=== PATIENT | male | born 1985 | race Caucasian/White ===

== ENCOUNTER 2018-12-05 23:11 | Inpatient (IN) ==
[2018-12-05] MEDS ORDERED: LORazepam 2 MG/ML VIAL (IM USE) ONE (23:21)
[2018-12-05] MEDS ORDERED: LORazepam 2 MG/4 ML VIAL IV STA (23:31)
[2018-12-05] MEDS: SODIUM CHLORIDE 0.9% 1000ML 1,000 ML IV SCH (23:37)
[2018-12-06 00:09] LABS: Alanine Aminotransferase 232 U/L (12-78); Albumin Globulin Ratio 0.9 (0.9-2); Albumin Level 3.4 gm/dl (3.4-5.0); Alkaline Phosphatase 310 U/L (45-117); Aspartate Aminotransferase 737 U/L (15-37); Bilirubin,Total 5.2 mg/dl (0.2-1); Blood Urea Nitrogen 19 mg/dl (7-18); Calcium 5.4 mg/dl (8.5-10.1); Carbon Dioxide 13 mmol/L (21-32); Chloride 72 mmol/L (98-107); Creatinine Clr Calc Pharmacy 49.9 ml/min; Est GFR (African American) 34.8; Globulin 3.8 gm/dl (2.5-4.0); Glucose 99 mg/dl (70-99); Lipase 790 U/L (73-393); Potassium 2.5 mmol/L (3.5-5.1); Sodium 120 mmol/L (136-145); Total Protein 7.2 gm/dl (6.4-8.2)
[2018-12-06 00:28] LABS: Magnesium 1.2 mg/dl (1.8-2.4)
[2018-12-06] MEDS: POTASSIUM CHLORIDE / WTR 10 MEQ/100 ML PLCT IV SCH ×19 (00:36→21:34)
[2018-12-06 00:37] LABS: Hematocrit (blood only) 42.3 % (42-52); Mean Corpuscular Hemoglobin 41.6 pg (25-34); Mean Corpuscular Hgb Conc 37.8 g/dL (32-36); Mean Corpuscular Volume 109.9 fL (80-100); Platelet Count 253 K/uL (130-400); Red Blood Count 3.85 M/uL (4.7-6.1)
[2018-12-06 00:38] LABS: Basophils # (auto) 0.02 K/uL (0-0.2); Basophils % (auto) 0.1 %; Eosinophils % (auto) 0.4 %; Immature Granulocytes # (auto) 0.14 K/uL (0.00-0.02); Immature Granulocytes % (auto) 0.6 %; Lymphocytes # (auto) 4.61 K/uL (1.2-3.4); Lymphocytes % (auto) 19.9 %; Macrocytosis Present; Monocytes # (auto) 2.95 K/uL (0.11-0.59); Monocytes % (auto) 12.7 %; Neutrophils # (auto) 15.38 K/uL (1.4-6.5); Neutrophils % (auto) 66.3 %; Pappenheimer Bodies 1+
[2018-12-06] MEDS ORDERED: MULTI-VITAMIN INFUSION 10 ML, THIAMINE HCL 100 MG, FOLIC ACID 1 MG in SODIUM CHLORIDE 0... IV ONE (00:38)
[2018-12-06 00:39] LABS: Troponin I < 0.015 ng/ml (0-0.045)
[2018-12-06] MEDS: SODIUM CHLORIDE 0.9% 1000ML 1,000 ML IV SCH ×2 (00:41→17:44)
[2018-12-06 00:56] LABS: INR 2.4 (0.9-1.1); Prothrombin Time 23.2 Seconds (9.0-12.0)
[2018-12-06] MEDS ORDERED: MAGNESIUM SULFATE / D5W 1 GM/100 ML BAG IV ONE ×2 (01:05→02:02)
[2018-12-06] MEDS ORDERED: CALCIUM GLUCONATE 10% 1,000 MG in SODIUM CHLORIDE 0.9% 50 ML IV STA ×5 (02:03→22:05)
[2018-12-06] MEDS ORDERED: AcetylCYSTEINE IV 21 HR REGIMEN (>40KG) IV STA (02:25)
[2018-12-06] MEDS ORDERED: PHYTONADIONE 5 MG in SODIUM CHLORIDE 0.9% 50 ML IV ONE (02:29)
[2018-12-06 02:47] LABS: Allen Test POS (Pos); Base Excess ABG -0.1 mEq/L (-9-1.8); HCO3 ABG 23 mmol/L (19-24); Oxygen Saturation ABG 91.7 % (90-95); PCO2 ABG 30 mmHg (35-46); PO2 ABG 68 mm/Hg (80-95); pH ABG 7.49 (7.35-7.45)
[2018-12-06 02:50] LABS: Albumin Level 2.7 gm/dl (3.4-5.0); Bilirubin Direct 2.9 mg/dl (0-0.2); Bilirubin,Total 4.2 mg/dl (0.2-1); Total Protein 5.5 gm/dl (6.4-8.2)
[2018-12-06] MEDS ORDERED: ICU PROTOCOL FOR HYPERGLYCEMIA PRN (03:29)
[2018-12-06 03:31] LABS: Lyme Ab IgG w/WB Rflx Negative (Negative); Lyme Ab IgM w/WB Rflx Negative (Negative)
--- NOTE | 2018-12-06 03:31 | Critical Care Consultation ---
Date of Consultation December 06, 2018 Assessment & Plan (1) Admitted to intensive care unit: Reason Critically Ill: 33-year-old male with acute hepatitis - presumed to be alcohol related -with transaminitis, elevated INR, high anion gap metabolic acidosis in the setting of lactic acidosis. Alcohol withdrawal symptoms. NEURO - * CAM ICU: NEGATIVE * Alcohol abuse with alcohol withdrawal symptoms - * While patient did present with severe tachycardia and normotensive status, patient also has severe metabolic derangements which certainly could contribute to the tachycardia as well. Regardless, patient did respond well to IV Ativan. * Last drink was on Sunday night. Persistent nausea and vomiting since. * No previous alcohol withdrawal symptoms. Particularly, no alcohol withdrawal seizures. * CIWA protocol in place w/ IV Ativan PRN per protocol. * Presumed alcoholic hepatitis. See GI. CARDIAC/VASCULAR - * Tachycardia: * Compensatory and multifactorial in the setting of EtOH withdrawal, severe metabolic derangements. * Improved w/ IVF and Ativan. * No elevation of troponin at this point. * No concerning EKG findings. * Consider Echo pending persistence of s/s w/ potential for alcohol induced dilated cardiomyopathy. * EKG: Sinus tach@127bpm. No significant ST/T-wave changes. QTc 511ms. * Avoid QTc prolonging agents. * Supplement Lytes. * Monitor on telemetry. RESPIRATORY - * Tachypnea: * On presentation to the ED. * Likely compensatory in the setting of high anion gap metabolic acidosis. * ABG suggests respiratory alkalosis which makes sense in the setting of compensatory reaction. * Saturating well on room air. * Patient verbally consents to intubation if necessary. GI/NUTRITION - * Acute Hepatitis: * Presumed EtOH associated. * Will add imaging studies of Abd/Liver/Portal vein system to completely evaluate all possible causes (i.e. portal vein thrombus, Budd-Chiari Syndrome, Hepatic steatosis, cirrhosis, etc.). * Transaminitis w/ elevated INR of 2.4. * Spoke w/ [facility] --> suggests IV Vitamin K dose as well as initiating NAC. Suggests FFP transfusion if INR were to worsen. * Initial MELD calculated at 35. In conversation w/ GI, this is not helpful w/o the concurrent Dx of cirrhosis. * Will add additional labs of alternative sources (i.e. Acetaminophen, Hepatitis, drug tox, toxic alcohols). * Appreciate GI consultation. * Elevated Lipase: * Will f/u w/ imaging for completeness. RENAL/LYTES - * High anion gap metabolic acidosis: * Presumed to be related to elevated lactate. Anticipate poor clearing w/ acute hepatitis. * Patient adamant that he has not ingested Aspirin, illicit drugs, acetaminophen, or toxic alcohols. * Will still check labs. Trend serum/Urine osms. Hold on fomepizole for now. * Appreciate nephrology consultation. * Multiple electrolyte derangements: * Presumed 2/2 metabolic acidemia. * Hypokalemia --> aggressive replacement. * Hyponatremia --> received 2L isotonic volume replacement in the ED. Will hold off further IVF at this time per nephro recs to prevent ODS. * Hypocalcemia --> aggressive replacement. * Acute renal failure: * Likely 2/2 hypovolemia in the setting of profound N/V. * Will monitor urine output closely. * If anuria persists --> ??hepatorenal syndrome. Consider octreotide/midodrine. Consider vasopressin if persistently anuric and development of hypotension to promote splanchnic vasoconstriction. - * Strict I&Os. ENDO - * No h/o DM or Thyroid Dz * BSGs per unit protocol. ISS --> gtt per unit policy. HEME - * Stable H&H. * Elevated INR: * In the setting of acute hepatitis. * Trend INR --> FFP if worsening. * Received 1 dose of Vitamin K per GI recs. ID - * Patient w/o findings of concern for infectious sources at this point. * Will trend fever curve. * f/u on Abd/Pelvis imaging studies for possible source. * Consider covering w/ Rocephin, however patient w/o s/s to suggest variceal injury or significant ascites. LINES/IV ACCESS - * PIVs x3 * Patient verbally consents to CVL "if necessary." DVT PROPHYLAXIS - * Hold on chemoprophylaxis s/s auto-anticoagulation at this point. * SCDs I have personally spent 65 minutes of critical care time in the direct management of this patient. This is a life/limb threatening event. This includes time spent evaluating patient, direct bedside care, chart review, placing orders, interpretation of diagnostic studies, discussion with consultants, patient, and family members, as well as other required patient management activities. This time is exclusive of all separately billable procedures, and teaching time and separate from and in addition to any other critical care service time. Thank you for allowing us to participate in the care of this patient. Please refer to my attending physician's documentation for any further recommendations. (2) Acute hepatitis: (3) Hyponatremia: (4) Hypokalemia: (5) Alcohol withdrawal: (6) Renal failure: (7) Alcohol abuse: (8) Hypomagnesemia: (9) Intractable vomiting: (10) Transaminitis: (11) Elevated INR: (12) Elevated lipase: (13) Lactic acidosis: (14) High anion gap metabolic acidosis: History of Present Illness Attending Physician: Jose Powers MD History of Present Illness Patient is a 33-year-old male with no significant past medical history who presented to the emergency department last evening for evaluation of persistent nausea and vomiting as well as rapid breathing. He was noted to be tachycardic in the 200s and tachypneic on presentation to the emergency department. He received IV fluid resuscitation as well as 2 mg IV Ativan. Patient was noted to have a moderate leukocytosis. Severe electrolyte derangements with hyponatremia, hypokalemia, and high anion gap metabolic acidosis in the setting of acute kidney injury was noted. Patient was found to have transaminitis with concerns for acute hepatitis. INR is elevated at 2.4. Troponin was negative. On evaluation in the emergency department, the patient is awake, alert, and oriented. He states that he has had vomiting since Sunday. He admits that he drinks 6 beers and 6 shots of Rumple Minze per night. Apparently, he has had this from his significant other for extended period of time. He states that he has been drinking this heavily for approximately 8 years. He has never tried to quit in the past. He has gone at least 24 hours without drinking multiple occasions, but admits that he has not gone much longer without a drink. He denies any breakthrough withdrawal symptoms including shakiness, confusion, or breakthrough seizures. He denies any other substance use, particularly intravenous drugs. He denies any use of Tylenol in the last few months. He did admit to taking ibuprofen last week for low back pain which is not uncommon for him. He is adamant that he did not utilize other forms of alcohol including methanol or ethylene glycol. He denies suicidal or homidicatl ideation. He does report a remote history of mononucleosis when he was approximately 26 years of age. In addition to the vomiting, the patient does report diarrhea. Again, he reports that this is not uncommon for himself. He denies any recent antibiotic use. No recent long distance travel. No consumption of raw/undercooked foods. Drinking from poor water sources. Patient is gainfully employed. He denies any other illicit substance use. He reports no known family history of liver disease. Allergies Allergy/AdvReac Type Severity Reaction Status Date / Time No Known Allergies Allergy Unverified 12/05/18 23:44 Home Medications Home Medications Medication Instructions Recorded Confirmed Type No Known Home Medications 12/05/18 12/05/18 History Patient History Medical History Alcohol abuse Surgical History No pertinent past surgical history Social History Preferred Language: Ivorian Communication Ability: Effective Telephone Order Dispatcher Required: No Beliefs That Will Affect Care: None Current Living Situation: Significant Other current occupational status: employed Other Information That Helps Us Care for You: No Feels Safe at Home: Yes Safety Concerns: Feels Safe At This Time Smoking Status: Never smoker Hx Alcohol Use: Yes Alcohol type: beer and hard liquor Hx Substance Use: No Review of Systems Review of Systems: A complete 10 point review of systems was reviewed with the patient with pertinent positives and negatives as per history of present illness. All else were negative. Physical Exam Physical Exam: VITAL SIGNS - Vital signs and nursing notes were reviewed. GENERAL - 33-year-old male appearing his stated age who is in no acute distress. Communicates well with provider and answers questions appropriately. SKIN - Without rashes. HEAD - NC/AT. EYES - PERRL with EOMI bilaterally. Scleral icterus noted bilaterally. Palpebral conjunctiva pink and moist with no injection noted. EARS - No deformities of external structures noted on gross examination bilaterally. No pain elicited with palpation of the tragus bilaterally. External auditory canals without discharge or otorrhea. Tympanic membranes pearly chen without retraction or bulging. NOSE - Midline and without cyanosis. No epistaxis or purulent drainage noted. MOUTH/OROPHARYNX - Without perioral cyanosis. Buccal mucosa pink and dry and without leukoplakia. Tongue midline with equal elevation of palate bilaterally. No tonsillar hypertrophy, erythema, or exudates noted. Good dentition noted. NECK - Neck with FROM. Supple to palpation. No lymphadenopathy noted. No nuchal rigidity. LUNGS - Chest wall symmetric without accessory muscle use, intercostals retractions, or central cyanosis. Normal vesicular breath sounds CTA B/L. No wheezes, rales, or rhonchi appreciated. CARDIAC - RRR with S1/S2. No murmur, rubs, or gallops appreciated. ABDOMEN - Abdominal contour protuberant without pulsations or visible masses. BS normoactive all four quadrants. Minimal subjective TTP in the RUQ. No palpable masses, hepatosplenomegaly, or ascites noted. EXTREMITIES - No clubbing or peripheral cyanosis. No pretibial edema present. +3/5 radial and dorsalis pedis pulses palpated throughout. +5/5 strength noted in UE/LE bilaterally. NEUROLOGIC - Cranial nerves II through XII grossly intact. Sensory intact to light touch throughout. PSYCH - A&Ox3 and cooperates fully with examiner. Pt is very pleasant and interacts well with examiner. Patient denies suicidal or homicidal ideation. Results & Data Vital Signs (Past 12 Hours) Vital Signs Temp Pulse Pulse Resp BP BP Pulse Ox 12/06/18 02:50 92 H 20 132/69 99 12/06/18 02:10 104 H 20 120/71 97 12/06/18 01:00 107 H 36 H 138/78 97 12/06/18 00:37 132 H 20 119/70 95 12/05/18 23:38 122 H 24 128/77 96 12/05/18 23:18 36.7 C 125 H 34 H 128/77 97 Coding Level of Care Code None Diagnoses Admitted to intensive care unit Z78.9 Acute hepatitis B17.9 Hyponatremia E87.1 Hypokalemia E87.6 Alcohol withdrawal F10.239 Complication of substance-induced condition: with unspecified complication Renal failure N19 Renal failure chronicity: unspecified chronicity Alcohol abuse F10.10 Hypomagnesemia E83.42 Intractable vomiting R11.10 Transaminitis R74.0 Elevated INR R79.1 Elevated lipase R74.8 Lactic acidosis E87.2 High anion gap metabolic acidosis E87.2 Time Spent (min) 65 Comment I have personally spent minutes of critical care time in the direct management of this patient. This is a life/limb threatening event. This includes time spent evaluating patient, direct bedside care, chart review, placing orders, interpretation of diagnostic studies, discussion with consultants, patient, and family members, as well as other required patient management activities. This time is exclusive of all separately billable procedures, and teaching time and separate from and in addition to any other critical care service time. (1) Alcohol withdrawal Complication of substance-induced condition: with unspecified complication Qualified Code(s): F10.239 - Alcohol dependence with withdrawal, unspecified (2) Renal failure Renal failure chronicity: unspecified chronicity Qualified Code(s): N19 - Unspecified kidney failure
[2018-12-06] MEDS ORDERED: LORazepam 3 MG/6 ML VIAL IV PRN (04:20)
[2018-12-06] MEDS ORDERED: LORazepam 2 MG/4 ML VIAL IV PRN (04:20)
[2018-12-06] MEDS ORDERED: ATIVAN IV ALCOHOL WITHDRAWL IV SCH (04:30)
[2018-12-06 04:32] LABS: INR 2.4 (0.9-1.1); Partial Thromboplastin Ratio 1.9; Prothrombin Time 23.5 Seconds (9.0-12.0)
[2018-12-06 04:43] LABS: Calcium < 5.0 mg/dl (8.5-10.1)
[2018-12-06 04:44] LABS: Alanine Aminotransferase 183 U/L (12-78); Albumin Level 2.5 gm/dl (3.4-5.0); Alkaline Phosphatase 226 U/L (45-117); Aspartate Aminotransferase 551 U/L (15-37); BUN Creatinine Ratio 7.1 (10-20); Bilirubin Direct 2.9 mg/dl (0-0.2); Bilirubin,Total 4.6 mg/dl (0.2-1); Blood Urea Nitrogen 18 mg/dl (7-18); Carbon Dioxide 24 mmol/L (21-32); Chloride 81 mmol/L (98-107); Creatinine Clr Calc Pharmacy 52.7 ml/min; Est GFR (African American) 36.6; Est GFR (Non-African American) 31.6; Glucose 111 mg/dl (70-99); Magnesium 1.6 mg/dl (1.8-2.4); Phosphorus 3.1 mg/dl (2.5-4.9); Potassium 2.1 mmol/L (3.5-5.1); Sodium 123 mmol/L (136-145); Total Protein 5.3 gm/dl (6.4-8.2)
[2018-12-06 04:52] LABS: Creatine Kinase 1513 U/L (39-308)
[2018-12-06 04:55] LABS: Partial Thromboplastin Time 51.4 Seconds (21.0-31.0)
[2018-12-06] MEDS ORDERED: INFLUENZA VIRUS QUAD VACCINE 0.5 ML SYR IM ONE (05:15)
[2018-12-06] MEDS ORDERED: INFLUENZA ADMINISTRATION CHARGE ONE (05:15)
--- NOTE | 2018-12-06 06:02 | History and Physical Report ---
DATE OF ADMISSION: 12/06/2018 CHIEF COMPLAINT: Nausea, vomiting, alcoholism. HISTORY OF PRESENT ILLNESS: This 33-year-old male with no significant past medical history, he says he drinks alcohol, 6 beers a day and 6 shots of whiskey every day for the last 8 years, lives with his girlfriend. He said he decided to quit drinking by himself about 2 days ago and today his girlfriend found him to have nausea, vomiting and shakiness, not feeling good and brought him here, and when he came in, he was tachycardic and his labs showed significant electrolyte abnormalities and hepatitis and HUYEN. We were called for admission. The patient is currently resting comfortably. Hemodynamics are okay now. Denies any headache, denies any dizziness, no blurred visions, no runny nose. He says couple of days ago blacked out and hit the back of his head, some soreness in the back of his head. He is not eating much. No difficulty swallowing, no chest pain, no shortness of breath, no cough, no fever, no chills, no abdominal pain. Denies any blood in the stools or black stools. Normal bladder movements. No hematuria or burning micturitions. No rash. The patient denies taking any [id number] medications. He denies taking any Tylenol, denies taking any aspirin. Denies drinking any antifreeze or any other alcohol stuff and he says he just took 1 tablet of ibuprofen last 1 week. ALLERGIES: No known drug allergies. PAST MEDICAL HISTORY: As mentioned above. PAST SURGICAL HISTORY: Denies any surgical history. FAMILY HISTORY: Significant for diabetes. SOCIAL HISTORY: Denies any smoking, denies drug use. Alcoholism as above. REVIEW OF SYMPTOMS: As per HPI. Rest of review of systems is negative. PHYSICAL EXAMINATION: GENERAL: The patient is obese, not in acute distress. VITAL SIGNS: Temperature 36.7, pulse was 107, blood pressure 120/71, oxygen 99% room air. HEENT: No pallor. No icterus present. Pupils equal, round, reactive to light. NECK: No JVD, no neck masses, no carotid bruit. CARDIOVASCULAR: S1, S2 heard. Tachycardia. No murmurs. RESPIRATORY SYSTEM: Normal AP diameter. No accessory muscle use. No wheezing, no crackles. ABDOMEN: Soft, bowel sounds present, nontender. No distention. CENTRAL NERVOUS SYSTEM: Cranial nerves II-XII grossly intact. Nonfocal. EXTREMITIES: Trace edema, no erythema seen. LABORATORIES DATA: WBC 23, hemoglobin 16, hematocrit 42.3, platelets 253. PT 23.2, INR 2.4. Sodium 120, potassium 2.5, chloride 72, bicarbonate 13, BUN 19, creatinine 2.67, anion gap of 35, glucose 99, osmolality 266. Lactate 7.7, calcium 5.4, magnesium 1.2, total bilirubin 4.2, direct bilirubin 2.9, AST 737, ALT 232, alkaline phosphatase 310. Troponin I less than 0.015. Lipase 790. Alcohol level less than 3. EKG undetermined rhythm with rate of 107, no previous EKG available. ASSESSMENT AND PLAN: This is a 33-year-old male with history of alcoholism, presents with nausea, vomiting and found to have electrolyte abnormalities and hepatitis and acute kidney injury. 1. Alcoholism, drinks 6 packs of beer every day and 6 shots of whiskey every day for the last 8 years, quit 2 days ago. Admitted to ICU. Alcohol withdrawal protocol as per ICU. 2. Hepatitis, most likely alcoholic hepatitis with total bilirubin of 4.2 and transaminitis. We will trend LFT'S. We will follow the CAT scan of the abdomen and pelvis, most likely secondary to alcoholism, but he is also having ANION GAP metabolic acidosis. His INR is 2.4. He was going to get IV vitamin K. We will follow ABG levels. GI was notified by critical care. Closely monitor in the ICU with repeat labs. 3. Anion gap metabolic acidosis, bicarbonate of 13, anion gap of 35. The patient denies any drinks or meds. . Marylu trend osmolar gap. Follow the ethylene glycol and methanol levels. We will closely follow the repeat labs. Lactate came back at 7.7, possibly due to alcoholism. We will follow the repeat labs.To consider antibiotics. Monitor hemodynamics.Follow ABG. 4. Hyponatremia. Discussed with nephro to get urine osmolality, serum osmolality, urine sodium levels. No Iv fluids for now. We will follow the BMP q. 4 hours. Currently, the patient's mental status is fine. 5. Hypokalemia with potassium of 2.5, replace. Follow the repeat labs. 6. Hypomagnesemia, to replace and follow the labs. 7. Hypokalemia. We will give calcium gluconate. We will follow repeat labs. 8. Leukocytosis. We will consider antibiotics with elevated lactic acids.Follow cultures 10. Deep venous thrombosis prophylaxis, sequential compression devices for now. 11. Disposition: Closely monitor in the ICU. Level 1 full code. MTDD
[2018-12-06 06:38] LABS: Basophils # (auto) 0.02 K/uL (0-0.2); Basophils % (auto) 0.1 %; Eosinophils # (auto) 0.01 K/uL (0-0.5); Eosinophils % (auto) 0.1 %; Hematocrit (blood only) 31.3 % (42-52); Hemoglobin 12.3 g/dL (14.0-18.0); Immature Granulocytes # (auto) 0.01 K/uL (0.00-0.02); Immature Granulocytes % (auto) 0.1 %; Lymphocytes # (auto) 1.16 K/uL (1.2-3.4); Lymphocytes % (auto) 7.4 %; Macrocytosis Present; Mean Corpuscular Hemoglobin 41.8 pg (25-34); Mean Corpuscular Hgb Conc 39.3 g/dL (32-36); Mean Corpuscular Volume 106.5 fL (80-100); Monocytes # (auto) 1.56 K/uL (0.11-0.59); Neutrophils # (auto) 12.83 K/uL (1.4-6.5); Neutrophils % (auto) 82.3 %; Pappenheimer Bodies 1+; Platelet Count 149 K/uL (130-400); Red Blood Count 2.94 M/uL (4.7-6.1); White Blood Count 15.59 K/uL (4.8-10.8)
--- NOTE | 2018-12-06 06:39 | CT Scan Report ---
CT abd pelvis wo con CT DOSE: 1063.70 mGy.cm HISTORY: Pain arf, acute hepatitis TECHNIQUE: Multiaxial CT images of the abdomen and pelvis were performed without contrast. A dose lo wering technique was utilized adhering to the principles of ALARA. COMPARISON STUDY: None. FINDINGS: Lung bases are clear. Diffuse fatty infiltration of liver. Trace perihepatic ascites. Moder ate hepatomegaly. Mild nonspecific small bowel enteritis. Trace ascites within the paracolic gutters. Bowel pattern is nonobstructive. Normal appendix. No significant abdominal pelvic or inguinal adenop athy. IMPRESSION: 1. Diffuse hepatomegaly with extensive fatty replacement. 2. Trace amount of perihepatic abdominal and pelvic ascites. 3. Nonspecific small bowel enteritis. The above report was generated using voice recognition software. It may contain grammatical, syntax or spelling errors. Electronically signed by: Anuel Anguiano M.D. 12/06/2018 6:37 AM
--- NOTE | 2018-12-06 06:46 | Ultrasound Report ---
Study: Doppler evaluation of the hepatic vasculature HISTORY: Hepatitis FINDINGS: Limited exam due to body habitus as well as extensive fatty replacement of the liver. [place] l vascular flow is identified within the hepatic as well as portal venous structures. IMPRESSION: 1. Limited study due to body habitus consideration as well as fatty replacement of the liver. 2. Normal flow within the hepatic as well as portal venous structures within these limitations. Electronically signed by: Anuel Anguiano M.D. 12/06/2018 6:45 AM
--- NOTE | 2018-12-06 07:11 | Ultrasound Report ---
US abdomen limited HISTORY: 33 years-old Male acute hepatitis/eval portal vein as well acute hepatitis COMPARISON: CT abdomen and pelvis 12/06/2018 TECHNIQUE: Multiple real-time sonographic images of the abdominal right upper quadrant were obtained assessing grayscale appearance and color flow FINDINGS: Limited exam secondary to patient body habitus. Hepatomegaly with hepatic steatosis. Trace perihepati c ascites. Minimal marginal nodularity of the liver. Mild gallbladder distention with mildly thickene d gallbladder wall, 5 mm. Trace layering gallbladder sludge without shadowing cholelithiasis. Common bile duct measures 5 mm. No intrahepatic biliary ductal dilation. Imaged right kidney is unremarkable without hydronephrosis. The previously described calculus of the inferior pole right kidney is not i dentified by ultrasound. IMPRESSION: 1. Limited exam secondary to patient body habitus. 2. Hepatomegaly with severe hepatic steatosis. Mild marginal nodularity of the liver suggests early c irrhotic changes. 3. Trace perihepatic ascites. 4. Gallbladder distention with mild gallbladder wall thickening and trace sludge without cholelithias is identified. The bladder wall thickening may be secondary to aforementioned hepatic disease however should be correlated clinically to exclude acalculus cholecystitis. The above report was generated using voice recognition software. It may contain grammatical, syntax o r spelling errors. Electronically signed by: Ken Kenny M.D. 12/06/2018 7:09 AM
[2018-12-06 07:50] LABS: Hepatitis B Surface Antigen Neg (Neg)
[2018-12-06 08:17] LABS: Hepatitis C IgG 13Yrs+Old_Rflx Neg (Neg)
--- NOTE | 2018-12-06 08:19 | Critical Care Progress Note ---
Date of Service December 06, 2018 Assessment & Plan (1) Admitted to intensive care unit: Reason Critically Ill: 33-year-old male with acute hepatitis - presumed to be alcohol related -with transaminitis, elevated INR, high anion gap metabolic acidosis in the setting of lactic acidosis. Alcohol withdrawal symptoms. NEURO - CAM ICU: NEGATIVE Alcohol abuse with alcohol withdrawal symptoms - Last drink was on Sunday night. Persistent nausea and vomiting- resolved No previous alcohol withdrawal symptoms. Particularly, no alcohol withdrawal seizures. CIWA protocol in place w/ IV Ativan PRN per protocol. PO Thiamine, Folate CARDIAC/VASCULAR - Tachycardia: Compensatory and multifactorial in the setting of EtOH withdrawal, severe metabolic derangements. Improved w/ IVF and Ativan. No elevation of troponin at this point. No concerning EKG findings. Consider Echo pending persistence of s/s w/ potential for alcohol induced dilated cardiomyopathy. RESPIRATORY - Tachypnea: resolved, Saturating well on room air ABG suggests primary respiratory alkalosis GI/NUTRITION - Acute Hepatitis: Presumed EtOH associated. Liver US-Hepatomegaly with severe hepatic steatosis. Mild marginal nodularity of the liver suggests early cirrhotic changes. Trace perihepatic ascites. Gallbladder distention with mild gallbladder wall thickening and trace sludge without cholelithiasis identified Transaminitis w/ elevated INR of 2.4. - s/p Vit K. Stable now Continue NAC per protocol DF>32--> Prednisolone started Await hepatitis serologies Initial MELD calculated at 35. In conversation w/ GI, this is not helpful w/o the concurrent Dx of cirrhosis. Discussed formal rehabilitation programs, AA and other options Will need OP hepatology follow up Appreciate GI consultation Advanced to normal diet Lactulose/Rifaxamin for elevated Ammonia- will cont trend. Does not appear encephalopathic RENAL/LYTES: High anion gap metabolic acidosis: Presumed to be related to elevated lactate. Anticipate poor clearing w/ acute hepatitis. Patient adamant that he has not ingested Aspirin, illicit drugs, acetaminophen, or toxic alcohols. Coexisting high anion gap metabolic acidosis Delta delta- suggests presence of concurrent metabolic alkalosis Multiple electrolyte derangements: repleting lytes as needed Appreciate nephrology consultation. Acute renal failure: Likely 2/2 hypovolemia in the setting of profound N/V. Will monitor urine output closely. Aggressive IV hydration w/ Normosol - Strict I&Os. ENDO - No h/o DM or Thyroid Dz BSGs per unit protocol. ISS --> gtt per unit policy. HEME - Stable H&H. Elevated INR: In the setting of acute hepatitis. Received 1 dose of Vitamin K per GI recs. Stable now ID - Patient w/o findings of concern for infectious sources at this point. Will trend fever curve. LINES/IV ACCESS - PIVs x3 DVT PROPHYLAXIS -Hold on chemoprophylaxis s/s auto-anticoagulation at this point. SCDs FULL CODE DISPO: Stable for downgrade out of ICU Supervising Physician Co-Signing Physician Notes Patient seen and examined. Discussed with GAVIN. Reviewed with family practice resident. Agree with his assessment and plan as noted. 33-year-old male with history of alcohol abuse admitted with multiple electrolyte abnormalities and hepatic failure. He also had mild acute injury, potentially a component of ATN. Recommendations: 1. Hepatic injury: Likely secondary to alcohol. No other illicit substances clearly identified. Continue N-acetylcysteine. Based on his discriminant score, he is a candidate for prednisolone which will be initiated per protocol. Appreciate GI follow-up. Await hepatitis serologies. Start rifaximin and lactulose given his elevated ammonia levels although he does not appear overtly encephalopathic. Complete abstinence from alcohol was recommended. Additional work-up per GI. Unclear if the patient may require liver biopsy at some point 2. History of alcohol abuse: Monitor for withdrawal symptoms. Currently on CIWA protocol. Continue thiamine and folate. Judicious benzodiazepines as needed 3. Acid-base abnormalities: The patient has evidence of a respiratory alkalosis and anion gap metabolic acidosis with elevated lactate. Rechecking lactate with fluid administration although clearance may be impaired by underlying liver disease. 4. Multiple electrolyte abnormalities: Aggressively replete calcium, magnesium, and potassium and recheck. Patient appears to be doing well clinically. We will recheck his electrolytes and if they are trending in the right direction he can likely be transferred to the floor under the care of the hospitalist later this afternoon. We will sign off when he leaves the ICU Subjective 33 yo M found this AM in NAD. No reported overnight events. Pt is awake, alert, oriented without confusion. No other acute concerns or complaints. Review of Systems Review of Systems: All systems reviewed & are unremarkable except as noted in HPI & below Physical Exam Constitutional: WD/WN, vitals as above Eyes: PERRL, conjunctivae normal, anicteric sclerae ENMT: external ear and nose normal, oropharynx normal Respiratory: normal respiratory effort, lungs clear to auscultation Cardiovascular: RRR, no murmur, no edema Gastrointestinal (Abdomen): normal bowel sounds, soft, nontender, no hepatosplenomegaly Skin: no rashes, warm and dry Psychiatric: A+Ox3, euthymic affect Results & Data Vital Signs (Past 12 Hours) Vital Signs Temp Pulse Pulse Resp BP BP Pulse Ox 12/06/18 05:30 106 H 16 111/68 97 12/06/18 05:00 98 H 26 H 116/60 95 12/06/18 04:01 96 H 27 H 127/62 93 12/06/18 03:41 36.8 C 99 H 16 98 12/06/18 03:35 101 H 28 H 131/76 12/06/18 02:50 92 H 20 132/69 99 12/06/18 02:10 104 H 20 120/71 97 12/06/18 01:00 106 H 107 H 30 H 138/78 138/78 94 12/06/18 00:37 132 H 20 119/70 95 12/05/18 23:38 122 H 24 128/77 96 12/05/18 23:18 36.7 C 125 H 34 H 128/77 97 Laboratory Results Laboratory Results - last 24 hr 12/05/18 12/05/18 12/05/18 23:30 23:30 23:30 WBC 23.20 H RBC 3.85 L Hgb 16.0 Hct 42.3 MCV 109.9 H MCH 41.6 H MCHC 37.8 H Plt Count 253 Immature Gran % (Auto) 0.6 Neut % (Auto) 66.3 Lymph % (Auto) 19.9 Winn % (Auto) 12.7 Eos % (Auto) 0.4 Baso % (Auto) 0.1 Immature Gran # (Auto) 0.14 H Neut # (Auto) 15.38 H Lymph # (Auto) 4.61 H Winn # (Auto) 2.95 H Eos # (Auto) 0.10 Baso # (Auto) 0.02 Macrocytosis Present Pappenheimer Bodies 1+ PT INR APTT PTT Ratio ABG pH ABG pCO2 ABG pO2 ABG HCO3 ABG O2 Saturation ABG Base Excess Arpit Test Barometric Pressure Oxygen Given Sodium 120 L Potassium 2.5 L* Chloride 72 L Carbon Dioxide 13 L Anion Gap 35.0 H BUN 19 H Creatinine 2.67 H Est Cr Clr Drug Dosing 49.9 Est GFR ( Amer) 34.8 Est GFR (Non-Af Amer) 30.0 BUN/Creatinine Ratio 7.0 L Glucose 99 Osmolality 266 L Lactate Calcium 5.4 L* Phosphorus Magnesium 1.2 L Total Bilirubin 5.2 H Direct Bilirubin AST 737 H ALT 232 H Alkaline Phosphatase 310 H Ammonia Lactate Dehydrogenase Total Creatine Kinase Troponin I < 0.015 Total Protein 7.2 Albumin 3.4 Globulin 3.8 Albumin/Globulin Ratio 0.9 Lipase 790 H Urine Color Urine Appearance Urine pH Ur Specific Sprakers Urine Protein Urine Glucose (UA) Urine Ketones Urine Blood Urine Nitrite Urine Bilirubin Urine Urobilinogen Ur Leukocyte Esterase Urine WBC (Auto) Urine RBC (Auto) U Hyaline Cast (Auto) U Epithel Cells (Auto) Urine Bacteria (Auto) Urine Mucus Urine Osmolality Ur Random Sodium Nasal Screen MRSA (PCR) Salicylates Urine Opiates Screen Ur Methadone, Qual Acetaminophen Urine Barbiturates Ur Phencyclidine (PCP) U Amphetamin/Meth Scrn MDMA (Ecstasy) Screen U Benzodiazepines Scrn Ur Cocaine Metabolite U Marijuana (THC) Screen Ethylene Glycol Ethyl Alcohol mg/dL Methyl Alcohol Level Lyme Disease IgG Ab Lyme Disease IgM Ab Hepatitis A IgM Ab Hep Bs Antigen Hep B Core IgM Ab Hepatitis C Antibody 12/05/18 12/05/18 12/06/18 23:32 23:32 00:33 WBC RBC Hgb Hct MCV MCH MCHC Plt Count Immature Gran % (Auto) Neut % (Auto) Lymph % (Auto) Winn % (Auto) Eos % (Auto) Baso % (Auto) Immature Gran # (Auto) Neut # (Auto) Lymph # (Auto) Winn # (Auto) Eos # (Auto) Baso # (Auto) Macrocytosis Pappenheimer Bodies PT 23.2 H INR 2.4 H APTT PTT Ratio ABG pH ABG pCO2 ABG pO2 ABG HCO3 ABG O2 Saturation ABG Base Excess Arpit Test Barometric Pressure Oxygen Given Sodium Potassium Chloride Carbon Dioxide Anion Gap BUN Creatinine Est Cr Clr Drug Dosing Est GFR ( Amer) Est GFR (Non-Af Amer) BUN/Creatinine Ratio Glucose Osmolality Lactate Calcium Phosphorus Magnesium Total Bilirubin Direct Bilirubin AST ALT Alkaline Phosphatase Ammonia Lactate Dehydrogenase Total Creatine Kinase Troponin I Total Protein Albumin Globulin Albumin/Globulin Ratio Lipase Urine Color Urine Appearance Urine pH Ur Specific Sprakers Urine Protein Urine Glucose (UA) Urine Ketones Urine Blood Urine Nitrite Urine Bilirubin Urine Urobilinogen Ur Leukocyte Esterase Urine WBC (Auto) Urine RBC (Auto) U Hyaline Cast (Auto) U Epithel Cells (Auto) Urine Bacteria (Auto) Urine Mucus Urine Osmolality Ur Random Sodium Nasal Screen MRSA (PCR) Salicylates Urine Opiates Screen Ur Methadone, Qual Acetaminophen Urine Barbiturates Ur Phencyclidine (PCP) U Amphetamin/Meth Scrn MDMA (Ecstasy) Screen U Benzodiazepines Scrn Ur Cocaine Metabolite U Marijuana (THC) Screen Ethylene Glycol Ethyl Alcohol mg/dL Methyl Alcohol Level Lyme Disease IgG Ab Lyme Disease IgM Ab Hepatitis A IgM Ab Pending Hep Bs Antigen Neg Hep B Core IgM Ab Pending Hepatitis C Antibody Neg 12/06/18 12/06/18 12/06/18 00:33 02:00 02:04 WBC RBC Hgb Hct MCV MCH MCHC Plt Count Immature Gran % (Auto) Neut % (Auto) Lymph % (Auto) Winn % (Auto) Eos % (Auto) Baso % (Auto) Immature Gran # (Auto) Neut # (Auto) Lymph # (Auto) Winn # (Auto) Eos # (Auto) Baso # (Auto) Macrocytosis Pappenheimer Bodies PT INR APTT PTT Ratio ABG pH ABG pCO2 ABG pO2 ABG HCO3 ABG O2 Saturation ABG Base Excess Arpit Test Barometric Pressure Oxygen Given Sodium Potassium Chloride Carbon Dioxide Anion Gap BUN Creatinine Est Cr Clr Drug Dosing Est GFR ( Amer) Est GFR (Non-Af Amer) BUN/Creatinine Ratio Glucose Osmolality Lactate 7.7 H* Calcium Phosphorus Magnesium Total Bilirubin 4.2 H Direct Bilirubin 2.9 H AST 566 H ALT 177 H Alkaline Phosphatase 231 H Ammonia Lactate Dehydrogenase Total Creatine Kinase Troponin I Total Protein 5.5 L D Albumin 2.7 L Globulin Albumin/Globulin Ratio Lipase Urine Color Urine Appearance Urine pH Ur Specific Sprakers Urine Protein Urine Glucose (UA) Urine Ketones Urine Blood Urine Nitrite Urine Bilirubin Urine Urobilinogen Ur Leukocyte Esterase Urine WBC (Auto) Urine RBC (Auto) U Hyaline Cast (Auto) U Epithel Cells (Auto) Urine Bacteria (Auto) Urine Mucus Urine Osmolality Ur Random Sodium Nasal Screen MRSA (PCR) Salicylates Urine Opiates Screen Ur Methadone, Qual Acetaminophen Urine Barbiturates Ur Phencyclidine (PCP) U Amphetamin/Meth Scrn MDMA (Ecstasy) Screen U Benzodiazepines Scrn Ur Cocaine Metabolite U Marijuana (THC) Screen Ethylene Glycol Ethyl Alcohol mg/dL < 3.0 Methyl Alcohol Level Lyme Disease IgG Ab Lyme Disease IgM Ab Hepatitis A IgM Ab Hep Bs Antigen Hep B Core IgM Ab Hepatitis C Antibody 12/06/18 12/06/18 12/06/18 02:04 02:04 02:06 WBC RBC Hgb Hct MCV MCH MCHC Plt Count Immature Gran % (Auto) Neut % (Auto) Lymph % (Auto) Winn % (Auto) Eos % (Auto) Baso % (Auto) Immature Gran # (Auto) Neut # (Auto) Lymph # (Auto) Winn # (Auto) Eos # (Auto) Baso # (Auto) Macrocytosis Pappenheimer Bodies PT INR APTT PTT Ratio ABG pH ABG pCO2 ABG pO2 ABG HCO3 ABG O2 Saturation ABG Base Excess Arpit Test Barometric Pressure Oxygen Given Sodium Potassium Chloride Carbon Dioxide Anion Gap BUN Creatinine Est Cr Clr Drug Dosing Est GFR ( Amer) Est GFR (Non-Af Amer) BUN/Creatinine Ratio Glucose Osmolality Lactate Calcium Phosphorus Magnesium Total Bilirubin Direct Bilirubin AST ALT Alkaline Phosphatase Ammonia Lactate Dehydrogenase Total Creatine Kinase Troponin I Total Protein Albumin Globulin Albumin/Globulin Ratio Lipase Urine Color Urine Appearance Urine pH Ur Specific Sprakers Urine Protein Urine Glucose (UA) Urine Ketones Urine Blood Urine Nitrite Urine Bilirubin Urine Urobilinogen Ur Leukocyte Esterase Urine WBC (Auto) Urine RBC (Auto) U Hyaline Cast (Auto) U Epithel Cells (Auto) Urine Bacteria (Auto) Urine Mucus Urine Osmolality Ur Random Sodium Nasal Screen MRSA (PCR) Salicylates Urine Opiates Screen Ur Methadone, Qual Acetaminophen Urine Barbiturates Ur Phencyclidine (PCP) U Amphetamin/Meth Scrn MDMA (Ecstasy) Screen U Benzodiazepines Scrn Ur Cocaine Metabolite U Marijuana (THC) Screen Ethylene Glycol Pending Ethyl Alcohol mg/dL Methyl Alcohol Level Pending Lyme Disease IgG Ab Negative Lyme Disease IgM Ab Negative Hepatitis A IgM Ab Hep Bs Antigen Hep B Core IgM Ab Hepatitis C Antibody 12/06/18 12/06/18 12/06/18 02:06 02:32 03:54 WBC RBC Hgb Hct MCV MCH MCHC Plt Count Immature Gran % (Auto) Neut % (Auto) Lymph % (Auto) Winn % (Auto) Eos % (Auto) Baso % (Auto) Immature Gran # (Auto) Neut # (Auto) Lymph # (Auto) Winn # (Auto) Eos # (Auto) Baso # (Auto) Macrocytosis Pappenheimer Bodies PT INR APTT PTT Ratio ABG pH 7.49 H ABG pCO2 30 L ABG pO2 68 L ABG HCO3 23 ABG O2 Saturation 91.7 ABG Base Excess -0.1 Arpit Test POS Barometric Pressure 728.2 Oxygen Given ROOM AIR Sodium 123 L Potassium 2.1 L* D Chloride 81 L Carbon Dioxide 24 Anion Gap 18.0 H BUN 18 Creatinine 2.56 H Est Cr Clr Drug Dosing 52.7 Est GFR ( Amer) 36.6 Est GFR (Non-Af Amer) 31.6 BUN/Creatinine Ratio 7.1 L Glucose 111 H Osmolality Lactate Calcium < 5.0 L* Phosphorus 3.1 Magnesium 1.6 L Total Bilirubin 4.6 H Direct Bilirubin 2.9 H AST 551 H ALT 183 H Alkaline Phosphatase 226 H Ammonia Lactate Dehydrogenase 1648 H Total Creatine Kinase 1513 H Troponin I Total Protein 5.3 L Albumin 2.5 L Globulin Albumin/Globulin Ratio Lipase Urine Color Urine Appearance Urine pH Ur Specific Sprakers Urine Protein Urine Glucose (UA) Urine Ketones Urine Blood Urine Nitrite Urine Bilirubin Urine Urobilinogen Ur Leukocyte Esterase Urine WBC (Auto) Urine RBC (Auto) U Hyaline Cast (Auto) U Epithel Cells (Auto) Urine Bacteria (Auto) Urine Mucus Urine Osmolality Ur Random Sodium Nasal Screen MRSA (PCR) Salicylates Urine Opiates Screen Ur Methadone, Qual Acetaminophen Urine Barbiturates Ur Phencyclidine (PCP) U Amphetamin/Meth Scrn MDMA (Ecstasy) Screen U Benzodiazepines Scrn Ur Cocaine Metabolite U Marijuana (THC) Screen Ethylene Glycol Ethyl Alcohol mg/dL Methyl Alcohol Level Lyme Disease IgG Ab Lyme Disease IgM Ab Hepatitis A IgM Ab Hep Bs Antigen Hep B Core IgM Ab Hepatitis C Antibody 12/06/18 12/06/18 12/06/18 03:54 03:54 06:05 WBC 15.59 H RBC 2.94 L Hgb 12.3 L D Hct 31.3 L MCV 106.5 H MCH 41.8 H MCHC 39.3 H Plt Count 149 Immature Gran % (Auto) 0.1 Neut % (Auto) 82.3 Lymph % (Auto) 7.4 Winn % (Auto) 10.0 Eos % (Auto) 0.1 Baso % (Auto) 0.1 Immature Gran # (Auto) 0.01 Neut # (Auto) 12.83 H Lymph # (Auto) 1.16 L Winn # (Auto) 1.56 H Eos # (Auto) 0.01 Baso # (Auto) 0.02 Macrocytosis Present Pappenheimer Bodies 1+ PT 23.5 H INR 2.4 H APTT 51.4 H* PTT Ratio 1.9 ABG pH ABG pCO2 ABG pO2 ABG HCO3 ABG O2 Saturation ABG Base Excess Arpit Test Barometric Pressure Oxygen Given Sodium Potassium Chloride Carbon Dioxide Anion Gap BUN Creatinine Est Cr Clr Drug Dosing Est GFR ( Amer) Est GFR (Non-Af Amer) BUN/Creatinine Ratio Glucose Osmolality Lactate Calcium Phosphorus Magnesium Total Bilirubin Direct Bilirubin AST ALT Alkaline Phosphatase Ammonia Lactate Dehydrogenase Total Creatine Kinase Troponin I Total Protein Albumin Globulin Albumin/Globulin Ratio Lipase Urine Color Dark Yellow Urine Appearance Cloudy A Urine pH 5.0 Ur Specific Sprakers 1.021 Urine Protein 1+ H Urine Glucose (UA) Negative Urine Ketones 1+ H Urine Blood Trace H Urine Nitrite Positive A Urine Bilirubin 1+ H Urine Urobilinogen Negative Ur Leukocyte Esterase Trace H Urine WBC (Auto) 5-10 H Urine RBC (Auto) 5-10 H U Hyaline Cast (Auto) >30 H U Epithel Cells (Auto) 20-30 H Urine Bacteria (Auto) 1+ H Urine Mucus Present A Urine Osmolality Ur Random Sodium Nasal Screen MRSA (PCR) Salicylates Urine Opiates Screen Ur Methadone, Qual Acetaminophen Urine Barbiturates Ur Phencyclidine (PCP) U Amphetamin/Meth Scrn MDMA (Ecstasy) Screen U Benzodiazepines Scrn Ur Cocaine Metabolite U Marijuana (THC) Screen Ethylene Glycol Ethyl Alcohol mg/dL Methyl Alcohol Level Lyme Disease IgG Ab Lyme Disease IgM Ab Hepatitis A IgM Ab Hep Bs Antigen Hep B Core IgM Ab Hepatitis C Antibody 12/06/18 12/06/18 12/06/18 06:05 06:05 06:05 WBC RBC Hgb Hct MCV MCH MCHC Plt Count Immature Gran % (Auto) Neut % (Auto) Lymph % (Auto) Winn % (Auto) Eos % (Auto) Baso % (Auto) Immature Gran # (Auto) Neut # (Auto) Lymph # (Auto) Winn # (Auto) Eos # (Auto) Baso # (Auto) Macrocytosis Pappenheimer Bodies PT INR APTT PTT Ratio ABG pH ABG pCO2 ABG pO2 ABG HCO3 ABG O2 Saturation ABG Base Excess Arpit Test Barometric Pressure Oxygen Given Sodium Potassium Chloride Carbon Dioxide Anion Gap BUN Creatinine Est Cr Clr Drug Dosing Est GFR ( Amer) Est GFR (Non-Af Amer) BUN/Creatinine Ratio Glucose Osmolality Lactate Calcium Phosphorus Magnesium Total Bilirubin Direct Bilirubin AST ALT Alkaline Phosphatase Ammonia Lactate Dehydrogenase Total Creatine Kinase Troponin I Total Protein Albumin Globulin Albumin/Globulin Ratio Lipase Urine Color Urine Appearance Urine pH Ur Specific Sprakers Urine Protein Urine Glucose (UA) Urine Ketones Urine Blood Urine Nitrite Urine Bilirubin Urine Urobilinogen Ur Leukocyte Esterase Urine WBC (Auto) Urine RBC (Auto) U Hyaline Cast (Auto) U Epithel Cells (Auto) Urine Bacteria (Auto) Urine Mucus Urine Osmolality 341 L Ur Random Sodium 11 Nasal Screen MRSA (PCR) Salicylates Urine Opiates Screen Neg Ur Methadone, Qual Neg Acetaminophen Urine Barbiturates Neg Ur Phencyclidine (PCP) Neg U Amphetamin/Meth Scrn Neg MDMA (Ecstasy) Screen Neg U Benzodiazepines Scrn Neg Ur Cocaine Metabolite Neg U Marijuana (THC) Screen Neg Ethylene Glycol Ethyl Alcohol mg/dL Methyl Alcohol Level Lyme Disease IgG Ab Lyme Disease IgM Ab Hepatitis A IgM Ab Hep Bs Antigen Hep B Core IgM Ab Hepatitis C Antibody 12/06/18 12/06/18 06:18 Unknown WBC RBC Hgb Hct MCV MCH MCHC Plt Count Immature Gran % (Auto) Neut % (Auto) Lymph % (Auto) Winn % (Auto) Eos % (Auto) Baso % (Auto) Immature Gran # (Auto) Neut # (Auto) Lymph # (Auto) Winn # (Auto) Eos # (Auto) Baso # (Auto) Macrocytosis Pappenheimer Bodies PT INR APTT PTT Ratio ABG pH ABG pCO2 ABG pO2 ABG HCO3 ABG O2 Saturation ABG Base Excess Arpit Test Barometric Pressure Oxygen Given Sodium Potassium Chloride Carbon Dioxide Anion Gap BUN Creatinine Est Cr Clr Drug Dosing Est GFR ( Amer) Est GFR (Non-Af Amer) BUN/Creatinine Ratio Glucose Osmolality Lactate Calcium Phosphorus Magnesium Total Bilirubin Direct Bilirubin AST ALT Alkaline Phosphatase Ammonia 94.0 H Lactate Dehydrogenase Total Creatine Kinase Troponin I Total Protein Albumin Globulin Albumin/Globulin Ratio Lipase Urine Color Urine Appearance Urine pH Ur Specific Sprakers Urine Protein Urine Glucose (UA) Urine Ketones Urine Blood Urine Nitrite Urine Bilirubin Urine Urobilinogen Ur Leukocyte Esterase Urine WBC (Auto) Urine RBC (Auto) U Hyaline Cast (Auto) U Epithel Cells (Auto) Urine Bacteria (Auto) Urine Mucus Urine Osmolality Ur Random Sodium Nasal Screen MRSA (PCR) Negative Salicylates Urine Opiates Screen Ur Methadone, Qual Acetaminophen Urine Barbiturates Ur Phencyclidine (PCP) U Amphetamin/Meth Scrn MDMA (Ecstasy) Screen U Benzodiazepines Scrn Ur Cocaine Metabolite U Marijuana (THC) Screen Ethylene Glycol Ethyl Alcohol mg/dL Methyl Alcohol Level Lyme Disease IgG Ab Lyme Disease IgM Ab Hepatitis A IgM Ab Hep Bs Antigen Hep B Core IgM Ab Hepatitis C Antibody Medications Administered Current Inpatient Medications Acetylcysteine 10,500 mg/ (Dextrose) 1,052.5 mls @ 62.5 mls/hr IV ONE ONE; Protocol Stop: 12/07/18 00:16 Last Admin: 12/06/18 09:20 Dose: 62.5 mls/hr Documented by: Folic Acid 1 mg/ Syringe 10 mls @ 5 mls/min IV QAM [facility] Stop: 01/05/19 08:59 Last Admin: 12/06/18 08:45 Dose: 5 mls/min Documented by: Thiamine HCl 100 mg/ Syringe 10 mls @ 2 mls/min IV QAM [facility] Stop: 01/05/19 08:59 Last Admin: 12/06/18 08:45 Dose: 2 mls/min Documented by: Lorazepam (Ativan) 1 mg in 2 mls @ 2 mls/min IV UD PRN; Protocol PRN Reason: EtOH Withdrawl AWSS Score 6,7 Stop: 01/05/19 04:19 Lorazepam (Ativan) 2 mg in 4 mls @ 4 mls/min IV UD PRN; Protocol PRN Reason: EtOH Withdrawl AWSS Score 8,9 Stop: 01/05/19 04:19 Lorazepam (Ativan) 3 mg in 6 mls @ 4 mls/min IV ONCE PRN; Protocol PRN Reason: EtOH Withdrawl AWSS Score >=10 Stop: 01/05/19 04:19 Parenteral Electrolytes (Normosol-R) 1,000 mls @ 125 mls/hr IV .Q8H [facility] Stop: 01/05/19 09:44 Last Admin: 12/06/18 10:20 Dose: 125 mls/hr Documented by: Magnesium Sulfate/Dextrose (Magnesium Sulfate / D5w) 1 gm in 100 mls @ 100 mls/hr IV Q1H [facility] Stop: 12/06/18 11:59 Last Admin: 12/06/18 09:49 Dose: 100 mls/hr Documented by: Lactulose (Chronulac) 20 gm PO TID [facility] Stop: 01/05/19 13:59 Miscellaneous (Icu Protocol For Hyperglycemia) 1 ea N/A PRN PRN; Protocol PRN Reason: Hyperglycemia Protocol Stop: 12/08/18 03:28 Multivitamins/Minerals (Multivitamin W/ Minerals Tab) 1 tab PO QAM [facility] Stop: 01/05/19 08:59 Last Admin: 12/06/18 08:45 Dose: 1 tab Documented by: Potassium Chloride (Klor-Con M20) 40 meq PO Q6H [facility] Stop: 12/07/18 16:01 Last Admin: 12/06/18 10:06 Dose: 40 meq Documented by: Rifaximin (Xifaxan) 200 mg PO TID [facility] Stop: 01/05/19 13:59 PG Care Time/CCT Total # of Minutes Spent Total Time Spent with Patient: Total time spent is greater than 50% in coordination of care (as documented) at patient's floor/unit and/or counseling patient: Critical Care Time: Yes Total Critical Care Time: 38 Resident Activity Tracking Resident Involvement: Resident Care Provided Care Provided: Adult Hospital Medicine
[2018-12-06] MEDS: CEROVITE ADV FORMULA TAB PO SCH (08:45)
[2018-12-06] MEDS ORDERED: FOLIC ACID 1 MG in SYRINGE 9.8 ML IV SCH (09:00)
[2018-12-06] MEDS ORDERED: THIAMINE HCL 100 MG in SYRINGE 9 ML IV SCH (09:00)
[2018-12-06 09:22] LABS: Appearance Urine Cloudy (Clear); Blood Urine Trace (Negative); Color Urine Dark Yellow; Epithelial Cell Urine Auto 20-30 /lpf (0-5); Glucose Urine UA Negative (Negative); Ketones Urine 1+ (Negative); Leukocyte Esterase Urine Trace (Negative); Nitrite Urine Positive (Negative); Protein Urine 1+ (Negative); Specific Gravity Urine 1.021 (1.000-1.030); Urobilinogen Urine Negative (Negative)
--- NOTE | 2018-12-06 09:27 | Gastrointestinal Consultation ---
Date of Consultation December 06, 2018 Assessment & Plan (1) Transaminitis: 33 year old generally healthy male presented to [facility] ED admitted to the ICU w/ significant electrolyte abnormality, HUYEN, acute hepatitis - GI asked to evaluated for elevated LFTS, INR and US changes. He likely has ETOH hepatitis super imposed on cirrhosis. Prognosis discussed. Cirrhosis discussed - recommended ETOH cessation. He is awake, alert, oriented without confusion or asterixis on examination - Appreciate nephrology input - Trend BUN/JOINT SPECIAL OPERATIONS - Consider additional urine electrolytes - Appreciate management of electrolytes per ICU team and primary service - Trend LFTs - Trend PT/INR - Received Vit K - INR stable - MELD 35 (early cirrhosis on imaging) - DF 59 - Continue NAC per protocol - Would defer steroid therapy until infectious panel is negative - Would defer trental given HUYEN - Strict ETOH cessation - ETOH withdrawal protocol - Discussed formal rehabilitation programs, AA and other options - Will need OP hepatology follow up Thank you for allowing us to participate in the care of this patient. Please call with any acute changes, questions or concerns. Please see addendum below with additional recommendation from my supervising physician. Present on Admission?: Yes (2) Acute hepatitis: Present on Admission?: Yes Supervising Physician Co-Signing Physician Notes I have seen and examined the patient with CECILIA Edge. 33 yo male admitted overnite. Endorses eoth use, labs c/w alcoholic hepatitis on early cirrhosis. PE - alert and oriented, no scleral icterus, abd soft nt nd +bs Labs reviewed Imaging reviewed On NAC Agree with further assessment plan as documented above. History of Present Illness Reason for Consultation: elevated LFTs Requesting Physician: Gio Attending Physician: Jose Powers MD History of Present Illness 33 year old male without any past medical history who presented through the ED by zee for evaluation of nausea, vomiting and shakiness - admitted to the ICU w/ significant electrolyte abnormalities, HUYEN and hepatitis. GI asked to evaluate for elevated LFTS, abnormal liver imaging. Pt was seen and evaluated, chart reviewed. Upon entering his room he is ambulating to bedside commode. He is awake, alert oriented x 3 answering all questions appropriately. He notes he is generally healthy. Has a history of heavy ETOH use, suggesting that for the past 10 or so years he drinks about 6-8 beers anton and 6-8 shots of liquor in the evening. He decided about three days ago he wanted to stop drinking ETOH completely. Notes about 24 hours later he developed weakness, fatigue, shakiness, nausea/vomiting which prompted ED visit. Currently, symptoms improved. Denies any abd pain. No nausea, vomiting. Moving bowels - formed, brown stools. No black or bloody stools. Making urine. No fever, chills, CP, SOB ETOH: last drink three days prior to arrival, 6-8 beers and 6-8 shots daily Herbal supplements: none Tattoo/Piercings: none Tylenol: none NSAIDs: very rare Street drugs/other substances: none Duplex: Limited study due to body habitus consideration as well as fatty replacement of the liver.. Normal flow within the hepatic as well as portal venous structures within these limitations. ABD US: . Limited exam secondary to patient body habitus.Hepatomegaly with severe hepatic steatosis. Mild marginal nodularity of the liver suggests early cirrhotic changes.Trace perihepatic ascites.Gallbladder distention with mild gallbladder wall thickening and trace sludge without cholelithiasis identified. The bladder wall thickening may be secondary to aforementioned hepatic disease however should be correlated clinically to exclude acalculus cholecystitis. CT: Diffuse hepatomegaly with extensive fatty replacement. Trace amount of perihepatic abdominal and pelvic ascites. Nonspecific small bowel enteritis. Allergies Allergy/AdvReac Type Severity Reaction Status Date / Time No Known Allergies Allergy Unverified 12/05/18 23:44 Home Medications Home Medications Medication Instructions Recorded Confirmed Type No Known Home Medications 12/05/18 12/05/18 History Patient History Medical History Alcohol abuse Surgical History No pertinent past surgical history Social History Preferred Language: Mongolian Communication Ability: Effective Blood Bank Specialist Required: No Beliefs That Will Affect Care: None Current Living Situation: Significant Other current occupational status: employed Other Information That Helps Us Care for You: No Feels Safe at Home: Yes Safety Concerns: Feels Safe At This Time Smoking Status: Never smoker Hx Alcohol Use: Yes Alcohol type: beer and hard liquor Hx Substance Use: No Review of Systems Constitutional: no fever, no chills and no fatigue Respiratory: no cough and no dyspnea Cardiovascular: no chest pain, no radiating jaw, neck or arm pain and no dyspnea on exertion Gastrointestinal: no abdominal pain, no early satiety, no vomiting, no coffee ground emesis, no hematemesis, no blood in stools and no melena Physical Exam Constitutional: WD/WN, vitals as above no acute distress and not ill appearing Neck: trachea midline Respiratory: normal respiratory effort and + respiratory distress Cardiovascular: Rate/Rhythm: regular rate and regular rhythm Gastrointestinal (Abdomen): normal bowel sounds, soft, nontender, no hepatosplenomegaly Skin: no rashes, warm and dry + jaundice Results & Data Vital Signs (Past 12 Hours) Vital Signs Temp Pulse Pulse Resp BP BP Pulse Ox 12/06/18 08:00 104 H 12/06/18 07:00 36.8 C 106 H 20 124/74 98 12/06/18 05:30 106 H 16 111/68 97 12/06/18 05:00 98 H 26 H 116/60 95 12/06/18 04:01 96 H 27 H 127/62 93 12/06/18 03:41 36.8 C 99 H 16 98 12/06/18 03:35 101 H 28 H 131/76 12/06/18 02:50 92 H 20 132/69 99 12/06/18 02:10 104 H 20 120/71 97 12/06/18 01:00 106 H 107 H 30 H 138/78 138/78 94 12/06/18 00:37 132 H 20 119/70 95 12/05/18 23:38 122 H 24 128/77 96 12/05/18 23:18 36.7 C 125 H 34 H 128/77 97 Laboratory Results 12/06/18 12/06/18 12/06/18 Range/Units Unknown 06:18 06:05 WBC (4.8-10.8) K/uL RBC (4.7-6.1) M/uL Hgb (14.0-18.0) g/dL Hct (42-52) % MCV (80-100) fL MCH (25-34) pg MCHC (32-36) g/dL Plt Count (130-400) K/uL Immature Gran % (Auto) % Neut % (Auto) % Lymph % (Auto) % [place] % (Auto) % Eos % (Auto) % Baso % (Auto) % Immature Gran # (Auto) (0.00-0.02) K/uL Neut # (Auto) (1.4-6.5) K/uL Lymph # (Auto) (1.2-3.4) K/uL [place] # (Auto) (0.11-0.59) K/uL Eos # (Auto) (0-0.5) K/uL Baso # (Auto) (0-0.2) K/uL Macrocytosis Pappenheimer Bodies PT (9.0-12.0) Seconds INR (0.9-1.1) APTT (21.0-31.0) Seconds PTT Ratio ABG pH (7.35-7.45) ABG pCO2 (35-46) mmHg ABG pO2 (80-95) mm/Hg ABG HCO3 (19-24) mmol/L ABG O2 Saturation (90-95) % ABG Base Excess (-9-1.8) mEq/L Arpit Test (Pos) Barometric Pressure mm/Hg Oxygen Given Sodium (136-145) mmol/L Potassium (3.5-5.1) mmol/L Chloride (98-107) mmol/L Carbon Dioxide (21-32) mmol/L Anion Gap (3-11) BUN (7-18) mg/dl Creatinine (0.6-1.4) mg/dl Est Cr Clr Drug Dosing ml/min Est GFR ( Amer) Est GFR (Non-Af Amer) BUN/Creatinine Ratio (10-20) Glucose (70-99) mg/dl Osmolality (280-300) mOsm/kg Lactate (0.4-2.0) mmol/L Calcium (8.5-10.1) mg/dl Phosphorus (2.5-4.9) mg/dl Magnesium (1.8-2.4) mg/dl Total Bilirubin (0.2-1) mg/dl Direct Bilirubin (0-0.2) mg/dl AST (15-37) U/L ALT (12-78) U/L Alkaline Phosphatase (45-117) U/L Ammonia 94.0 H (11-32) umol/L Lactate Dehydrogenase (87-241) U/L Total Creatine Kinase (39-308) U/L Troponin I (0-0.045) ng/ml Total Protein (6.4-8.2) gm/dl Albumin (3.4-5.0) gm/dl Globulin (2.5-4.0) gm/dl Albumin/Globulin Ratio (0.9-2) Lipase (73-393) U/L Urine Color Urine Appearance Urine pH Ur Specific Daphne Urine Protein Urine Glucose (UA) Urine Ketones Urine Blood Urine Nitrite Urine Bilirubin Urine Urobilinogen Ur Leukocyte Esterase Urine Osmolality Ur Random Sodium Nasal Screen MRSA (PCR) Negative (Negative) Salicylates (2.8-20) mg/dl Urine Opiates Screen Pending Ur Methadone, Qual Pending Acetaminophen (10-30) ug/ml Urine Barbiturates Pending Ur Phencyclidine (PCP) Pending U Amphetamin/Meth Scrn Pending MDMA (Ecstasy) Screen Pending U Benzodiazepines Scrn Pending Ur Cocaine Metabolite Pending U Marijuana (THC) Screen Pending Ethylene Glycol Ethyl Alcohol mg/dL (0-3) mg/dl Methyl Alcohol Level Lyme Disease IgG Ab (Negative) Lyme Disease IgM Ab (Negative) Hepatitis A IgM Ab Hep Bs Antigen (Neg) Hep B Core IgM Ab Hepatitis C Antibody (Neg) 12/06/18 12/06/18 12/06/18 Range/Units 06:05 06:05 06:05 WBC (4.8-10.8) K/uL RBC (4.7-6.1) M/uL Hgb (14.0-18.0) g/dL Hct (42-52) % MCV (80-100) fL MCH (25-34) pg MCHC (32-36) g/dL Plt Count (130-400) K/uL Immature Gran % (Auto) % Neut % (Auto) % Lymph % (Auto) % [place] % (Auto) % Eos % (Auto) % Baso % (Auto) % Immature Gran # (Auto) (0.00-0.02) K/uL Neut # (Auto) (1.4-6.5) K/uL Lymph # (Auto) (1.2-3.4) K/uL [place] # (Auto) (0.11-0.59) K/uL Eos # (Auto) (0-0.5) K/uL Baso # (Auto) (0-0.2) K/uL Macrocytosis Pappenheimer Bodies PT (9.0-12.0) Seconds INR (0.9-1.1) APTT (21.0-31.0) Seconds PTT Ratio ABG pH (7.35-7.45) ABG pCO2 (35-46) mmHg ABG pO2 (80-95) mm/Hg ABG HCO3 (19-24) mmol/L ABG O2 Saturation (90-95) % ABG Base Excess (-9-1.8) mEq/L Arpit Test (Pos) Barometric Pressure mm/Hg Oxygen Given Sodium (136-145) mmol/L Potassium (3.5-5.1) mmol/L Chloride (98-107) mmol/L Carbon Dioxide (21-32) mmol/L Anion Gap (3-11) BUN (7-18) mg/dl Creatinine (0.6-1.4) mg/dl Est Cr Clr Drug Dosing ml/min Est GFR ( Amer) Est GFR (Non-Af Amer) BUN/Creatinine Ratio (10-20) Glucose (70-99) mg/dl Osmolality (280-300) mOsm/kg Lactate (0.4-2.0) mmol/L Calcium (8.5-10.1) mg/dl Phosphorus (2.5-4.9) mg/dl Magnesium (1.8-2.4) mg/dl Total Bilirubin (0.2-1) mg/dl Direct Bilirubin (0-0.2) mg/dl AST (15-37) U/L ALT (12-78) U/L Alkaline Phosphatase (45-117) U/L Ammonia (11-32) umol/L Lactate Dehydrogenase (87-241) U/L Total Creatine Kinase (39-308) U/L Troponin I (0-0.045) ng/ml Total Protein (6.4-8.2) gm/dl Albumin (3.4-5.0) gm/dl Globulin (2.5-4.0) gm/dl Albumin/Globulin Ratio (0.9-2) Lipase (73-393) U/L Urine Color Pending Urine Appearance Pending Urine pH Pending Ur Specific Daphne Pending Urine Protein Pending Urine Glucose (UA) Pending Urine Ketones Pending Urine Blood Pending Urine Nitrite Pending Urine Bilirubin Pending Urine Urobilinogen Pending Ur Leukocyte Esterase Pending Urine Osmolality Pending Ur Random Sodium Pending Nasal Screen MRSA (PCR) (Negative) Salicylates (2.8-20) mg/dl Urine Opiates Screen Ur Methadone, Qual Acetaminophen (10-30) ug/ml Urine Barbiturates Ur Phencyclidine (PCP) U Amphetamin/Meth Scrn MDMA (Ecstasy) Screen U Benzodiazepines Scrn Ur Cocaine Metabolite U Marijuana (THC) Screen Ethylene Glycol Ethyl Alcohol mg/dL (0-3) mg/dl Methyl Alcohol Level Lyme Disease IgG Ab (Negative) Lyme Disease IgM Ab (Negative) Hepatitis A IgM Ab Hep Bs Antigen (Neg) Hep B Core IgM Ab Hepatitis C Antibody (Neg) 12/06/18 12/06/18 12/06/18 Range/Units 03:54 03:54 03:54 WBC 15.59 H (4.8-10.8) K/uL RBC 2.94 L (4.7-6.1) M/uL Hgb 12.3 L D (14.0-18.0) g/dL Hct 31.3 L (42-52) % MCV 106.5 H (80-100) fL MCH 41.8 H (25-34) pg MCHC 39.3 H (32-36) g/dL Plt Count 149 (130-400) K/uL Immature Gran % (Auto) 0.1 % Neut % (Auto) 82.3 % Lymph % (Auto) 7.4 % [place] % (Auto) 10.0 % Eos % (Auto) 0.1 % Baso % (Auto) 0.1 % Immature Gran # (Auto) 0.01 (0.00-0.02) K/uL Neut # (Auto) 12.83 H (1.4-6.5) K/uL Lymph # (Auto) 1.16 L (1.2-3.4) K/uL [place] # (Auto) 1.56 H (0.11-0.59) K/uL Eos # (Auto) 0.01 (0-0.5) K/uL Baso # (Auto) 0.02 (0-0.2) K/uL Macrocytosis Present Pappenheimer Bodies 1+ PT 23.5 H (9.0-12.0) Seconds INR 2.4 H (0.9-1.1) APTT 51.4 H* (21.0-31.0) Seconds PTT Ratio 1.9 ABG pH (7.35-7.45) ABG pCO2 (35-46) mmHg ABG pO2 (80-95) mm/Hg ABG HCO3 (19-24) mmol/L ABG O2 Saturation (90-95) % ABG Base Excess (-9-1.8) mEq/L Arpit Test (Pos) Barometric Pressure mm/Hg Oxygen Given Sodium 123 L (136-145) mmol/L Potassium 2.1 L* D (3.5-5.1) mmol/L Chloride 81 L (98-107) mmol/L Carbon Dioxide 24 (21-32) mmol/L Anion Gap 18.0 H (3-11) BUN 18 (7-18) mg/dl Creatinine 2.56 H (0.6-1.4) mg/dl Est Cr Clr Drug Dosing 52.7 ml/min Est GFR ( Amer) 36.6 Est GFR (Non-Af Amer) 31.6 BUN/Creatinine Ratio 7.1 L (10-20) Glucose 111 H (70-99) mg/dl Osmolality (280-300) mOsm/kg Lactate (0.4-2.0) mmol/L Calcium < 5.0 L* (8.5-10.1) mg/dl Phosphorus 3.1 (2.5-4.9) mg/dl Magnesium 1.6 L (1.8-2.4) mg/dl Total Bilirubin 4.6 H (0.2-1) mg/dl Direct Bilirubin 2.9 H (0-0.2) mg/dl AST 551 H (15-37) U/L ALT 183 H (12-78) U/L Alkaline Phosphatase 226 H (45-117) U/L Ammonia (11-32) umol/L Lactate Dehydrogenase (87-241) U/L Total Creatine Kinase 1513 H (39-308) U/L Troponin I (0-0.045) ng/ml Total Protein 5.3 L (6.4-8.2) gm/dl Albumin 2.5 L (3.4-5.0) gm/dl Globulin (2.5-4.0) gm/dl Albumin/Globulin Ratio (0.9-2) Lipase (73-393) U/L Urine Color Urine Appearance Urine pH Ur Specific Daphne Urine Protein Urine Glucose (UA) Urine Ketones Urine Blood Urine Nitrite Urine Bilirubin Urine Urobilinogen Ur Leukocyte Esterase Urine Osmolality Ur Random Sodium Nasal Screen MRSA (PCR) (Negative) Salicylates (2.8-20) mg/dl Urine Opiates Screen Ur Methadone, Qual Acetaminophen (10-30) ug/ml Urine Barbiturates Ur Phencyclidine (PCP) U Amphetamin/Meth Scrn MDMA (Ecstasy) Screen U Benzodiazepines Scrn Ur Cocaine Metabolite U Marijuana (THC) Screen Ethylene Glycol Ethyl Alcohol mg/dL (0-3) mg/dl Methyl Alcohol Level Lyme Disease IgG Ab (Negative) Lyme Disease IgM Ab (Negative) Hepatitis A IgM Ab Hep Bs Antigen (Neg) Hep B Core IgM Ab Hepatitis C Antibody (Neg) 12/06/18 12/06/18 12/06/18 Range/Units 02:32 02:06 02:06 WBC (4.8-10.8) K/uL RBC (4.7-6.1) M/uL Hgb (14.0-18.0) g/dL Hct (42-52) % MCV (80-100) fL MCH (25-34) pg MCHC (32-36) g/dL Plt Count (130-400) K/uL Immature Gran % (Auto) % Neut % (Auto) % Lymph % (Auto) % [place] % (Auto) % Eos % (Auto) % Baso % (Auto) % Immature Gran # (Auto) (0.00-0.02) K/uL Neut # (Auto) (1.4-6.5) K/uL Lymph # (Auto) (1.2-3.4) K/uL [place] # (Auto) (0.11-0.59) K/uL Eos # (Auto) (0-0.5) K/uL Baso # (Auto) (0-0.2) K/uL Macrocytosis Pappenheimer Bodies PT (9.0-12.0) Seconds INR (0.9-1.1) APTT (21.0-31.0) Seconds PTT Ratio ABG pH 7.49 H (7.35-7.45) ABG pCO2 30 L (35-46) mmHg ABG pO2 68 L (80-95) mm/Hg ABG HCO3 23 (19-24) mmol/L ABG O2 Saturation 91.7 (90-95) % ABG Base Excess -0.1 (-9-1.8) mEq/L Arpit Test POS (Pos) Barometric Pressure 728.2 mm/Hg Oxygen Given ROOM AIR Sodium (136-145) mmol/L Potassium (3.5-5.1) mmol/L Chloride (98-107) mmol/L Carbon Dioxide (21-32) mmol/L Anion Gap (3-11) BUN (7-18) mg/dl Creatinine (0.6-1.4) mg/dl Est Cr Clr Drug Dosing ml/min Est GFR ( Amer) Est GFR (Non-Af Amer) BUN/Creatinine Ratio (10-20) Glucose (70-99) mg/dl Osmolality (280-300) mOsm/kg Lactate (0.4-2.0) mmol/L Calcium (8.5-10.1) mg/dl Phosphorus (2.5-4.9) mg/dl Magnesium (1.8-2.4) mg/dl Total Bilirubin (0.2-1) mg/dl Direct Bilirubin (0-0.2) mg/dl AST (15-37) U/L ALT (12-78) U/L Alkaline Phosphatase (45-117) U/L Ammonia (11-32) umol/L Lactate Dehydrogenase 1648 H (87-241) U/L Total Creatine Kinase (39-308) U/L Troponin I (0-0.045) ng/ml Total Protein (6.4-8.2) gm/dl Albumin (3.4-5.0) gm/dl Globulin (2.5-4.0) gm/dl Albumin/Globulin Ratio (0.9-2) Lipase (73-393) U/L Urine Color Urine Appearance Urine pH Ur Specific Daphne Urine Protein Urine Glucose (UA) Urine Ketones Urine Blood Urine Nitrite Urine Bilirubin Urine Urobilinogen Ur Leukocyte Esterase Urine Osmolality Ur Random Sodium Nasal Screen MRSA (PCR) (Negative) Salicylates (2.8-20) mg/dl Urine Opiates Screen Ur Methadone, Qual Acetaminophen (10-30) ug/ml Urine Barbiturates Ur Phencyclidine (PCP) U Amphetamin/Meth Scrn MDMA (Ecstasy) Screen U Benzodiazepines Scrn Ur Cocaine Metabolite U Marijuana (THC) Screen Ethylene Glycol Ethyl Alcohol mg/dL (0-3) mg/dl Methyl Alcohol Level Lyme Disease IgG Ab Negative (Negative) Lyme Disease IgM Ab Negative (Negative) Hepatitis A IgM Ab Hep Bs Antigen (Neg) Hep B Core IgM Ab Hepatitis C Antibody (Neg) 12/06/18 12/06/18 12/06/18 Range/Units 02:04 02:04 02:04 WBC (4.8-10.8) K/uL RBC (4.7-6.1) M/uL Hgb (14.0-18.0) g/dL Hct (42-52) % MCV (80-100) fL MCH (25-34) pg MCHC (32-36) g/dL Plt Count (130-400) K/uL Immature Gran % (Auto) % Neut % (Auto) % Lymph % (Auto) % [place] % (Auto) % Eos % (Auto) % Baso % (Auto) % Immature Gran # (Auto) (0.00-0.02) K/uL Neut # (Auto) (1.4-6.5) K/uL Lymph # (Auto) (1.2-3.4) K/uL [place] # (Auto) (0.11-0.59) K/uL Eos # (Auto) (0-0.5) K/uL Baso # (Auto) (0-0.2) K/uL Macrocytosis Pappenheimer Bodies PT (9.0-12.0) Seconds INR (0.9-1.1) APTT (21.0-31.0) Seconds PTT Ratio ABG pH (7.35-7.45) ABG pCO2 (35-46) mmHg ABG pO2 (80-95) mm/Hg ABG HCO3 (19-24) mmol/L ABG O2 Saturation (90-95) % ABG Base Excess (-9-1.8) mEq/L Arpit Test (Pos) Barometric Pressure mm/Hg Oxygen Given Sodium (136-145) mmol/L Potassium (3.5-5.1) mmol/L Chloride (98-107) mmol/L Carbon Dioxide (21-32) mmol/L Anion Gap (3-11) BUN (7-18) mg/dl Creatinine (0.6-1.4) mg/dl Est Cr Clr Drug Dosing ml/min Est GFR ( Amer) Est GFR (Non-Af Amer) BUN/Creatinine Ratio (10-20) Glucose (70-99) mg/dl Osmolality (280-300) mOsm/kg Lactate 7.7 H* (0.4-2.0) mmol/L Calcium (8.5-10.1) mg/dl Phosphorus (2.5-4.9) mg/dl Magnesium (1.8-2.4) mg/dl Total Bilirubin (0.2-1) mg/dl Direct Bilirubin (0-0.2) mg/dl AST (15-37) U/L ALT (12-78) U/L Alkaline Phosphatase (45-117) U/L Ammonia (11-32) umol/L Lactate Dehydrogenase (87-241) U/L Total Creatine Kinase (39-308) U/L Troponin I (0-0.045) ng/ml Total Protein (6.4-8.2) gm/dl Albumin (3.4-5.0) gm/dl Globulin (2.5-4.0) gm/dl Albumin/Globulin Ratio (0.9-2) Lipase (73-393) U/L Urine Color Urine Appearance Urine pH Ur Specific Daphne Urine Protein Urine Glucose (UA) Urine Ketones Urine Blood Urine Nitrite Urine Bilirubin Urine Urobilinogen Ur Leukocyte Esterase Urine Osmolality Ur Random Sodium Nasal Screen MRSA (PCR) (Negative) Salicylates (2.8-20) mg/dl Urine Opiates Screen Ur Methadone, Qual Acetaminophen (10-30) ug/ml Urine Barbiturates Ur Phencyclidine (PCP) U Amphetamin/Meth Scrn MDMA (Ecstasy) Screen U Benzodiazepines Scrn Ur Cocaine Metabolite U Marijuana (THC) Screen Ethylene Glycol Pending Ethyl Alcohol mg/dL (0-3) mg/dl Methyl Alcohol Level Pending Lyme Disease IgG Ab (Negative) Lyme Disease IgM Ab (Negative) Hepatitis A IgM Ab Hep Bs Antigen (Neg) Hep B Core IgM Ab Hepatitis C Antibody (Neg) 12/06/18 12/06/18 12/06/18 Range/Units 02:00 00:33 00:33 WBC (4.8-10.8) K/uL RBC (4.7-6.1) M/uL Hgb (14.0-18.0) g/dL Hct (42-52) % MCV (80-100) fL MCH (25-34) pg MCHC (32-36) g/dL Plt Count (130-400) K/uL Immature Gran % (Auto) % Neut % (Auto) % Lymph % (Auto) % [place] % (Auto) % Eos % (Auto) % Baso % (Auto) % Immature Gran # (Auto) (0.00-0.02) K/uL Neut # (Auto) (1.4-6.5) K/uL Lymph # (Auto) (1.2-3.4) K/uL [place] # (Auto) (0.11-0.59) K/uL Eos # (Auto) (0-0.5) K/uL Baso # (Auto) (0-0.2) K/uL Macrocytosis Pappenheimer Bodies PT 23.2 H (9.0-12.0) Seconds INR 2.4 H (0.9-1.1) APTT (21.0-31.0) Seconds PTT Ratio ABG pH (7.35-7.45) ABG pCO2 (35-46) mmHg ABG pO2 (80-95) mm/Hg ABG HCO3 (19-24) mmol/L ABG O2 Saturation (90-95) % ABG Base Excess (-9-1.8) mEq/L Arpit Test (Pos) Barometric Pressure mm/Hg Oxygen Given Sodium (136-145) mmol/L Potassium (3.5-5.1) mmol/L Chloride (98-107) mmol/L Carbon Dioxide (21-32) mmol/L Anion Gap (3-11) BUN (7-18) mg/dl Creatinine (0.6-1.4) mg/dl Est Cr Clr Drug Dosing ml/min Est GFR ( Amer) Est GFR (Non-Af Amer) BUN/Creatinine Ratio (10-20) Glucose (70-99) mg/dl Osmolality (280-300) mOsm/kg Lactate (0.4-2.0) mmol/L Calcium (8.5-10.1) mg/dl Phosphorus (2.5-4.9) mg/dl Magnesium (1.8-2.4) mg/dl Total Bilirubin 4.2 H (0.2-1) mg/dl Direct Bilirubin 2.9 H (0-0.2) mg/dl AST 566 H (15-37) U/L ALT 177 H (12-78) U/L Alkaline Phosphatase 231 H (45-117) U/L Ammonia (11-32) umol/L Lactate Dehydrogenase (87-241) U/L Total Creatine Kinase (39-308) U/L Troponin I (0-0.045) ng/ml Total Protein 5.5 L D (6.4-8.2) gm/dl Albumin 2.7 L (3.4-5.0) gm/dl Globulin (2.5-4.0) gm/dl Albumin/Globulin Ratio (0.9-2) Lipase (73-393) U/L Urine Color Urine Appearance Urine pH Ur Specific Daphne Urine Protein Urine Glucose (UA) Urine Ketones Urine Blood Urine Nitrite Urine Bilirubin Urine Urobilinogen Ur Leukocyte Esterase Urine Osmolality Ur Random Sodium Nasal Screen MRSA (PCR) (Negative) Salicylates (2.8-20) mg/dl Urine Opiates Screen Ur Methadone, Qual Acetaminophen (10-30) ug/ml Urine Barbiturates Ur Phencyclidine (PCP) U Amphetamin/Meth Scrn MDMA (Ecstasy) Screen U Benzodiazepines Scrn Ur Cocaine Metabolite U Marijuana (THC) Screen Ethylene Glycol Ethyl Alcohol mg/dL < 3.0 (0-3) mg/dl Methyl Alcohol Level Lyme Disease IgG Ab (Negative) Lyme Disease IgM Ab (Negative) Hepatitis A IgM Ab Hep Bs Antigen (Neg) Hep B Core IgM Ab Hepatitis C Antibody (Neg) 12/05/18 12/05/18 12/05/18 Range/Units 23:32 23:32 23:30 WBC (4.8-10.8) K/uL RBC (4.7-6.1) M/uL Hgb (14.0-18.0) g/dL Hct (42-52) % MCV (80-100) fL MCH (25-34) pg MCHC (32-36) g/dL Plt Count (130-400) K/uL Immature Gran % (Auto) % Neut % (Auto) % Lymph % (Auto) % [place] % (Auto) % Eos % (Auto) % Baso % (Auto) % Immature Gran # (Auto) (0.00-0.02) K/uL Neut # (Auto) (1.4-6.5) K/uL Lymph # (Auto) (1.2-3.4) K/uL [place] # (Auto) (0.11-0.59) K/uL Eos # (Auto) (0-0.5) K/uL Baso # (Auto) (0-0.2) K/uL Macrocytosis Pappenheimer Bodies PT (9.0-12.0) Seconds INR (0.9-1.1) APTT (21.0-31.0) Seconds PTT Ratio ABG pH (7.35-7.45) ABG pCO2 (35-46) mmHg ABG pO2 (80-95) mm/Hg ABG HCO3 (19-24) mmol/L ABG O2 Saturation (90-95) % ABG Base Excess (-9-1.8) mEq/L Arpit Test (Pos) Barometric Pressure mm/Hg Oxygen Given Sodium (136-145) mmol/L Potassium (3.5-5.1) mmol/L Chloride (98-107) mmol/L Carbon Dioxide (21-32) mmol/L Anion Gap (3-11) BUN (7-18) mg/dl Creatinine (0.6-1.4) mg/dl Est Cr Clr Drug Dosing ml/min Est GFR ( Amer) Est GFR (Non-Af Amer) BUN/Creatinine Ratio (10-20) Glucose (70-99) mg/dl Osmolality 266 L (280-300) mOsm/kg Lactate (0.4-2.0) mmol/L Calcium (8.5-10.1) mg/dl Phosphorus (2.5-4.9) mg/dl Magnesium (1.8-2.4) mg/dl Total Bilirubin (0.2-1) mg/dl Direct Bilirubin (0-0.2) mg/dl AST (15-37) U/L ALT (12-78) U/L Alkaline Phosphatase (45-117) U/L Ammonia (11-32) umol/L Lactate Dehydrogenase (87-241) U/L Total Creatine Kinase (39-308) U/L Troponin I (0-0.045) ng/ml Total Protein (6.4-8.2) gm/dl Albumin (3.4-5.0) gm/dl Globulin (2.5-4.0) gm/dl Albumin/Globulin Ratio (0.9-2) Lipase (73-393) U/L Urine Color Urine Appearance Urine pH Ur Specific Daphne Urine Protein Urine Glucose (UA) Urine Ketones Urine Blood Urine Nitrite Urine Bilirubin Urine Urobilinogen Ur Leukocyte Esterase Urine Osmolality Ur Random Sodium Nasal Screen MRSA (PCR) (Negative) Salicylates (2.8-20) mg/dl Urine Opiates Screen Ur Methadone, Qual Acetaminophen (10-30) ug/ml Urine Barbiturates Ur Phencyclidine (PCP) U Amphetamin/Meth Scrn MDMA (Ecstasy) Screen U Benzodiazepines Scrn Ur Cocaine Metabolite U Marijuana (THC) Screen Ethylene Glycol Ethyl Alcohol mg/dL (0-3) mg/dl Methyl Alcohol Level Lyme Disease IgG Ab (Negative) Lyme Disease IgM Ab (Negative) Hepatitis A IgM Ab Pending Hep Bs Antigen Neg (Neg) Hep B Core IgM Ab Pending Hepatitis C Antibody Neg (Neg) 12/05/18 12/05/18 Range/Units 23:30 23:30 WBC 23.20 H (4.8-10.8) K/uL RBC 3.85 L (4.7-6.1) M/uL Hgb 16.0 (14.0-18.0) g/dL Hct 42.3 (42-52) % MCV 109.9 H (80-100) fL MCH 41.6 H (25-34) pg MCHC 37.8 H (32-36) g/dL Plt Count 253 (130-400) K/uL Immature Gran % (Auto) 0.6 % Neut % (Auto) 66.3 % Lymph % (Auto) 19.9 % [place] % (Auto) 12.7 % Eos % (Auto) 0.4 % Baso % (Auto) 0.1 % Immature Gran # (Auto) 0.14 H (0.00-0.02) K/uL Neut # (Auto) 15.38 H (1.4-6.5) K/uL Lymph # (Auto) 4.61 H (1.2-3.4) K/uL [place] # (Auto) 2.95 H (0.11-0.59) K/uL Eos # (Auto) 0.10 (0-0.5) K/uL Baso # (Auto) 0.02 (0-0.2) K/uL Macrocytosis Present Pappenheimer Bodies 1+ PT (9.0-12.0) Seconds INR (0.9-1.1) APTT (21.0-31.0) Seconds PTT Ratio ABG pH (7.35-7.45) ABG pCO2 (35-46) mmHg ABG pO2 (80-95) mm/Hg ABG HCO3 (19-24) mmol/L ABG O2 Saturation (90-95) % ABG Base Excess (-9-1.8) mEq/L Arpit Test (Pos) Barometric Pressure mm/Hg Oxygen Given Sodium 120 L (136-145) mmol/L Potassium 2.5 L* (3.5-5.1) mmol/L Chloride 72 L (98-107) mmol/L Carbon Dioxide 13 L (21-32) mmol/L Anion Gap 35.0 H (3-11) BUN 19 H (7-18) mg/dl Creatinine 2.67 H (0.6-1.4) mg/dl Est Cr Clr Drug Dosing 49.9 ml/min Est GFR ( Amer) 34.8 Est GFR (Non-Af Amer) 30.0 BUN/Creatinine Ratio 7.0 L (10-20) Glucose 99 (70-99) mg/dl Osmolality (280-300) mOsm/kg Lactate (0.4-2.0) mmol/L Calcium 5.4 L* (8.5-10.1) mg/dl Phosphorus (2.5-4.9) mg/dl Magnesium 1.2 L (1.8-2.4) mg/dl Total Bilirubin 5.2 H (0.2-1) mg/dl Direct Bilirubin (0-0.2) mg/dl AST 737 H (15-37) U/L ALT 232 H (12-78) U/L Alkaline Phosphatase 310 H (45-117) U/L Ammonia (11-32) umol/L Lactate Dehydrogenase (87-241) U/L Total Creatine Kinase (39-308) U/L Troponin I < 0.015 (0-0.045) ng/ml Total Protein 7.2 (6.4-8.2) gm/dl Albumin 3.4 (3.4-5.0) gm/dl Globulin 3.8 (2.5-4.0) gm/dl Albumin/Globulin Ratio 0.9 (0.9-2) Lipase 790 H (73-393) U/L Urine Color Urine Appearance Urine pH Ur Specific [place] Urine Protein Urine Glucose (UA) Urine Ketones Urine Blood Urine Nitrite Urine Bilirubin Urine Urobilinogen Ur Leukocyte Esterase Urine Osmolality Ur Random Sodium Nasal Screen MRSA (PCR) (Negative) Salicylates (2.8-20) mg/dl Urine Opiates Screen Ur Methadone, Qual Acetaminophen (10-30) ug/ml Urine Barbiturates Ur Phencyclidine (PCP) U Amphetamin/Meth Scrn MDMA (Ecstasy) Screen U Benzodiazepines Scrn Ur Cocaine Metabolite U Marijuana (THC) Screen Ethylene Glycol Ethyl Alcohol mg/dL (0-3) mg/dl Methyl Alcohol Level Lyme Disease IgG Ab (Negative) Lyme Disease IgM Ab (Negative) Hepatitis A IgM Ab Hep Bs Antigen (Neg) Hep B Core IgM Ab Hepatitis C Antibody (Neg)
[2018-12-06 09:32] LABS: Bilirubin Urine 1+ (Negative); Ictotest Urine Positive (Negative)
[2018-12-06 09:36] LABS: Cast Urine Automated >30 /lpf (0-5); Mucus Urine Present (None Prsent)
[2018-12-06] MEDS ORDERED: CALCIUM GLUCONATE 10% 10 ML VIAL IV STA ×2 (09:37→12:34)
[2018-12-06 09:39] LABS: Bacteria Urine Automated 1+ (Negative)
[2018-12-06] MEDS ORDERED: NORMOSOL-R 1,000 ML IV SCH (09:45)
[2018-12-06] MEDS: MAGNESIUM SULFATE / D5W 1 GM/100 ML BAG IV SCH ×2 (09:49→10:51)
[2018-12-06 10:00] LABS: Amphetamines+Metham, Urine Neg (Neg); Barbiturates, Urine Neg (Neg); Benzodiazepine, Urine Neg (Neg); Cocaine, Urine Neg (Neg); MDMA (Ecstacy), Urine Neg (Neg); Methadone, Urine Neg (Neg); Opiate, Urine Neg (Neg); Phencyclidine, Urine Neg (Neg)
[2018-12-06] MEDS ORDERED: CALCIUM GLUCONATE 10% 1,000 MG in SODIUM CHLORIDE 0.9% 50 ML IV ONE ×2 (10:00→13:00)
[2018-12-06] MEDS ORDERED: POTASSIUM CHLORIDE 20 MEQ TABCR PO SCH ×2 (10:00→16:00)
--- NOTE | 2018-12-06 10:54 | Nephrology Consultation ---
Date of Consultation December 06, 2018 Assessment & Plan (1) HUYEN (acute kidney injury): Patient with acute kidney injury likely due to ischemic ATN in setting of diarrhea, acute hepatitis and NSAID use. Patient has had diarrhea for several weeks and now with acute hepatitis. He is oliguric. No indication for dialysis. We will continue to monitor renal function closely. Agree with N- acetylcysteine. Monitor input output. Monitor renal function with daily BMP. Avoid nephrotoxins such as contrast and NSAIDs. (2) Hyponatremia: Due to hypovolemia. Patient had a urine osmolality of 341, urine sodium of 11 and serum osmolality of 266. Patient is at risk for overcorrection. I agree with cautious volume resuscitation with N-acetylcysteine. Monitor sodium at least 4 times daily. (3) Hypokalemia: For several weeks. Agree with aggressive potassium repletion. Patient received IV KCl 80 mEq this morning. Recommend p.o. potassium chloride 60 mEq 4 times daily. Monitor potassium 4 times daily (4) Hypomagnesemia: Due to alcohol use. Recommend magnesium sulfate 2 g IV today. Monitor magnesium daily. (5) High anion gap metabolic acidosis: Likely due to ketoacidosis and lactic acidosis. Patient has normal osmolar gap. No need for bicarbonate infusion History of Present Illness Reason for Consultation: Acute kidney injury and electrolyte imbalance Requesting Physician: Jarod Collins MD Attending Physician: Jose Powers MD History of Present Illness This is a 33-year-old male with history of alcohol abuse who was admitted on 12/05/2018 with weakness found to have acute kidney injury, acute hepatitis and multiple electrolyte derangements including severe hypokalemia of 2.1, hyponatremia 120, hypocalcemia 5, and hypomagnesemia. Patient reports drinking beer daily at least 8 beers and 6-8 shots. He was apparently trying to quit cold turkey and has not had a drink for 3 days prior to admission. He also reported diarrhea for several weeks with 4-10 bowel movements daily but never sought medical care. He developed vomiting on the day of admission. He then developed severe cramps in the hands and extreme weakness that prompted ED visit. He reports taking Aleve occasionally for pain. In the emergency room he was found to have multiple electrolyte derangements. He was given IV fluids and various electrolyte replacements. This morning he feels a little better. He denies cramping now. No shortness of breath. Patient is now in the intensive care unit Allergies Allergy/AdvReac Type Severity Reaction Status Date / Time No Known Allergies Allergy Unverified 12/05/18 23:44 Home Medications Home Medications Medication Instructions Recorded Confirmed Type No Known Home Medications 12/05/18 12/05/18 History Patient History Medical History Alcohol abuse Surgical History No pertinent past surgical history Social History Preferred Language: [place] Communication Ability: Effective Optimization Specialist Required: No Beliefs That Will Affect Care: None Current Living Situation: Significant Other current occupational status: employed Other Information That Helps Us Care for You: No Feels Safe at Home: Yes Safety Concerns: Feels Safe At This Time Smoking Status: Never smoker Hx Alcohol Use: Yes Alcohol type: beer and hard liquor Hx Substance Use: No Review of Systems Review of Systems: All systems reviewed & are unremarkable except as noted in HPI & below Physical Exam Physical Exam: General exam: Appears comfortable, no acute distress HEENT: Pupils are equal and reactive to light Neck: No JVD, neck is supple trachea is midline Respiratory system: Clear breath sounds bilaterally. Gastrointestinal: Abdomen is soft, non distended, non tender, bowel sounds are present CVS: Regular rate and rhythm. No murmurs, rubs or gallops Musculoskeletal: No joint or muscle tenderness Extremities: Non tender, no edema, peripheral pulses are present Neuro: Oriented, no tremors, no focal neurological deficits Skin: No rashes Results & Data Vital Signs (Past 12 Hours) Vital Signs Temp Pulse Pulse Resp BP BP Pulse Ox 12/06/18 08:00 104 H 12/06/18 07:00 36.8 C 106 H 20 124/74 98 12/06/18 05:30 106 H 16 111/68 97 12/06/18 05:00 98 H 26 H 116/60 95 12/06/18 04:01 96 H 27 H 127/62 93 12/06/18 03:41 36.8 C 99 H 16 98 12/06/18 03:35 101 H 28 H 131/76 12/06/18 02:50 92 H 20 132/69 99 10/18/19 02:10 104 H 20 120/71 97 12/06/18 01:00 106 H 107 H 30 H 138/78 138/78 94 12/06/18 00:37 132 H 20 119/70 95 12/05/18 23:38 122 H 24 128/77 96 12/05/18 23:18 36.7 C 125 H 34 H 128/77 97 Laboratory Results Laboratory Results - last 24 hr 12/05/18 12/05/18 12/05/18 23:30 23:30 23:30 WBC 23.20 H RBC 3.85 L Hgb 16.0 Hct 42.3 MCV 109.9 H MCH 41.6 H MCHC 37.8 H Plt Count 253 Immature Gran % (Auto) 0.6 Neut % (Auto) 66.3 Lymph % (Auto) 19.9 [place] % (Auto) 12.7 Eos % (Auto) 0.4 Baso % (Auto) 0.1 Immature Gran # (Auto) 0.14 H Neut # (Auto) 15.38 H Lymph # (Auto) 4.61 H [place] # (Auto) 2.95 H Eos # (Auto) 0.10 Baso # (Auto) 0.02 Macrocytosis Present Pappenheimer Bodies 1+ PT INR APTT PTT Ratio ABG pH ABG pCO2 ABG pO2 ABG HCO3 ABG O2 Saturation ABG Base Excess Arpit Test Barometric Pressure Oxygen Given Sodium 120 L Potassium 2.5 L* Chloride 72 L Carbon Dioxide 13 L Anion Gap 35.0 H BUN 19 H Creatinine 2.67 H Est Cr Clr Drug Dosing 49.9 Est GFR ( Amer) 34.8 Est GFR (Non-Af Amer) 30.0 BUN/Creatinine Ratio 7.0 L Glucose 99 Osmolality 266 L Lactate Calcium 5.4 L* Phosphorus Magnesium 1.2 L Total Bilirubin 5.2 H Direct Bilirubin AST 737 H ALT 232 H Alkaline Phosphatase 310 H Ammonia Lactate Dehydrogenase Total Creatine Kinase Troponin I < 0.015 Total Protein 7.2 Albumin 3.4 Globulin 3.8 Albumin/Globulin Ratio 0.9 Lipase 790 H Urine Color Urine Appearance Urine pH Ur Specific [place] Urine Protein Urine Glucose (UA) Urine Ketones Urine Blood Urine Nitrite Urine Bilirubin Urine Urobilinogen Ur Leukocyte Esterase Urine WBC (Auto) Urine RBC (Auto) U Hyaline Cast (Auto) U Epithel Cells (Auto) Urine Bacteria (Auto) Urine Mucus Urine Osmolality Ur Random Sodium Nasal Screen MRSA (PCR) Salicylates Urine Opiates Screen Ur Methadone, Qual Acetaminophen Urine Barbiturates Ur Phencyclidine (PCP) U Amphetamin/Meth Scrn MDMA (Ecstasy) Screen U Benzodiazepines Scrn Ur Cocaine Metabolite U Marijuana (THC) Screen Ethylene Glycol Ethyl Alcohol mg/dL Methyl Alcohol Level Lyme Disease IgG Ab Lyme Disease IgM Ab Hepatitis A IgM Ab Hep Bs Antigen Hep B Core IgM Ab Hepatitis C Antibody 12/05/18 12/05/18 12/06/18 23:32 23:32 00:33 WBC RBC Hgb Hct MCV MCH MCHC Plt Count Immature Gran % (Auto) Neut % (Auto) Lymph % (Auto) [place] % (Auto) Eos % (Auto) Baso % (Auto) Immature Gran # (Auto) Neut # (Auto) Lymph # (Auto) [place] # (Auto) Eos # (Auto) Baso # (Auto) Macrocytosis Pappenheimer Bodies PT 23.2 H INR 2.4 H APTT PTT Ratio ABG pH ABG pCO2 ABG pO2 ABG HCO3 ABG O2 Saturation ABG Base Excess Arpit Test Barometric Pressure Oxygen Given Sodium Potassium Chloride Carbon Dioxide Anion Gap BUN Creatinine Est Cr Clr Drug Dosing Est GFR ( Amer) Est GFR (Non-Af Amer) BUN/Creatinine Ratio Glucose Osmolality Lactate Calcium Phosphorus Magnesium Total Bilirubin Direct Bilirubin AST ALT Alkaline Phosphatase Ammonia Lactate Dehydrogenase Total Creatine Kinase Troponin I Total Protein Albumin Globulin Albumin/Globulin Ratio Lipase Urine Color Urine Appearance Urine pH Ur Specific [place] Urine Protein Urine Glucose (UA) Urine Ketones Urine Blood Urine Nitrite Urine Bilirubin Urine Urobilinogen Ur Leukocyte Esterase Urine WBC (Auto) Urine RBC (Auto) U Hyaline Cast (Auto) U Epithel Cells (Auto) Urine Bacteria (Auto) Urine Mucus Urine Osmolality Ur Random Sodium Nasal Screen MRSA (PCR) Salicylates Urine Opiates Screen Ur Methadone, Qual Acetaminophen Urine Barbiturates Ur Phencyclidine (PCP) U Amphetamin/Meth Scrn MDMA (Ecstasy) Screen U Benzodiazepines Scrn Ur Cocaine Metabolite U Marijuana (THC) Screen Ethylene Glycol Ethyl Alcohol mg/dL Methyl Alcohol Level Lyme Disease IgG Ab Lyme Disease IgM Ab Hepatitis A IgM Ab Pending Hep Bs Antigen Neg Hep B Core IgM Ab Pending Hepatitis C Antibody Neg 12/06/18 12/06/18 12/06/18 00:33 02:00 02:04 WBC RBC Hgb Hct MCV MCH MCHC Plt Count Immature Gran % (Auto) Neut % (Auto) Lymph % (Auto) [place] % (Auto) Eos % (Auto) Baso % (Auto) Immature Gran # (Auto) Neut # (Auto) Lymph # (Auto) [place] # (Auto) Eos # (Auto) Baso # (Auto) Macrocytosis Pappenheimer Bodies PT INR APTT PTT Ratio ABG pH ABG pCO2 ABG pO2 ABG HCO3 ABG O2 Saturation ABG Base Excess Arpit Test Barometric Pressure Oxygen Given Sodium Potassium Chloride Carbon Dioxide Anion Gap BUN Creatinine Est Cr Clr Drug Dosing Est GFR ( Amer) Est GFR (Non-Af Amer) BUN/Creatinine Ratio Glucose Osmolality Lactate 7.7 H* Calcium Phosphorus Magnesium Total Bilirubin 4.2 H Direct Bilirubin 2.9 H AST 566 H ALT 177 H Alkaline Phosphatase 231 H Ammonia Lactate Dehydrogenase Total Creatine Kinase Troponin I Total Protein 5.5 L D Albumin 2.7 L Globulin Albumin/Globulin Ratio Lipase Urine Color Urine Appearance Urine pH Ur Specific [place] Urine Protein Urine Glucose (UA) Urine Ketones Urine Blood Urine Nitrite Urine Bilirubin Urine Urobilinogen Ur Leukocyte Esterase Urine WBC (Auto) Urine RBC (Auto) U Hyaline Cast (Auto) U Epithel Cells (Auto) Urine Bacteria (Auto) Urine Mucus Urine Osmolality Ur Random Sodium Nasal Screen MRSA (PCR) Salicylates Urine Opiates Screen Ur Methadone, Qual Acetaminophen Urine Barbiturates Ur Phencyclidine (PCP) U Amphetamin/Meth Scrn MDMA (Ecstasy) Screen U Benzodiazepines Scrn Ur Cocaine Metabolite U Marijuana (THC) Screen Ethylene Glycol Ethyl Alcohol mg/dL < 3.0 Methyl Alcohol Level Lyme Disease IgG Ab Lyme Disease IgM Ab Hepatitis A IgM Ab Hep Bs Antigen Hep B Core IgM Ab Hepatitis C Antibody 12/06/18 12/06/18 12/06/18 02:04 02:04 02:06 WBC RBC Hgb Hct MCV MCH MCHC Plt Count Immature Gran % (Auto) Neut % (Auto) Lymph % (Auto) [place] % (Auto) Eos % (Auto) Baso % (Auto) Immature Gran # (Auto) Neut # (Auto) Lymph # (Auto) [place] # (Auto) Eos # (Auto) Baso # (Auto) Macrocytosis Pappenheimer Bodies PT INR APTT PTT Ratio ABG pH ABG pCO2 ABG pO2 ABG HCO3 ABG O2 Saturation ABG Base Excess Arpit Test Barometric Pressure Oxygen Given Sodium Potassium Chloride Carbon Dioxide Anion Gap BUN Creatinine Est Cr Clr Drug Dosing Est GFR ( Amer) Est GFR (Non-Af Amer) BUN/Creatinine Ratio Glucose Osmolality Lactate Calcium Phosphorus Magnesium Total Bilirubin Direct Bilirubin AST ALT Alkaline Phosphatase Ammonia Lactate Dehydrogenase Total Creatine Kinase Troponin I Total Protein Albumin Globulin Albumin/Globulin Ratio Lipase Urine Color Urine Appearance Urine pH Ur Specific [place] Urine Protein Urine Glucose (UA) Urine Ketones Urine Blood Urine Nitrite Urine Bilirubin Urine Urobilinogen Ur Leukocyte Esterase Urine WBC (Auto) Urine RBC (Auto) U Hyaline Cast (Auto) U Epithel Cells (Auto) Urine Bacteria (Auto) Urine Mucus Urine Osmolality Ur Random Sodium Nasal Screen MRSA (PCR) Salicylates Urine Opiates Screen Ur Methadone, Qual Acetaminophen Urine Barbiturates Ur Phencyclidine (PCP) U Amphetamin/Meth Scrn MDMA (Ecstasy) Screen U Benzodiazepines Scrn Ur Cocaine Metabolite U Marijuana (THC) Screen Ethylene Glycol Pending Ethyl Alcohol mg/dL Methyl Alcohol Level Pending Lyme Disease IgG Ab Negative Lyme Disease IgM Ab Negative Hepatitis A IgM Ab Hep Bs Antigen Hep B Core IgM Ab Hepatitis C Antibody 12/06/18 12/06/18 12/06/18 02:06 02:32 03:54 WBC RBC Hgb Hct MCV MCH MCHC Plt Count Immature Gran % (Auto) Neut % (Auto) Lymph % (Auto) [place] % (Auto) Eos % (Auto) Baso % (Auto) Immature Gran # (Auto) Neut # (Auto) Lymph # (Auto) [place] # (Auto) Eos # (Auto) Baso # (Auto) Macrocytosis Pappenheimer Bodies PT INR APTT PTT Ratio ABG pH 7.49 H ABG pCO2 30 L ABG pO2 68 L ABG HCO3 23 ABG O2 Saturation 91.7 ABG Base Excess -0.1 Arpit Test POS Barometric Pressure 728.2 Oxygen Given ROOM AIR Sodium 123 L Potassium 2.1 L* D Chloride 81 L Carbon Dioxide 24 Anion Gap 18.0 H BUN 18 Creatinine 2.56 H Est Cr Clr Drug Dosing 52.7 Est GFR ( Amer) 36.6 Est GFR (Non-Af Amer) 31.6 BUN/Creatinine Ratio 7.1 L Glucose 111 H Osmolality Lactate Calcium < 5.0 L* Phosphorus 3.1 Magnesium 1.6 L Total Bilirubin 4.6 H Direct Bilirubin 2.9 H AST 551 H ALT 183 H Alkaline Phosphatase 226 H Ammonia Lactate Dehydrogenase 1648 H Total Creatine Kinase 1513 H Troponin I Total Protein 5.3 L Albumin 2.5 L Globulin Albumin/Globulin Ratio Lipase Urine Color Urine Appearance Urine pH Ur Specific [place] Urine Protein Urine Glucose (UA) Urine Ketones Urine Blood Urine Nitrite Urine Bilirubin Urine Urobilinogen Ur Leukocyte Esterase Urine WBC (Auto) Urine RBC (Auto) U Hyaline Cast (Auto) U Epithel Cells (Auto) Urine Bacteria (Auto) Urine Mucus Urine Osmolality Ur Random Sodium Nasal Screen MRSA (PCR) Salicylates Urine Opiates Screen Ur Methadone, Qual Acetaminophen Urine Barbiturates Ur Phencyclidine (PCP) U Amphetamin/Meth Scrn MDMA (Ecstasy) Screen U Benzodiazepines Scrn Ur Cocaine Metabolite U Marijuana (THC) Screen Ethylene Glycol Ethyl Alcohol mg/dL Methyl Alcohol Level Lyme Disease IgG Ab Lyme Disease IgM Ab Hepatitis A IgM Ab Hep Bs Antigen Hep B Core IgM Ab Hepatitis C Antibody 12/06/18 12/06/18 12/06/18 03:54 03:54 06:05 WBC 15.59 H RBC 2.94 L Hgb 12.3 L D Hct 31.3 L MCV 106.5 H MCH 41.8 H MCHC 39.3 H Plt Count 149 Immature Gran % (Auto) 0.1 Neut % (Auto) 82.3 Lymph % (Auto) 7.4 [place] % (Auto) 10.0 Eos % (Auto) 0.1 Baso % (Auto) 0.1 Immature Gran # (Auto) 0.01 Neut # (Auto) 12.83 H Lymph # (Auto) 1.16 L [place] # (Auto) 1.56 H Eos # (Auto) 0.01 Baso # (Auto) 0.02 Macrocytosis Present Pappenheimer Bodies 1+ PT 23.5 H INR 2.4 H APTT 51.4 H* PTT Ratio 1.9 ABG pH ABG pCO2 ABG pO2 ABG HCO3 ABG O2 Saturation ABG Base Excess Arpit Test Barometric Pressure Oxygen Given Sodium Potassium Chloride Carbon Dioxide Anion Gap BUN Creatinine Est Cr Clr Drug Dosing Est GFR ( Amer) Est GFR (Non-Af Amer) BUN/Creatinine Ratio Glucose Osmolality Lactate Calcium Phosphorus Magnesium Total Bilirubin Direct Bilirubin AST ALT Alkaline Phosphatase Ammonia Lactate Dehydrogenase Total Creatine Kinase Troponin I Total Protein Albumin Globulin Albumin/Globulin Ratio Lipase Urine Color Dark Yellow Urine Appearance Cloudy A Urine pH 5.0 Ur Specific [place] 1.021 Urine Protein 1+ H Urine Glucose (UA) Negative Urine Ketones 1+ H Urine Blood Trace H Urine Nitrite Positive A Urine Bilirubin 1+ H Urine Urobilinogen Negative Ur Leukocyte Esterase Trace H Urine WBC (Auto) 5-10 H Urine RBC (Auto) 5-10 H U Hyaline Cast (Auto) >30 H U Epithel Cells (Auto) 20-30 H Urine Bacteria (Auto) 1+ H Urine Mucus Present A Urine Osmolality Ur Random Sodium Nasal Screen MRSA (PCR) Salicylates Urine Opiates Screen Ur Methadone, Qual Acetaminophen Urine Barbiturates Ur Phencyclidine (PCP) U Amphetamin/Meth Scrn MDMA (Ecstasy) Screen U Benzodiazepines Scrn Ur Cocaine Metabolite U Marijuana (THC) Screen Ethylene Glycol Ethyl Alcohol mg/dL Methyl Alcohol Level Lyme Disease IgG Ab Lyme Disease IgM Ab Hepatitis A IgM Ab Hep Bs Antigen Hep B Core IgM Ab Hepatitis C Antibody 12/06/18 12/06/18 12/06/18 06:05 06:05 06:05 WBC RBC Hgb Hct MCV MCH MCHC Plt Count Immature Gran % (Auto) Neut % (Auto) Lymph % (Auto) [place] % (Auto) Eos % (Auto) Baso % (Auto) Immature Gran # (Auto) Neut # (Auto) Lymph # (Auto) [place] # (Auto) Eos # (Auto) Baso # (Auto) Macrocytosis Pappenheimer Bodies PT INR APTT PTT Ratio ABG pH ABG pCO2 ABG pO2 ABG HCO3 ABG O2 Saturation ABG Base Excess Arpit Test Barometric Pressure Oxygen Given Sodium Potassium Chloride Carbon Dioxide Anion Gap BUN Creatinine Est Cr Clr Drug Dosing Est GFR ( Amer) Est GFR (Non-Af Amer) BUN/Creatinine Ratio Glucose Osmolality Lactate Calcium Phosphorus Magnesium Total Bilirubin Direct Bilirubin AST ALT Alkaline Phosphatase Ammonia Lactate Dehydrogenase Total Creatine Kinase Troponin I Total Protein Albumin Globulin Albumin/Globulin Ratio Lipase Urine Color Urine Appearance Urine pH Ur Specific [place] Urine Protein Urine Glucose (UA) Urine Ketones Urine Blood Urine Nitrite Urine Bilirubin Urine Urobilinogen Ur Leukocyte Esterase Urine WBC (Auto) Urine RBC (Auto) U Hyaline Cast (Auto) U Epithel Cells (Auto) Urine Bacteria (Auto) Urine Mucus Urine Osmolality 341 L Ur Random Sodium 11 Nasal Screen MRSA (PCR) Salicylates Urine Opiates Screen Neg Ur Methadone, Qual Neg Acetaminophen Urine Barbiturates Neg Ur Phencyclidine (PCP) Neg U Amphetamin/Meth Scrn Neg MDMA (Ecstasy) Screen Neg U Benzodiazepines Scrn Neg Ur Cocaine Metabolite Neg U Marijuana (THC) Screen Neg Ethylene Glycol Ethyl Alcohol mg/dL Methyl Alcohol Level Lyme Disease IgG Ab Lyme Disease IgM Ab Hepatitis A IgM Ab Hep Bs Antigen Hep B Core IgM Ab Hepatitis C Antibody 12/06/18 12/06/18 06:18 Unknown WBC RBC Hgb Hct MCV MCH MCHC Plt Count Immature Gran % (Auto) Neut % (Auto) Lymph % (Auto) [place] % (Auto) Eos % (Auto) Baso % (Auto) Immature Gran # (Auto) Neut # (Auto) Lymph # (Auto) [place] # (Auto) Eos # (Auto) Baso # (Auto) Macrocytosis Pappenheimer Bodies PT INR APTT PTT Ratio ABG pH ABG pCO2 ABG pO2 ABG HCO3 ABG O2 Saturation ABG Base Excess Arpit Test Barometric Pressure Oxygen Given Sodium Potassium Chloride Carbon Dioxide Anion Gap BUN Creatinine Est Cr Clr Drug Dosing Est GFR ( Amer) Est GFR (Non-Af Amer) BUN/Creatinine Ratio Glucose Osmolality Lactate Calcium Phosphorus Magnesium Total Bilirubin Direct Bilirubin AST ALT Alkaline Phosphatase Ammonia 94.0 H Lactate Dehydrogenase Total Creatine Kinase Troponin I Total Protein Albumin Globulin Albumin/Globulin Ratio Lipase Urine Color Urine Appearance Urine pH Ur Specific [place] Urine Protein Urine Glucose (UA) Urine Ketones Urine Blood Urine Nitrite Urine Bilirubin Urine Urobilinogen Ur Leukocyte Esterase Urine WBC (Auto) Urine RBC (Auto) U Hyaline Cast (Auto) U Epithel Cells (Auto) Urine Bacteria (Auto) Urine Mucus Urine Osmolality Ur Random Sodium Nasal Screen MRSA (PCR) Negative Salicylates Urine Opiates Screen Ur Methadone, Qual Acetaminophen Urine Barbiturates Ur Phencyclidine (PCP) U Amphetamin/Meth Scrn MDMA (Ecstasy) Screen U Benzodiazepines Scrn Ur Cocaine Metabolite U Marijuana (THC) Screen Ethylene Glycol Ethyl Alcohol mg/dL Methyl Alcohol Level Lyme Disease IgG Ab Lyme Disease IgM Ab Hepatitis A IgM Ab Hep Bs Antigen Hep B Core IgM Ab Hepatitis C Antibody
[2018-12-06] MEDS ORDERED: prednisoLONE SYRUP 15 MG/5 ML BTL PO ONE (11:00)
[2018-12-06 12:20] LABS: BUN Creatinine Ratio 7.9 (10-20); Calcium 5.7 mg/dl (8.5-10.1); Creatinine Clr Calc Pharmacy 57.4 ml/min; Est GFR (African American) 40.6; Potassium 2.5 mmol/L (3.5-5.1)
[2018-12-06] MEDS: MAGNESIUM OXIDE 400 MG TAB PO SCH ×2 (13:03→21:37)
[2018-12-06] MEDS: CALCIUM 600MG + VIT D 400 IU TAB PO SCH ×2 (13:16→21:38)
--- NOTE | 2018-12-06 14:14 | Hospitalist Progress Note ---
Date of Service December 06, 2018 Assessment & Plan (1) Alcohol abuse: Alcohol Withdrawal suspected -As per history and physical, patient drinks 6 beers a day and 6 shots of whiskey every day for the last 8 years, who stopped alcohol use 2 days ago prior to hospital presentation and then brought to the emergency room after symptoms of He nausea, vomiting and shakiness, and malaise -on hospital presentation, patient was was tachycardic with serve electrolyte derangements and transaminitis acute kidney injury and high anion gap metabolic acidosis in the setting of lactic acidosis and so patient was admitted to the Intensive Care Unit for close monitoring and electrolyte repletion -on alcohol withdrawal protocol - no delirium tremens at this time -continue thiamine and folic acid -patient may be transferred from ICU to medical [place] with telemetry monitoring for further correction of electrolyte abnormalities and management of alcohol related health issues -patient counseled on alcohol abuse and current symptoms as medical consequences of excessive alcohol consumption -patient has stated his desire to quit alcohol -on alcohol withdrawal protocol while inpatient (2) AH (alcoholic hepatitis): from 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 Mild marginal nodularity of the liver suggests early cirrhotic change -portal vein ultrasound: Limited study due to body habitus consideration as well as fatty replacement of the liver. Normal flow within the hepatic as well as portal venous structures within these limitations -patient has received N-acetylcysteine to attempt to reduce the inflammation from alcoholic hepatitis on 12/06/18 -Intensive Care Unit physician started rifaximin and lactulose given his elevated ammonia levels (3) Transaminitis: -elevated liver enzymes and elevated INR are markers of alcoholic hepatitic and Alcoholic liver cirrhosis -monitor (4) Elevated INR: -elevated liver enzymes and elevated INR of 2.4 are markers of alcoholic hepatitic and Alcoholic liver cirrhosis -was given vitamin on admission but INR remains as 2.4 on repeat labs -monitor (5) Hyperammonemia: -elevated ammonia levels are markers of cirrhosis -Intensive Care Unit physician started rifaximin and lactulose given his elevated ammonia levels (6) Elevated lipase: -admission lipase 790 -likely from chronic alcohol use -monitor levels -no abdominal pain currently (7) Elevated LDH: -1649 on admission -elevated LDH is a maker of liver disease such as hepatitis or muscle injury -on IV fluids -trend LDH (8) Elevated creatine kinase: -1513 on admission -marker for muscle breakdown -on IV fluids -trend creatinine kinase -check TSH -PT/OT evaluations (9) HUYEN (acute kidney injury): -admission creatinine 2.67 -downtrending with IV fluids, continue IV fluids (10) High anion gap metabolic acidosis: Lactic acidosis -admission lactic acid as 7.7, with high anion gap -patient on IV fluids -monitor anion gap and trend lactic acid -current workup is not suggestive of infection as cause of acidosis, patient has afebrile (11) Hyponatremia: -admission serum sodium 120 -Hyponatremia due to hypovolemia. Patient had a urine osmolality of 341, urine sodium of 11 and serum osmolality of 266 -serum sodium is mildly improving and following nephrology recommendations to avoid overcorrection in short period of time (12) Hypokalemia: -admission serum potassium 2.5 -patient has gotten multiple IV and oral supplements to date -goal serum potassium is 3.5 to 4 -continue to monitor and replete as needed (13) Hypomagnesemia: -admission serum magnesium is 1.2 -patient has gotten multiple magnesium supplements -goal serum magnesium is 2 -last check serum magnesium is 2.2 (14) Hypocalcemia: -admission serum calcium of 5.4 -patient has received calcium gluconate -check ionized calcium levels -check PTH, check vitamin D levels DVT prophylaxis: SCDs Subjective Patient seen and examined in the ICU. His vitals are stable and breathing on room air. He continues to have multiple electrolyte derangements including elevated ammonia levels but has normal mental status. He is cooperative and follows directions. He was explained the health issues from chronic alcohol use and he reports he is determined to stop alcohol use at this point. Hospitalist discussed medical plans with patient and his family members at the bedside. no dizziness. no headaches. no shortness of breath. no chest pain. no abdomen pain. no nausea. no vomiting Physical Exam Constitutional: WD/WN, vitals as above comfortable Eyes: PERRL, conjunctivae normal, anicteric sclerae EOM intact bilaterally ENMT: external ear and nose normal, oropharynx normal Neck: normal visual inspection Respiratory: normal respiratory effort, lungs clear to auscultation Cardiovascular: Rate/Rhythm: regular rate and regular rhythm Gastrointestinal (Abdomen): Inspection/Auscultation: abdomen normal to inspection and normal bowel sounds Percussion/Palpation: abdomen soft Musculoskeletal: Head/Neck/Chest: normocephalic and head atraumatic Neurologic: PERRL, EOMI, accommodation nl, no face palsy, no dysarthria CN's II-XI intact bilaterally Psychiatric: A+Ox3, euthymic affect Results & Data Vital Signs (Past 12 Hours) Vital Signs Temp Pulse Pulse Resp BP BP Pulse Ox 12/06/18 12:01 36.8 C 98 H 22 143/86 H 95 12/06/18 08:00 104 H 12/06/18 07:00 36.8 C 106 H 20 124/74 98 12/06/18 05:30 106 H 16 111/68 97 12/06/18 05:00 98 H 26 H 116/60 95 12/06/18 04:01 96 H 27 H 127/62 93 12/06/18 03:41 36.8 C 99 H 16 98 12/06/18 03:35 101 H 28 H 131/76 12/06/18 02:50 92 H 20 132/69 99 Pulse Ox 12/06/18 12:01 96 12/06/18 08:00 12/06/18 07:00 12/06/18 05:30 12/06/18 05:00 12/06/18 04:01 12/06/18 03:41 12/06/18 03:35 12/06/18 02:50 (1) AH (alcoholic hepatitis) Ascites presence: unspecified Qualified Code(s): K70.10 - Alcoholic hepatitis without ascites
[2018-12-06] MEDS: RIFAXIMIN 200 MG TABLET PO SCH ×2 (14:16→21:38)
[2018-12-06] MEDS: LACTULOSE SYRUP 20 GM/30 ML UDC PO SCH ×2 (14:16→21:38)
--- NOTE | 2018-12-06 15:17 | Emergency Department Note ---
Entered by Janelle Dasilva acting as a scribe for Barbra Colón DO History of Present Illness General Chief complaint: Vomiting Stated complaint: Vomiting, shortness of breath Time Seen by Provider: 12/05/18 23:15 Source: patient History of Present Illness Onset (ago): day(s) 1 Pain Consistency: + constant Quality: + other ("locked up" or tight) Exacerbated By: + other (alcohol withdrawal) Associated symptoms: + diaphoresis, + nausea/vomiting, + shortness of breath and + other (shakes) Treatments prior to arrival: none The patient is a 33 year old male who presents to the Emergency Room with complaints of vomiting that started today. The patient has a history of alcohol abuse, and reports that he usually has around 6 beers and 6 shots a day of Rum plmintz. He decided to stop cold turkey 2 days ago, which was the first time he attempted to quit. He reports vomiting all day, and also complains of shakes, sweats, and shortness of breath. The patient states that his tongue feels swollen and is having difficulty talking. He describes his arms and legs as feeling locked up or tight. The patient reports that he has never tried to stop drinking before, but now he is interested in quitting. He denies drug use. The patient lives with his fianc, who he states does not drink. He reports that he has no interest in rehab, and states that he has not been drinking for more than 10 years. He denies abdominal pain. Home Medications Home Medications Medication Instructions Recorded Confirmed Type No Known Home Medications 12/05/18 12/05/18 History Allergies Allergy/AdvReac Type Severity Reaction Status Date / Time No Known Allergies Allergy Unverified 12/05/18 23:44 Past Med/Surg History Medical History Alcohol abuse Surgical History No pertinent past surgical history Social History Preferred Language: [place] Communication Ability: Effective Certified Orthoptist Required: No Beliefs That Will Affect Care: None Current Living Situation: Significant Other current occupational status: employed Other Information That Helps Us Care for You: No Feels Safe at Home: Yes Safety Concerns: Feels Safe At This Time Smoking Status: Never smoker Hx Alcohol Use: Yes Alcohol type: beer and hard liquor Hx Substance Use: No Review of Systems See HPI for pertinent positives & negatives. and A total of 10 systems reviewed and were otherwise negative Physical Exam Vital Signs Vital Signs - 24 hr 12/05/18 23:18 12/05/18 23:38 12/06/18 00:37 Temperature 36.7 C Temperature Source Oral Sepsis Recent Fever Within 48 Hours No Sepsis Action Taken by Nursing No Action Required Pulse Rate 125 H Pulse Rate [Right Finger] 122 H 132 H Pulse Rate from SpO2 Sensor Pulse Rhythm Regular Pulse Rhythm [Right Finger] Regular Regular Pulse Strength Normal Pulse Strength [Right Finger] Normal Normal Respiratory Rate 34 H 24 20 Respiratory Effort / Characteristics Spontaneous Non-Labored Spontaneous Non-Labored Spontaneous Respiratory Depth Normal Normal Normal Respiratory Pattern Regular Regular Blood Pressure 128/77 Blood Pressure [Right Arm] 128/77 119/70 Blood Pressure Mean 94 Blood Pressure Mean [Right Arm] 94 86 Blood Pressure Position Sitting Blood Pressure Position [Right Arm] Pulse Oximetry 97 96 95 Oxygen Delivery Method Room Air Room Air Room Air 12/06/18 01:00 12/06/18 02:10 Temperature Temperature Source Sepsis Recent Fever Within 48 Hours Sepsis Action Taken by Nursing Pulse Rate 106 H Pulse Rate [Right Finger] 107 H 104 H Pulse Rate from SpO2 Sensor 106 H Pulse Rhythm Pulse Rhythm [Right Finger] Regular Pulse Strength Pulse Strength [Right Finger] Normal Respiratory Rate 30 H 20 Respiratory Effort / Characteristics Non-Labored Spontaneous Respiratory Depth Normal Respiratory Pattern Blood Pressure 138/78 Blood Pressure [Right Arm] 138/78 120/71 Blood Pressure Mean 98 Blood Pressure Mean [Right Arm] 98 87 Blood Pressure Position Blood Pressure Position [Right Arm] Sitting Pulse Oximetry 94 97 Oxygen Delivery Method Room Air Room Air HEENT: Head - normocephalic and atraumatic Pupils are equal, round, and reactive to light. Extraocular eye muscles are intact. Moderate to severe scleral icterus of eyes. Nose - moist nasal mucosa without discharge. Mouth -extremely dry buccal mucosa. Oropharynx is nonerythematous and there is no tonsillar exudate or edema noted. Neck: Supple; no JVD, nuchal rigidity, cervical lymphadenopathy, or auscultated bruits. Heart: Tachycardic. Regular rhythm. There is a normal S1 and S2 with no murmurs, clicks, or gallops appreciated. Lungs: Clear to auscultation bilaterally with no wheezes, rales, or rhonchi. Abdomen: Soft, mild diffuse tenderness with palpation, mildly distended, with good bowel sounds. There are no palpable pulsatile masses or hepatosplenomegaly. There is no guarding, rigidity, or rebound noted. Extremities: No evidence of cyanosis, clubbing, or edema. There are easily palpable peripheral pulses. Skin: warm and dry with good turgor and no rashes. Course 2317: Past medical records reviewed. The patient was evaluated in room B05. A complete history and physical exam was performed. An IV lock was initiated and labs were drawn as above. The patient was observed on the asset accountant and pulse oximeter. He had a twelve-lead EKG performed. 2337: The patient was administered 2mg Ativan IV. He was started on a 2 L bolus of normal saline solution. 2358: The patients heart rate is down to 118. 0019: The patient will be transferred to the ICU. I went to the patients room to discuss the situation with the patient, his fiance, and his mother over the phone. 0036: The patient was given 20 meq in 100 ml Potassium Chloride IV. 048: I spoke to Dr. Olivera, [facility] hospitalist, regarding the patient. I spoke to the family and patient, who agreed with the treatment plan. The patient will be further evaluated. 0115: I spoke with Lalo Stone PA-C from the ICU. I questioned the patient on the alcohol he has been drinking. Upon reevaluation, the patient states he has been drinking beer and Rumplmintz. I asked if he had ingested rubbing alcohol, antifreeze, or vanilla extract. The patient denied usage of all of these. 0130: I rechecked on the patient and answered some of the jani questions regarding his care 0205: Patient remains hemodynamically stable at this time. He will be transferred to ICU shortly. Administered Medications Acetylcysteine 10,500 mg/ (Dextrose) 1,052.5 mls @ 62.5 mls/hr IV ONE ONE; Protocol Stop: 12/07/18 00:16 Last Admin: 12/06/18 09:20 Dose: 62.5 mls/hr Documented by: [id number] Parenteral Electrolytes (Normosol-R) 1,000 mls @ 125 mls/hr IV .Q8H WAI Stop: 01/05/19 09:44 Last Admin: 12/06/18 10:20 Dose: 125 mls/hr Documented by: [id number] Potassium Chloride (K Spike / Wtr) 10 meq in 100 mls @ 100 mls/hr IV Q1H WAI Stop: 12/06/18 16:59 Last Admin: 12/06/18 14:51 Dose: 100 mls/hr Documented by: [id number] Infusion: 12/06/18 14:17 Dose: 0 mls/hr Documented by: [id number] Admin: 12/06/18 13:03 Dose: 100 mls/hr Documented by: [id number] Lactulose (Chronulac) 20 gm PO TID WAI Stop: 01/05/19 13:59 Last Admin: 12/06/18 14:16 Dose: 20 gm Documented by: [id number] Magnesium Oxide (Mag-Ox) 400 mg PO BID WAI Stop: 01/05/19 12:44 Last Admin: 12/06/18 13:03 Dose: 400 mg Documented by: [id number] Multivitamins/Minerals (Multivitamin W/ Minerals Tab) 1 tab PO QAM WAI Stop: 01/05/19 08:59 Last Admin: 12/06/18 08:45 Dose: 1 tab Documented by: [id number] Multivitamins/Minerals (Caltrate Plus) 1 tab PO BID WAI Stop: 01/05/19 12:44 Last Admin: 12/06/18 13:16 Dose: 1 tab Documented by: [id number] Rifaximin (Xifaxan) 200 mg PO TID WAI Stop: 01/05/19 13:59 Last Admin: 12/06/18 14:16 Dose: 200 mg Documented by: [id number] Discontinued Medications Lorazepam (Ativan) 2 mg in 4 mls @ 4 mls/min IV NOW STA Stop: 12/05/18 23:32 Last Admin: 12/05/18 23:37 Dose: 4 mls/min Documented by: [id number] Sodium Chloride (Nss 1000ml) 1,000 mls @ 999 mls/hr IV .Q1H1M WAI Stop: 12/06/18 01:45 Last Infusion: 12/06/18 01:25 Dose: 0 mls/hr Documented by: [id number] Admin: 12/06/18 00:41 Dose: 999 mls/hr Documented by: [id number] Infusion: 12/06/18 00:40 Dose: 0 mls/hr Documented by: [id number] Admin: 12/05/18 23:37 Dose: 999 mls/hr Documented by: [id number] Potassium Chloride (K Spike / Wtr) 10 meq in 100 mls @ 100 mls/hr IV Q1H WAI Stop: 12/06/18 02:29 Last Infusion: 12/06/18 02:25 Dose: 0 mls/hr Documented by: [id number] Admin: 12/06/18 01:22 Dose: 100 mls/hr Documented by: [id number] Infusion: 12/06/18 01:22 Dose: 100 mls/hr Documented by: [id number] Admin: 12/06/18 00:36 Dose: 100 mls/hr Documented by: [id number] Multivitamins 10 ml/ Thiamine HCl 100 mg/ Folic Acid 1 mg/Sodium Chloride 1,011.2 mls @ 1,011.2 mls/hr IV .Q1H ONE Stop: 12/06/18 01:37 Last Infusion: 12/06/18 02:14 Dose: 0 mls/hr Documented by: [id number] Admin: 12/06/18 00:58 Dose: 1,011.2 mls/hr Documented by: [id number] Magnesium Sulfate/Dextrose (Magnesium Sulfate / D5w) 1 gm in 100 mls @ 100 mls/hr IV ONE ONE Stop: 12/06/18 02:04 Last Infusion: 12/06/18 03:04 Dose: 0 mls/hr Documented by: [id number] Admin: 12/06/18 02:11 Dose: 100 mls/hr Documented by: [id number] Potassium Chloride (K Spike / Wtr) 10 meq in 100 mls @ 100 mls/hr IV Q1H WAI Stop: 12/06/18 04:14 Last Infusion: 12/06/18 09:26 Dose: 0 mls/hr Documented by: [id number] Admin: 12/06/18 03:57 Dose: 100 mls/hr Documented by: [id number] Infusion: 12/06/18 03:30 Dose: 100 mls/hr Documented by: [id number] Admin: 12/06/18 02:30 Dose: 100 mls/hr Documented by: [id number] Magnesium Sulfate/Dextrose (Magnesium Sulfate / D5w) 1 gm in 100 mls @ 100 mls/hr IV ONE ONE Stop: 12/06/18 03:01 Last Infusion: 12/06/18 04:23 Dose: 0 mls/hr Documented by: [id number] Admin: 12/06/18 03:04 Dose: 100 mls/hr Documented by: [id number] Calcium Gluconate 1,000 mg/ (Sodium Chloride) 60 mls @ 240 mls/hr IV NOW STA Stop: 12/06/18 02:17 Last Infusion: 12/06/18 02:45 Dose: 0 mls/hr Documented by: [id number] Admin: 12/06/18 02:27 Dose: 240 mls/hr Documented by: [id number] Acetylcysteine 5,250 mg/ (Dextrose) 526.25 mls @ 125 mls/hr IV ONE ONE; Protocol Stop: 12/06/18 07:38 Last Infusion: 12/06/18 09:25 Dose: 0 mls/hr Documented by: [id number] Admin: 12/06/18 05:10 Dose: 125 mls/hr Documented by: [id number] Acetylcysteine 15,750 mg/ (Dextrose) 278.75 mls @ 200 mls/hr IV ONE ONE; Protocol Stop: 12/06/18 03:48 Last Infusion: 12/06/18 05:10 Dose: 0 mls/hr Documented by: [id number] Admin: 12/06/18 03:41 Dose: 200 mls/hr Documented by: [id number] Phytonadione 5 mg/ Sodium (Chloride) 50.5 mls @ 101 mls/hr IV ONE ONE Stop: 12/06/18 02:58 Last Infusion: 12/06/18 03:35 Dose: 0 mls/hr Documented by: [id number] Admin: 12/06/18 03:05 Dose: 101 mls/hr Documented by: [id number] Folic Acid 1 mg/ Syringe 10 mls @ 5 mls/min IV QAM WAI Stop: 01/05/19 08:59 Last Admin: 12/06/18 08:45 Dose: 5 mls/min Documented by: [id number] Thiamine HCl 100 mg/ Syringe 10 mls @ 2 mls/min IV QAM WAI Stop: 01/05/19 08:59 Last Admin: 12/06/18 08:45 Dose: 2 mls/min Documented by: [id number] Potassium Chloride (K Spike / Wtr) 10 meq in 100 mls @ 100 mls/hr IV Q1H WAI Stop: 12/06/18 08:45 Last Infusion: 12/06/18 09:47 Dose: 0 mls/hr Documented by: [id number] Admin: 12/06/18 08:43 Dose: 100 mls/hr Documented by: [id number] Infusion: 12/06/18 08:42 Dose: 0 mls/hr Documented by: [id number] Admin: 12/06/18 07:18 Dose: 100 mls/hr Documented by: [id number] Infusion: 12/06/18 07:13 Dose: 0 mls/hr Documented by: [id number] Admin: 12/06/18 06:09 Dose: 100 mls/hr Documented by: [id number] Infusion: 12/06/18 05:58 Dose: 100 mls/hr Documented by: [id number] Admin: 12/06/18 04:58 Dose: 100 mls/hr Documented by: [id number] Potassium Chloride (K Spike / Wtr) 10 meq in 100 mls @ 100 mls/hr IV Q1H WAI Stop: 12/06/18 08:47 Last Infusion: 12/06/18 09:47 Dose: 0 mls/hr Documented by: [id number] Admin: 12/06/18 08:44 Dose: 100 mls/hr Documented by: [id number] Infusion: 12/06/18 08:42 Dose: 0 mls/hr Documented by: [id number] Admin: 12/06/18 07:21 Dose: 100 mls/hr Documented by: [id number] Infusion: 12/06/18 07:14 Dose: 0 mls/hr Documented by: [id number] Admin: 12/06/18 06:09 Dose: 100 mls/hr Documented by: [id number] Infusion: 12/06/18 05:59 Dose: 100 mls/hr Documented by: [id number] Admin: 12/06/18 04:59 Dose: 100 mls/hr Documented by: [id number] Calcium Gluconate 1,000 mg/ (Sodium Chloride) 60 mls @ 240 mls/hr IV NOW STA Stop: 12/06/18 05:38 Last Infusion: 12/06/18 05:57 Dose: 0 mls/hr Documented by: [id number] Admin: 12/06/18 05:33 Dose: 240 mls/hr Documented by: [id number] Calcium Gluconate 1,000 mg/ (Sodium Chloride) 60 mls @ 240 mls/hr IV NOW STA Stop: 12/06/18 09:59 Last Infusion: 12/06/18 10:23 Dose: 0 mls/hr Documented by: [id number] Admin: 12/06/18 09:58 Dose: 240 mls/hr Documented by: [id number] Magnesium Sulfate/Dextrose (Magnesium Sulfate / D5w) 1 gm in 100 mls @ 100 mls/hr IV Q1H WAI Stop: 12/06/18 11:59 Last Infusion: 12/06/18 11:56 Dose: 0 mls/hr Documented by: [id number] Admin: 12/06/18 10:51 Dose: 100 mls/hr Documented by: [id number] Infusion: 12/06/18 10:50 Dose: 0 mls/hr Documented by: [id number] Admin: 12/06/18 09:49 Dose: 100 mls/hr Documented by: [id number] Calcium Gluconate 1,000 mg/ (Sodium Chloride) 60 mls @ 240 mls/hr IV TODAY@1000 ONE Stop: 12/06/18 10:14 Last Infusion: 12/06/18 10:43 Dose: 0 mls/hr Documented by: [id number] Admin: 12/06/18 10:19 Dose: 240 mls/hr Documented by: [id number] Calcium Gluconate 1,000 mg/ (Sodium Chloride) 60 mls @ 240 mls/hr IV ONE ONE Stop: 12/06/18 13:14 Last Infusion: 12/06/18 14:53 Dose: 0 mls/hr Documented by: [id number] Admin: 12/06/18 14:17 Dose: 240 mls/hr Documented by: [id number] Lorazepam (Ativan) Confirm Administered Dose 2 mg .ROUTE .STK-MED ONE Stop: 12/05/18 23:22 Last Admin: 12/05/18 23:37 Dose: Not Given Documented by: [id number] Potassium Chloride (Klor-Con M20) 40 meq PO Q6H WAI Stop: 12/07/18 16:01 Last Admin: 12/06/18 10:06 Dose: 40 meq Documented by: [id number] Prednisone (Prelone) 40 mg PO .EXTRA DOSE ONE Stop: 12/06/18 11:01 Last Admin: 12/06/18 10:52 Dose: 40 mg Documented by: [id number] Medical Decision Making Differential Diagnosis Differential diagnosis includes, but is not limited to: alcohol withdrawal, hyperventilation syndrome, anxiety, dehydration, and gastritis. Medical Records Attestation: I reviewed the patient's medical records. Home Medications Current Medication List: was personally reviewed by me Laboratory Data Attestation: I reviewed the patient's lab results. Result diagrams: 12/06/18 03:54 12/06/18 11:32 Lab Results 12/05/18 12/05/18 12/05/18 Range/Units 23:30 23:30 23:30 WBC 23.20 H (4.8-10.8) K/uL RBC 3.85 L (4.7-6.1) M/uL Hgb 16.0 (14.0-18.0) g/dL Hct 42.3 (42-52) % MCV 109.9 H (80-100) fL MCH 41.6 H (25-34) pg MCHC 37.8 H (32-36) g/dL Plt Count 253 (130-400) K/uL Immature Gran % (Auto) 0.6 % Neut % (Auto) 66.3 % Lymph % (Auto) 19.9 % [place] % (Auto) 12.7 % Eos % (Auto) 0.4 % Baso % (Auto) 0.1 % Immature Gran # (Auto) 0.14 H (0.00-0.02) K/uL Neut # (Auto) 15.38 H (1.4-6.5) K/uL Lymph # (Auto) 4.61 H (1.2-3.4) K/uL [place] # (Auto) 2.95 H (0.11-0.59) K/uL Eos # (Auto) 0.10 (0-0.5) K/uL Baso # (Auto) 0.02 (0-0.2) K/uL Macrocytosis Present Pappenheimer Bodies 1+ PT (9.0-12.0) Seconds INR (0.9-1.1) Sodium 120 L (136-145) mmol/L Potassium 2.5 L* (3.5-5.1) mmol/L Chloride 72 L (98-107) mmol/L Carbon Dioxide 13 L (21-32) mmol/L Anion Gap 35.0 H (3-11) BUN 19 H (7-18) mg/dl Creatinine 2.67 H (0.6-1.4) mg/dl Est Cr Clr Drug Dosing 49.9 ml/min Est GFR ( Amer) 34.8 Est GFR (Non-Af Amer) 30.0 BUN/Creatinine Ratio 7.0 L (10-20) Glucose 99 (70-99) mg/dl Osmolality 266 L (280-300) mOsm/kg Lactate (0.4-2.0) mmol/L Calcium 5.4 L* (8.5-10.1) mg/dl Magnesium 1.2 L (1.8-2.4) mg/dl Total Bilirubin 5.2 H (0.2-1) mg/dl Direct Bilirubin (0-0.2) mg/dl AST 737 H (15-37) U/L ALT 232 H (12-78) U/L Alkaline Phosphatase 310 H (45-117) U/L Lactate Dehydrogenase (87-241) U/L Troponin I < 0.015 (0-0.045) ng/ml Total Protein 7.2 (6.4-8.2) gm/dl Albumin 3.4 (3.4-5.0) gm/dl Globulin 3.8 (2.5-4.0) gm/dl Albumin/Globulin Ratio 0.9 (0.9-2) Lipase 790 H (73-393) U/L Salicylates (2.8-20) mg/dl Acetaminophen (10-30) ug/ml Ethyl Alcohol mg/dL (0-3) mg/dl Lyme Disease IgG Ab (Negative) Lyme Disease IgM Ab (Negative) Hep Bs Antigen (Neg) Hepatitis C Antibody (Neg) 12/05/18 12/06/18 12/06/18 Range/Units 23:32 00:33 00:33 WBC (4.8-10.8) K/uL RBC (4.7-6.1) M/uL Hgb (14.0-18.0) g/dL Hct (42-52) % MCV (80-100) fL MCH (25-34) pg MCHC (32-36) g/dL Plt Count (130-400) K/uL Immature Gran % (Auto) % Neut % (Auto) % Lymph % (Auto) % [place] % (Auto) % Eos % (Auto) % Baso % (Auto) % Immature Gran # (Auto) (0.00-0.02) K/uL Neut # (Auto) (1.4-6.5) K/uL Lymph # (Auto) (1.2-3.4) K/uL [place] # (Auto) (0.11-0.59) K/uL Eos # (Auto) (0-0.5) K/uL Baso # (Auto) (0-0.2) K/uL Macrocytosis Pappenheimer Bodies PT 23.2 H (9.0-12.0) Seconds INR 2.4 H (0.9-1.1) Sodium (136-145) mmol/L Potassium (3.5-5.1) mmol/L Chloride (98-107) mmol/L Carbon Dioxide (21-32) mmol/L Anion Gap (3-11) BUN (7-18) mg/dl Creatinine (0.6-1.4) mg/dl Est Cr Clr Drug Dosing ml/min Est GFR ( Amer) Est GFR (Non-Af Amer) BUN/Creatinine Ratio (10-20) Glucose (70-99) mg/dl Osmolality (280-300) mOsm/kg Lactate (0.4-2.0) mmol/L Calcium (8.5-10.1) mg/dl Magnesium (1.8-2.4) mg/dl Total Bilirubin (0.2-1) mg/dl Direct Bilirubin (0-0.2) mg/dl AST (15-37) U/L ALT (12-78) U/L Alkaline Phosphatase (45-117) U/L Lactate Dehydrogenase (87-241) U/L Troponin I (0-0.045) ng/ml Total Protein (6.4-8.2) gm/dl Albumin (3.4-5.0) gm/dl Globulin (2.5-4.0) gm/dl Albumin/Globulin Ratio (0.9-2) Lipase (73-393) U/L Salicylates (2.8-20) mg/dl Acetaminophen (10-30) ug/ml Ethyl Alcohol mg/dL < 3.0 (0-3) mg/dl Lyme Disease IgG Ab (Negative) Lyme Disease IgM Ab (Negative) Hep Bs Antigen Neg (Neg) Hepatitis C Antibody Neg (Neg) 12/06/18 12/06/18 12/06/18 Range/Units 02:00 02:04 02:04 WBC (4.8-10.8) K/uL RBC (4.7-6.1) M/uL Hgb (14.0-18.0) g/dL Hct (42-52) % MCV (80-100) fL MCH (25-34) pg MCHC (32-36) g/dL Plt Count (130-400) K/uL Immature Gran % (Auto) % Neut % (Auto) % Lymph % (Auto) % [place] % (Auto) % Eos % (Auto) % Baso % (Auto) % Immature Gran # (Auto) (0.00-0.02) K/uL Neut # (Auto) (1.4-6.5) K/uL Lymph # (Auto) (1.2-3.4) K/uL [place] # (Auto) (0.11-0.59) K/uL Eos # (Auto) (0-0.5) K/uL Baso # (Auto) (0-0.2) K/uL Macrocytosis Pappenheimer Bodies PT (9.0-12.0) Seconds INR (0.9-1.1) Sodium (136-145) mmol/L Potassium (3.5-5.1) mmol/L Chloride (98-107) mmol/L Carbon Dioxide (21-32) mmol/L Anion Gap (3-11) BUN (7-18) mg/dl Creatinine (0.6-1.4) mg/dl Est Cr Clr Drug Dosing ml/min Est GFR ( Amer) Est GFR (Non-Af Amer) BUN/Creatinine Ratio (10-20) Glucose (70-99) mg/dl Osmolality (280-300) mOsm/kg Lactate 7.7 H* (0.4-2.0) mmol/L Calcium (8.5-10.1) mg/dl Magnesium (1.8-2.4) mg/dl Total Bilirubin 4.2 H (0.2-1) mg/dl Direct Bilirubin 2.9 H (0-0.2) mg/dl AST 566 H (15-37) U/L ALT 177 H (12-78) U/L Alkaline Phosphatase 231 H (45-117) U/L Lactate Dehydrogenase (87-241) U/L Troponin I (0-0.045) ng/ml Total Protein 5.5 L D (6.4-8.2) gm/dl Albumin 2.7 L (3.4-5.0) gm/dl Globulin (2.5-4.0) gm/dl Albumin/Globulin Ratio (0.9-2) Lipase (73-393) U/L Salicylates (2.8-20) mg/dl Acetaminophen (10-30) ug/ml Ethyl Alcohol mg/dL (0-3) mg/dl Lyme Disease IgG Ab (Negative) Lyme Disease IgM Ab (Negative) Hep Bs Antigen (Neg) Hepatitis C Antibody (Neg) 12/06/18 12/06/18 Range/Units 02:06 02:06 WBC (4.8-10.8) K/uL RBC (4.7-6.1) M/uL Hgb (14.0-18.0) g/dL Hct (42-52) % MCV (80-100) fL MCH (25-34) pg MCHC (32-36) g/dL Plt Count (130-400) K/uL Immature Gran % (Auto) % Neut % (Auto) % Lymph % (Auto) % [place] % (Auto) % Eos % (Auto) % Baso % (Auto) % Immature Gran # (Auto) (0.00-0.02) K/uL Neut # (Auto) (1.4-6.5) K/uL Lymph # (Auto) (1.2-3.4) K/uL [place] # (Auto) (0.11-0.59) K/uL Eos # (Auto) (0-0.5) K/uL Baso # (Auto) (0-0.2) K/uL Macrocytosis Pappenheimer Bodies PT (9.0-12.0) Seconds INR (0.9-1.1) Sodium (136-145) mmol/L Potassium (3.5-5.1) mmol/L Chloride (98-107) mmol/L Carbon Dioxide (21-32) mmol/L Anion Gap (3-11) BUN (7-18) mg/dl Creatinine (0.6-1.4) mg/dl Est Cr Clr Drug Dosing ml/min Est GFR ( Amer) Est GFR (Non-Af Amer) BUN/Creatinine Ratio (10-20) Glucose (70-99) mg/dl Osmolality (280-300) mOsm/kg Lactate (0.4-2.0) mmol/L Calcium (8.5-10.1) mg/dl Magnesium (1.8-2.4) mg/dl Total Bilirubin (0.2-1) mg/dl Direct Bilirubin (0-0.2) mg/dl AST (15-37) U/L ALT (12-78) U/L Alkaline Phosphatase (45-117) U/L Lactate Dehydrogenase 1648 H (87-241) U/L Troponin I (0-0.045) ng/ml Total Protein (6.4-8.2) gm/dl Albumin (3.4-5.0) gm/dl Globulin (2.5-4.0) gm/dl Albumin/Globulin Ratio (0.9-2) Lipase (73-393) U/L Salicylates (2.8-20) mg/dl Acetaminophen (10-30) ug/ml Ethyl Alcohol mg/dL (0-3) mg/dl Lyme Disease IgG Ab Negative (Negative) Lyme Disease IgM Ab Negative (Negative) Hep Bs Antigen (Neg) Hepatitis C Antibody (Neg) Blood Pressure Blood Pressure Findings: Normal blood pressure Blood Pressure Disposition: did not require urgent referral MDM Narrative The patient is a 33 year old male with a history of alcohol abuse who presents to the Emergency Room with complaints of vomiting that started today. The patient presented with significant tachycardia with heart rates greater than 200 and hyperventilation. The patient had carpopedal spasm on physical exam. The patient appeared extremely dehydrated. He had a large bore IV lock initiated a nd started to receive a 2 L bolus of normal saline solution. The patient appeared to be in alcohol withdrawal and was given IV Ativan. His vital signs responded positively to the normal saline solution and Ativan. The patient initially had significant difficulty talking believing that his tongue was swollen. There is no evidence of edema to the tongue or an allergic reaction. I believe he had difficulty with speech secondary to how dry his mouth was. The patient had significantly elevated LFTs in conjunction with scleral icterus which was concerning for alcoholic hepatitis. Additional laboratory testing revealed an elevated lipase. The patient had no reproducible pain over the pancreas. He had no obvious signs of hepatic encephalopathy. The patient had very significant electrolyte derangements including severe hypokalemia, hyponatremia, hypocalcemia. Patient has extraordinary metabolic acidosis thought to be secondary to lactic acidosis with an anion gap greater than 30. Lactate was 7.7. ABG revealed a pH of 7.49 with a low CO2. This revealed a mixed pattern of probable compensation. In retrospect, the patient's significant hyperventilation on presentation in conjunction with carpal pedal spasm was most likely secondary to his severe metabolic acidosis and electrolyte derangement. The patient is critically ill. I made him and his family aware of this. He was treated aggressively here in the emergency department and will be transferred to the ICU. The patient seemed to have been somewhat of a closet alcoholic considering his fiance, the fianc's mother, and his own mother had no idea that he was drinking this much alcohol for this long. Impression & Plan Renal failure, Alcohol withdrawal, Hypokalemia, Hyponatremia, AH (alcoholic hepatitis), High anion gap metabolic acidosis, Hypocalcemia Critical Care Time Critical Care Time: Yes Total Critical Care Time: 95 I have personally spent 95 minutes of critical care time in the direct management of this patient. This includes bedside care, interpretation of diagnostic studies, and testing, discussion with consultants, patient, and family members, and other required patient management activities. This 95 minutes is in excess of all separately billable procedures. Discharge Plan Visit Data *Final* Discharge Date/Time: 12/06/18 02:51 Chief Complaint: Vomiting Stated Complaint: Vomiting, shortness of breath Other Complaint: Alcohol Withdrawal ED Provider: Barbra Colón Discharge Problem: Renal failure, Alcohol withdrawal, Hypokalemia, Hyponatremia, AH (alcoholic hepatitis), High anion gap metabolic acidosis, Hypocalcemia Patient Disposition: Admitted As Inpatient Discharge Instructions Interventions: ED Discharge Assessment Last Done: 12/06/18 02:51 Discharge Problem: Renal failure Qualifiers: Renal failure chronicity: unspecified chronicity Qualified Code(s): N19 - Unspecified kidney failure Alcohol withdrawal Qualifiers: Complication of substance-induced condition: with unspecified complication Qualified Code(s): F10.239 - Alcohol dependence with withdrawal, unspecified AH (alcoholic hepatitis) Qualifiers: Ascites presence: unspecified Qualified Code(s): K70.10 - Alcoholic hepatitis without ascites The scribe's documentation has been prepared under my direction and personally reviewed by me in its entirety. I confirm that the note above accurately reflects all work, treatment, procedures, and medical decision making performed by me.
[2018-12-06 16:57] LABS: BUN Creatinine Ratio 8.2 (10-20); Calcium 6.1 mg/dl (8.5-10.1); Creatinine Clr Calc Pharmacy 59.9 ml/min; Est GFR (African American) 42.8; Est GFR (Non-African American) 36.9; Potassium 2.8 mmol/L (3.5-5.1)
[2018-12-06] MEDS ORDERED: ERGOCALCIFEROL 50,000 UNITS CAP PO STA (17:00)
[2018-12-06 17:10] LABS: Thyroid Stimulating Hormone 1.81 uIu/ml (0.300-4.500)
[2018-12-06] MEDS: LORazepam 1 MG/2 ML VIAL IV PRN (19:21)
[2018-12-06 21:11] LABS: Albumin Level 2.8 gm/dl (3.4-5.0); BUN Creatinine Ratio 9.6 (10-20); Calcium 6.3 mg/dl (8.5-10.1); Creatinine Clr Calc Pharmacy 65.5 ml/min; Est GFR (African American) 47.6; Est GFR (Non-African American) 41.1; Potassium 3.2 mmol/L (3.5-5.1)
[2018-12-06 21:18] LABS: Albumin Globulin Ratio 0.9 (0.9-2); Bilirubin,Total 7.2 mg/dl (0.2-1); Globulin 3.1 gm/dl (2.5-4.0); Total Protein 5.9 gm/dl (6.4-8.2)
[2018-12-06] MEDS ORDERED: POTASSIUM CHLORIDE 20 MEQ TABCR PO STA (22:07)
[2018-12-07] MEDS: SODIUM CHLORIDE 0.9% 1000ML 1,000 ML IV SCH (05:42)
[2018-12-07 06:09] LABS: INR 1.9 (0.9-1.1); Partial Thromboplastin Ratio 1.6; Partial Thromboplastin Time 44.2 Seconds (21.0-31.0); Prothrombin Time 18.4 Seconds (9.0-12.0)
[2018-12-07 06:24] LABS: Albumin Level 2.7 gm/dl (3.4-5.0); BUN Creatinine Ratio 10.9 (10-20); Calcium 6.3 mg/dl (8.5-10.1); Creatinine Clr Calc Pharmacy 83.2 ml/min; Est GFR (African American) 63.7; Est GFR (Non-African American) 54.9; Magnesium 1.7 mg/dl (1.8-2.4); Potassium 2.8 mmol/L (3.5-5.1)
[2018-12-07 06:40] LABS: Globulin 2.7 gm/dl (2.5-4.0); Phosphorus 1.8 mg/dl (2.5-4.9); Total Protein 5.4 gm/dl (6.4-8.2)
[2018-12-07 06:55] LABS: Hemoglobin 11.9 g/dL (14.0-18.0); Mean Corpuscular Hemoglobin 41.9 pg (25-34); Mean Corpuscular Hgb Conc 38.4 g/dL (32-36); Mean Corpuscular Volume 109.2 fL (80-100); Mean Platelet Volume 13.9 fL (7.4-10.4); Platelet Count 173 K/uL (130-400); RDW Coefficient of Variation 20.1 % (11.5-14.5); RDW Standard Deviation 79.7 fL (36.4-46.3); Red Blood Count 2.84 M/uL (4.7-6.1); White Blood Count 14.24 K/uL (4.8-10.8)
[2018-12-07 07:08] LABS: Anisocytosis Present; Basophils # (auto) 0.01 K/uL (0-0.2); Basophils % (auto) 0.1 %; Eosinophils # (auto) 0.01 K/uL (0-0.5); Eosinophils % (auto) 0.1 %; Immature Granulocytes # (auto) 0.02 K/uL (0.00-0.02); Immature Granulocytes % (auto) 0.1 %; Lymphocytes # (auto) 1.31 K/uL (1.2-3.4); Lymphocytes % (auto) 9.2 %; Monocytes # (auto) 1.43 K/uL (0.11-0.59); Neutrophils # (auto) 11.46 K/uL (1.4-6.5); Neutrophils % (auto) 80.5 %; Pappenheimer Bodies 2+; Target Cells 2+
[2018-12-07] MEDS ORDERED: POTASSIUM PHOS 3 MMOL/1 ML INFUSION IV STA (07:08)
[2018-12-07] MEDS ORDERED: POT PHOSPHATE MONOBASIC W/ SOD TAB PO STA (07:09)
[2018-12-07] MEDS ORDERED: POTASSIUM CHLORIDE 20 MEQ TABCR PO STA ×3 (07:11→21:39)
[2018-12-07] MEDS ORDERED: CALCIUM GLUCONATE 10% 1,000 MG in SODIUM CHLORIDE 0.9% 50 ML IV ONE ×2 (07:30→13:15)
[2018-12-07] MEDS ORDERED: POTASSIUM PHOSPHATE 21 MMOL in SODIUM CHLORIDE 0.9% 500 ML IV ONE (07:45)
[2018-12-07] MEDS: NORMOSOL-R 1,000 ML IV SCH (08:47)
[2018-12-07] MEDS: MAGNESIUM SULFATE / D5W 1 GM/100 ML BAG IV SCH ×2 (08:53→10:19)
[2018-12-07] MEDS ORDERED: FOLIC ACID 1 MG in SYRINGE 9.8 ML IV SCH (09:00)
[2018-12-07] MEDS ORDERED: THIAMINE HCL 100 MG in SYRINGE 9 ML IV SCH (09:00)
[2018-12-07] MEDS: LACTULOSE SYRUP 20 GM/30 ML UDC PO SCH (09:07)
[2018-12-07] MEDS: CALCIUM 600MG + VIT D 400 IU TAB PO SCH (09:07)
[2018-12-07] MEDS: FOLIC ACID 1 MG TAB PO SCH (09:08)
[2018-12-07] MEDS: POT PHOSPHATE MONOBASIC W/ SOD TAB PO SCH ×5 (09:09→20:52)
[2018-12-07] MEDS: CEROVITE ADV FORMULA TAB PO SCH (09:09)
[2018-12-07] MEDS: MAGNESIUM OXIDE 400 MG TAB PO SCH ×2 (09:09→20:52)
[2018-12-07] MEDS: prednisoLONE SYRUP 15 MG/5 ML BTL PO SCH (09:10)
[2018-12-07] MEDS: PENTOXIFYLLINE 400MG EXT REL TAB PO SCH ×3 (09:13→20:51)
[2018-12-07] MEDS: THIAMINE HCL 100 MG TAB PO SCH (09:13)
[2018-12-07] MEDS: RIFAXIMIN 200 MG TABLET PO SCH (09:14)
--- NOTE | 2018-12-07 09:49 | Gastroenterology Progress Note ---
Date of Service December 07, 2018 Supervising Physician Co-Signing Physician Notes 33 yo male for which GI is following for alcohoic hepatitis. He is clinically doing well- alert and oriented. He seems to continue to want to abstain from alcohol. Labs slowly improving- still with continued electrolyte derangements. PE - alert and oriented, no asterixis, abd soft nt nd +bs Labs above Imaging reviewed He is now on trental 400 tid which is fine as his maddrey's was not over 32 on admission. Could consider NAC while in house in addition to trental. INR down trending and mentating fine. Additional dose of vitamin K 5 mg can be given tomorrow if INR is uptredning. Replete lytes. Trend labs. Rule out infection. Subjective No acute complaints Looks well rested Alert and oriented No complaints this morning Review of Systems Review of Systems: All systems reviewed & are unremarkable except as noted in HPI & below Physical Exam Physical Exam: Well nourished white male in nad Eyes: PERRL, conjunctivae normal, anicteric sclerae Gastrointestinal (Abdomen): normal bowel sounds, soft, nontender, no hepatosplenomegaly Musculoskeletal: no cyanosis or clubbing, extremities motor strength 5/5 Skin: no rashes, warm and dry Neurologic: CN's II-XI intact bilaterally Results & Data Vital Signs (Past 12 Hours) Vital Signs Temp Pulse Pulse Resp BP BP Pulse Ox 12/07/18 07:42 36.6 C 92 H 19 134/90 97 12/07/18 03:42 36.8 C 94 H 18 143/86 H 95 12/07/18 00:30 36.7 C 86 18 135/89 97 12/07/18 00:00 93 H Labs reviewed CBC 14.24/Hgb 11.9/ MCV 109.2 Plt 173 INR 1.9 Na 127, K2.8, Ca 2.6, Phos 1.8, Mg 1.7 TB 6.0, AST 512, ALT 176, AP 212
[2018-12-07] MEDS ORDERED: chlordiazePOXIDE HCl 25 MG CAP PO ONE (10:33)
[2018-12-07 12:27] LABS: Albumin Level 2.8 gm/dl (3.4-5.0); BUN Creatinine Ratio 10.4 (10-20); Bilirubin,Total 6.3 mg/dl (0.2-1); Calcium 6.5 mg/dl (8.5-10.1); Creatinine Clr Calc Pharmacy 84.9 ml/min; Est GFR (African American) 64.6; Est GFR (Non-African American) 55.8; Globulin 2.9 gm/dl (2.5-4.0); Magnesium 2.3 mg/dl (1.8-2.4); Phosphorus 2.7 mg/dl (2.5-4.9); Potassium 2.7 mmol/L (3.5-5.1); Total Protein 5.7 gm/dl (6.4-8.2)
[2018-12-07 12:28] LABS: Hepatitis A Antibody IgM NON-REACTIVE (NON-REACTIVE); Hepatitis B Core Antibody IgM NON-REACTIVE (NON-REACTIVE)
[2018-12-07] MEDS: POTASSIUM CHLORIDE / WTR 10 MEQ/100 ML PLCT IV SCH ×3 (12:49→16:40)
[2018-12-07] MEDS: PANTOprazole 40 MG TAB PO SCH (13:43)
[2018-12-07] MEDS: CALCIUM CARBONATE 1250MG TAB PO SCH ×2 (13:44→20:51)
[2018-12-07] MEDS: LORazepam 1 MG/2 ML VIAL IV PRN (13:51)
[2018-12-07] MEDS ORDERED: chlordiazePOXIDE HCl 25 MG CAP PO SCH (14:00)
[2018-12-07] MEDS ORDERED: ONDANSETRON INJ 2 MG/ML 2 ML VIAL IV PRN (15:01)
[2018-12-07] MEDS ORDERED: ONDANSETRON INJ 2 MG/ML 2 ML VIAL IV STA (15:02)
--- NOTE | 2018-12-07 15:54 | Hospitalist Progress Note ---
Date of Service December 07, 2018 Assessment & Plan (1) Alcohol abuse: Alcohol Withdrawal suspected -As per history and physical, patient drinks 6 beers a day and 6 shots of whiskey every day for the last 8 years, who stopped alcohol use 2 days ago prior to hospital presentation and then brought to the emergency room after symptoms of He nausea, vomiting and shakiness, and malaise -on hospital presentation, patient was was tachycardic with serve electrolyte derangements and transaminitis acute kidney injury and high anion gap metabolic acidosis in the setting of lactic acidosis and so patient was admitted to the Intensive Care Unit for close monitoring and electrolyte repletion -on alcohol withdrawal protocol - no delirium tremens at this time -continue thiamine and folic acid -patient was transferred from ICU to medical [facility] with telemetry monitoring on 12/06/18 for further correction of electrolyte abnormalities and management of alcohol related health issues -patient counseled on alcohol abuse and current symptoms as medical consequences of excessive alcohol consumption -patient has stated his desire to quit alcohol -on alcohol withdrawal protocol while inpatient, patient has received Librium on 12/07/18, would avoid further Librium doses because appears to correlate with nausea; on Zofran prn for antiemetics (2) AH (alcoholic hepatitis): from 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 Mild marginal nodula rity of the liver suggests early cirrhotic change -portal vein ultrasound: Limited study due to body habitus consideration as well as fatty replacement of the liver. Normal flow within the hepatic as well as portal venous structures within these limitations -patient has received N-acetylcysteine to attempt to reduce the inflammation from alcoholic hepatitis on 12/06/18; switched to Pentoxifylline TID on 12/07/18 (of note Pentoxifylline can cause nausea and indigestion) -Intensive Care Unit physician started rifaximin and lactulose given his elevated ammonia levels on 12/06/18 -ammonia level is 46 on 12/07/18, patient is very concerned about diarrhea which he has been informed is expected from lactulose and rifaximin, since has has been able to make bowel movements would hold off further lactulose and rifaximin for now and re-evaluate tomorrow (3) Transaminitis: -elevated liver enzymes and elevated INR are markers of alcoholic hepatitic and Alcoholic liver cirrhosis -monitor (4) Elevated INR: -elevated liver enzymes and elevated INR of 2.4 are markers of alcoholic hepatitic and Alcoholic liver cirrhosis -was given vitamin on admission -INR is 1.9 on 12/07/18 (5) Hyperammonemia: -elevated ammonia levels are markers of cirrhosis -Intensive Care Unit physician started rifaximin and lactulose given his elevated ammonia levels on 12/06/18 -ammonia level is 46 on 12/07/18, patient is very concerned about diarrhea which he has been informed is expected from lactulose and rifaximin, since has has been able to make bowel movements would hold off further lactulose and rifaximin for now and re-evaluate tomorrow stool culture is pending C.difficile is negative (6) Elevated lipase: -admission lipase 790 -likely from chronic alcohol use -mild lipase decrease by 12/07/18 (7) Elevated LDH: -1649 on admission -elevated LDH is a maker of liver disease such as hepatitis or muscle injury -on IV fluids -currently LDH remains elevated (8) Elevated creatine kinase: -1513 on admission -marker for muscle breakdown -on IV fluids -creatinine kinase has increase, continued to trend while on IV fluids -TSH is normal -PT/OT evaluations (9) HUYEN (acute kidney injury): -admission creatinine 2.67 -downtrending with IV fluids, continue IV fluids (10) High anion gap metabolic acidosis: Lactic acidosis Leukocytosis -admission WBC 23K -admission lactic acid as 7.7, with high anion gap -patient on IV fluids -monitor anion gap and trend lactic acid -current workup is not suggestive of infection as cause of acidosis, cultures from 12/06/18 with no growth, patient has been afebrile, leukocytosis is downtrending and suspect that leukocytosis was from dehydration and stress reaction from non-bacterial inflammation -lactic acid downtrended, anion gap still elevated due to low serum chloride (11) Hyponatremia: -admission serum sodium 120 -Hyponatremia due to hypovolemia. Patient had a urine osmolality of 341, urine sodium of 11 and serum osmolality of 266 -serum sodium is now 129 and serum chloride increasing concurrently (12) Hypokalemia: -admission serum potassium 2.5 -goal serum potassium is 3.5 to 4 -patient has gotten multiple IV and oral supplements to date -continue to monitor and replete as needed (13) Hypomagnesemia: -admission serum magnesium is 1.2 -patient has gotten multiple magnesium supplements -recieved additional IV and oral magnesium supplements because serum magnesium 1.7 on 12/07/18 -last check serum magnesium is 2.3 (14) Hypocalcemia: -admission serum calcium of 5.4 -patient has received multiple IV calcium gluconate -increased oral calcium to 1250 mg BID -serum calcium trending up to 6.5 Vitamin D Deficiency Elevated PTH -patient has very low vitamin D levels which may explain hypocalcemia -if patient lacks vitamin D in the diet, then calcium levels would be low, and leads to elevated parathyroid hormone levels -started vitamin D as 50,000 units qweekly on 12/06/18 DVT prophylaxis: SCDs Subjective Patient generally stable. He did get additional benzodiazepine because of tachycardia but does not appear to have tremors or tongue fasiculations. Mental status stable and no reports of hallucinations. no chest pain. no shortness of breath. no palpitations. has been having loose stools. he did express to nurse of nausea and upset stomach. no acute abdominal tenderness or distension on physical exam Physical Exam Constitutional: WD/WN, vitals as above comfortable Eyes: PERRL, conjunctivae normal, anicteric sclerae EOM intact bilaterally ENMT: external ear and nose normal, oropharynx normal Neck: normal visual inspection Respiratory: normal respiratory effort, lungs clear to auscultation Cardiovascular: Rate/Rhythm: regular rate and regular rhythm Gastrointestinal (Abdomen): Inspection/Auscultation: abdomen normal to inspection and normal bowel sounds Percussion/Palpation: abdomen soft Musculoskeletal: Head/Neck/Chest: normocephalic and head atraumatic Neurologic: PERRL, EOMI, accommodation nl, no face palsy, no dysarthria CN's II-XI intact bilaterally Psychiatric: A+Ox3, euthymic affect Results & Data Vital Signs (Past 12 Hours) Vital Signs Temp Pulse Pulse Resp BP Pulse Ox 12/07/18 11:45 36.7 C 101 H 18 106/60 96 12/07/18 08:00 83 12/07/18 07:42 36.6 C 92 H 19 134/90 97 (1) AH (alcoholic hepatitis) Ascites presence: unspecified Qualified Code(s): K70.10 - Alcoholic hepatitis without ascites
[2018-12-07] MEDS ORDERED: OXYCODONE HCL IR 5 MG TAB (IMMEDIATE RELEASE) PO STA (16:25)
[2018-12-07] MEDS ORDERED: HYDROmorphone INJ 0.5 MG/0.5 ML SYR IV STA (16:28)
[2018-12-07] MEDS ORDERED: CALCIUM GLUCONATE 10% 1,000 MG in SODIUM CHLORIDE 0.9% 50 ML IV STA (19:52)
[2018-12-07 21:01] LABS: Albumin Level 2.6 gm/dl (3.4-5.0); BUN Creatinine Ratio 11.8 (10-20); Bilirubin,Total 5.3 mg/dl (0.2-1); Calcium 6.3 mg/dl (8.5-10.1); Creatinine Clr Calc Pharmacy 110.5 ml/min; Est GFR (African American) 88.8; Est GFR (Non-African American) 76.7; Globulin 2.7 gm/dl (2.5-4.0); Magnesium 1.7 mg/dl (1.8-2.4); Phosphorus 3.2 mg/dl (2.5-4.9); Potassium 3.3 mmol/L (3.5-5.1); Total Protein 5.3 gm/dl (6.4-8.2)
[2018-12-07] MEDS ORDERED: MAGNESIUM SULFATE / D5W 1 GM/100 ML BAG IV ONE (22:00)
[2018-12-08] MEDS: NORMOSOL-R 1,000 ML IV SCH ×2 (01:49→20:23)
[2018-12-08 07:32] LABS: Basophils # (auto) 0.01 K/uL (0-0.2); Basophils % (auto) 0.1 %; Eosinophils # (auto) 0.01 K/uL (0-0.5); Eosinophils % (auto) 0.1 %; Hematocrit (blood only) 31.2 % (42-52); Hemoglobin 11.8 g/dL (14.0-18.0); Immature Granulocytes # (auto) 0.03 K/uL (0.00-0.02); Immature Granulocytes % (auto) 0.2 %; Lymphocytes # (auto) 1.53 K/uL (1.2-3.4); Lymphocytes % (auto) 11.4 %; Mean Corpuscular Hemoglobin 42.4 pg (25-34); Mean Corpuscular Hgb Conc 37.8 g/dL (32-36); Mean Corpuscular Volume 112.2 fL (80-100); Mean Platelet Volume 13.1 fL (7.4-10.4); Monocytes # (auto) 1.12 K/uL (0.11-0.59); Monocytes % (auto) 8.4 %; Neutrophils % (auto) 79.8 %; Platelet Count 169 K/uL (130-400); RDW Coefficient of Variation 20.4 % (11.5-14.5); RDW Standard Deviation 82.8 fL (36.4-46.3); Red Blood Count 2.78 M/uL (4.7-6.1)
[2018-12-08 07:44] LABS: INR 1.6 (0.9-1.1); Partial Thromboplastin Ratio 1.3; Partial Thromboplastin Time 34.5 Seconds (21.0-31.0); Prothrombin Time 16.3 Seconds (9.0-12.0)
[2018-12-08 07:57] LABS: Anisocytosis Present; Macrocytosis Present; Target Cells 1+
[2018-12-08 08:12] LABS: Albumin Level 2.8 gm/dl (3.4-5.0); Calcium 6.4 mg/dl (8.5-10.1); Creatinine Clr Calc Pharmacy 105.5 ml/min; Est GFR (African American) 83.9; Est GFR (Non-African American) 72.4; Magnesium 1.7 mg/dl (1.8-2.4); Phosphorus 3.2 mg/dl (2.5-4.9); Potassium 2.8 mmol/L (3.5-5.1)
[2018-12-08] MEDS ORDERED: AcetylCYSTEINE 15,000 MG in DEXTROSE 5% 200 ML IV ONE (08:30)
[2018-12-08 08:38] LABS: Bilirubin,Total 4.7 mg/dl (0.2-1); Globulin 2.8 gm/dl (2.5-4.0); Total Protein 5.6 gm/dl (6.4-8.2)
[2018-12-08] MEDS: FOLIC ACID 1 MG TAB PO SCH (08:46)
[2018-12-08] MEDS: MAGNESIUM OXIDE 400 MG TAB PO SCH ×2 (08:47→20:51)
[2018-12-08] MEDS: CEROVITE ADV FORMULA TAB PO SCH (08:47)
[2018-12-08] MEDS: POT PHOSPHATE MONOBASIC W/ SOD TAB PO SCH ×2 (08:48→13:35)
[2018-12-08] MEDS: CALCIUM CARBONATE 1250MG TAB PO SCH ×2 (08:48→20:51)
[2018-12-08] MEDS: prednisoLONE SYRUP 15 MG/5 ML BTL PO SCH (08:49)
[2018-12-08] MEDS: PANTOprazole 40 MG TAB PO SCH (08:50)
[2018-12-08] MEDS: THIAMINE HCL 100 MG TAB PO SCH (08:50)
[2018-12-08] MEDS: POTASSIUM CHLORIDE 20 MEQ TABCR PO SCH ×2 (08:51→20:50)
[2018-12-08] MEDS ORDERED: CALCIUM GLUCONATE 10% 1,000 MG in SODIUM CHLORIDE 0.9% 50 ML IV ONE (09:00)
--- NOTE | 2018-12-08 09:23 | Gastroenterology Progress Note ---
Date of Service December 08, 2018 Supervising Physician Co-Signing Physician Notes 33 yo male admitted Sunday, GI consulted for elevated lft's. He has alcoholic hepatitis- now on prednisone, slowly downtrending lft's, normal mentation, INR normalizing. Would continue Prednisone for now. Continue B12, folate. Correct electrolytes. He has a lipase elevation but no pain and ate a full diet this morning - ? alcoholic pancreatitis that will likely improve with abstinence. CK elevation may be from rhabdo and LDH elevation - would trend and give IV LR today at least x 1 Liter. Continue to trend lft's. Subjective No acute events Eating a full diet this morning No complaints Review of Systems Review of Systems: All systems reviewed & are unremarkable except as noted in HPI & below Physical Exam Physical Exam: Well nourished male in nad Eyes: PERRL, conjunctivae normal, anicteric sclerae Gastrointestinal (Abdomen): normal bowel sounds, soft, nontender, no hepatosplenomegaly Neurologic: CN's II-XI intact bilaterally Results & Data Vital Signs (Past 12 Hours) Vital Signs Temp Pulse Pulse Resp BP BP Pulse Ox 12/08/18 04:05 36.7 C 92 H 18 111/70 96 12/08/18 02:01 103 H 12/08/18 00:12 36.8 C 93 H 18 130/84 97 Labs reviewed:WBC 13.40, Hgb 11.8/Hct 31/2. Plt 169 INR 1.6 TB 4.1/ADR089 CK 3493 Lipase 656
[2018-12-08] MEDS: MAGNESIUM SULFATE / D5W 1 GM/100 ML BAG IV SCH ×4 (09:46→19:36)
[2018-12-08] MEDS: POTASSIUM CHLORIDE / WTR 10 MEQ/100 ML PLCT IV SCH ×6 (09:48→20:45)
[2018-12-08] MEDS ORDERED: ACETYLCYSTEINE IV SCH (10:00)
[2018-12-08] MEDS ORDERED: DEXTROSE 5% IV SCH (10:00)
--- NOTE | 2018-12-08 13:36 | Hospitalist Progress Note ---
Date of Service December 08, 2018 Assessment & Plan (1) Alcohol abuse: Alcohol Withdrawal suspected -As per history and physical, patient drinks 6 beers a day and 6 shots of whiskey every day for the last 8 years, who stopped alcohol use 2 days ago prior to hospital presentation and then brought to the emergency room after symptoms of He nausea, vomiting and shakiness, and malaise -on hospital presentation, patient was was tachycardic with serve electrolyte derangements and transaminitis acute kidney injury and high anion gap metabolic acidosis in the setting of lactic acidosis and so patient was admitted to the Intensive Care Unit for close monitoring and electrolyte repletion -on alcohol withdrawal protocol - no delirium tremens at this time -continue thiamine and folic acid -patient was transferred from ICU to medical [facility] with telemetry monitoring on 12/06/18 for further correction of electrolyte abnormalities and management of alcohol related health issues -patient counseled on alcohol abuse and current symptoms as medical consequences of excessive alcohol consumption -patient has stated his desire to quit alcohol -on alcohol withdrawal protocol while inpatient, patient has received Librium on 12/07/18, would avoid further Librium doses because appears to correlate with nausea; on Zofran prn for antiemetics (2) AH (alcoholic hepatitis): from 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 Mild marginal nodula rity of the liver suggests early cirrhotic change -portal vein ultrasound: Limited study due to body habitus consideration as well as fatty replacement of the liver. Normal flow within the hepatic as well as portal venous structures within these limitations -patient has received N-acetylcysteine to attempt to reduce the inflammation from alcoholic hepatitis on 12/06/18; switched to Pentoxifylline TID on 12/07/18 but patient have problems with tolerating Pentoxifylline(i.e. nausea and indigestion), N-acetylcysteine restarted on 12/08/[address]oxifylline and patient is concurrently on prednisone -Intensive Care Unit physician started rifaximin and lactulose given his elevated ammonia levels on 12/06/18 -ammonia level is 46 on 12/07/18, patient is very concerned about diarrhea which he has been informed is expected from lactulose and rifaximin, since has has been able to make bowel movements; continue to hold off further lactulose and rifaximin for now and re-evaluate with ammonia levels (3) Transaminitis: -elevated liver enzymes and elevated INR are markers of alcoholic hepatitic and Alcoholic liver cirrhosis -monitor (4) Elevated INR: -elevated liver enzymes and elevated INR of 2.4 are markers of alcoholic hepatitic and Alcoholic liver cirrhosis -was given vitamin on admission -INR is 1.6 on 12/07/18 (5) Hyperammonemia: -elevated ammonia levels are markers of cirrhosis -Intensive Care Unit physician started rifaximin and lactulose given his elevated ammonia levels on 12/06/18 -ammonia level is 46 on 12/07/18, patient is very concerned about diarrhea which he has been informed is expected from lactulose and rifaximin, since has has b een able to make bowel movements continue to hold off further lactulose and rifaximin for now and re-evaluate with ammonia levels -stool culture and C.difficile is negative (6) Elevated lipase: -admission lipase 790 -likely from chronic alcohol use -mild lipase decrease to 650s by 12/07/18 (7) Elevated LDH: -1649 on admission -elevated LDH is a maker of liver disease such as hepatitis or muscle injury -on IV fluids -currently LDH remains elevated (8) Elevated creatine kinase: Rhabdomyolysis -1513 on admission, marker for muscle breakdown -creatinine kinase has recently been stabilizing around 3500, patient has been on IV fluid normosol and he has been getting IV volume from electrolyes in addition and IV NAC, would continue to monitor -TSH is normal (9) HUYEN (acute kidney injury): -admission creatinine 2.67 -downtrended after IV fluids -creatinine is 1.2 by 12/07/18 (10) High anion gap metabolic acidosis: Lactic acidosis Leukocytosis -admission WBC 23K -admission lactic acid as 7.7, with high anion gap -patient on IV fluids -monitor anion gap and trend lactic acid -current workup is not suggestive of infection as cause of acidosis, cultures from 12/06/18 with no growth, patient has been afebrile, leukocytosis is downtrending and suspect that leukocytosis was from dehydration and stress leukemoid reaction from non-bacterial inflammation; also recently started on prednisone starting on 12/07/18 and steroids can also maintain elevated white blood cell counts -lactic acid downtrended, anion gap still elevated due to low serum chloride -lactic acid is 2.7 on 12/08/18, would not start lactated ringers at this time (11) Hyponatremia: -admission serum sodium 120 -Hyponatremia due to hypovolemia. Patient had a urine osmolality of 341, urine sodium of 11 and serum osmolality of 266 -serum sodium is now 131 and serum chloride increasing concurrently (12) Hypokalemia: -admission serum potassium 2.5 -goal serum potassium is 3.5 to 4 -patient has gotten multiple IV and oral supplements to date -continue to monitor and replete as needed (13) Hypomagnesemia: -admission serum magnesium is 1.2 -patient has gotten multiple magnesium supplements -serum magnesium still around 1.7 -continue oral magnesium and IV magnesium supplements as needed to target serum magnesium of 2 (14) Hypocalcemia: -admission serum calcium of 5.4 -patient has received multiple IV calcium gluconate -on oral calcium to 1250 mg BID -serum calcium trending up close to 6.5 Vitamin D Deficiency Elevated PTH -patient has very low vitamin D levels which may explain hypocalcemia -if patient lacks vitamin D in the diet, then calcium levels would be low, and leads to elevated parathyroid hormone levels -started vitamin D as 50,000 units qweekly on 12/06/18 DVT prophylaxis: SCDs Subjective Patient does not have distress. No dizziness. no chest pain. no shortness of breath. no vomiting. Physical Exam Constitutional: WD/WN, vitals as above comfortable Eyes: PERRL, conjunctivae normal, anicteric sclerae EOM intact bilaterally ENMT: external ear and nose normal, oropharynx normal Neck: normal visual inspection Respiratory: normal respiratory effort, lungs clear to auscultation Cardiovascular: Rate/Rhythm: regular rate and regular rhythm Gastrointestinal (Abdomen): Inspection/Auscultation: abdomen normal to inspection and normal bowel sounds Percussion/Palpation: abdomen soft Musculoskeletal: Head/Neck/Chest: normocephalic and head atraumatic Neurologic: PERRL, EOMI, accommodation nl, no face palsy, no dysarthria CN's II-XI intact bilaterally Psychiatric: A+Ox3, euthymic affect Results & Data Vital Signs (Past 12 Hours) Vital Signs Temp Pulse Pulse Resp BP BP Pulse Ox 12/08/18 12:24 37.0 C 92 H 19 123/72 96 12/08/18 08:00 37.2 C 88 118 H 20 124/78 96 12/08/18 04:05 36.7 C 92 H 18 111/70 96 12/08/18 02:01 103 H (1) AH (alcoholic hepatitis) Ascites presence: unspecified Qualified Code(s): K70.10 - Alcoholic hepatitis without ascites
[2018-12-08] MEDS ORDERED: CALCIUM GLUCONATE 10% 10 ML VIAL IV STA (15:04)
[2018-12-08] MEDS ORDERED: CALCIUM GLUCONATE 10% 2,000 MG in SODIUM CHLORIDE 0.9% 50 ML IV ONE (15:30)
--- NOTE | 2018-12-08 16:02 | Progress Note ---
DATE: 12/08/2018 SUBJECTIVE: The patient is starting to feel better. His electrolytes are still quite low and is being replenished aggressively. OBJECTIVE: GENERAL: He is awake, alert, oriented x3. HEENT: Mucous membranes moist. NECK: Supple. No jugular venous distention. VITAL SIGNS: Blood pressure 123/72, pulse rate 92 per minute, temperature 37 degrees Celsius, 95% on room air. NECK: Supple. No jugular venous distention. CHEST: Bilateral clear to auscultation. CARDIOVASCULAR: S1, S2, regular. ABDOMEN: Soft, nontender. EXTREMITIES: No edema. LABORATORY TESTS: Reviewed in detail. Potassium was 2.8. Sodium 131, BUN 14, creatinine 1.29, lactate 2.7, total creatinine kinase 3493, calcium 6.4, ionized was 0.7. ASSESSMENT AND PLAN: The patient is a 33-year-old male who was admitted with weakness and found to have acute renal failure, acute hepatitis and multiple electrolyte derangements. 1. Acute renal failure is better and he is back to baseline renal function of normal creatinine. 2. Multiple electrolyte issues. Although they are trending overall in the right direction, he still has quite significant hypocalcemia as well as hypokalemia. He needs a lot more IV calcium than he is getting. I would write for 2 g IV now and even this will not be enough. He might have to be on IV calcium for many days.
[2018-12-08 16:11] LABS: Albumin Level 2.5 gm/dl (3.4-5.0); BUN Creatinine Ratio 9.5 (10-20); Calcium 6.4 mg/dl (8.5-10.1); Creatinine Clr Calc Pharmacy 112.5 ml/min; Est GFR (African American) 90.6; Est GFR (Non-African American) 78.2; Potassium 3.1 mmol/L (3.5-5.1)
[2018-12-08 16:14] LABS: Albumin Globulin Ratio 0.9 (0.9-2); Bilirubin,Total 4.4 mg/dl (0.2-1); Globulin 2.8 gm/dl (2.5-4.0); Total Protein 5.3 gm/dl (6.4-8.2)
[2018-12-08] MEDS ORDERED: NORMOSOL-R 1,000 ML IV ONE (17:00)
[2018-12-08] MEDS: LACTULOSE SYRUP 20 GM/30 ML UDC PO PRN (18:13)
[2018-12-09 03:59] LABS: INR 1.5 (0.9-1.1); Prothrombin Time 15.2 Seconds (9.0-12.0)
[2018-12-09 04:14] LABS: Potassium 3.2 mmol/L (3.5-5.1)
[2018-12-09 04:18] LABS: Albumin Level 2.5 gm/dl (3.4-5.0); BUN Creatinine Ratio 10.5 (10-20); Creatinine Clr Calc Pharmacy 138.9 ml/min; Est GFR (African American) 116.9; Est GFR (Non-African American) 100.9; Magnesium 1.5 mg/dl (1.8-2.4)
[2018-12-09] MEDS ORDERED: CALCIUM GLUCONATE 10% 1,000 MG in SODIUM CHLORIDE 0.9% 50 ML IV STA ×2 (04:22→12:52)
[2018-12-09] MEDS ORDERED: POTASSIUM CHLORIDE 20 MEQ TABCR PO STA (04:22)
[2018-12-09 04:27] LABS: Albumin Globulin Ratio 0.9 (0.9-2); Globulin 2.8 gm/dl (2.5-4.0); Phosphorus 1.8 mg/dl (2.5-4.9); Total Protein 5.3 gm/dl (6.4-8.2)
[2018-12-09] MEDS: MAGNESIUM SULFATE / D5W 1 GM/100 ML BAG IV SCH ×6 (04:52→18:42)
[2018-12-09] MEDS: LACTULOSE SYRUP 20 GM/30 ML UDC PO PRN (05:10)
[2018-12-09] MEDS: CALCIUM CARBONATE 1250MG TAB PO SCH ×2 (08:35→20:07)
[2018-12-09] MEDS: FOLIC ACID 1 MG TAB PO SCH (08:35)
[2018-12-09] MEDS: POTASSIUM CHLORIDE 20 MEQ TABCR PO SCH ×2 (08:35→20:08)
[2018-12-09] MEDS: THIAMINE HCL 100 MG TAB PO SCH (08:36)
[2018-12-09] MEDS: CEROVITE ADV FORMULA TAB PO SCH (08:36)
[2018-12-09] MEDS: prednisoLONE SYRUP 15 MG/5 ML BTL PO SCH ×2 (08:36→08:40)
[2018-12-09] MEDS: MAGNESIUM OXIDE 400 MG TAB PO SCH ×2 (08:36→20:07)
[2018-12-09] MEDS ORDERED: CALCIUM GLUCONATE 10% 2,000 MG in SODIUM CHLORIDE 0.9% 50 ML IV ONE (08:52)
[2018-12-09] MEDS ORDERED: POTASSIUM PHOS 3 MMOL/1 ML INFUSION IV STA (09:07)
[2018-12-09] MEDS ORDERED: POTASSIUM CHLORIDE / WTR 10 MEQ/100 ML PLCT IV ONE (09:09)
[2018-12-09] MEDS ORDERED: POTASSIUM PHOSPHATE 21 MMOL in SODIUM CHLORIDE 0.9% 500 ML IV ONE (09:15)
--- NOTE | 2018-12-09 10:00 | Gastroenterology Progress Note ---
Date of Service December 09, 2018 Assessment & Plan (1) Transaminitis: Pt is a 33 y/o male currently admitted w HUYEN, electrolyte derrangements, suspected acute ETOH hepatitis on setting of early cirrhosis. Suspect may also have rhabdomyolosis given elevated CK and perhaps also mild ETOH pancreatitis though tolerating solid meals now. Persistent issue seems to be diarrhea and electrolyte derrangements. Cdiff negative, stool cx pending. Current Maddrey Score: 18 MELD: 22 - Trend INR, renal function, LFTs, mentation - NAC protocol started, may complete - Change Prednisone to Prednisolone 40mg daily x 28 days then taper for ETOH hepatitis - Ok to hold Xifaxan and Lactulose: though NH3 level mildly up, he doesn't seem to be encephalopathic or having asterixis - IVF, B12, Folate support - F/U stool cx, antidiarrheal prn - Nephrology following, appreciate recs - Strict ETOH cessation. Will help arrange GI f/u on his DC for cirrhosis care (2) Acute hepatitis: Supervising Physician Co-Signing Physician Notes I have seen and examined the patient and discussed the management with CECILIA Chandler. Diarrhea mostly is his main complaint. PE - alert and oriented, abd - soft nt nd +bs, Skin- no rashes Labs overall stable- details as above Await stool culture results Treatment for alcoholic hepatitis Lipase elevation but no abdominal pain ? Rhabdomolysis- continue to hydrate Outpatient cirrhosis fup - alcohol abstinence Agree with further plan of care as above. Subjective Pt w/o acute events overnight. This AM noted mild temp 37.6C, denies feeling f everish, or having chills. Denies any n/v, abd pain. Report still having lots of diarrhea up to >10 times last 2 days. Tolerating solid meals. LFTs trending. Still w multiple electrolyte derrangements (low Na, K, Ca, PO4, Mg). Review of Systems Review of Systems: All systems reviewed & are unremarkable except as noted in HPI & below Physical Exam Constitutional: WD/WN, vitals as above well groomed, cooperative and comfortable Eyes: + scleral abnormality (icteric ), PERRL and EOM intact bilaterally ENMT: external ear and nose normal, oropharynx normal Respiratory: normal respiratory effort, lungs clear to auscultation Cardiovascular: RRR, no murmur, no edema Gastrointestinal (Abdomen): normal bowel sounds, soft, nontender, no hepatosplenomegaly Skin: no rashes, warm and dry no jaundice Neurologic: Motor/Sensory: no asterixis Psychiatric: A+Ox3, euthymic affect Lymphatic: no lymphedema Results & Data Vital Signs (Past 12 Hours) Vital Signs Temp Pulse Pulse Resp BP Pulse Ox 12/09/18 07:30 37.8 C H 102 H 16 109/68 96 12/09/18 07:13 133 H 12/09/18 03:17 37.1 C 98 H 18 123/77 97 12/08/18 23:41 94 H 12/08/18 23:01 37 C 107 H 21 132/87 99
--- NOTE | 2018-12-09 12:22 | Hospitalist Progress Note ---
Date of Service December 09, 2018 Assessment & Plan (1) Alcohol abuse: Alcohol Withdrawal suspected -As per history and physical, patient drinks 6 beers a day and 6 shots of whiskey every day for the last 8 years, who stopped alcohol use 2 days ago prior to hospital presentation and then brought to the emergency room after symptoms of He nausea, vomiting and shakiness, and malaise -on hospital presentation, patient was was tachycardic with serve electrolyte derangements and transaminitis acute kidney injury and high anion gap metabolic acidosis in the setting of lactic acidosis and so patient was admitted to the Intensive Care Unit for close monitoring and electrolyte repletion -on alcohol withdrawal protocol - no delirium tremens at this time -continue thiamine and folic acid -patient was transferred from ICU to medical [facility] with telemetry monitoring on 12/06/18 for further correction of electrolyte abnormalities and management of alcohol related health issues -patient counseled on alcohol abuse and current symptoms as medical consequences of excessive alcohol consumption -patient has stated his desire to quit alcohol -on alcohol withdrawal protocol while inpatient, patient has received Librium on 12/07/18, would avoid further Librium doses because appears to correlate with nausea; on Zofran prn for antiemetics (2) AH (alcoholic hepatitis): from 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 Mild marginal nodula rity of the liver suggests early cirrhotic change -portal vein ultrasound: Limited study due to body habitus consideration as well as fatty replacement of the liver. Normal flow within the hepatic as well as portal venous structures within these limitations -patient has received N-acetylcysteine to attempt to reduce the inflammation from alcoholic hepatitis on 12/06/18; switched to Pentoxifylline TID on 12/07/18 but patient have problems with tolerating Pentoxifylline(i.e. nausea and indigestion), N-acetylcysteine restarted on 12/08/[address] Pentoxifylline and patient concurrently on prednisone -Gastroenterology on 12/09/18: Changed Prednisone to Prednisolone 40mg daily x 28 days then taper for ETOH hepatitis (3) Transaminitis: -elevated liver enzymes and elevated INR are markers of alcoholic hepatitic and Alcoholic liver cirrhosis -monitor (4) Elevated INR: -elevated liver enzymes and elevated INR of 2.4 are markers of alcoholic hepatitic and Alcoholic liver cirrhosis -was given vitamin on admission -INR is 1.5 on 12/08/18 (5) Hyperammonemia: -elevated ammonia levels are markers of cirrhosis -Intensive Care Unit physician started rifaximin and lactulose given his elevated ammonia levels on 12/06/18 -ammonia level is 46 on 12/07/18, patient is very concerned about diarrhea which he has been informed is expected from lactulose and rifaximin, since has has been able to make bowel movements continue to hold off further lactulose and rifaximin for now and re-evaluate with ammonia levels -stool culture and C.difficile is negative -ammonia levels coming up to 76. but patient mentating well. lactulose is to be titrated prn to 3 bowel movements a day -loose bowel movements also impedes electrolyte repletions (6) Elevated lipase: -admission lipase 790 -likely from chronic alcohol use -mild lipase decrease to 650s by 12/07/18 (7) Elevated LDH: -1649 on admission -elevated LDH is a maker of liver disease such as hepatitis or muscle injury -on IV fluids -currently LDH remains elevated (8) Elevated creatine kinase: Rhabdomyolysis -1513 on admission, marker for muscle breakdown -creatinine kinase increased to around 3500, recent labs of CK downtrending to 2500 -TSH is normal (9) HUYEN (acute kidney injury): -admission creatinine 2.67 -downtrended after IV fluids -creatinine is 0.98 by 12/08/18. HUYEN has resolved (10) High anion gap metabolic acidosis: Lactic acidosis Leukocytosis -admission WBC 23K -admission lactic acid as 7.7, with high anion gap -patient on IV fluids -monitor anion gap and trend lactic acid -current workup is not suggestive of infection as cause of acidosis, cultures from 12/06/18 with no growth, patient has been afebrile, leukocytosis is downtrending and suspect that leukocytosis was from dehydration and stress leukemoid reaction from non-bacterial inflammation; also recently started on pre dnisone starting on 12/07/18 and steroids can also maintain elevated white blood cell counts -lactic acidosis is resolved (11) Hyponatremia: -admission serum sodium 120 -Hyponatremia due to hypovolemia. Patient had a urine osmolality of 341, urine sodium of 11 and serum osmolality of 266 -serum sodium is now 131 and serum chloride increasing concurrently (12) Hypokalemia: -admission serum potassium 2.5 -goal serum potassium is 3.5 to 4 -patient has gotten multiple IV and oral supplements to date -continue to monitor and replete as needed. recently the serum potassium in the low 3 ranges (13) Hypomagnesemia: -admission serum magnesium is 1.2 -patient has gotten multiple magnesium supplements -last serum magnesium 1.5 -continue oral magnesium and IV magnesium supplements as needed to target serum magnesium of 2 Hypophosphatemia -12/07/18 serum phosphorous 1.8, this was repleted and increased -again level is 1.8 on 12/09/18 and patient needing further repletions (14) Hypocalcemia: -admission serum calcium of 5.4 -patient has received multiple IV calcium gluconate -on oral calcium to 1250 mg BID -serum calcium trending up close to 6.5 but last lab is 6 -continue to give calcium supplements Vitamin D Deficiency Elevated PTH -patient has very low vitamin D levels which may explain hypocalcemia -if patient lacks vitamin D in the diet, then calcium levels would be low, and leads to elevated parathyroid hormone levels -started vitamin D as 50,000 units qweekly on 12/06/18 DVT prophylaxis: SCDs Subjective patient awake and alert. ambulatory. eats the meals. no vomiting. we discussed about bowel movements. no abdominal pain. no dizziness. no lightheadedness Physical Exam Constitutional: WD/WN, vitals as above comfortable Eyes: PERRL, conjunctivae normal, anicteric sclerae EOM intact bilaterally ENMT: external ear and nose normal, oropharynx normal Neck: normal visual inspection Respiratory: normal respiratory effort, lungs clear to auscultation Cardiovascular: Rate/Rhythm: regular rate and regular rhythm Gastrointestinal (Abdomen): Inspection/Auscultation: abdomen normal to inspection and normal bowel sounds Percussion/Palpation: abdomen soft Musculoskeletal: Head/Neck/Chest: normocephalic and head atraumatic Neurologic: PERRL, EOMI, accommodation nl, no face palsy, no dysarthria CN's II-XI intact bilaterally Psychiatric: A+Ox3, euthymic affect Results & Data Vital Signs (Past 12 Hours) Vital Signs Temp Pulse Pulse Resp BP Pulse Ox 12/09/18 11:54 37.1 C 102 H 16 120/70 92 12/09/18 07:30 37.8 C H 102 H 16 109/68 96 12/09/18 07:13 133 H 12/09/18 03:17 37.1 C 98 H 18 123/77 97 (1) AH (alcoholic hepatitis) Ascites presence: unspecified Qualified Code(s): K70.10 - Alcoholic hepatitis without ascites
[2018-12-09] MEDS: POT PHOSPHATE MONOBASIC W/ SOD TAB PO SCH ×3 (13:39→20:08)
[2018-12-09 16:49] LABS: Albumin Level 2.6 gm/dl (3.4-5.0); BUN Creatinine Ratio 8.8 (10-20); Calcium 6.6 mg/dl (8.5-10.1); Creatinine Clr Calc Pharmacy 137.8 ml/min; Est GFR (African American) 115.5; Est GFR (Non-African American) 99.7; Magnesium 1.8 mg/dl (1.8-2.4)
[2018-12-09 16:53] LABS: Albumin Globulin Ratio 1.1 (0.9-2); Globulin 2.5 gm/dl (2.5-4.0); Phosphorus 2.5 mg/dl (2.5-4.9); Total Protein 5.1 gm/dl (6.4-8.2)
[2018-12-09] MEDS ORDERED: POTASSIUM CHLORIDE 20 MEQ/15 ML UDC PO STA (17:08)
[2018-12-09] MEDS: POTASSIUM CHLORIDE / WTR 10 MEQ/100 ML PLCT IV SCH ×2 (17:34→18:43)
--- NOTE | 2018-12-09 23:22 | Nephrology Progress Note ---
Date of Service December 09, 2018 Assessment & Plan (1) HUYEN (acute kidney injury): resolved now; pt p/w acute kidney injury from ischemic ATN in setting of diarrhea, acute hepatitis and NSAID use. Patient has had diarrhea for several weeks and now with acute hepatitis. -daily bmp -Monitor input output. -Avoid nephrotoxins such as contrast and NSAIDs. (2) Hyponatremia: Due to hypovolemia. sNa in 131-135 range today (3) Hypokalemia: For several weeks. continue aggressive potassium repletion, asmuch po as possible. Patient received IV KCl 80 mEq this morning. Recommend p.o. potassium chloride 60 mEq 4 times daily. Monitor potassium 4 times daily (4) Hypomagnesemia: Due to alcohol use. getting mag IV today; cont po mag Monitor magnesium daily. (5) Hypocalcemia: cont aggressive D repletion and Ca supplements; gave 2 gm IV ca this am Present on Admission?: Yes Subjective seen on rounds this evening approx 540 pm; eating supper; mother at bedside; + ambulation w/o weakness or fasciculations; no sob, no cough; no n/v/d/abd pain/ denies acute voiding sx or edema/palpitations/chest pain Review of Systems Review of Systems: All systems reviewed & are unremarkable except as noted in HPI & below Physical Exam Constitutional: well developed and well nourished on RA sitting on side of bed A& 0 x 3 Eyes: EOM intact bilaterally ENMT: Ears: no external ear abnormality Nose: no external nose abnormality Mouth: + dry oral mucous membranes Neck: no nuchal rigidity Respiratory: normal respiratory effort Auscultation: + diminished lung s ounds Cardiovascular: Rate/Rhythm: regular rate and regular rhythm Extremities: + edema (trace -1+ BLE pretibial edema) Gastrointestinal (Abdomen): Inspection/Auscultation: normal bowel sounds Percussion/Palpation: abdomen soft; abdomen nontender Musculoskeletal: no cyanosis or clubbing, extremities motor strength 5/5 Extremities: strength 5/5 throughout Skin: no rashes, warm and dry Neurologic: cornelius, fluent speech, no tremor Psychiatric: A+Ox3, euthymic affect Speech: normal rate/rhythm/volume of speech Results & Data Vital Signs (Past 12 Hours) Vital Signs Temp Pulse Pulse Resp BP Pulse Ox 12/09/18 16:08 81 12/09/18 15:41 36.7 C 100 H 18 138/92 91 12/09/18 11:54 37.1 C 102 H 16 120/70 92 Laboratory Results 12/08/18 07:24 12/09/18 16:07 K this AM 4
[2018-12-10] MEDS: LORazepam 1 MG/2 ML VIAL IV PRN (03:33)
[2018-12-10 08:23] LABS: Albumin Level 2.5 gm/dl (3.4-5.0); BUN Creatinine Ratio 9.2 (10-20); Calcium 6.9 mg/dl (8.5-10.1); Est GFR (African American) 131.4; Est GFR (Non-African American) 113.4; Magnesium 1.6 mg/dl (1.8-2.4); Potassium 3.1 mmol/L (3.5-5.1)
[2018-12-10 08:26] LABS: Albumin Globulin Ratio 0.9 (0.9-2); Globulin 2.7 gm/dl (2.5-4.0); Phosphorus 2.3 mg/dl (2.5-4.9); Total Protein 5.2 gm/dl (6.4-8.2)
[2018-12-10] MEDS ORDERED: POTASSIUM PHOS 3 MMOL/1 ML INFUSION IV STA (08:48)
[2018-12-10] MEDS ORDERED: CALCIUM GLUCONATE 10% 10 ML VIAL IV STA (08:49)
--- NOTE | 2018-12-10 08:52 | Nephrology Progress Note ---
Date of Service December 10, 2018 Assessment & Plan (1) Hyponatremia: Due to hypovolemia. sNa in 131-135 range again today; monitor daily but would focus on other electrolytes (2) Hypokalemia: For several weeks. continue aggressive potassium repletion, as much po as possible. increased po K to 40 mEq tid from bid. Monitor potassium 2 times daily Present on Admission?: Yes (3) Hypomagnesemia: Due to alcohol use. cont po mag; no need for IV today; if excessive diarrhea may need to lower mag dose po Monitor magnesium daily. Present on Admission?: Yes (4) Hypocalcemia: cont aggressive D repletion and Ca supplements; hospitalist gave 2 gm IV ca this am>recheck this PM Present on Admission?: Yes (5) Hypophosphatemia: getting qid oral phos supplements; also to get iV phos today > in general would reserve IV phos for phos levels at 1.0 approximately; may not need further IV phos if stays at current levels Present on Admission?: Yes Subjective pt seen on rounds this am at 0930; notes 10-15 bm daily; otherwise denies c/o of weakness, sob, chest pain, fasciculations Review of Systems Review of Systems: All systems reviewed & are unremarkable except as noted in HPI & below Physical Exam Constitutional: well developed and well nourished ambulatory w/o asst on ra Eyes: EOM intact bilaterally ENMT: Ears: no external ear abnormality Nose: no external nose abnormality Mouth: + dry oral mucous membranes Neck: no nuchal rigidity Respiratory: normal respiratory effort Auscultation: + diminished lung sounds Cardiovascular: Rate/Rhythm: regular rhythm and + tachycardic (in 90s) Extremities: + edema (trace BLE pretibial edema) Gastrointestinal (Abdomen): Inspection/Auscultation: normal bowel sounds Percussion/Palpation: abdomen soft; abdomen nontender Musculoskeletal: no cyanosis or clubbing, extremities motor strength 5/5 Extremities: strength 5/5 throughout Skin: no rashes, warm and dry Psychiatric: A+Ox3, euthymic affect Speech: normal rate/rhythm/volume of speech Results & Data Vital Signs (Past 12 Hours) Vital Signs Temp Pulse Pulse Resp BP BP Pulse Ox 12/10/18 07:34 36.7 C 101 H 18 130/88 98 12/10/18 04:00 37.6 C H 109 H 18 135/85 97 12/10/18 00:00 100 H 12/09/18 23:28 37.2 C 105 H 18 137/75 92 Laboratory Results 12/08/18 07:24 12/10/18 07:19 phos 2.3, mag 1.6, Ca 6.9 CK downtrending
[2018-12-10] MEDS ORDERED: POT PHOSPHATE MONOBASIC W/ SOD TAB PO SCH (09:00)
[2018-12-10] MEDS: MAGNESIUM OXIDE 400 MG TAB PO SCH ×2 (09:10→20:08)
[2018-12-10] MEDS: FOLIC ACID 1 MG TAB PO SCH (09:10)
[2018-12-10] MEDS: CEROVITE ADV FORMULA TAB PO SCH (09:10)
[2018-12-10] MEDS: THIAMINE HCL 100 MG TAB PO SCH (09:10)
--- NOTE | 2018-12-10 09:10 | Gastroenterology Progress Note ---
Date of Service December 10, 2018 Assessment & Plan (1) Transaminitis: Pt is a 33 y/o male currently admitted w HUYEN, electrolyte derrangements, suspected acute ETOH hepatitis on setting of early cirrhosis. Suspect may also have rhabdomyolosis given elevated CK and perhaps also mild ETOH pancreatitis though tolerating solid meals now. Persistent issue seems to be diarrhea and electrolyte derrangements. Cdiff negative, stool cx pending. Current Maddrey Score: 18 MELD: 22 - Trend INR, renal function, LFTs, mentation - Prednisolone 40mg daily x 28 days then taper for ETOH hepatitis (decrease the dose by 10 mg per day every four days until a dose of 10 mg per day is reached, at which point decrease it by 5 mg per day every three days) - Ok to hold Xifaxan and Lactulose: though NH3 level mildly up, he doesn't seem to be encephalopathic or having asterixis - IVF, B12, Folate support - F/U stool cx. Dicyclomine 10mg TID prn diarrhea - Nephrology following, appreciate recs - Strict ETOH cessation. Will help arrange GI f/u on his DC for cirrhosis care (2) Acute hepatitis: Supervising Physician Co-Signing Physician Notes I have personally seen and examined the patient with CECILIA Chandler. Her note reflects my examination and findings. I agree with her impression and plan. Time will tell how his liver function will return off ETOH. Stressed abstinence with patient and mother at bedside. Juan M Moyer M.D. Subjective Pt feels well, denies fever chills, abd pain, n/v. Still w high stool frequency but reports stools are a bit more formed. LFTs trending down. Na, PO4 improving. Getting Mg repletion. Review of Systems Review of Systems: All systems reviewed & are unremarkable except as noted in HPI & below Physical Exam Constitutional: WD/WN, vitals as above well groomed, cooperative and comfortable Eyes: + scleral abnormality (icteric ), PERRL and EOM intact bilaterally ENMT: external ear and nose normal, oropharynx normal Respiratory: normal respiratory effort, lungs clear to auscultation Cardiovascular: RRR, no murmur, no edema Gastrointestinal (Abdomen): normal bowel sounds, soft, nontender, no hepatosplenomegaly Skin: no rashes, warm and dry no jaundice Neurologic: Motor/Sensory: no asterixis Psychiatric: A+Ox3, euthymic affect Lymphatic: no lymphedema Results & Data Vital Signs (Past 12 Hours) Vital Signs Temp Pulse Pulse Resp BP BP Pulse Ox 12/10/18 07:34 36.7 C 101 H 18 130/88 98 12/10/18 04:00 37.6 C H 109 H 18 135/85 97 12/10/18 00:00 100 H 12/09/18 23:28 37.2 C 105 H 18 137/75 92
[2018-12-10] MEDS: POT PHOSPHATE MONOBASIC W/ SOD TAB PO SCH ×4 (09:11→20:09)
[2018-12-10] MEDS: CALCIUM CARBONATE 1250MG TAB PO SCH ×2 (09:12→20:08)
[2018-12-10] MEDS ORDERED: CALCIUM GLUCONATE 10% 2,000 MG in SODIUM CHLORIDE 0.9% 50 ML IV ONE (09:15)
[2018-12-10] MEDS: prednisoLONE SYRUP 15 MG/5 ML BTL PO SCH (09:15)
[2018-12-10] MEDS: MAGNESIUM SULFATE / D5W 1 GM/100 ML BAG IV SCH ×2 (09:27→10:34)
[2018-12-10] MEDS ORDERED: POTASSIUM PHOSPHATE 24 MMOL in SODIUM CHLORIDE 0.9% 500 ML IV ONE (09:30)
[2018-12-10] MEDS: POTASSIUM CHLORIDE 20 MEQ TABCR PO SCH ×3 (10:04→20:07)
--- NOTE | 2018-12-10 13:08 | Hospitalist Progress Note ---
Date of Service December 10, 2018 Assessment & Plan (1) Alcohol abuse: Alcohol Withdrawal suspected -As per history and physical, patient drinks 6 beers a day and 6 shots of whiskey every day for the last 8 years, who stopped alcohol use 2 days ago prior to hospital presentation and then brought to the emergency room after symptoms of He nausea, vomiting and shakiness, and malaise -on hospital presentation, patient was was tachycardic with serve electrolyte derangements and transaminitis acute kidney injury and high anion gap metabolic acidosis in the setting of lactic acidosis and so patient was admitted to the Intensive Care Unit for close monitoring and electrolyte repletion -continue thiamine and folic acid -patient was transferred from ICU to medical [facility] with telemetry monitoring on 12/06/18 for further correction of electrolyte abnormalities and management of alcohol related health issues -patient counseled on alcohol abuse and current symptoms as medical consequences of excessive alcohol consumption -patient has stated his desire to quit alcohol -on alcohol withdrawal protocol while inpatient, patient has received Librium on 12/07/18, would avoid further Librium doses because appears to correlate with nausea; on Zofran prn for antiemetics no delirium tremens at this time (2) AH (alcoholic hepatitis): from 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 Mild marginal nodularity of the liver suggests early cirrhotic change -portal vein ultrasound: Limited study due to body habitus consideration as well as fatty replacement of the liver. Normal flow within the hepatic as well as portal venous structures within these limitations -patient has received N-acetylcysteine to attempt to reduce the inflammation from alcoholic hepatitis on 12/06/18; switched to Pentoxifylline TID on 12/07/18 but patient have problems with tolerating Pentoxifylline(i.e. nausea and indigestion), N-acetylcysteine restarted on 12/08/[address]ox[address]lline and patient concurrently on prednisone -Gastroenterology on 12/09/18: Changed Prednisone to Prednisolone 40mg daily x 28 days then taper for ETOH hepatitis (3) Transaminitis: -elevated liver enzymes and elevated INR are markers of alcoholic hepatitic and Alcoholic liver cirrhosis -monitor (4) Elevated INR: -elevated liver enzymes and elevated INR of 2.4 are markers of alcoholic hepatitic and Alcoholic liver cirrhosis -was given vitamin on admission -INR is 1.5 on 12/08/18 (5) Hyperammonemia: -elevated ammonia levels are markers of cirrhosis -Intensive Care Unit physician started rifaximin and lactulose given his elevated ammonia levels on 12/06/18 -ammonia level is 46 on 12/07/18, patient is very concerned about diarrhea which he has been informed is expected from lactulose and rifaximin, since has has been able to make bowel movements continue to hold off further lactulose and rifaximin for now and re-evaluate with ammonia levels -stool culture and C.difficile is negative -GI started Dicyclomine 10mg TID prn diarrhea and at this time, no need to give Xifaxan and Lactulose despite rises in ammonia level as patient is not encephalopathic or having asterixis (6) Elevated lipase: -admission lipase 790 -likely from chronic alcohol use -mild lipase decrease to 650s by 12/07/18 (7) Elevated LDH: -1649 on admission -elevated LDH is a maker of liver disease such as hepatitis or muscle injury -on IV fluids -currently LDH remains elevated (8) Elevated creatine kinase: Rhabdomyolysis -1513 on admission, marker for muscle breakdown -creatinine kinase increased to around 3500, recent labs of CK downtrending to 922 -TSH is normal (9) HUYEN (acute kidney injury): -admission creatinine 2.67 -downtrended after IV fluids -creatinine is 0.98 by 12/08/18. HUYEN has resolved (10) High anion gap metabolic acidosis: Lactic acidosis Leukocytosis -admission WBC 23K -admission lactic acid as 7.7, with high anion gap -current workup is not suggestive of infection as cause of acidosis, cultures from 12/06/18 with no growth, patient has been afebrile, leukocytosis is downtrending and suspect that leukocytosis was from dehydration and stress leukemoid reaction from non-bacterial inflammation; also recently started on prednisone starting on 12/07/18 and steroids can also maintain elevated white blood cell counts -lactic acidosis is resolved (11) Hyponatremia: -admission serum sodium 120 -Hyponatremia due to hypovolemia. Patient had a urine osmolality of 341, urine sodium of 11 and serum osmolality of 266 -serum sodium is now 132 and serum chloride increasing concurrently (12) Hypokalemia: -admission serum potassium 2.5 -goal serum potassium is 3.5 to 4 -patient has gotten multiple IV and oral supplements to date -continue to monitor and replete as needed. recently the serum potassium in the low 3 ranges (13) Hypomagnesemia: -admission serum magnesium is 1.2 -patient has gotten multiple magnesium supplements -last serum magnesium 1.6 -has been getting oral magnesium and IV magnesium supplements as needed to target serum magnesium of 2 Hypophosphatemia -12/07/18 serum phosphorous 1.8, this was repleted and increased -again level is 1.8 on 12/09/18 and patient needing further repletions -serum phosphate 2.3 on 12/10/18 and patient receiving IV and oral phosphorous (14) Hypocalcemia: -admission serum calcium of 5.4 -patient has received multiple IV calcium gluconate -on oral calcium to 1250 mg BID -serum calcium trending up to 6.9 -continue to give calcium supplements Vitamin D Deficiency Elevated PTH -patient has very low vitamin D levels which may explain hypocalcemia -if patient lacks vitamin D in the diet, then calcium levels would be low, and leads to elevated parathyroid hormone levels -started vitamin D as 50,000 units qweekly on 12/06/18 DVT prophylaxis: SCDs Subjective Patient seen and examined with his mother in the room. Patient ambulating. Breathing on room air. denies acute shortness of breath. no tongue fasiculations. no hand tremors. no asterixis Physical Exam Constitutional: WD/WN, vitals as above comfortable Eyes: PERRL, conjunctivae normal, anicteric sclerae EOM intact bilaterally ENMT: external ear and nose normal, oropharynx normal Neck: normal visual inspection Respiratory: normal respiratory effort, lungs clear to auscultation Cardiovascular: Rate/Rhythm: regular rate and regular rhythm Gastrointestinal (Abdomen): Inspection/Auscultation: abdomen normal to inspection and normal bowel sounds Percussion/Palpation: abdomen soft Musculoskeletal: Head/Neck/Chest: normocephalic and head atraumatic Extremities: extremities normal to inspection (mild bilateral lower extremity edema) Neurologic: PERRL, EOMI, accommodation nl, no face palsy, no dysarthria CN's II-XI intact bilaterally Psychiatric: A+Ox3, euthymic affect Results & Data Vital Signs (Past 12 Hours) Vital Signs Temp Pulse Pulse Resp BP BP Pulse Ox 12/10/18 11:24 37.2 C 105 H 20 131/88 95 12/10/18 08:00 93 H 12/10/18 07:34 36.7 C 101 H 18 130/88 98 12/10/18 04:00 37.6 C H 109 H 18 135/85 97 (1) AH (alcoholic hepatitis) Ascites presence: unspecified Qualified Code(s): K70.10 - Alcoholic hepatitis without ascites
[2018-12-11] MEDS ORDERED: LORazepam 0.5 MG TAB PO STA (01:44)
[2018-12-11] MEDS: CALCIUM CARBONATE 1250MG TAB PO SCH ×2 (08:28→20:23)
[2018-12-11] MEDS: MAGNESIUM OXIDE 400 MG TAB PO SCH ×2 (08:28→20:29)
[2018-12-11] MEDS: POT PHOSPHATE MONOBASIC W/ SOD TAB PO SCH ×4 (08:28→20:24)
[2018-12-11] MEDS: FOLIC ACID 1 MG TAB PO SCH (08:28)
[2018-12-11] MEDS: POTASSIUM CHLORIDE 20 MEQ TABCR PO SCH ×3 (08:28→20:27)
[2018-12-11] MEDS: CEROVITE ADV FORMULA TAB PO SCH (08:28)
[2018-12-11] MEDS: THIAMINE HCL 100 MG TAB PO SCH (08:28)
[2018-12-11] MEDS: prednisoLONE SYRUP 15 MG/5 ML BTL PO SCH (08:29)
[2018-12-11 09:37] LABS: BUN Creatinine Ratio 11.1 (10-20); Creatinine Clr Calc Pharmacy 171.4 ml/min; Est GFR (African American) 136.7; Magnesium 1.4 mg/dl (1.8-2.4); Phosphorus 2.6 mg/dl (2.5-4.9); Potassium 3.2 mmol/L (3.5-5.1)
--- NOTE | 2018-12-11 10:04 | Nephrology Progress Note ---
Date of Service December 11, 2018 Assessment & Plan (1) Hypokalemia: For several weeks. continue aggressive potassium repletion, as much po as possible. cont K phos and recently increased po K to 40 mEq tid. -would give IV 10 mEq x 4 doses today (2) Hypomagnesemia: Due to alcohol use. cont po mag but changed mag ox to slo mag bid given diarrhea; will give 3 gm iv as well; excessive diarrhea worsens mag, k. Monitor magnesium daily. (3) Hypocalcemia: cont aggressive D repletion and Ca supplements; improving; no IV needed today (4) Hyponatremia: Due to hypovolemia. sNa in 131-135 range again today; monitor daily but would focus on other electrolytes (5) Hypophosphatemia: getting qid oral phos supplements; improving; needs no further IV phos if stays at current levels; check daily (6) Chronic diarrhea: defer to primary service and GI >> need to balance slowing diarrhea w/ managing elevated ammonia levels; no reason here to suspect chronic adrenal insufficiency, though he does have cushingoid fascies. Present on Admission?: Yes Subjective seen on evenign rounds at about 1800; labs/ clinical status reviewed earlier in day. mom at bedside; states pt has had diarrhea x years; no fasciculations, no weakness; started on imodium today and thinks may help Review of Systems Review of Systems: All systems reviewed & are unremarkable except as noted in HPI & below Physical Exam Constitutional: well developed and well nourished on RA ambulatory w/o asst Eyes: EOM intact bilaterally ENMT: Ears: no external ear abnormality Nose: no external nose abnormality Mouth: + dry oral mucous membranes Neck: no nuchal rigidity Respiratory: normal respiratory effort Auscultation: + diminished lung peña nds Cardiovascular: Rate/Rhythm: regular rate and regular rhythm Extremities: + edema (trace BLE pretibial edema) Gastrointestinal (Abdomen): Inspection/Auscultation: normal bowel sounds Percussion/Palpation: abdomen soft; abdomen nontender Musculoskeletal: no cyanosis or clubbing, extremities motor strength 5/5 Extremities: strength 5/5 throughout Skin: no rashes, warm and dry Neurologic: tremor +, cornelius, fluent speech Psychiatric: A+Ox3, euthymic affect Speech: normal rate/rhythm/volume of speech Results & Data Vital Signs (Past 12 Hours) Vital Signs Temp Pulse Pulse Resp BP Pulse Ox 12/11/18 09:00 103 H 12/11/18 02:50 37.2 C 98 H 18 139/97 94 12/11/18 00:20 108 H 12/10/18 22:55 37.2 C 121 H 20 141/93 H 97 Laboratory Results 12/08/18 07:24 12/11/18 09:02 mag 1.4 phos 2.6 ca 7.0
[2018-12-11] MEDS: POTASSIUM CHLORIDE / WTR 10 MEQ/100 ML PLCT IV SCH ×4 (10:48→13:55)
[2018-12-11] MEDS: MAGNESIUM SULFATE / D5W 1 GM/100 ML BAG IV SCH ×3 (10:48→12:49)
[2018-12-11 11:12] LABS: INR 1.5 (0.9-1.1); Prothrombin Time 14.6 Seconds (9.0-12.0)
--- NOTE | 2018-12-11 11:16 | Gastroenterology Progress Note ---
Date of Service December 11, 2018 Assessment & Plan (1) Transaminitis: Pt is a 33 y/o male currently admitted w HUYEN, electrolyte derrangements, suspected acute ETOH hepatitis on setting of early cirrhosis. Suspect may also have rhabdomyolosis given elevated CK and perhaps also mild ETOH pancreatitis though tolerating solid meals now. Persistent issue seems to be diarrhea and electrolyte derrangements. Stool cx and Cdiff negative. Current Maddrey Score: 18 MELD: 22 - Trend INR, renal function, LFTs, mentation - Prednisolone 40mg daily x 28 days then taper for ETOH hepatitis (decrease the dose by 10 mg per day every four days until a dose of 10 mg per day is reached, at which point decrease it by 5 mg per day every three days) - Ok to hold Xifaxan and Lactulose: though NH3 level mildly up, he doesn't seem to be encephalopathic or having asterixis - IVF, B12, Folate support - Dicyclomine 10mg TID prn diarrhea; Imodium 2mg prn each diarrhea episode max 16mg in 24hr - Obtain KUB given abd distension - Nephrology following, appreciate recs - Strict ETOH cessation. Will help arrange GI f/u on his DC for cirrhosis care (2) Acute hepatitis: Supervising Physician Co-Signing Physician Notes I have personally seen and examined the patient with CECILIA Chandler. Her note reflects my exam and finding. I agree with her impression and plan. KUB without significant acute pathology. Hold Imodium for solid stools. Juan M Moyer M.D. Subjective Pt still c/o diarrhea. BM >15 times yesterday. Denies rectal bleeding, abd pain, n/v. Physical Exam Constitutional: WD/WN, vitals as above well groomed, cooperative and comfortable Eyes: + scleral abnormality (icteric ), PERRL and EOM intact bilaterally ENMT: external ear and nose normal, oropharynx normal Respiratory: normal respiratory effort, lungs clear to auscultation Cardiovascular: RRR, no murmur, no edema Gastrointestinal (Abdomen): Percussion/Palpation: abdomen nontender abd distended, no fluid wave present Skin: no rashes, warm and dry no jaundice Neurologic: Motor/Sensory: no asterixis Psychiatric: A+Ox3, euthymic affect Lymphatic: no lymphedema Results & Data Vital Signs (Past 12 Hours) Vital Signs Temp Pulse Pulse Resp BP Pulse Ox 12/11/18 09:00 103 H 12/11/18 02:50 37.2 C 98 H 18 139/97 94 12/11/18 00:20 108 H
[2018-12-11 11:33] LABS: Albumin Level 2.6 gm/dl (3.4-5.0); Bilirubin Direct 2.2 mg/dl (0-0.2); Bilirubin,Total 3.6 mg/dl (0.2-1); Total Protein 5.6 gm/dl (6.4-8.2)
[2018-12-11] MEDS: MAGNESIUM CHLORIDE 64MG DELAYED REL TAB PO SCH ×2 (11:44→20:32)
[2018-12-11] MEDS: LOPERAMIDE HCL 2 MG CAP PO PRN ×3 (11:47→21:24)
--- NOTE | 2018-12-11 12:04 | XRay Report ---
KUB CLINICAL HISTORY: Abdominal distention and diarrhea. COMPARISON STUDY: CT of the abdomen and pelvis December 06, 2018. FINDINGS: The bowel gas pattern is normal. Visualized skeletal structures are unremarkable. No urinar y calculi are identified. IMPRESSION: 1. No bowel obstruction. 2. No urinary calculi. Electronically signed by: Enrike Burnham M.D. 12/11/2018 12:02 PM
[2018-12-11] MEDS: CYANOCOBALAMIN (VITAMIN B-12) 100 MCG TABLET PO SCH (13:57)
--- NOTE | 2018-12-11 16:50 | Hospitalist Progress Note ---
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 10 mg nightly Also started on vitamin B12 Check vitamin B12 levels Counseled to quit alcohol use Acute kidney injury Metabolic/lactic acidosis Resolved Monitor electrolytes (2) AH (alcoholic hepatitis): Alcoholic hepatitis Early cirrhosis secondary to alcohol use Transaminitis Elevated ammonia levels but no signs of encephalopathy LFTs trending down INR remains elevated MELD score 22 Received N-acetylcysteine, pentoxifylline And intolerance to pentoxifylline Continue prednisone taper as per gastroenterology Appreciate GI input Needs follow-up with GI upon discharge Plan to continue prednisone 40 mg for 28 days and then taper (3) Transaminitis: Management as above (4) Elevated INR: Secondary to alcoholic hepatitic and Alcoholic liver cirrhosis No signs of bleeding Monitor (5) Hyperammonemia: Secondary to alcoholic hepatitis, cirrhosis No signs of encephalopathy (6) Elevated lipase: Could have mild alcoholic pancreatitis Admission lipase 790 Tolerating diet (7) Elevated LDH: Likely due to liver problems (8) Elevated creatine kinase: Rhabdomyolysis CK levels trended down (9) HUYEN (acute kidney injury): Resolved Received IV fluids Monitor renal function (10) High anion gap metabolic acidosis: Lactic acidosis Leukocytosis Blood, urine, stool cultures negative for infection Lactic acidosis likely secondary to liver disease Acidosis resolved Persistent leukocytosis likely secondary to prednisone (11) Hyponatremia: Admission serum sodium 120 Hyponatremia due to hypovolemia, liver disease Urine osmolality of 341, urine sodium of 11 and serum osmolality of 266 Serum levels improved Monitor (12) Hypokalemia: Likely due to GI losses Replace potassium supplements as needed (13) Hypomagnesemia: Hypophosphatemia Replace electrolytes as needed Diarrhea: Stool cultures negative Imodium as needed (14) Hypocalcemia: Low ionized calcium Corrected calcium levels improved Continue oral calcium supplements Vitamin D Deficiency Elevated PTH Vitamin D levels 9.9 Continue vitamin D supplements DVT Px: SCDs Encouraged to ambulate CODE STATUS Full code Disposition Expect to discharge home in stable Subjective Patient is seen and examined at bedside Complains of pain/tingling of fingers causing Insomnia Reports ongoing diarrhea Denies nausea, vomiting, abdominal pain Also denies any chest pain, shortness of breath, dizziness Family at bedside Offers no other complaints Review of Systems Review of Systems: All systems reviewed & are unremarkable except as noted in HPI & below Physical Exam Physical Exam: Physical Exam: Vitals signs as noted above General Appearance:Moderately built and nourished, no apparent distress Head: normocephalic, Atraumatic Eyes: normal inspection, EOMI Neck: supple, Trachea midline Respiratory/Chest: Normal breath sounds, CTA Cardiovascular: S1, S2, No murmur Abdomen/GI:Soft, Non tender, Bowel sounds present Extremities/Musculoskelatal:normal inspection, no edema Neurologic/Psych:AAOX3, grossly no focal neurological deficits Skin: normal color, warm Results & Data Vital Signs (Past 12 Hours) Vital Signs Temp Pulse Pulse Resp BP Pulse Ox 12/11/18 15:58 84 12/11/18 15:07 37.3 C 96 H 19 123/82 98 12/11/18 09:00 103 H Laboratory Results BMP 12/11/18 09:02 Sodium 133 L Potassium 3.2 L Chloride 100 Carbon Dioxide 25 BUN 9 Creatinine 0.79 Glucose 98 Calcium 7.0 L Liver Function 12/11/18 Range/Units 10:45 Total Bilirubin 3.6 H (0.2-1) mg/dl Direct Bilirubin 2.2 H (0-0.2) mg/dl AST 231 H (15-37) U/L ALT 137 H (12-78) U/L Alkaline Phosphatase 187 H (45-117) U/L Albumin 2.6 L (3.4-5.0) gm/dl (1) AH (alcoholic hepatitis) Ascites presence: unspecified Qualified Code(s): K70.10 - Alcoholic hepatitis without ascites
[2018-12-11] MEDS: AMITRIPTYLINE HCL 10 MG TAB PO SCH (20:23)
[2018-12-12] MEDS: LORazepam 0.5 MG TAB PO PRN ×2 (01:41→21:27)
[2018-12-12 06:20] LABS: Hematocrit (blood only) 31.4 % (42-52); Hemoglobin 11.3 g/dL (14.0-18.0); Mean Corpuscular Hemoglobin 43.1 pg (25-34); Mean Corpuscular Volume 119.8 fL (80-100); Mean Platelet Volume 12.6 fL (7.4-10.4); Platelet Count 176 K/uL (130-400); RDW Coefficient of Variation 18.3 % (11.5-14.5); RDW Standard Deviation 80.1 fL (36.4-46.3); Red Blood Count 2.62 M/uL (4.7-6.1); White Blood Count 8.82 K/uL (4.8-10.8)
[2018-12-12 06:56] LABS: BUN Creatinine Ratio 12.6 (10-20); Est GFR (African American) 143.7; Magnesium 1.6 mg/dl (1.8-2.4); Phosphorus 2.8 mg/dl (2.5-4.9); Potassium 3.3 mmol/L (3.5-5.1)
[2018-12-12] MEDS: FOLIC ACID 1 MG TAB PO SCH (08:01)
--- NOTE | 2018-12-12 08:01 | Nephrology Progress Note ---
Date of Service December 12, 2018 Assessment & Plan (1) Hypokalemia: For several weeks. continue aggressive potassium repletion, as much po as possible. cont K phos and today markedly increased po K to 80 mEq tid. -plan no IV K today (2) Hypomagnesemia: Due to alcohol use. cont slo mag; try no IV mag today; excessive diarrhea worsens mag, k - see below. Monitor magnesium daily. (3) Hypocalcemia: cont aggressive D repletion and Ca supplements; improving; no IV needed today (4) Hyponatremia: Due to hypovolemia. sNa in 131-135 range again today; monitor daily but would focus on other electrolytes (5) Hypophosphatemia: getting qid oral phos supplements; at goal; needs no IV phos todays; check daily (6) Chronic diarrhea: defer to primary service and GI >> need to balance slowing diarrhea w/ managing elevated ammonia levels; no reason here to suspect chronic adrenal insufficiency, though he does have cushingoid fascies. Subjective seen on rounds at 0800; BM continue to be slower; no sob, no chest pain, no fasciculations or confusion Review of Systems Review of Systems: All systems reviewed & are unremarkable except as noted in HPI & below Physical Exam Constitutional: well developed and well nourished ambulatory w/o asst, a& 0 x 3 Eyes: EOM intact bilaterally ENMT: Ears: no external ear abnormality Nose: no external nose abnormality Mouth: + dry oral mucous membranes Neck: no nuchal rigidity Respiratory: normal respiratory effort Auscultation: + diminished lung sounds Cardiovascular: Rate/Rhythm: regular rate and regular rhythm Extremities: no edema Gastrointestinal (Abdomen): Inspection/Auscultation: normal bowel sounds Percussion/Palpation: abdomen soft; abdomen nontender Musculoskeletal: no cyanosis or clubbing, extremities motor strength 5/5 Extremities: strength 5/5 throughout Skin: no rashes, warm and dry Psychiatric: A+Ox3, euthymic affect Speech: normal rate/rhythm/volume of speech Results & Data Vital Signs (Past 12 Hours) Vital Signs Temp Pulse Pulse Resp BP BP Pulse Ox 12/12/18 07:46 37.1 C 85 20 124/82 98 12/12/18 04:37 37.1 C 98 H 18 134/90 94 12/12/18 01:20 78 12/11/18 22:47 36.9 C 84 20 122/80 98 Laboratory Results 12/12/18 05:54 12/12/18 05:54 mag 1.6 phos 2.8 Diagnostic Findings kub no obstrxn
[2018-12-12] MEDS: prednisoLONE SYRUP 15 MG/5 ML BTL PO SCH (08:02)
[2018-12-12] MEDS: CYANOCOBALAMIN (VITAMIN B-12) 100 MCG TABLET PO SCH (08:02)
[2018-12-12] MEDS: MAGNESIUM CHLORIDE 64MG DELAYED REL TAB PO SCH ×2 (08:02→21:31)
[2018-12-12] MEDS: CEROVITE ADV FORMULA TAB PO SCH (08:02)
[2018-12-12] MEDS: MAGNESIUM OXIDE 400 MG TAB PO SCH ×2 (08:02→21:27)
[2018-12-12] MEDS: THIAMINE HCL 100 MG TAB PO SCH (08:02)
[2018-12-12] MEDS: CALCIUM CARBONATE 1250MG TAB PO SCH ×2 (08:02→21:29)
[2018-12-12] MEDS: POT PHOSPHATE MONOBASIC W/ SOD TAB PO SCH ×4 (08:02→21:28)
[2018-12-12] MEDS: POTASSIUM CHLORIDE 20 MEQ TABCR PO SCH ×3 (08:14→21:29)
[2018-12-12] MEDS: LOPERAMIDE HCL 2 MG CAP PO PRN ×3 (10:28→19:24)
--- NOTE | 2018-12-12 18:16 | Hospitalist Progress Note ---
Date of Service December 12, 2018 Assessment & Plan (1) Alcohol abuse: Alcohol abuse Alcohol Withdrawal H/O drinking 6 beers a day and 6 shots of whiskey every day for the last 8 years Patient declined inpatient alcohol rehab placement Continue thiamine, folic acid, multivitamin No signs of withdrawal On withdrawal protocol Currently patient is interested in outpatient rehab Alcoholic neuropathy Continue amitriptyline 10 mg Q Hs Continue vitamin supplements vitamin B12 levels: Normal Counseled to quit alcohol use Acute kidney injury Metabolic/lactic acidosis Resolved Monitor electrolytes (2) AH (alcoholic hepatitis): Alcoholic hepatitis Early cirrhosis secondary to alcohol use Transaminitis Elevated ammonia levels but no signs of encephalopathy LFTs trending down INR remains elevated MELD score 22 Received N-acetylcysteine, pentoxifylline And intolerance to pentoxifylline Continue prednisone taper as per gastroenterology Appreciate GI input Needs follow-up with GI upon discharge Plan to continue prednisone 40 mg for 28 days and then taper (3) Transaminitis: Management as above (4) Elevated INR: Secondary to alcoholic hepatitic and Alcoholic liver cirrhosis No signs of bleeding Monitor (5) Hyperammonemia: Secondary to alcoholic hepatitis, cirrhosis No signs of encephalopathy (6) Elevated lipase: Could have mild alcoholic pancreatitis Admission lipase 790 Tolerating diet (7) Elevated LDH: Likely due to liver problems (8) Elevated creatine kinase: Rhabdomyolysis CK levels trended down (9) HUYEN (acute kidney injury): Resolved Received IV fluids Monitor renal function (10) High anion gap metabolic acidosis: Lactic acidosis Leukocytosis Blood, urine, stool cultures negative for infection Lactic acidosis likely secondary to liver disease Acidosis resolved (11) Hyponatremia: Admission serum sodium 120 Hyponatremia due to hypovolemia, liver disease Urine osmolality of 341, urine sodium of 11 and serum osmolality of 266 Serum levels improved Monitor (12) Hypokalemia: Likely due to GI losses Replace potassium supplements as needed (13) Hypomagnesemia: Hypophosphatemia Replace electrolytes as needed Diarrhea: Stool cultures negative Imodium as needed (14) Hypocalcemia: Low ionized calcium Corrected calcium levels improved Continue oral calcium supplements Vitamin D Deficiency Elevated PTH Vitamin D levels 9.9 Continue vitamin D supplements DVT Px: SCDs Encouraged to ambulate CODE STATUS Full code Disposition Expect to discharge home in stable Subjective Patient is seen and examined at bedside Diarrhea improving as per patient Pain/tingling of fingers improving No new complaints Denies nausea, vomiting, abdominal pain, chest pain, SOB, dizziness Family at bedside Review of Systems Review of Systems: All systems reviewed & are unremarkable except as noted in HPI & below Physical Exam Physical Exam: Physical Exam: Vitals signs as noted above General Appearance:Moderately built and nourished, no apparent distress Head: normocephalic, Atraumatic Eyes: normal inspection, EOMI Neck: supple, Trachea midline Respiratory/Chest: Normal breath sounds, CTA Cardiovascular: S1, S2, No murmur Abdomen/GI:Soft, Non tender, Bowel sounds present Extremities/Musculoskelatal:normal inspection, no edema Neurologic/Psych:AAOX3, grossly no focal neurological deficits Skin: normal color, warm Results & Data Vital Signs (Past 12 Hours) Vital Signs Temp Pulse Pulse Resp BP BP Pulse Ox 12/12/18 15:17 37.1 C 83 18 142/88 H 97 12/12/18 15:05 80 12/12/18 11:41 37.1 C 92 H 18 127/90 96 12/12/18 09:17 94 H 12/12/18 07:46 37.1 C 85 20 124/82 98 Laboratory Results Short CBC 12/12/18 Range/Units 05:54 WBC 8.82 (4.8-10.8) K/uL Hgb 11.3 L (14.0-18.0) g/dL Hct 31.4 L (42-52) % Plt Count 176 (130-400) K/uL BMP 12/12/18 05:54 Sodium 134 L Potassium 3.3 L Chloride 103 Carbon Dioxide 25 BUN 9 Creatinine 0.70 Glucose 97 Calcium 7.0 L (1) AH (alcoholic hepatitis) Ascites presence: unspecified Qualified Code(s): K70.10 - Alcoholic hepatitis without ascites
[2018-12-12] MEDS ORDERED: SIMETHICONE 80 MG CHEW PO ONE (21:10)
[2018-12-12] MEDS: AMITRIPTYLINE HCL 10 MG TAB PO SCH (21:29)
[2018-12-13 07:44] LABS: BUN Creatinine Ratio 13.4 (10-20); Calcium 7.3 mg/dl (8.5-10.1); Creatinine Clr Calc Pharmacy 182.6 ml/min; Est GFR (African American) 140.5; Est GFR (Non-African American) 121.2; Magnesium 1.4 mg/dl (1.8-2.4); Phosphorus 2.8 mg/dl (2.5-4.9); Potassium 3.8 mmol/L (3.5-5.1)
[2018-12-13] MEDS: FOLIC ACID 1 MG TAB PO SCH (08:19)
[2018-12-13] MEDS: CEROVITE ADV FORMULA TAB PO SCH (08:19)
[2018-12-13] MEDS: CALCIUM CARBONATE 1250MG TAB PO SCH ×2 (08:19→21:09)
[2018-12-13] MEDS: MAGNESIUM OXIDE 400 MG TAB PO SCH (08:20)
[2018-12-13] MEDS: POTASSIUM CHLORIDE 20 MEQ TABCR PO SCH ×3 (08:20→21:08)
[2018-12-13] MEDS: CYANOCOBALAMIN (VITAMIN B-12) 100 MCG TABLET PO SCH (08:20)
[2018-12-13] MEDS: THIAMINE HCL 100 MG TAB PO SCH (08:20)
[2018-12-13] MEDS: POT PHOSPHATE MONOBASIC W/ SOD TAB PO SCH ×4 (08:20→21:08)
[2018-12-13] MEDS: prednisoLONE SYRUP 15 MG/5 ML BTL PO SCH (08:21)
[2018-12-13] MEDS: MAGNESIUM CHLORIDE 64MG DELAYED REL TAB PO SCH ×3 (08:22→21:08)
[2018-12-13] MEDS ORDERED: ERGOCALCIFEROL 50,000 UNITS CAP PO SCH (09:00)
[2018-12-13] MEDS: DICYCLOMINE HCL 10 MG CAP PO PRN ×2 (11:34→19:23)
[2018-12-13] MEDS: LOPERAMIDE HCL 2 MG CAP PO PRN ×3 (11:34→22:04)
[2018-12-13] MEDS: MAGNESIUM SULFATE / D5W 1 GM/100 ML BAG IV SCH ×3 (13:51→16:23)
--- NOTE | 2018-12-13 18:34 | Hospitalist Progress Note ---
Date of Service December 13, 2018 Assessment & Plan (1) Alcohol abuse: Alcohol abuse Alcohol Withdrawal H/O drinking 6 beers a day and 6 shots of whiskey every day for the last 8 years Patient declined inpatient alcohol rehab placement Continue thiamine, folic acid, multivitamin On withdrawal protocol Currently patient is interested in outpatient rehab No signs of withdrawal Alcoholic neuropathy Continue amitriptyline 10 mg Q Hs Continue vitamin supplements vitamin B12 levels: Normal Counseled to quit alcohol use Acute kidney injury Metabolic/lactic acidosis Resolved Monitor electrolytes (2) AH (alcoholic hepatitis): Alcoholic hepatitis Early cirrhosis secondary to alcohol use Transaminitis Elevated ammonia levels but no signs of encephalopathy LFTs trending down INR remains elevated MELD score 22 Received N-acetylcysteine, pentoxifylline And intolerance to pentoxifylline Continue prednisone taper as per gastroenterology Appreciate GI input Needs follow-up with GI upon discharge Plan to continue prednisone 40 mg for 28 days and then taper Recheck LFTs in a.m. (3) Transaminitis: Management as above (4) Elevated INR: Secondary to alcoholic hepatitic and Alcoholic liver cirrhosis No signs of bleeding Monitor (5) Hyperammonemia: Secondary to alcoholic hepatitis, cirrhosis No signs of encephalopathy (6) Elevated lipase: Could have mild alcoholic pancreatitis Admission lipase 790 Tolerating diet (7) Elevated LDH: Likely due to liver problems (8) Elevated creatine kinase: Rhabdomyolysis CK levels trended down (9) HUYEN (acute kidney injury): Resolved Received IV fluids Monitor renal function (10) High anion gap metabolic acidosis: Lactic acidosis Leukocytosis Blood, urine, stool cultures negative for infection Lactic acidosis likely secondary to liver disease Acidosis resolved (11) Hyponatremia: Admission serum sodium 120 Hyponatremia due to hypovolemia, liver disease Urine osmolality of 341, urine sodium of 11 and serum osmolality of 266 Serum levels improved Monitor (12) Hypokalemia: Likely due to GI losses Replace potassium supplements as needed (13) Hypomagnesemia: Hypophosphatemia Replace electrolytes as needed Diarrhea: Stool cultures negative Imodium as needed Diarrhea slowly improving (14) Hypocalcemia: Low ionized calcium Corrected calcium levels improved Continue oral calcium supplements Vitamin D Deficiency Elevated PTH Vitamin D levels 9.9 Continue vitamin D supplements DVT Px: SCDs Encouraged to ambulate CODE STATUS Full code Disposition Expect to discharge home in stable Subjective Patient is seen and examined at bedside No new complaints Diarrhea continues to improve Paresthesias improved Family at bedside Still has significant hypomagnesemia Denies nausea, vomiting, abdominal pain, chest pain, SOB, dizziness Review of Systems Review of Systems: All systems reviewed & are unremarkable except as noted in HPI & below Physical Exam Physical Exam: Physical Exam: Vitals signs as noted above General Appearance:Moderately built and nourished, no apparent distress Head: normocephalic, Atraumatic Eyes: normal inspection, EOMI Neck: supple, Trachea midline Respiratory/Chest: Normal breath sounds, CTA Cardiovascular: S1, S2, No murmur Abdomen/GI:Soft, Non tender, Bowel sounds present Extremities/Musculoskelatal:normal inspection, no edema Neurologic/Psych:AAOX3, grossly no focal neurological deficits Skin: normal color, warm Results & Data Vital Signs (Past 12 Hours) Vital Signs Temp Pulse Pulse Resp BP Pulse Ox 12/13/18 15:52 36.6 C 87 20 133/86 97 12/13/18 15:30 81 12/13/18 11:41 37.0 C 103 H 18 133/91 93 12/13/18 08:08 37.2 C 111 H 18 129/89 93 12/13/18 07:47 80 Laboratory Results [facility] 12/13/18 06:23 Sodium 136 Potassium 3.8 D Chloride 107 Carbon Dioxide 22 BUN 10 Creatinine 0.74 Glucose 76 Calcium 7.3 L (1) AH (alcoholic hepatitis) Ascites presence: unspecified Qualified Code(s): K70.10 - Alcoholic hepatitis without ascites
--- NOTE | 2018-12-13 18:40 | Nephrology Progress Note ---
Date of Service December 13, 2018 Assessment & Plan (1) Hypokalemia: For several weeks. continue aggressive potassium repletion, as much po as possible. cont K phos and po K 80 mEq tid (started this dose 12/12). -plan no IV K today (2) Hypomagnesemia: Due to alcohol use. cont slo mag but made it tid; stopped mag ox. ordered 3 gm IV mag; excessive diarrhea worsens mag, k - see below. Monitor magnesium daily. (3) Hypocalcemia: cont aggressive D repletion and Ca supplements; improving; no IV needed today (4) Hyponatremia: Due to hypovolemia historically but today in range normal. has generally had sNa in 131-135 range; monitor daily but would focus on other electrolytes (5) Hypophosphatemia: getting qid oral phos supplements; at goal; needs no IV phos todays; check daily (6) Chronic diarrhea: defer to primary service and GI >> need to balance slowing diarrhea w/ managing elevated ammonia levels; no reason here to suspect chronic adrenal insufficiency, though he does have cushingoid fascies. Subjective seen on rounds this PM 1615; no complaints; bm cont to firm up; no n/v, no confusion reported; no sob, no mena; + tremors; no fasciculations Review of Systems Review of Systems: All systems reviewed & are unremarkable except as noted in HPI & below Physical Exam Constitutional: well developed and well nourished ambulatory and on RA Eyes: EOM intact bilaterally ENMT: Ears: no external ear abnormality Nose: no external nose abnormality Mouth: + dry oral mucous membranes Neck: no nuchal rigidity Respiratory: normal respiratory effort Auscultation: + diminished lung sounds Cardiovascular: Rate/Rhythm: regular rate and regular rhythm Extremities: no edema Gastrointestinal (Abdomen): Inspection/Auscultation: normal bowel sounds Percussion/Palpation: abdomen soft; abdomen nontender Musculoskeletal: no cyanosis or clubbing, extremities motor strength 5/5 Extremities: strength 5/5 throughout Skin: no rashes, warm and dry Neurologic: fine BL hand tremor Psychiatric: A+Ox3, euthymic affect Speech: normal rate/rhythm/volume of speech Results & Data Vital Signs (Past 12 Hours) Vital Signs Temp Pulse Pulse Resp BP Pulse Ox 12/13/18 15:52 36.6 C 87 20 133/86 97 12/13/18 15:30 81 12/13/18 11:41 37.0 C 103 H 18 133/91 93 12/13/18 08:08 37.2 C 111 H 18 129/89 93 12/13/18 07:47 80 Laboratory Results 12/12/18 05:54 12/13/18 06:23
[2018-12-13] MEDS: LORazepam 0.5 MG TAB PO PRN (21:09)
[2018-12-13] MEDS: AMITRIPTYLINE HCL 10 MG TAB PO SCH (21:09)
[2018-12-14 06:22] LABS: Albumin Level 2.5 gm/dl (3.4-5.0); Calcium 7.5 mg/dl (8.5-10.1); Creatinine Clr Calc Pharmacy 177.7 ml/min; Est GFR (African American) 138.9; Est GFR (Non-African American) 119.9; Magnesium 1.7 mg/dl (1.8-2.4); Potassium 3.6 mmol/L (3.5-5.1)
[2018-12-14 06:24] LABS: Bilirubin Direct 1.4 mg/dl (0-0.2); Bilirubin,Total 2.4 mg/dl (0.2-1); Phosphorus 2.8 mg/dl (2.5-4.9); Total Protein 5.5 gm/dl (6.4-8.2)
[2018-12-14] MEDS: CALCIUM CARBONATE 1250MG TAB PO SCH ×2 (08:35→20:47)
[2018-12-14] MEDS: CYANOCOBALAMIN (VITAMIN B-12) 100 MCG TABLET PO SCH (08:35)
[2018-12-14] MEDS: FOLIC ACID 1 MG TAB PO SCH (08:35)
[2018-12-14] MEDS: CEROVITE ADV FORMULA TAB PO SCH (08:35)
[2018-12-14] MEDS: POTASSIUM CHLORIDE 20 MEQ TABCR PO SCH ×3 (08:35→20:46)
[2018-12-14] MEDS: THIAMINE HCL 100 MG TAB PO SCH (08:35)
[2018-12-14] MEDS: prednisoLONE SYRUP 15 MG/5 ML BTL PO SCH (08:35)
[2018-12-14] MEDS: POT PHOSPHATE MONOBASIC W/ SOD TAB PO SCH ×4 (08:36→20:47)
[2018-12-14] MEDS: MAGNESIUM CHLORIDE 64MG DELAYED REL TAB PO SCH ×3 (08:36→20:48)
[2018-12-14] MEDS ORDERED: MAGNESIUM SULFATE / D5W 1 GM/100 ML BAG IV ONE (09:15)
[2018-12-14] MEDS: DICYCLOMINE HCL 10 MG CAP PO PRN (10:07)
[2018-12-14] MEDS: LOPERAMIDE HCL 2 MG CAP PO PRN ×2 (10:07→16:23)
--- NOTE | 2018-12-14 16:39 | Hospitalist Progress Note ---
Date of Service December 14, 2018 Assessment & Plan (1) Alcohol abuse: Alcohol abuse Alcohol Withdrawal H/O drinking 6 beers a day and 6 shots of whiskey every day for the last 8 years Patient declined inpatient alcohol rehab placement Continue thiamine, folic acid, multivitamin On withdrawal protocol Currently patient is interested in outpatient rehab Continue to monitor for withdrawal Alcoholic neuropathy Continue amitriptyline 10 mg Q Hs Continue vitamin supplements vitamin B12 levels: Normal Counseled to quit alcohol use Acute kidney injury Metabolic/lactic acidosis Resolved Monitor electrolytes (2) AH (alcoholic hepatitis): Alcoholic hepatitis Early cirrhosis secondary to alcohol use Transaminitis Elevated ammonia levels but no signs of encephalopathy LFTs trending down INR remains elevated MELD score 22 Received N-acetylcysteine, pentoxifylline And intolerance to pentoxifylline Continue prednisone taper as per gastroenterology Appreciate GI input Needs follow-up with GI upon discharge Plan to continue prednisone 40 mg for 28 days and then taper LFTs trending towards normal (3) Transaminitis: Management as above (4) Elevated INR: Secondary to alcoholic hepatitic and Alcoholic liver cirrhosis No signs of bleeding Monitor (5) Hyperammonemia: Secondary to alcoholic hepatitis, cirrhosis No signs of encephalopathy (6) Elevated lipase: Could have mild alcoholic pancreatitis Admission lipase 790 Tolerating diet (7) Elevated LDH: Likely due to liver problems (8) Elevated creatine kinase: Rhabdomyolysis CK levels trended down (9) HUYEN (acute kidney injury): Resolved Received IV fluids Monitor renal function (10) High anion gap metabolic acidosis: Lactic acidosis Leukocytosis Blood, urine, stool cultures negative for infection Lactic acidosis likely secondary to liver disease Acidosis resolved (11) Hyponatremia: Admission serum sodium 120 Hyponatremia due to hypovolemia, liver disease Urine osmolality of 341, urine sodium of 11 and serum osmolality of 266 Serum levels normalized (12) Hypokalemia: Likely due to GI losses Potassium levels normal with replacement (13) Hypomagnesemia: Hypophosphatemia Replace electrolytes as needed Diarrhea: Stool cultures negative Imodium as needed Diarrhea slowly improving (14) Hypocalcemia: Low ionized calcium Corrected calcium levels improved Continue oral calcium supplements Vitamin D Deficiency Elevated PTH Vitamin D levels 9.9 Continue vitamin D supplements DVT Px: SCDs Encouraged to ambulate CODE STATUS Full code Disposition Expect to discharge home in stable Subjective Patient is seen and examined at bedside Feels a lot better today Diarrhea continues to improve Paresthesias much improved Denies nausea, vomiting, abdominal pain, chest pain, SOB, dizziness Review of Systems Review of Systems: All systems reviewed & are unremarkable except as noted in HPI & below Physical Exam Physical Exam: Physical Exam: Vitals signs as noted above General Appearance:Moderately built and nourished, no apparent distress Head: normocephalic, Atraumatic Eyes: normal inspection, EOMI Neck: supple, Trachea midline Respiratory/Chest: Normal breath sounds, CTA Cardiovascular: S1, S2, No murmur Abdomen/GI:Soft, Non tender, Bowel sounds present Extremities/Musculoskelatal:normal inspection, no edema Neurologic/Psych:AAOX3, grossly no focal neurological deficits Skin: normal color, warm Results & Data Vital Signs (Past 12 Hours) Vital Signs Temp Pulse Pulse Resp BP BP Pulse Ox 12/14/18 15:53 61 12/14/18 14:50 36.9 C 92 H 20 115/73 20 L 12/14/18 11:37 36.7 C 104 H 20 136/88 96 12/14/18 07:52 37.2 C 85 18 120/77 97 12/14/18 07:08 87 Laboratory Results [facility] 12/14/18 05:17 Sodium 138 Potassium 3.6 Chloride 107 Carbon Dioxide 25 BUN 9 Creatinine 0.76 Glucose 83 Calcium 7.5 L Liver Function 12/14/18 Range/Units 05:17 Total Bilirubin 2.4 H (0.2-1) mg/dl Direct Bilirubin 1.4 H (0-0.2) mg/dl AST 139 H (15-37) U/L ALT 116 H (12-78) U/L Alkaline Phosphatase 158 H (45-117) U/L Albumin 2.5 L (3.4-5.0) gm/dl (1) AH (alcoholic hepatitis) Ascites presence: unspecified Qualified Code(s): K70.10 - Alcoholic hepatitis without ascites
--- NOTE | 2018-12-14 18:48 | Nephrology Progress Note ---
Date of Service December 14, 2018 Assessment & Plan (1) Hypokalemia: For several weeks. continue aggressive potassium repletion, as much po as possible. cont K phos and po K 80 mEq tid (started this dose 12/12). -plan no IV K today (2) Hypomagnesemia: Due to alcohol use. cont slo mag but made it tid; stopped mag ox. No more iv mag. Monitor on oral mag only. Patient will likely run low. Level of 1.4 is acceptable (3) Hypocalcemia: cont aggressive D repletion and Ca supplements; improving; no IV needed today (4) Hyponatremia: Due to hypovolemia historically but today in range normal. 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 Subjective Seen during morning rounds with his father at the bedside. No SOB. No vomiting. He plans to quit alcohol on discharge. Mag still low Review of Systems Review of Systems: All systems reviewed & are unremarkable except as noted in HPI & below Physical Exam Physical Exam: General exam: Appears comfortable, no acute distress HEENT: Pupils are equal and reactive to light Neck: No JVD, neck is supple trachea is midline Respiratory system: Clear breath sounds bilaterally. Gastrointestinal: Abdomen is soft, non distended, non tender, bowel sounds are present CVS: Regular rate and rhythm. No murmurs, rubs or gallops Musculoskeletal: No joint or muscle tenderness Extremities: Non tender, no edema, peripheral pulses are present Neuro: Oriented, no tremors, no focal neurological deficits Skin: No rashes Results & Data Vital Signs (Past 12 Hours) Vital Signs Temp Pulse Pulse Resp BP BP Pulse Ox 12/14/18 15:53 61 12/14/18 14:50 36.9 C 92 H 20 115/73 20 L 12/14/18 11:37 36.7 C 104 H 20 136/88 96 12/14/18 07:52 37.2 C 85 18 120/77 97 12/14/18 07:08 87 Laboratory Results Laboratory Results - last 24 hr 12/14/18 05:17 Sodium 138 Potassium 3.6 Chloride 107 Carbon Dioxide 25 Anion Gap 6.0 BUN 9 Creatinine 0.76 Est Cr Clr Drug Dosing 177.7 Est GFR ( Amer) 138.9 Est GFR (Non-Af Amer) 119.9 BUN/Creatinine Ratio 12.0 Glucose 83 Calcium 7.5 L Phosphorus 2.8 Magnesium 1.7 L Total Bilirubin 2.4 H Direct Bilirubin 1.4 H AST 139 H ALT 116 H Alkaline Phosphatase 158 H Total Protein 5.5 L Albumin 2.5 L
[2018-12-14] MEDS: SIMETHICONE 80 MG CHEW PO PRN (20:46)
[2018-12-14] MEDS: AMITRIPTYLINE HCL 10 MG TAB PO SCH (20:47)
[2018-12-14] MEDS: LORazepam 0.5 MG TAB PO PRN (22:09)
[2018-12-15 06:42] LABS: BUN Creatinine Ratio 13.8 (10-20); Calcium 7.8 mg/dl (8.5-10.1); Creatinine Clr Calc Pharmacy 200.8 ml/min; Est GFR (African American) 146.3; Est GFR (Non-African American) 126.2; Magnesium 1.6 mg/dl (1.8-2.4); Phosphorus 3.1 mg/dl (2.5-4.9); Potassium 3.8 mmol/L (3.5-5.1)
[2018-12-15] MEDS: LOPERAMIDE HCL 2 MG CAP PO PRN (08:12)
[2018-12-15] MEDS: CALCIUM CARBONATE 1250MG TAB PO SCH (08:13)
[2018-12-15] MEDS: CEROVITE ADV FORMULA TAB PO SCH (08:13)
[2018-12-15] MEDS: CYANOCOBALAMIN (VITAMIN B-12) 100 MCG TABLET PO SCH (08:14)
[2018-12-15] MEDS: prednisoLONE SYRUP 15 MG/5 ML BTL PO SCH (08:14)
[2018-12-15] MEDS: POT PHOSPHATE MONOBASIC W/ SOD TAB PO SCH ×2 (08:14→13:41)
[2018-12-15] MEDS: MAGNESIUM CHLORIDE 64MG DELAYED REL TAB PO SCH ×2 (08:14→13:42)
[2018-12-15] MEDS: THIAMINE HCL 100 MG TAB PO SCH (08:15)
[2018-12-15] MEDS: POTASSIUM CHLORIDE 20 MEQ TABCR PO SCH ×2 (08:15→13:42)
[2018-12-15] MEDS: FOLIC ACID 1 MG TAB PO SCH (08:15)
[2018-12-15] MEDS: SIMETHICONE 80 MG CHEW PO PRN (08:41)
[2018-12-15] MEDS ORDERED: MAGNESIUM SULFATE / D5W 1 GM/100 ML BAG IV SCH (08:45)
--- NOTE | 2018-12-15 11:11 | Nephrology Progress Note ---
Date of Service December 15, 2018 Assessment & Plan (1) Hypokalemia: For several weeks. continue aggressive potassium repletion, as much po as possible. cont K phos and po K 80 mEq tid (started this dose 12/12). -Patient can be discharged potassium chloride 80 mEq 3 times daily. He will need repeat BMP mid next week and renal follow-up in a week. (2) Hypomagnesemia: Due to alcohol use. cont slo mag but made it tid; stopped mag ox. No more iv mag. Monitor on oral mag only. Patient will likely run low. Level of at least 1.4 is acceptable. Patient can be discharged on same dose of magnesium chloride (3) Hypocalcemia: cont aggressive D repletion and Ca supplements; improving; no IV needed today (4) Hyponatremia: Due to hypovolemia historically but today in range normal. 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 Subjective Patient feels better today. No vomiting or diarrhea. Electrolytes remained stable. He is eager to be discharged home. He promises not to drink again. Review of Systems Review of Systems: All systems reviewed & are unremarkable except as noted in HPI & below Physical Exam Physical Exam: General exam: Appears comfortable, no acute distress HEENT: Pupils are equal and reactive to light Neck: No JVD, neck is supple trachea is midline Respiratory system: Clear breath sounds bilaterally. Gastrointestinal: Abdomen is soft, non distended, non tender, bowel sounds are present CVS: Regular rate and rhythm. No murmurs, rubs or gallops Musculoskeletal: No joint or muscle tenderness Extremities: Non tender, no edema, peripheral pulses are present Neuro: Oriented, no tremors, no focal neurological deficits Skin: No rashes Results & Data Vital Signs (Past 12 Hours) Vital Signs Temp Pulse Pulse Resp BP Pulse Ox 12/15/18 08:03 37.1 C 93 H 18 132/88 97 12/15/18 04:00 37.2 C 87 20 140/83 98 12/15/18 00:51 85 Laboratory Results Laboratory Results - last 24 hr 12/15/18 05:14 Sodium 139 Potassium 3.8 Chloride 110 H Carbon Dioxide 20 L Anion Gap 8.0 BUN 9 Creatinine 0.67 Est Cr Clr Drug Dosing 200.8 Est GFR ( Amer) 146.3 Est GFR (Non-Af Amer) 126.2 BUN/Creatinine Ratio 13.8 Glucose 77 Calcium 7.8 L Phosphorus 3.1 Magnesium 1.6 L
--- NOTE | 2018-12-15 12:20 | Hospitalist Progress Note ---
Date of Service December 15, 2018 Assessment & Plan (1) Alcohol abuse: Alcohol abuse Alcohol Withdrawal H/O drinking 6 beers a day and 6 shots of whiskey every day for the last 8 years Patient declined inpatient alcohol rehab placement Continue thiamine, folic acid, multivitamin On withdrawal protocol--No signs of withdrawal Currently patient is interested in outpatient rehab only Alcoholic neuropathy Continue amitriptyline 10 mg Q Hs Continue vitamin supplements vitamin B12 levels: Normal Counseled to quit alcohol use Acute kidney injury Metabolic/lactic acidosis Resolved Monitor electrolytes (2) AH (alcoholic hepatitis): Alcoholic hepatitis Early cirrhosis secondary to alcohol use Transaminitis Elevated ammonia levels but no signs of encephalopathy LFTs trending down INR remains elevated MELD score 22 Received N-acetylcysteine, pentoxifylline And intolerance to pentoxifylline Continue prednisone taper as per gastroenterology (40 mg daily for 28 days, then decrease by 10 mg every 4 days until 10 mg/day is reached, then decrease to 5 mg daily) Appreciate GI input Needs follow-up with GI upon discharge LFTs trending towards normal (3) Transaminitis: Management as above (4) Elevated INR: Secondary to alcoholic hepatitic and Alcoholic liver cirrhosis No signs of bleeding Monitor (5) Hyperammonemia: Secondary to alcoholic hepatitis, cirrhosis No signs of encephalopathy (6) Elevated lipase: Could have mild alcoholic pancreatitis Admission lipase 790 Tolerating diet (7) Elevated LDH: Likely due to liver problems (8) Elevated creatine kinase: Rhabdomyolysis CK levels trended down (9) HUYEN (acute kidney injury): Resolved Received IV fluids Monitor renal function (10) High anion gap metabolic acidosis: Lactic acidosis Leukocytosis Blood, urine, stool cultures negative for infection Lactic acidosis likely secondary to liver disease Acidosis resolved (11) Hyponatremia: Admission serum sodium 120 Hyponatremia due to hypovolemia, liver disease Urine osmolality of 341, urine sodium of 11 and serum osmolality of 266 Serum levels normalized (12) Hypokalemia: Likely due to GI losses Potassium levels normal with replacement (13) Hypomagnesemia: Hypophosphatemia Replace electrolytes as needed Diarrhea: Stool cultures negative Imodium as needed Diarrhea slowly improving Needs follow up with GI as outpatient (14) Hypocalcemia: Low ionized calcium Corrected calcium levels improved Continue oral calcium supplements Vitamin D Deficiency Elevated PTH Vitamin D levels 9.9 Continue vitamin D supplements DVT Px: SCDs Encouraged to ambulate CODE STATUS Full code Disposition Plan to discharge home today Subjective Patient is seen and examined at bedside Doing well Electrolytes stable Less diarrhea today Denies nausea, vomiting, abdominal pain, chest pain, SOB, dizziness Discussed with Nephrology today Review of Systems Review of Systems: All systems reviewed & are unremarkable except as noted in HPI & below Physical Exam Physical Exam: Physical Exam: Vitals signs as noted above General Appearance:Moderately built and nourished, no apparent distress Head: normocephalic, Atraumatic Eyes: normal inspection, EOMI Neck: supple, Trachea midline Respiratory/Chest: Normal breath sounds, CTA Cardiovascular: S1, S2, No murmur Abdomen/GI:Soft, Non tender, Bowel sounds present Extremities/Musculoskelatal:normal inspection, no edema Neurologic/Psych:AAOX3, grossly no focal neurological deficits Skin: normal color, warm Results & Data Vital Signs (Past 12 Hours) Vital Signs Temp Pulse Pulse Resp BP Pulse Ox 12/15/18 08:03 37.1 C 93 H 18 132/88 97 12/15/18 04:00 37.2 C 87 20 140/83 98 12/15/18 00:51 85 Laboratory Results [facility] 12/15/18 05:14 Sodium 139 Potassium 3.8 Chloride 110 H Carbon Dioxide 20 L BUN 9 Creatinine 0.67 Glucose 77 Calcium 7.8 L (1) AH (alcoholic hepatitis) Ascites presence: unspecified Qualified Code(s): K70.10 - Alcoholic hepatitis without ascites
--- NOTE | 2018-12-15 12:45 | Discharge Summary ---
Date of Service December 15, 2018 Admission HPI Per Admitting Provider CHIEF COMPLAINT: Nausea, vomiting, alcoholism. HISTORY OF PRESENT ILLNESS: This 33-year-old male with no significant past medical history, he says he drinks alcohol, 6 beers a day and 6 shots of whiskey every day for the last 8 years, lives with his girlfriend. He said he decided to quit drinking by himself about 2 days ago and today his girlfriend found him to have nausea, vomiting and shakiness, not feeling good and brought him here, and when he came in, he was tachycardic and his labs showed significant electrolyte abnormalities and hepatitis and HUYEN. We were called for admission. The patient is currently resting comfortably. Hemodynamics are okay now. Denies any headache, denies any dizziness, no blurred visions, no runny nose. He says couple of days ago blacked out and hit the back of his head, some soreness in the back of his head. He is not eating much. No difficulty swallowing, no chest pain, no shortness of breath, no cough, no fever, no chills, no abdominal pain. Denies any blood in the stools or black stools. Normal bladder movements. No hematuria or burning micturitions. No rash. The patient denies taking any [id number]-exofasl medications. He denies taking any Tylenol, denies taking any aspirin. Denies drinking any antifreeze or any other alcohol stuff and he says he just took 1 tablet of ibuprofen last 1 week. Admission Exam Per Admitting Provider PHYSICAL EXAMINATION: GENERAL: The patient is obese, not in acute distress. VITAL SIGNS: Temperature 36.7, pulse was 107, blood pressure 120/71, oxygen 99% room air. HEENT: No pallor. No icterus present. Pupils equal, round, reactive to light. NECK: No JVD, no neck masses, no carotid bruit. CARDIOVASCULAR: S1, S2 heard. Tachycardia. No murmurs. RESPIRATORY SYSTEM: Normal AP diameter. No accessory muscle use. No wheezing, no crackles. ABDOMEN: Soft, bowel sounds present, nontender. No distention. CENTRAL NERVOUS SYSTEM: Cranial nerves II-XII grossly intact. Nonfocal. EXTREMITIES: Trace edema, no erythema seen. 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 Diffuse hepatomegaly with extensive fatty replacement. 2. Trace amount of perihepatic abdominal and pelvic ascites. 3. Nonspecific small bowel enteritis ABD USD: 1. Limited exam secondary to patient body habitus. 2. Hepatomegaly with severe hepatic steatosis. Mild marginal nodularity of the liver suggests early cirrhotic changes. 3. Trace perihepatic ascites. 4. Gallbladder distention with mild gallbladder wall thickening and trace sludge without cholelithiasis identified. The bladder wall thickening may be secondary to aforementioned hepatic disease however should be correlated clinically to exclude acalculus cholecystitis. Portal Vein USD; 1. Limited study due to body habitus consideration as well as fatty replacement of the liver. 2. Normal flow within the hepatic as well as portal venous structures within these limitations. KUB; 1. No bowel obstruction. 2. No urinary calculi. Ordered Studies 12/06/18 02:03 CT abd pelvis wo con Urgent US abdomen limited Urgent 12/06/18 02:15 US duplex portal hepatic veins Urgent Hospital Course (1) Alcohol abuse: Alcohol abuse Alcohol Withdrawal H/O drinking 6 beers a day and 6 shots of whiskey every day for the last 8 years Patient declined inpatient alcohol rehab placement Continue thiamine, folic acid, multivitamin On withdrawal protocol--No signs of withdrawal Currently patient is interested in outpatient rehab only Alcoholic neuropathy Continue amitriptyline 10 mg Q Hs Continue vitamin supplements vitamin B12 levels: Normal Counseled to quit alcohol use Acute kidney injury Metabolic/lactic acidosis Resolved Monitor electrolytes (2) AH (alcoholic hepatitis): Alcoholic hepatitis Early cirrhosis secondary to alcohol use Transaminitis Elevated ammonia levels but no signs of encephalopathy LFTs trending down INR remains elevated MELD score 22 Received N-acetylcysteine, pentoxifylline And intolerance to pentoxifylline Continue prednisone taper as per gastroenterology (40 mg daily for 28 days, then decrease by 10 mg every 4 days until 10 mg/day is reached, then decrease to 5 mg daily) Appreciate GI input Needs follow-up with GI upon discharge LFTs trending towards normal (3) Transaminitis: Management as above (4) Elevated INR: Secondary to alcoholic hepatitic and Alcoholic liver cirrhosis No signs of bleeding Monitor (5) Hyperammonemia: Secondary to alcoholic hepatitis, cirrhosis No signs of encephalopathy (6) Elevated lipase: Could have mild alcoholic pancreatitis Admission lipase 790 Tolerating diet (7) Elevated LDH: Likely due to liver problems (8) Elevated creatine kinase: Rhabdomyolysis CK levels trended down (9) HUYEN (acute kidney injury): Resolved Received IV fluids Monitor renal function (10) High anion gap metabolic acidosis: Lactic acidosis Leukocytosis Blood, urine, stool cultures negative for infection Lactic acidosis likely secondary to liver disease Acidosis resolved (11) Hyponatremia: Admission serum sodium 120 Hyponatremia due to hypovolemia, liver disease Urine osmolality of 341, urine sodium of 11 and serum osmolality of 266 Serum levels normalized (12) Hypokalemia: Likely due to GI losses Potassium levels normal with replacement (13) Hypomagnesemia: Hypophosphatemia Replace electrolytes as needed Diarrhea: Stool cultures negative Imodium as needed Diarrhea slowly improving Needs follow up with GI as outpatient (14) Hypocalcemia: Low ionized calcium Corrected calcium levels improved Continue oral calcium supplements Vitamin D Deficiency Elevated PTH Vitamin D levels 9.9 Continue vitamin D supplements DVT Px: SCDs Encouraged to ambulate CODE STATUS Full code Disposition Plan to discharge home today Total Time Total Time Spent Total Time Spent (In Minutes): 40 minutes Total Time Includes: Examination of the Patient, Discharge Planning, Medication Reconciliation, Communication With Other Providers and Other Discharge Plan Discharge Items Patient Disposition: Home - Self-Care Reason For Visit: ANION GAP METABOLIC ACIDOSIS, ELECTROLYTE ABNORMAL Discharge Diagnosis: Alcohol abuse Alcoholic hepatitis Suspected Alcoholic liver cirrhosis Acute kidney injury Metabolic acidosis Hyponatremia Hypokalemia Hypomagnesemia Hypocalcemia Vitamin D Deficiency Hypophosphatemia Activity: Resume your previous activity Exercise/Sports: Gradually increase as tolerated Non-emergency contact: Primary Care Provider, [employer] and Senior Sales Assistant Call non-emergency contact if: you have any medication questions, your symptoms worsen, your pain is not controlled, your pain is worsening, your pain is unusual for you, your pain is concerning for you and you have a fever Follow-up/Referrals: PCP,NO [Primary Care Provider] - Diet: Regular Ambulatory Orders: Basic Metabolic Panel (Routine) Timeframe: 3 Days Location: Determined by Patient Ordered By: Elliot Bojorquez Magnesium (Routine) Timeframe: 3 Days Location: Determined by Patient Ordered By: Elliot Bojorquez Phosphorus (Routine) Timeframe: 3 Days Location: Determined by Patient Ordered By: Elliot Leavitt Attending Provider Instructions: Follow-up with your primary care physician Dr. Kalia patel on December 18, 2018 at 10:45 AM at [facility] office Follow-up with your bottom presser Dr. Keysha Salas in 2 to 4 weeks as advised Follow-up with your engineer station mainline Dr. Katerin Baker as needed Get Blood test (basic metabolic panel, magnesium, Phosphorous levels) in 3 days and follow-up with your physician for medication adjustment Complete the prednisone taper course: Take prednisone 40 mg daily for 20 days, then 30 mg daily for 4 days, then 20 mg daily for 4 days, then 10 mg daily for 4 days, then 5 mg daily for 4 days and stop Seek immediate medical attention if your symptoms reoccur or worsen Pending Studies at Discharge: No Stand-Alone Forms: My [employer], Smoking Cessation Medications and DC Order Prescriptions: New loperamide 2 mg Capsule 2 mg PO QID PRN (Reason: loose stool) Qty: 60 RF: 0 potassium chloride [Klor-Con M20] 20 mEq Tablet,Er Particles/Crystals 80 meq PO TID 7 Days Qty: 84 RF: 0 calcium carbonate [Oyster Shell Calcium 500] 500 mg calcium (1,250 mg) Tablet 1,250 mg PO BID 30 Days Qty: 150 RF: 0 amitriptyline 10 mg Tablet 10 mg PO HS 30 Days Qty: 30 RF: 0 Phospha 250 Neutral 250 mg Tablet 1 tab PO BID 7 Days Qty: 14 RF: 0 dicyclomine 10 mg Capsule 10 mg PO TID PRN (Reason: Abdominal pain ) Qty: 10 RF: 0 magnesium chloride [Mag 64] 64 mg Tablet,Delayed Release (Dr/Ec) 64 mg PO TID 10 Days Qty: 30 RF: 0 thiamine HCl (vitamin B1) [Vitamin B-1] 100 mg Tablet 100 mg PO DAILY Qty: 30 RF: 0 folic acid 1 mg Tablet 1 mg PO DAILY Qty: 30 RF: 0 ergocalciferol (vitamin D2) [Vitamin D2] 50,000 unit Capsule 50,000 unit PO Q7D Qty: 5 RF: 0 prednisone 10 mg tablet 10 mg PO UD Qty: 66 RF: 0 No Action No Known Home Medications RF: 0 Discharge Orders: Discharge Order (Routine); Ordered 12/15/18 Ordered By: Elliot Bojorquez Admission Data Admit Date/Time: 12/06/18 02:32 Attending Provider: Elliot Bojorquez Admit Provider: Dennis Olivera Primary Care Provider: PCP,NO Other Providers: Dennis Olivera ; Jordi Griffin ; Neri Ferrari ; Kasi Lubin ; Neelam Granado ; Galileo Huffman ; Katarzyna Hill ; Jones Salazar ; Selena Gallegos ; Wes Faith ; Juan M Moyer ; Becky Allen ; Ladan Starks ; Alayna Prakash ; Keysha Salas ; Raulito Raygoza ; Rachel Gerard ; Richmond Mata ; Yady Lindsey ; Clary Phipps ; Rosanna Arguelles ; Jose Powers Other Interventions: Discharge Summary Assessment (RN) Last Done: 12/15/18 13:46 DC Date/Time DO NOT enter until pt leaves facility: 12/15/18 14:23
[2018-12-15 17:18] LABS: Ethylene Glycol <10.0 mcg/mL (<10.0); Methyl Alcohol Level NEGATIVE <5 MG/DL (NONE DETECTED)
== END 2018-12-15 14:23 | disposition home or self-care (01) | DRG 433 ==
LOC: ED 23:11 → 1E 12-06 02:32 → SUATTDRO 12-06 02:32 → 1E 12-06 02:51 → 2N 12-06 14:08

== ENCOUNTER 2020-02-26 11:29 | Inpatient (IN) ==
--- NOTE | 2020-02-26 12:20 | XRay Report ---
XR chest 1V portable CLINICAL HISTORY: covid +, dyspnea COMPARISON STUDY: No previous studies for comparison. FINDINGS: The heart is the upper limits of normal in size. There is no failure. There is no lobar con solidation. There is a minimal left basilar airspace opacity versus summation.[ IMPRESSION: 1. Minimal left basilar airspace opacity versus summation. No evidence of lobar consolidation. ACT 112: Negative or not required by law. Electronically signed by: David Garcia M.D. 02/26/2020 12:18 PM
--- NOTE | 2020-02-26 13:27 | Emergency Department Note ---
History of Present Illness General Chief complaint: Shortness of Breath/Dyspnea Stated complaint: covid+ 02/18 - congested, short of breath Time Seen by Provider: 02/26/20 11:44 Source: patient Mode of arrival: ambulatory Limitations: no limitations History of Present Illness Provider complaint: Covid+, fatigue, shortness of breath, congestion Onset (ago): week(s) 1 This 34-year-old male patient with significant past medical history of acute hepatitis, transaminitis, renal failure, presents to the emergency department today for evaluation of ongoing fatigue, shortness of breath, and congestion. The patient states he tested positive for COVID-19 on 02/18. He states he is generally not feeling better. He reports difficulty catching his breath, particularly with walking up stairs. He states his congestion is worse with sleeping. He has been taking Mucinex which does somewhat help, but not significantly. Patient denies productive cough. He denies any ongoing fever, but does have chills. He reports edema in his bilateral lower extremities, states his PCP believes this to be associated with decreased ambulation and movement over the past week since he has been sick. Patient denies any dyspnea at rest. No chest pain. No abdominal pain, nausea, vomiting. No diarrhea, c onstipation. Home Medications Medication Instructions Recorded Confirmed Type ascorbic acid (vitamin C) [Vitamin 500 mg PO BID 02/26/20 02/26/20 History C] vitamin B complex 1 tab PO QAM 02/26/20 02/26/20 History zinc 50 mg PO BID 02/26/20 02/26/20 History Allergies Allergy/AdvReac Type Severity Reaction Status Date / Time No Known Allergies Allergy Verified 02/26/20 11:43 Past Med/Surg History Medical History HUYEN (acute kidney injury) Alcohol abuse High anion gap metabolic acidosis Hyperammonemia Hypocalcemia Intractable vomiting Surgical History No pertinent past surgical history Family History Father Type 2 diabetes mellitus Denies family history of Ovarian cancer Prostate cancer Myocardial infarction Breast cancer Colorectal cancer Social History Smoking Status: Never smoker Second Hand Exposure: No; Hx Alcohol Use: No Hx Substance Use: Yes Last Used Substance Other:: 01/2020 Preferred Language: Welsh Communication Ability: Effective Visual Impairment: No Limitations Hearing Ability: Normal Case Preparer And Liner Required: No Beliefs That Will Affect Care: None marital status: Single Current Living Situation: Spouse current occupational status: employed current occupation: [employer] Other Information That Helps Us Care for You: Yes (increased stress and anxiety; appointment with mental health professional) Feels Safe at Home: Yes Safety Concerns: Feels Safe At This Time Childhood Exposure to Second-Hand Smoke: No caffeine: Yes Dental Care, Regularly: No Physical Activity Frequency: Daily Seatbelt Use: always Sunscreen Use: Yes Assistive Devices: None Review of Systems A total of 10 systems reviewed and were otherwise negative Physical Exam Vital Signs Vital Signs - 24 hr 02/26/20 11:32 02/26/20 11:57 02/26/20 12:41 Temperature 36.7 C Temperature Source Temporal Artery Scan Pulse Rate 115 H Pulse Rate [Finger] 101 H Pulse Rate from SpO2 Sensor Respiratory Rate 22 15 Respiratory Effort / Characteristics Non-Labored Non-Labored Spontaneous Respiratory Depth Normal Normal Respiratory Pattern Regular Blood Pressure 117/65 Blood Pressure [Right Arm] 107/55 L Blood Pressure Mean 82 Blood Pressure Mean [Right Arm] 72 Pulse Oximetry 100 96 Oxygen Delivery Method Room Air Room Air Room Air Sepsis Recent Fever Within 48 Hours Yes Sepsis New/Unexplained Change in Mental Status No Sepsis Action Taken by Nursing No Action Required 02/26/20 12:42 02/26/20 13:39 02/26/20 15:09 Temperature Temperature Source Oral Pulse Rate Pulse Rate [Finger] 99 H 107 H Pulse Rate from SpO2 Sensor Respiratory Rate 18 20 Respiratory Effort / Characteristics Non-Labored Spontaneous Non-Labored Respiratory Depth Normal Normal Respiratory Pattern Regular Blood Pressure Blood Pressure [Right Arm] 107/55 L 107/55 L Blood Pressure Mean Blood Pressure Mean [Right Arm] 72 72 Pulse Oximetry 95 96 Oxygen Delivery Method Room Air Room Air Sepsis Recent Fever Within 48 Hours Sepsis New/Unexplained Change in Mental Status Sepsis Action Taken by Nursing 02/26/20 15:43 02/26/20 15:45 02/26/20 16:30 Temperature Temperature Source Pulse Rate 107 H 109 H Pulse Rate [Finger] 106 H Pulse Rate from SpO2 Sensor 110 H Respiratory Rate 18 18 21 Respiratory Effort / Characteristics Respiratory Depth Respiratory Pattern Blood Pressure 106/49 L 148/71 H Blood Pressure [Right Arm] 106/59 L Blood Pressure Mean 72 110 Blood Pressure Mean [Right Arm] 74 Pulse Oximetry 98 99 96 Oxygen Delivery Method Room Air Room Air Sepsis Recent Fever Within 48 Hours Sepsis New/Unexplained Change in Mental Status Sepsis Action Taken by Nursing 02/26/20 17:30 02/26/20 17:49 02/26/20 18:00 Temperature Temperature Source Pulse Rate 104 H 108 H Pulse Rate [Finger] 106 H Pulse Rate from SpO2 Sensor 104 H 108 H Respiratory Rate 23 16 22 Respiratory Effort / Characteristics Non-Labored Respiratory Depth Normal Respiratory Pattern Blood Pressure 123/77 124/79 Blood Pressure [Right Arm] 123/77 Blood Pressure Mean 101 99 Blood Pressure Mean [Right Arm] 92 Pulse Oximetry 92 97 94 Oxygen Delivery Method Room Air Room Air Room Air Sepsis Recent Fever Within 48 Hours Sepsis New/Unexplained Change in Mental Status Sepsis Action Taken by Nursing VITALS: Vitals are noted on the nurse's note and reviewed by myself. Patient is tachycardic. He is not hypoxic and is afebrile. BP 117/65. GENERAL: This is a 34-year-old white male, in no acute distress, nondiaphoretic, well-developed well-nourished. SKIN: The skin was jaundiced, without rashes, erythema, edema, or bruising. There is no tenting of the skin. Capillary refill less than 2 seconds. HEAD: Normocephalic atraumatic. EYES: Conjunctivae without injection. Scleral icterus noted. NECK: Supple without nuchal rigidity. No lymphadenopathy. No JVD. HEART: Regular rate and rhythm without murmurs gallops or rubs. LUNGS: Clear to auscultation bilaterally without wheezes, rales or rhonchi. No retractions or accessory muscle use. ABDOMEN: Positive bowel sounds x 4. Abdomen is distended and firm. It is otherwise nontender, without masses or organomegaly. No guarding or rebound tenderness. RECTAL -no rectal fissures. No skin tags appreciated. No active hemorrhage. A sterile, water-soluble lubricant was applied to the examiner's finger prior to internal exam. Moderate rectal vault tenderness. No rectal masses. No fecal impaction. Gross blood noted on the glove. Stool Guaiac Test: Hemoccult positi ve. PSYCH - A&Ox3 and cooperates fully with examiner. Pt is very pleasant and interacts well with examiner. MUSCULOSKELETAL: No muscle atrophy, erythema, or edema noted. Full range of motion without joint tenderness in all extremities. No tenderness to palpation. Normal gait. Strength 5/5 throughout. NEURO: Patient was alert and oriented to person place and time. No focal neurological deficits. Course Course The patient was seen and evaluated as above. An order was placed for continuous cardiac monitoring. The monitor shows a sinus tachycardia at a rate of 106 bpm. Imaging performed and reviewed by myself and radiologist as noted. I was notified by nursing that patient's called in and spoke with them and is concerned for the patient's color change in his skin and eyes. He does have a history of acute liver failure associated with alcoholism. Patient's indicates that the patient has been gaining weight and she has noticed the color changes more acutely. Nursing spoke with the patient to was agreeable to laboratory evaluation at this time. IV access obtained, labs drawn. Labs reviewed by myself. I discussed the findings with the patient at bedside. Patient medicated with banana bag. I discussed the case with Dr. Platt, [facility] physician. He did agree to see and evaluate the patient for admission. Administered Medications Ascorbic Acid (Ascorbic Acid 500 Mg Tab) 500 mg PO BID WAI Stop: 03/27/20 20:59 Last Admin: 02/26/20 22:18 Dose: 500 mg Documented by: [id number] Zinc Sulfate (Zinc Sulfate 220 Mg Capsule) 220 mg PO BID WAI Stop: 03/27/20 20:59 Last Admin: 02/26/20 22:18 Dose: 220 mg Documented by: [id number] Discontinued Medications Sodium Chloride (Nss 1000ml) 1,000 mls @ 999 mls/hr IV .Q1H1M ONE Stop: 02/26/20 15:53 Last Infusion: 02/26/20 20:07 Dose: 0 mls/hr Documented by: [id number] Admin: 02/26/20 19:06 Dose: 999 mls/hr Documented by: [id number] Multivitamins 10 ml/ Thiamine HCl 100 mg/ Folic Acid 1 mg/Sodium Chloride 1,011.2 mls @ 1,011.2 mls/hr IV .Q1H ONE Stop: 02/26/20 16:11 Last Infusion: 02/26/20 16:47 Dose: 0 mls/hr Documented by: [id number] Admin: 02/26/20 15:47 Dose: 1,011.2 mls/hr Documented by: [id number] Ioversol (Optiray 320 125ml) 120 ml IV ONCE ONE Stop: 02/26/20 16:12 Last Admin: 02/26/20 16:12 Dose: 120 ml Documented by: [id number] Medical Decision Making Differential Diagnosis Differential diagnosis includes COVID-19, pneumonia, Infection, electrolyte abnormality, metabolic abnormality, hepatitis, acute liver failure, acute renal failure, GI bleed, PE, ACS, malignancy, among others Medical Records Attestation: I reviewed the patient's medical records. Home Medications Current Medication List: was personally reviewed by me Laboratory Data Attestation: I reviewed the patient's lab results. Patient is anemic with a hemoglobin of 10.1 and hematocrit of 27.9. Patient is thrombocytopenic with a platelet count of 123,000. No leukocytosis. INR elevated at 1.5. D-dimer elevated at 9590. The patient is hyponatremic with a sodium of 126. Potassium 3.8. Creatinine elevated at 1.72. Mildly low magnesium of 1.7. Transaminases elevated, though have improved from previous labs completed last month. Troponin negative. Direct bilirubin elevated at 7.6. Total bilirubin elevated 11.2. C-reactive protein 5.63. Alcohol negative. Result diagrams: 02/27/20 05:54 02/26/20 13:40 Lab Results 02/26/20 02/26/20 02/26/20 Range/Units 13:40 13:40 13:40 WBC 8.08 (4.8-10.8) K/uL RBC 2.31 L (4.7-6.1) M/uL Hgb 10.1 L (14.0-18.0) g/dL Hct 27.9 L (42-52) % MCV 120.8 H (80-100) fL MCH 43.7 H (25-34) pg MCHC 36.2 H (32-36) g/dL RDW Std Deviation 65.4 H (36.4-46.3) fL RDW Coeff of Alvaro 15.1 H (11.5-14.5) % Plt Count 123 L (130-400) K/uL MPV 11.2 H (7.4-10.4) fL Immature Gran % (Auto) 0.2 % Neut % (Auto) 75.1 % Lymph % (Auto) 12.3 % [place] % (Auto) 11.5 % Eos % (Auto) 0.4 % Baso % (Auto) 0.5 % Neut # (Auto) 6.07 (1.4-6.5) K/uL Lymph # (Auto) 0.99 L (1.2-3.4) K/uL [place] # (Auto) 0.93 H (0.11-0.59) K/uL Eos # (Auto) 0.03 (0-0.5) K/uL Baso # (Auto) 0.04 (0-0.2) K/uL Immature Gran # (Auto) 0.02 (0.00-0.02) K/uL Toxic Vacuolation 1+ Macrocytosis Present PT 15.1 H (9.0-12.0) Seconds INR 1.5 H (0.9-1.1) APTT 30.4 (21.0-31.0) Seconds PTT Ratio 1.1 D-Dimer 9590 H* (0-500) ug/L FEU Sodium 126 L (136-145) mmol/L Potassium 3.8 (3.5-5.1) mmol/L Chloride 88 L (98-107) mmol/L Carbon Dioxide 29 (21-32) mmol/L Anion Gap 9.0 (3-11) BUN 43 H (7-18) mg/dl Creatinine 1.72 H (0.6-1.4) mg/dl Est Cr Clr Drug Dosing 89.3 ml/min Est GFR ( Amer) 58.8 Est GFR (Non-Af Amer) 50.7 BUN/Creatinine Ratio 24.8 H (10-20) Glucose 109 H (70-99) mg/dl Lactate (0.4-2.0) mmol/L Calcium 8.5 (8.5-10.1) mg/dl Phosphorus 3.5 (2.5-4.9) mg/dl Magnesium 1.7 L (1.8-2.4) mg/dl Ferritin (8-388) ng/ml Total Bilirubin 11.2 H (0.2-1) mg/dl Direct Bilirubin (0-0.2) mg/dl AST 267 H (15-37) U/L ALT 152 H (12-78) U/L Alkaline Phosphatase 231 H (45-117) U/L Lactate Dehydrogenase (87-241) U/L Total Creatine Kinase (39-308) U/L Troponin I < 0.015 (0-0.045) ng/ml C-Reactive Protein (0-0.29) mg/dl NT-Pro-B Natriuret Pep 347 (0-450) pg/ml Total Protein 6.1 L (6.4-8.2) gm/dl Albumin 2.4 L (3.4-5.0) gm/dl Globulin 3.7 (2.5-4.0) gm/dl Albumin/Globulin Ratio 0.6 L (0.9-2) Lipase (73-393) U/L Procalcitonin (0-0.5) ng/ml Ethyl Alcohol mg/dL (0-3) mg/dl 02/26/20 02/26/20 02/26/20 Range/Units 13:40 13:40 13:40 WBC (4.8-10.8) K/uL RBC (4.7-6.1) M/uL Hgb (14.0-18.0) g/dL Hct (42-52) % MCV (80-100) fL MCH (25-34) pg MCHC (32-36) g/dL RDW Std Deviation (36.4-46.3) fL RDW Coeff of Alvaro (11.5-14.5) % Plt Count (130-400) K/uL MPV (7.4-10.4) fL Immature Gran % (Auto) % Neut % (Auto) % Lymph % (Auto) % [place] % (Auto) % Eos % (Auto) % Baso % (Auto) % Neut # (Auto) (1.4-6.5) K/uL Lymph # (Auto) (1.2-3.4) K/uL [place] # (Auto) (0.11-0.59) K/uL Eos # (Auto) (0-0.5) K/uL Baso # (Auto) (0-0.2) K/uL Immature Gran # (Auto) (0.00-0.02) K/uL Toxic Vacuolation Macrocytosis PT (9.0-12.0) Seconds INR (0.9-1.1) APTT (21.0-31.0) Seconds PTT Ratio D-Dimer (0-500) ug/L FEU Sodium (136-145) mmol/L Potassium (3.5-5.1) mmol/L Chloride (98-107) mmol/L Carbon Dioxide (21-32) mmol/L Anion Gap (3-11) BUN (7-18) mg/dl Creatinine (0.6-1.4) mg/dl Est Cr Clr Drug Dosing ml/min Est GFR ( Amer) Est GFR (Non-Af Amer) BUN/Creatinine Ratio (10-20) Glucose (70-99) mg/dl Lactate (0.4-2.0) mmol/L Calcium (8.5-10.1) mg/dl Phosphorus (2.5-4.9) mg/dl Magnesium (1.8-2.4) mg/dl Ferritin 2821.2 H Cancelled (8-388) ng/ml Total Bilirubin (0.2-1) mg/dl Direct Bilirubin 7.6 H (0-0.2) mg/dl AST (15-37) U/L ALT (12-78) U/L Alkaline Phosphatase (45-117) U/L Lactate Dehydrogenase (87-241) U/L Total Creatine Kinase 47 Cancelled (39-308) U/L Troponin I (0-0.045) ng/ml C-Reactive Protein 5.63 H Cancelled (0-0.29) mg/dl NT-Pro-B Natriuret Pep (0-450) pg/ml Total Protein (6.4-8.2) gm/dl Albumin (3.4-5.0) gm/dl Globulin (2.5-4.0) gm/dl Albumin/Globulin Ratio (0.9-2) Lipase 595 H (73-393) U/L Procalcitonin 0.76 H (0-0.5) ng/ml Ethyl Alcohol mg/dL (0-3) mg/dl 02/26/20 02/26/20 02/26/20 Range/Units 13:43 13:43 17:08 WBC (4.8-10.8) K/uL RBC (4.7-6.1) M/uL Hgb (14.0-18.0) g/dL Hct (42-52) % MCV (80-100) fL MCH (25-34) pg MCHC (32-36) g/dL RDW Std Deviation (36.4-46.3) fL RDW Coeff of Alvaro (11.5-14.5) % Plt Count (130-400) K/uL MPV (7.4-10.4) fL Immature Gran % (Auto) % Neut % (Auto) % Lymph % (Auto) % [place] % (Auto) % Eos % (Auto) % Baso % (Auto) % Neut # (Auto) (1.4-6.5) K/uL Lymph # (Auto) (1.2-3.4) K/uL [place] # (Auto) (0.11-0.59) K/uL Eos # (Auto) (0-0.5) K/uL Baso # (Auto) (0-0.2) K/uL Immature Gran # (Auto) (0.00-0.02) K/uL Toxic Vacuolation Macrocytosis PT (9.0-12.0) Seconds INR (0.9-1.1) APTT (21.0-31.0) Seconds PTT Ratio D-Dimer (0-500) ug/L FEU Sodium (136-145) mmol/L Potassium (3.5-5.1) mmol/L Chloride (98-107) mmol/L Carbon Dioxide (21-32) mmol/L Anion Gap (3-11) BUN (7-18) mg/dl Creatinine (0.6-1.4) mg/dl Est Cr Clr Drug Dosing ml/min Est GFR ( Amer) Est GFR (Non-Af Amer) BUN/Creatinine Ratio (10-20) Glucose (70-99) mg/dl Lactate 2.4 H* (0.4-2.0) mmol/L Calcium (8.5-10.1) mg/dl Phosphorus (2.5-4.9) mg/dl Magnesium (1.8-2.4) mg/dl Ferritin (8-388) ng/ml Total Bilirubin (0.2-1) mg/dl Direct Bilirubin (0-0.2) mg/dl AST (15-37) U/L ALT (12-78) U/L Alkaline Phosphatase (45-117) U/L Lactate Dehydrogenase 932 H (87-241) U/L Total Creatine Kinase (39-308) U/L Troponin I (0-0.045) ng/ml C-Reactive Protein (0-0.29) mg/dl NT-Pro-B Natriuret Pep (0-450) pg/ml Total Protein (6.4-8.2) gm/dl Albumin (3.4-5.0) gm/dl Globulin (2.5-4.0) gm/dl Albumin/Globulin Ratio (0.9-2) Lipase (73-393) U/L Procalcitonin (0-0.5) ng/ml Ethyl Alcohol mg/dL < 3.0 (0-3) mg/dl Imaging Data Radiologist's Impression: XR chest 1V portable CLINICAL HISTORY: covid +, dyspnea COMPARISON STUDY: No previous studies for comparison. FINDINGS: The heart is the upper limits of normal in size. There is no failure. There is no lobar consolidation. There is a minimal left basilar airspace opacity versus summation.[ IMPRESSION: 1. Minimal left basilar airspace opacity versus summation. No evidence of lobar consolidation. ACT 112: Negative or not required by law. Electronically signed by: David Garcia M.D. 02/26/2020 12:18 PM BILATERAL LOWER EXTREMITY VENOUS DOPPLER HISTORY: Acute pain and swelling of the lower legs Donell LE edema COMPARISON STUDY: None. FINDINGS: There is normal compressibility, flow, and augmentation within the bilateral lower extremity deep venous systems. Moderate subcutaneous edema. IMPRESSION: No DVT within the right or left lower extremity. ACT 112: Negative or not required by law. Electronically signed by: Ken Kenny M.D. 02/26/2020 1:50 PM ECG Data Attestation: I personally reviewed and interpreted this ECG as follows: Indication: + tachycardia Rate (beats per minute): 101 Rhythm: + sinus tachycardia ECG Ringle: + Normal ECG ST segments: no ST depression, no ST elevation and no T-wave inversions Comparison ECG Date: from (12/08/2018) Change: the following changes noted (QT has shortened) Blood Pressure Blood Pressure Findings: Normal blood pressure MDM Narrative This 34-year-old male patient presents to the emergency department today in the setting of COVID-19 with ongoing fatigue, congestion, and edema. Patient tested positive approximately 1 week ago for COVID-19. He does also have a history of alcoholic hepatitis and alcohol abuse and admits to "falling off the wagon," drinking "a few beers" just before Raymond, around the time of the onset of symptoms. Patient is not hypoxic. He is tachycardic. He does have a distended abdomen. Transaminases and bilirubin elevated. He is anemic and INR elevated at 1.5. Patient does appear to have an HUYEN given elevated creatinine of 1.7. Patient is hyponatremic with a sodium of 126. Ultrasound negative for DVT. Chest x-ray without evidence of pneumonia. I do recommend admission due to the hyponatremia and HUYEN as well as further work-up for the transaminitis and elevated bilirubin. The patient was agreeable. He will be admitted to the hospitalist service for ongoing management care. Please see hospitalist dictation. The chart was completed utilizing [employer] Speech voice recognition software. Grammatical errors, random word insertions, pronoun errors, and incomplete sentences are an occasional consequence of this system due to software baez itations, ambient noise, and hardware issues. Any formal questions or concerns about the content, text, or information contained within the body of this dictation should be directly addressed to the provider for clarification. Impression & Plan Transaminitis, Elevated INR, Weight gain, HUYEN (acute kidney injury), COVID-19 Discharge Plan Visit Data Chief Complaint: Shortness of Breath/Dyspnea Stated Complaint: covid+ 02/18 - congested, short of breath ED Provider: Shahid Babb ED Midlevel Provider: Juliana Garcia Discharge Problem: Transaminitis, Elevated INR, Weight gain, HUYEN (acute kidney injury), COVID-19 Patient Disposition: Admitted As Inpatient Discharge Instructions Interventions: ED Discharge Assessment Last Done: 02/26/20 20:17
[2020-02-26 13:51] LABS: Basophils # (auto) 0.04 K/uL (0-0.2); Basophils % (auto) 0.5 %; Eosinophils # (auto) 0.03 K/uL (0-0.5); Eosinophils % (auto) 0.4 %; Hematocrit (blood only) 27.9 % (42-52); Hemoglobin 10.1 g/dL (14.0-18.0); Immature Granulocytes # (auto) 0.02 K/uL (0.00-0.02); Immature Granulocytes % (auto) 0.2 %; Lymphocytes # (auto) 0.99 K/uL (1.2-3.4); Lymphocytes % (auto) 12.3 %; Mean Corpuscular Hemoglobin 43.7 pg (25-34); Mean Corpuscular Hgb Conc 36.2 g/dL (32-36); Mean Corpuscular Volume 120.8 fL (80-100); Mean Platelet Volume 11.2 fL (7.4-10.4); Monocytes # (auto) 0.93 K/uL (0.11-0.59); Monocytes % (auto) 11.5 %; Neutrophils # (auto) 6.07 K/uL (1.4-6.5); Neutrophils % (auto) 75.1 %; Platelet Count 123 K/uL (130-400); RDW Coefficient of Variation 15.1 % (11.5-14.5); RDW Standard Deviation 65.4 fL (36.4-46.3); Red Blood Count 2.31 M/uL (4.7-6.1); White Blood Count 8.08 K/uL (4.8-10.8)
--- NOTE | 2020-02-26 13:52 | Ultrasound Report ---
BILATERAL LOWER EXTREMITY VENOUS DOPPLER HISTORY: Acute pain and swelling of the lower legs Donell LE edema COMPARISON STUDY: None. FINDINGS: There is normal compressibility, flow, and augmentation within the bilateral lower extremit y deep venous systems. Moderate subcutaneous edema. IMPRESSION: No DVT within the right or left lower extremity. ACT 112: Negative or not required by law. Electronically signed by: Ken Kenny M.D. 02/26/2020 1:50 PM
[2020-02-26 14:12] LABS: Macrocytosis Present; Toxic Vacuolation 1+
[2020-02-26 14:22] LABS: Alanine Aminotransferase 152 U/L (12-78); Albumin Globulin Ratio 0.6 (0.9-2); Albumin Level 2.4 gm/dl (3.4-5.0); Alkaline Phosphatase 231 U/L (45-117); Aspartate Aminotransferase 267 U/L (15-37); BUN Creatinine Ratio 24.8 (10-20); Bilirubin,Total 11.2 mg/dl (0.2-1); Blood Urea Nitrogen 43 mg/dl (7-18); Calcium 8.5 mg/dl (8.5-10.1); Carbon Dioxide 29 mmol/L (21-32); Chloride 88 mmol/L (98-107); Creatinine Clr Calc Pharmacy 89.3 ml/min; Est GFR (African American) 58.8; Est GFR (Non-African American) 50.7; Globulin 3.7 gm/dl (2.5-4.0); Glucose 109 mg/dl (70-99); Magnesium 1.7 mg/dl (1.8-2.4); NT Pro B Type Natriuretic Pept 347 pg/ml (0-450); Phosphorus 3.5 mg/dl (2.5-4.9); Potassium 3.8 mmol/L (3.5-5.1); Sodium 126 mmol/L (136-145); Total Protein 6.1 gm/dl (6.4-8.2); Troponin I < 0.015 ng/ml (0-0.045)
[2020-02-26 14:53] LABS: INR 1.5 (0.9-1.1); Partial Thromboplastin Ratio 1.1; Partial Thromboplastin Time 30.4 Seconds (21.0-31.0); Prothrombin Time 15.1 Seconds (9.0-12.0)
[2020-02-26] MEDS ORDERED: SODIUM CHLORIDE 0.9% 1000ML 1,000 ML IV ONE (14:53)
[2020-02-26] MEDS ORDERED: MULTI-VITAMIN INFUSION 10 ML, THIAMINE HCL 100 MG, FOLIC ACID 1 MG in SODIUM CHLORIDE 0... IV ONE (15:12)
[2020-02-26 15:20] LABS: Bilirubin Direct 7.6 mg/dl (0-0.2)
[2020-02-26 15:26] LABS: D Dimer 9590 ug/L FEU (0-500)
--- NOTE | 2020-02-26 15:45 | History & Physical Report ---
Date of Service February 26, 2020 Assessment & Plan (1) AH (alcoholic hepatitis): Alcoholic liver cirrhosis with ascites - suspected main cause of his shortness of breath Child-Anton C: life expectancy 1-3 years, MELD 30: 52.6% 3 month mortality, previously 19 prior to COVID-19 diagnosis in January. Maddrey's Discriminant function 25.5 (no need for steroids), Judith hepatitis score 6. US paracentesis ordered for the morning. Start spironolactone 25mg PO daily. Consult GI - discussed with Dr Huffman - not for NAC. (2) Hyponatremia: Secondary to hypervolemia. Should improve with spironolactone and paracentesis. (3) Elevated bilirubin: Secondary to alcoholic hepatitis as above CT A/P to assess for obstructive cause. (4) Elevated INR: Secondary to liver cirrhosis/hepatitis. (5) Acid reflux: Not active (6) Severe acute respiratory syndrome coronavirus 2 (SARS-CoV-2) detected: No pneumonia on CXR. Do not suspect he is substantially affected by this. No need for dexamethasone. (7) Hypomagnesemia: Magnesium oxide 400 mg p.o. daily. Monitor as outpatient (8) Acute kidney failure: Secondary to hypervolemia. Admission and Anticipated Discharge Date Admission Date: February 26, 2020 History of Present Illness Chief Complaint: Shortness of breath Primary Care Provider: Ion Capps MD Andres Longo is a 34 year old male with alcoholic who presents to the ER with leg swelling fatigue, shortness of breath. All symptoms progressively worse since February 12. He tested positive for COVID-19 on 16 February. He notes occasional sore throats, right headache, muscle aches in bilateral lower extremities due to swelling. He denies any fever, chills, cough, loss of taste or smell, diarrhea, nausea/vomiting, nasal congestion, confusion, chest or abdominal pain. He has a significant history of alcohol hepatitis and acute kidney injury requiring ICU admission in November 2018. He never followed up with gastroenterology or nephrology following this despite advised to do this per his PCP note. He does report relapsing early in January for 2 days he drank 1/5 of vodka. He notes taking Advil once every 1-2 weeks but no acetaminophen. In the ER chest x-ray was relatively unremarkable for COVID-19 pneumonia. Due to elevated D-dimer, abdominal distention on exam and elevated bilirubin, I advised for CT chest for PE and abdomen/pelvis with IV contrast which showed significant ascites likely as the cause of his shortness of breath. CT for PE was negative for a central pulmonary embolus. Allergies Allergy/AdvReac Type Severity Reaction Status Date / Time No Known Allergies Allergy Verified 02/26/20 11:43 Home Medications Medication Instructions Recorded Confirmed Type ascorbic acid (vitamin C) [Vitamin 500 mg PO BID 02/26/20 02/26/20 History C] vitamin B complex 1 tab PO QAM 02/26/20 02/26/20 History zinc 50 mg PO BID 02/26/20 02/26/20 History Past Med/Surg History Medical History HUYEN (acute kidney injury) Alcohol abuse High anion gap metabolic acidosis Hyperammonemia Hypocalcemia Intractable vomiting Surgical History No pertinent past surgical history Family History Father Type 2 diabetes mellitus Denies family history of Ovarian cancer Prostate cancer Myocardial infarction Breast cancer Colorectal cancer Social History Smoking Status: Never smoker Second Hand Exposure: No; Hx Alcohol Use: No Hx Substance Use: Yes Last Used Substance Other:: 01/2020 Preferred Language: Danish Communication Ability: Effective Visual Impairment: No Limitations Hearing Ability: Normal Dough Molder Hand Required: No Beliefs That Will Affect Care: None marital status: Single Current Living Situation: Spouse current occupational status: employed current occupation: [employer] Other Information That Helps Us Care for You: Yes (increased stress and anxiety; appointment with mental health professional) Feels Safe at Home: Yes Safety Concerns: Feels Safe At This Time Childhood Exposure to Second-Hand Smoke: No caffeine: Yes Dental Care, Regularly: No Physical Activity Frequency: Daily Seatbelt Use: always Sunscreen Use: Yes Assistive Devices: None Review of Systems Review of Systems: All systems reviewed & are unremarkable except as noted in HPI & below Gastrointestinal: + abdominal pain (And distention since February 12) Physical Exam Constitutional: well developed and + morbidly obese; + not well nourished and no acute distress Eyes: PERRL; sclerae not anicteric ENMT: external ear and nose normal, oropharynx normal Neck: trachea midline Respiratory: normal respiratory effort; no respiratory distress Auscultation: + diminished lung sounds (Bibasal); no crackles, no rales, no rhonchi and no wheezes Cardiovascular: Rate/Rhythm: regular rate and regular rhythm Heart Sounds: no murmur Extremities: normal capillary refill and + pedal edema (2+ edema to bilateral lower extremity); no calf tenderness Gastrointestinal (Abdomen): Inspection/Auscultation: + abdomen distended and normal bowel sounds; + abdomen abnormal to inspection (Striae distensae) Percussion/Palpation: abdomen soft; abdomen nontender, no guarding and abdomen not rigid Musculoskeletal: no cyanosis or clubbing, extremities motor strength 5/5 Skin: Striae distensae as above Neurologic: moves all extremities and awake; no focal motor deficits and not confused Motor/Sensory: no tremor and no pronator drift Psychiatric: Orientation: alert and oriented x 3 Results & Data Results & Data ([facility]) Vital Signs (Past 12 Hours) Vital Signs Temp Pulse Pulse Resp BP BP Pulse Ox 02/26/20 15:09 107 H 20 107/55 L 96 02/26/20 13:39 99 H 18 107/55 L 95 02/26/20 12:41 101 H 15 107/55 L 96 02/26/20 11:32 36.7 C 115 H 22 117/65 100 Diagnostic Findings XR chest 1V portable IMPRESSION: No DVT within the right or left lower extremity. CT angio chest PE protocol, CT abd pelvis IV con only IMPRESSION: 1. Limited CTA of the chest as above. No central pulmonary emboli are identified. 2. Mild groundglass opacities of the lungs suggest atelectasis. 3. Severe geographic hepatic steatosis with cirrhosis and stigmata of portal venous hypertension which include splenomegaly with abdominal pelvic ascites and abdominal varices. 4. No bowel obstruction. Normal appendix. Medications Administered ER medications given: Banana bag ECG Indication: tachycardia Rate (beats per minute): 101 Rhythm: sinus tachycardia Findings: no acute ischemic change Comparison ECG Date: from (December 08, 2018) Change: the following changes noted (QTc is shortened to 500 ms) Code Status & VTE Plan Code Status Full VTE Prophylaxis Plan VTE Prophylaxis will be ordered: No PG Care Time/CCT Total # of Minutes Spent Total Time Spent with Patient: Total time spent is greater than 50% in coordination of care (as documented) at patient's floor/unit and/or counseling patient: Coding Level of Care Code 95562 Initial Inpt Care Lvl 3 Diagnoses AH (alcoholic hepatitis) K70.10 Ascites presence: unspecified Hyponatremia E87.1 Elevated bilirubin R17 Elevated INR R79.1 Acid reflux K21.9 Severe acute respiratory syndrome coronavirus 2 (SARS-CoV-2) detected U07.1 Hypomagnesemia E83.42 Acute kidney failure N17.9 (1) AH (alcoholic hepatitis) Ascites presence: unspecified Qualified Code(s): K70.10 - Alcoholic hepatitis without ascites
[2020-02-26] MEDS ORDERED: OPTIRAY 320 125ml IV ONE (16:11)
[2020-02-26 16:20] LABS: C Reactive Protein 5.63 mg/dl (0-0.29)
--- NOTE | 2020-02-26 16:29 | CT Scan Report ---
CT angio chest PE protocol, CT abd pelvis IV con only CT DOSE: 1840.99 mGycm HISTORY: 34 years-old Male with PE. Acute shortness breath with abdominal distention. TECHNIQUE: Multiple CTA images of the chest were obtained after the intravenous administration of 120 ml Optiray 320. Coronal and sagittal MIPS were obtained from the axial data set and were submitted for review. All measurements were obtained according to NASCET criteria. A dose lowering technique w as contrast only was also obtained. utilized adhering to the principles of ALARA. COMPARISON: CT abdomen and pelvis of same day, CT abdomen and pelvis 12/06/2018 FINDINGS: CTA: Heart is normal in size. There is no pericardial effusion. No thoracic aortic aneurysm or dissection. There is patency of the imaged great vessels. The pulmonary artery is suboptimally opacified seconda ry to contrast bolus timing. The majority of the bolus is present within the right subclavian and bra chycephalic veins and SVC. No central pulmonary embolus identified. Respiratory motion artifact also limits the study. No definite central pulmonary emboli identified. CT CHEST: Unremarkable thyroid. No adenopathy. No pneumothorax, pleural effusion or overt pulmonary edema. Ill- defined bilateral groundglass densities are noted with mild linear subsegmental scarring/atelectasis of the lung bases. The central airways are patent. Gynecomastia. Superficial venous varicosities of t he lower chest is noted along with mild generalized body wall edema. There is no definite acute fract ure. Numerous age-indeterminate thoracic compression deformities with Schmorl's nodes are noted which are favored to be chronic. No retropulsion or paravertebral edema identified. CT ABDOMEN/PELVIS: Ill-defined heterogeneous areas of decreased attenuation are noted within the caudate and right hepat ic lobes suggestive of geographic hepatic steatosis. Marginal nodularity of the liver suggestive of c irrhosis. Spleen is enlarged measuring 15.8 cm in length. Abdominal varices are noted with moderate a bdominal pelvic ascites. The portal vein appears patent. Mildly distended gallbladder. Unremarkable p ancreas and adrenal glands. 3 mm nonobstructing calculus of the inferior pole right kidney. No hydronephrosis. Partial distention of the urinary bladder. No aortic aneurysm or adenopathy. Mild nonspecific wall thickening of the duodenum, possibly related to underlying liver disease. No marjorie wel obstruction. Air-filled noninflamed appearing appendix. Varices noted within a small fat filled p eriumbilical hernia. Anasarca. Numerous likely chronic thoracic and lumbar compression deformities wi th Schmorl's nodes, several of which have mildly worsened from comparison. IMPRESSION: 1. Limited CTA of the chest as above. No central pulmonary emboli are identified. 2. Mild groundglass opacities of the lungs suggest atelectasis. 3. Severe geographic hepatic steatosis with cirrhosis and stigmata of portal venous hypertension whic h include splenomegaly with abdominal pelvic ascites and abdominal varices. 4. No bowel obstruction. Normal appendix. 5. Additional findings as above. ACT 112: Negative or not required by law. The above report was generated using voice recognition software. It may contain grammatical, syntax o r spelling errors. Electronically signed by: Ken Kenny M.D. 02/26/2020 4:28 PM
[2020-02-26 16:40] LABS: Ferritin 2821.2 ng/ml (8-388)
[2020-02-26] MEDS ORDERED: ONDANSETRON INJ 2 MG/ML 2 ML VIAL IV PRN (20:56)
[2020-02-26] MEDS ORDERED: POLYETHYLENE (MIRALAX) 17 GM PACK PO PRN (20:56)
[2020-02-26] MEDS: ASCORBIC ACID 500 MG TAB PO SCH (22:18)
[2020-02-26] MEDS: ZINC SULFATE 220 MG CAPSULE PO SCH (22:18)
[2020-02-27 03:53] LABS: Bacteria Urine Automated Negative (Negative); Blood Urine Negative (Negative); Glucose Urine UA Negative (Negative); Ketones Urine Negative (Negative); Leukocyte Esterase Urine Trace (Negative); Nitrite Urine Positive (Negative); Protein Urine Negative (Negative); Specific Gravity Urine 1.039 (1.000-1.030); Urobilinogen Urine Negative (Negative)
[2020-02-27 03:54] LABS: Appearance Urine Clear (Clear); Bilirubin Urine 2+ (Negative); Color Urine Amber
[2020-02-27 06:17] LABS: Basophils # (auto) 0.04 K/uL (0-0.2); Basophils % (auto) 0.6 %; Eosinophils # (auto) 0.05 K/uL (0-0.5); Eosinophils % (auto) 0.7 %; Hematocrit (blood only) 23.1 % (42-52); Hemoglobin 8.7 g/dL (14.0-18.0); Immature Granulocytes # (auto) 0.02 K/uL (0.00-0.02); Immature Granulocytes % (auto) 0.3 %; Lymphocytes % (auto) 19.7 %; Mean Corpuscular Hemoglobin 44.8 pg (25-34); Mean Corpuscular Hgb Conc 37.7 g/dL (32-36); Mean Corpuscular Volume 119.1 fL (80-100); Mean Platelet Volume 11.2 fL (7.4-10.4); Monocytes # (auto) 1.02 K/uL (0.11-0.59); Monocytes % (auto) 14.4 %; Neutrophils # (auto) 4.56 K/uL (1.4-6.5); Neutrophils % (auto) 64.3 %; Platelet Count 108 K/uL (130-400); RDW Coefficient of Variation 14.9 % (11.5-14.5); RDW Standard Deviation 64.5 fL (36.4-46.3); Red Blood Count 1.94 M/uL (4.7-6.1); White Blood Count 7.09 K/uL (4.8-10.8)
--- NOTE | 2020-02-27 06:48 | Electrocardiogram Report ---
Test Reason : Blood Pressure : / mmHG Vent. Rate : 101 BPM Atrial Rate : 101 BPM P-R Int : 144 ms QRS Dur : 076 ms QT Int : 386 ms P-R-T Axes : 042 020 050 degrees QTc Int : 500 ms Sinus tachycardia Low voltage QRS Nonspecific T wave abnormality Prolonged QT When compared with ECG of 08-DEC-2018 06:49, QT has shortened Confirmed by Tej Cantrell ([id number]) on 02/27/2020 6:48:29 AM Referred By: REFERRED SELF Confirmed By:Tej Cantrell
[2020-02-27 06:53] LABS: Macrocytosis Present; Target Cells 1+
[2020-02-27 07:07] LABS: Albumin Globulin Ratio 0.7 (0.9-2); BUN Creatinine Ratio 27.8 (10-20); Calcium 8.2 mg/dl (8.5-10.1); Creatinine Clr Calc Pharmacy 103.9 ml/min; Est GFR (African American) 70.5; Est GFR (Non-African American) 60.9; Globulin 3.1 gm/dl (2.5-4.0); Potassium 3.5 mmol/L (3.5-5.1); Total Protein 5.1 gm/dl (6.4-8.2)
[2020-02-27] MEDS: ZINC SULFATE 220 MG CAPSULE PO SCH ×2 (08:04→20:08)
[2020-02-27] MEDS: VITAMIN B COMPLEX TAB PO SCH (08:04)
[2020-02-27] MEDS: ASCORBIC ACID 500 MG TAB PO SCH ×2 (08:04→20:08)
[2020-02-27] MEDS ORDERED: LORazepam 1 MG TAB PO STA ×2 (08:22→16:21)
[2020-02-27] MEDS ORDERED: SPIRONOLACTONE 25 MG TAB PO SCH (09:00)
--- NOTE | 2020-02-27 12:38 | Gastrointestinal Consultation ---
Date of Consultation February 27, 2020 Assessment & Plan (1) Severe acute respiratory syndrome coronavirus 2 (SARS-CoV-2) detected: (2) Transaminitis: (3) Alcohol abuse: Pt is a 34 y/o male currently admitted w COVID -19 infection, sepsis, noted to have increased LFTs and abd imaging findings of fatty liver cirrhosis w portal HTN, ascites accumulation. He has hx of ETOH abuses, previous admission for alcoholic hepatitis. Last ETOH intake in December 2019. MELD: 29 Maddrey Discriminant Function score: <32 (defer steroid use at this time) - Unable to perform U/S paracentesis per Radiology given COVID 19 infection - 2g Na diet - Start diuretics Lasix 40mg, Spironolactone 100mg and monitor renal function, electrolytes closely - Strict ETOH cessation advised - Need f/u in GI clinic for cirrhosis management, workup upon his DC Supervising Physician Co-Signing Physician Notes I saw and evaluated the patient. From our standpoint he does seem to be improving slowly but will need to maintain alcohol abstinence definitely. The patient will follow-up as an outpatient in our office. Please call with any questions or concerns during the remainder of the hospital admission for his Covid induced pneumonia. History of Present Illness Reason for Consultation: ETOH hepatitis Requesting Physician: Dr. Abilio Ferrari Attending Physician: Dr. Katarzyna Hill History of Present Illness Pt is a 34 yo male who presented w SOB, leg edema, weakness since 2019. Denies associated fever, chills, n/v. Does have increased abd distension, lower appetite. No changes in bowel habits. COVID test positive. Labs notable for anemia, thrombocytopenia, coagulopathy, elevated Ddimer, hyponatremia, HUYEN, elevated LA, LFTs: Tbili 10, AST 212, ROSENDO 119, AP 186, lipase 595. No DVT or PE noted. Liver appears steatotic w cirrhosis and portal HTN including splenomegaly, ascites accumulation. No acute inflammatory or obstructive processes in bowels. He has hx of ETOH abuse, hepatitis. Last ETOH intake was December per his report. Denies tobacco, NSAIDs, illicit drugs. Allergies Allergy/AdvReac Type Severity Reaction Status Date / Time No Known Allergies Allergy Verified 02/26/20 11:43 Home Medications Medication Instructions Recorded Confirmed Type ascorbic acid (vitamin C) [Vitamin 500 mg PO BID 02/26/20 02/26/20 History C] vitamin B complex 1 tab PO QAM 02/26/20 02/26/20 History zinc 50 mg PO BID 02/26/20 02/26/20 History Patient History Medical History HUYEN (acute kidney injury) Alcohol abuse High anion gap metabolic acidosis Hyperammonemia Hypocalcemia Intractable vomiting Surgical History No pertinent past surgical history Family History Father Type 2 diabetes mellitus Denies family history of Ovarian cancer Prostate cancer Myocardial infarction Breast cancer Colorectal cancer Social History Smoking Status: Never smoker Second Hand Exposure: No; Hx Alcohol Use: No Hx Substance Use: Yes Last Used Substance Other:: 01/2020 Preferred Language: Romanian Communication Ability: Effective Visual Impairment: No Limitations Hearing Ability: Normal Special Event Assistant Required: No Beliefs That Will Affect Care: None marital status: Single Current Living Situation: Spouse current occupational status: employed current occupation: [employer] Other Information That Helps Us Care for You: Yes (increased stress and anxiety; appointment with mental health professional) Feels Safe at Home: Yes Safety Concerns: Feels Safe At This Time Childhood Exposure to Second-Hand Smoke: No caffeine: Yes Dental Care, Regularly: No Physical Activity Frequency: Daily Seatbelt Use: always Sunscreen Use: Yes Assistive Devices: None Review of Systems Review of Systems: All systems reviewed & are unremarkable except as noted in HPI & below Physical Exam Constitutional: WD/WN, vitals as above well groomed, cooperative and comfortable Eyes: PERRL, conjunctivae normal, anicteric sclerae ENMT: external ear and nose normal, oropharynx normal Respiratory: Auscultation: + diminished lung sounds Shallow breathing noted. O2 sat 94% on RA Cardiovascular: RRR, no murmur, no edema Gastrointestinal (Abdomen): Inspection/Auscultation: + abdomen distended and + hypoactive bowel sounds Percussion/Palpation: abdomen nontender Skin: no rashes, warm and dry + jaundice Neurologic: Motor/Sensory: no asterixis Psychiatric: A+Ox3, euthymic affect Lymphatic: + lymphedema (leg edema noted) Results & Data ([facility]) Vital Signs (Past 12 Hours) Vital Signs Temp Pulse Resp BP Pulse Ox 02/27/20 07:28 36.8 C 103 H 20 117/65 92
--- NOTE | 2020-02-27 13:49 | Hospitalist Progress Note ---
Date of Service February 27, 2020 Assessment & Plan (1) AH (alcoholic hepatitis): Alcoholic liver cirrhosis with ascites - suspected main cause of his shortness of breath could have some acute hepatitis, not sure he is being honest about timing of last drink, his AST and ALT were elevated Child-Anton C: life expectancy 1-3 years, MELD 30: 52.6% 3 month mortality, previously 19 prior to COVID-19 diagnosis in January. Maddrey's Discriminant function 25.5, Judith hepatitis score 6. will start on Prednisolone per GI treat ascites with spironolactone and Lasix 40mg qAM hold on paracentesis due to COVID 19 diagnosis, should be fine on Sunday as he is over 2 weeks from original symptoms repeat CMP and CBC and INR daily, look for improvement in bilirubin and creatinine (2) Hyponatremia: Secondary to hypervolemia. Should improve with spironolactone and paracentesis. monitor daily (3) Elevated bilirubin: Secondary to alcoholic hepatitis as above CT A/P : no signs of obstruction slightly improved at 10 from 11.8, repeat tomorrow Prednisolone ordered per GI (4) Elevated INR: Secondary to liver cirrhosis/hepatitis. INR is 1.5 repeat tomorrow (5) Acid reflux: Not active (6) Severe acute respiratory syndrome coronavirus 2 (SARS-CoV-2) detected: No pneumonia on CXR. Do not suspect he is substantially affected by this. No need for dexamethasone symptoms of sore throat, malaise, muscle aches started around 02/11, had positive test outpatient on 02/16 he is over two weeks from start of symptoms, should not be contagious (7) Hypomagnesemia: Magnesium oxide 400 mg p.o. daily. Monitor as outpatient (8) Acute kidney failure: certainly makes for poorer prognosis with cirrhosis if Cr goes up then will try Midodrine, albumin, octreotide Admission and Anticipated Discharge Date Admission Date: February 26, 2020 Subjective patient says he is scared, I asked why and he says he is scared that he is dying we discussed that he has decompensated cirrhosis with ascites, elevated bilirubin, INR 1.5, low platelets he swears that the last time he drank was end of December, early January, he said he went on a "morrell" we discussed that any further alcohol will increase his risk of from cirrhosis I questioned him further, told him to be honest about any recent alcohol ingestion because I would want to treat for withdrawal if needed he again swore that he had not had a drink for several week discussed COVID diagnosis, he has been feeling sick since 02/11, had a positive test on 02/16, in reality he is no longer contagious he is not hypoxic, no signs of severe infection with pneumonia discussed with GI, will start on Prednisolone for hepatitis with elevated bilirubin and INR start on Lasix and spironolactone, defer other management to GI radiology no comfortable with paracentesis due to COVID, should be fine by Sunday as he is over two weeks out from initial symptoms patient was hoping to leave today, discussed that he needs to stay here, observe labs, see how he responds to diuresis he understands Review of Systems Review of Systems: All systems reviewed & are unremarkable except as noted in Subjective Constitutional: no fever, no chills and no sweats Respiratory: no cough and no dyspnea Cardiovascular: + dyspnea on exertion and + edema; no chest pain Gastrointestinal: + abdominal pain (discomfort due to ascites); no nausea, no vomiting, no constipation and no diarrhea/loose stools Psychiatric: + anxiety Physical Exam Constitutional: well developed, well nourished and + edematous; no acute distress Eyes: normal visual silva by confrontation, PERRL and EOM intact bilaterally; sclerae not anicteric Neck: trachea midline, no thyromegaly Respiratory: normal respiratory effort, lungs clear to auscultation Cardiovascular: Rate/Rhythm: regular rate and regular rhythm Heart Sounds: normal S1 and normal S2; no murmur Extremities: normal capillary refill and + edema Gastrointestinal (Abdomen): Inspection/Auscultation: + abdomen distended, normal bowel sounds and + abdominal edema Percussion/Palpation: + ascites, + dullness to percussion and + abdomen firm; abdomen nontender Musculoskeletal: no cyanosis or clubbing, extremities motor strength 5/5 Skin: normal turgor and + jaundice; no rashes and no wound Neurologic: patellar DTR's 2+ bilat, sensation intact and PERRL, EOMI, accommodation nl, no face palsy, no dysarthria Psychiatric: Orientation: alert and oriented x 3 Affect: + anxious affect Lymphatic: no cervical or axillary lymphadenopathy Results & Data Results & Data ([facility]) Vital Signs (Past 12 Hours) Vital Signs Temp Pulse Resp BP Pulse Ox 02/27/20 07:28 36.8 C 103 H 20 117/65 92 Laboratory Results Laboratory Results - last 24 hr 02/26/20 02/26/20 02/26/20 13:40 13:40 13:40 WBC 8.08 RBC 2.31 L Hgb 10.1 L Hct 27.9 L MCV 120.8 H MCH 43.7 H MCHC 36.2 H RDW Std Deviation 65.4 H RDW Coeff of Alvaro 15.1 H Plt Count 123 L MPV 11.2 H Immature Gran % (Auto) 0.2 Neut % (Auto) 75.1 Lymph % (Auto) 12.3 [place] % (Auto) 11.5 Eos % (Auto) 0.4 Baso % (Auto) 0.5 Neut # (Auto) 6.07 Lymph # (Auto) 0.99 L [place] # (Auto) 0.93 H Eos # (Auto) 0.03 Baso # (Auto) 0.04 Immature Gran # (Auto) 0.02 Toxic Vacuolation 1+ Macrocytosis Present Target Cells PT 15.1 H INR 1.5 H APTT 30.4 PTT Ratio 1.1 D-Dimer 9590 H* Sodium 126 L Potassium 3.8 Chloride 88 L Carbon Dioxide 29 Anion Gap 9.0 BUN 43 H Creatinine 1.72 H Est Cr Clr Drug Dosing 89.3 Est GFR ( Amer) 58.8 Est GFR (Non-Af Amer) 50.7 BUN/Creatinine Ratio 24.8 H Glucose 109 H Lactate Calcium 8.5 Phosphorus 3.5 Magnesium 1.7 L Ferritin Total Bilirubin 11.2 H Direct Bilirubin AST 267 H ALT 152 H Alkaline Phosphatase 231 H Lactate Dehydrogenase Total Creatine Kinase Troponin I < 0.015 C-Reactive Protein NT-Pro-B Natriuret Pep 347 Total Protein 6.1 L Albumin 2.4 L Globulin 3.7 Albumin/Globulin Ratio 0.6 L Lipase Procalcitonin Urine Color Urine Appearance Urine pH Ur Specific [place] Urine Protein Urine Glucose (UA) Urine Ketones Urine Blood Urine Nitrite Urine Bilirubin Urine Urobilinogen Ur Leukocyte Esterase Urine WBC (Auto) Urine RBC (Auto) U Hyaline Cast (Auto) U Epithel Cells (Auto) Urine Bacteria (Auto) Stool Occult Bld Scrn Ethyl Alcohol mg/dL 0102/26/20 02/26/20 13:40 13:40 13:40 WBC RBC Hgb Hct MCV MCH MCHC RDW Std Deviation RDW Coeff of Alvaro Plt Count MPV Immature Gran % (Auto) Neut % (Auto) Lymph % (Auto) [place] % (Auto) Eos % (Auto) Baso % (Auto) Neut # (Auto) Lymph # (Auto) [place] # (Auto) Eos # (Auto) Baso # (Auto) Immature Gran # (Auto) Toxic Vacuolation Macrocytosis Target Cells PT INR APTT PTT Ratio D-Dimer Sodium Potassium Chloride Carbon Dioxide Anion Gap BUN Creatinine Est Cr Clr Drug Dosing Est GFR ( Amer) Est GFR (Non-Af Amer) BUN/Creatinine Ratio Glucose Lactate Calcium Phosphorus Magnesium Ferritin 2821.2 H Cancelled Total Bilirubin Direct Bilirubin 7.6 H AST ALT Alkaline Phosphatase Lactate Dehydrogenase Total Creatine Kinase 47 Cancelled Troponin I C-Reactive Protein 5.63 H Cancelled NT-Pro-B Natriuret Pep Total Protein Albumin Globulin Albumin/Globulin Ratio Lipase 595 H Procalcitonin 0.76 H Urine Color Urine Appearance Urine pH Ur Specific [place] Urine Protein Urine Glucose (UA) Urine Ketones Urine Blood Urine Nitrite Urine Bilirubin Urine Urobilinogen Ur Leukocyte Esterase Urine WBC (Auto) Urine RBC (Auto) U Hyaline Cast (Auto) U Epithel Cells (Auto) Urine Bacteria (Auto) Stool Occult Bld Scrn Ethyl Alcohol mg/dL 02/26/20 02/26/20 02/26/20 13:43 13:43 17:08 WBC RBC Hgb Hct MCV MCH MCHC RDW Std Deviation RDW Coeff of Alvaro Plt Count MPV Immature Gran % (Auto) Neut % (Auto) Lymph % (Auto) [place] % (Auto) Eos % (Auto) Baso % (Auto) Neut # (Auto) Lymph # (Auto) [place] # (Auto) Eos # (Auto) Baso # (Auto) Immature Gran # (Auto) Toxic Vacuolation Macrocytosis Target Cells PT INR APTT PTT Ratio D-Dimer Sodium Potassium Chloride Carbon Dioxide Anion Gap BUN Creatinine Est Cr Clr Drug Dosing Est GFR ( Amer) Est GFR (Non-Af Amer) BUN/Creatinine Ratio Glucose Lactate 2.4 H* Calcium Phosphorus Magnesium Ferritin Total Bilirubin Direct Bilirubin AST ALT Alkaline Phosphatase Lactate Dehydrogenase 932 H Total Creatine Kinase Troponin I C-Reactive Protein NT-Pro-B Natriuret Pep Total Protein Albumin Globulin Albumin/Globulin Ratio Lipase Procalcitonin Urine Color Urine Appearance Urine pH Ur Specific [place] Urine Protein Urine Glucose (UA) Urine Ketones Urine Blood Urine Nitrite Urine Bilirubin Urine Urobilinogen Ur Leukocyte Esterase Urine WBC (Auto) Urine RBC (Auto) U Hyaline Cast (Auto) U Epithel Cells (Auto) Urine Bacteria (Auto) Stool Occult Bld Scrn Ethyl Alcohol mg/dL < 3.0 02/26/20 02/27/20 02/27/20 20:21 03:00 03:00 WBC RBC Hgb Hct MCV MCH MCHC RDW Std Deviation RDW Coeff of Alvaro Plt Count MPV Immature Gran % (Auto) Neut % (Auto) Lymph % (Auto) [place] % (Auto) Eos % (Auto) Baso % (Auto) Neut # (Auto) Lymph # (Auto) [place] # (Auto) Eos # (Auto) Baso # (Auto) Immature Gran # (Auto) Toxic Vacuolation Macrocytosis Target Cells PT INR APTT PTT Ratio D-Dimer Sodium Potassium Chloride Carbon Dioxide Anion Gap BUN Creatinine Est Cr Clr Drug Dosing Est GFR ( Amer) Est GFR (Non-Af Amer) BUN/Creatinine Ratio Glucose Lactate 2.2 H* Calcium Phosphorus Magnesium Ferritin Total Bilirubin Direct Bilirubin AST ALT Alkaline Phosphatase Lactate Dehydrogenase Total Creatine Kinase Troponin I C-Reactive Protein NT-Pro-B Natriuret Pep Total Protein Albumin Globulin Albumin/Globulin Ratio Lipase Procalcitonin Urine Color Liliana Urine Appearance Clear Urine pH 5.0 Ur Specific [place] 1.039 H Urine Protein Negative Urine Glucose (UA) Negative Urine Ketones Negative Urine Blood Negative Urine Nitrite Positive A Urine Bilirubin 2+ H Urine Urobilinogen Negative Ur Leukocyte Esterase Trace H Urine WBC (Auto) 1-5 Urine RBC (Auto) 5-10 H U Hyaline Cast (Auto) 1-5 U Epithel Cells (Auto) 5-10 H Urine Bacteria (Auto) Negative Stool Occult Bld Scrn Positive A Ethyl Alcohol mg/dL 02/27/20 02/27/20 02/27/20 05:54 05:54 05:54 WBC 7.09 RBC 1.94 L Hgb 8.7 L Hct 23.1 L MCV 119.1 H MCH 44.8 H MCHC 37.7 H RDW Std Deviation 64.5 H RDW Coeff of Alvaro 14.9 H Plt Count 108 L MPV 11.2 H Immature Gran % (Auto) 0.3 Neut % (Auto) 64.3 Lymph % (Auto) 19.7 [place] % (Auto) 14.4 Eos % (Auto) 0.7 Baso % (Auto) 0.6 Neut # (Auto) 4.56 Lymph # (Auto) 1.40 [place] # (Auto) 1.02 H Eos # (Auto) 0.05 Baso # (Auto) 0.04 Immature Gran # (Auto) 0.02 Toxic Vacuolation Macrocytosis Present Target Cells 1+ PT INR APTT PTT Ratio D-Dimer Sodium 127 L Potassium 3.5 Chloride 90 L Carbon Dioxide 27 Anion Gap 10.0 BUN 41 H Creatinine 1.48 H Est Cr Clr Drug Dosing 103.9 Est GFR ( Amer) 70.5 Est GFR (Non-Af Amer) 60.9 BUN/Creatinine Ratio 27.8 H Glucose 97 Lactate Calcium 8.2 L Phosphorus Magnesium Ferritin Total Bilirubin 10.0 H Direct Bilirubin AST 212 H ALT 119 H Alkaline Phosphatase 186 H Lactate Dehydrogenase 749 H Total Creatine Kinase Troponin I C-Reactive Protein NT-Pro-B Natriuret Pep Total Protein 5.1 L Albumin 2.0 L Globulin 3.1 Albumin/Globulin Ratio 0.7 L Lipase Procalcitonin Urine Color Urine Appearance Urine pH Ur Specific [place] Urine Protein Urine Glucose (UA) Urine Ketones Urine Blood Urine Nitrite Urine Bilirubin Urine Urobilinogen Ur Leukocyte Esterase Urine WBC (Auto) Urine RBC (Auto) U Hyaline Cast (Auto) U Epithel Cells (Auto) Urine Bacteria (Auto) Stool Occult Bld Scrn Ethyl Alcohol mg/dL Medications Administered Current Inpatient Medications Ascorbic Acid (Ascorbic Acid 500 Mg Tab) 500 mg PO BID [facility] Stop: 03/27/20 20:59 Last Admin: 02/27/20 08:04 Dose: 500 mg Documented by: Furosemide (Furosemide 40 Mg Tab) 40 mg PO QAM [facility] Stop: 03/29/20 08:59 Magnesium Oxide (Magnesium Oxide 400 Mg Tab) 400 mg PO QAM [facility] Stop: 03/28/20 13:29 Ondansetron HCl (Ondansetron Inj 2 Mg/Ml 2 Ml Vial) 4 mg IV Q6H PRN PRN Reason: Nausea Stop: 03/27/20 20:55 Polyethylene Glycol (Polyethylene (Miralax) 17 Gm Pack) 17 gm PO DAILY PRN PRN Reason: Constipation Stop: 03/27/20 20:55 Spironolactone (Spironolactone 100 Mg Tab) 100 mg PO QAM [facility] Stop: 03/29/20 08:59 Vitamin B Complex (Vitamin B Complex Tab) 1 tab PO QAM [facility] Stop: 03/28/20 08:59 Last Admin: 02/27/20 08:04 Dose: 1 tab Documented by: Zinc Sulfate (Zinc Sulfate 220 Mg Capsule) 220 mg PO BID [facility] Stop: 03/27/20 20:59 Last Admin: 02/27/20 08:04 Dose: 220 mg Documented by: PG Care Time/CCT Total # of Minutes Spent Total Time Spent with Patient: Total time spent is greater than 50% in coor dination of care (as documented) at patient's floor/unit and/or counseling patient: Coding Level of Care Code 29347 Subseq Hosp Care Lvl 3 Diagnoses AH (alcoholic hepatitis) K70.10 Ascites presence: unspecified Hyponatremia E87.1 Elevated bilirubin R17 Elevated INR R79.1 Acid reflux K21.9 Severe acute respiratory syndrome coronavirus 2 (SARS-CoV-2) detected U07.1 Hypomagnesemia E83.42 Acute kidney failure N17.9 (1) AH (alcoholic hepatitis) Ascites presence: unspecified Qualified Code(s): K70.10 - Alcoholic hepatitis without ascites
[2020-02-27] MEDS: MAGNESIUM OXIDE 400 MG TAB PO SCH (16:02)
[2020-02-27] MEDS ORDERED: LORazepam 1 MG TAB PO PRN (16:21)
[2020-02-27] MEDS: FOLIC ACID 1 MG TAB PO SCH (18:40)
[2020-02-27] MEDS: THIAMINE HCL 100 MG TAB PO SCH (18:43)
[2020-02-27] MEDS ORDERED: SIMETHICONE 80 MG CHEW PO PRN (19:38)
[2020-02-28] MEDS: SPIRONOLACTONE 100 MG TAB PO SCH (08:22)
[2020-02-28] MEDS: FOLIC ACID 1 MG TAB PO SCH (08:23)
[2020-02-28] MEDS: FUROSEMIDE 40 MG TAB PO SCH (08:24)
[2020-02-28] MEDS: MAGNESIUM OXIDE 400 MG TAB PO SCH (08:25)
[2020-02-28] MEDS: VITAMIN B COMPLEX TAB PO SCH (08:26)
[2020-02-28] MEDS: THIAMINE HCL 100 MG TAB PO SCH (08:26)
[2020-02-28] MEDS: ZINC SULFATE 220 MG CAPSULE PO SCH (08:27)
[2020-02-28] MEDS: ASCORBIC ACID 500 MG TAB PO SCH ×2 (08:27→20:52)
[2020-02-28] MEDS ORDERED: CALCIUM CARBONATE 500 MG CHEWABLE TAB PO PRN (10:02)
[2020-02-28] MEDS ORDERED: PANTOprazole 40 MG TAB PO SCH (10:15)
[2020-02-28 13:05] LABS: Hematocrit (blood only) 21.9 % (42-52); Hemoglobin 8.2 g/dL (14.0-18.0); Mean Corpuscular Hemoglobin 44.8 pg (25-34); Mean Corpuscular Hgb Conc 37.4 g/dL (32-36); Mean Corpuscular Volume 119.7 fL (80-100); RDW Coefficient of Variation 14.5 % (11.5-14.5); RDW Standard Deviation 62.6 fL (36.4-46.3); Red Blood Count 1.83 M/uL (4.7-6.1); White Blood Count 11.28 K/uL (4.8-10.8)
[2020-02-28 13:21] LABS: Mean Platelet Volume 11.3 fL (7.4-10.4); Platelet Count 97 K/uL (130-400); Platelet Estimate Decreased (Normal)
[2020-02-28 13:33] LABS: Albumin Globulin Ratio 0.6 (0.9-2); Albumin Level 1.9 gm/dl (3.4-5.0); BUN Creatinine Ratio 22.5 (10-20); Bilirubin,Total 9.9 mg/dl (0.2-1); Calcium 7.8 mg/dl (8.5-10.1); Creatinine Clr Calc Pharmacy 79.7 ml/min; Est GFR (African American) 51.2; Est GFR (Non-African American) 44.2; Globulin 3.1 gm/dl (2.5-4.0); Potassium 3.7 mmol/L (3.5-5.1)
[2020-02-28] MEDS: OCTREOTIDE ACETATE 100 MCG/ML VIAL SQ SCH ×2 (14:47→21:55)
--- NOTE | 2020-02-28 15:27 | Hospitalist Progress Note ---
Date of Service February 28, 2020 Assessment & Plan (1) AH (alcoholic hepatitis): Alcoholic liver cirrhosis with ascites - suspected main cause of his shortness of breath could have some acute hepatitis, not sure he is being honest about timing of last drink, his AST and ALT were elevated Child-Anton C: life expectancy 1-3 years, MELD 30: 52.6% 3 month mortality, previously 19 prior to COVID-19 diagnosis in January. Marshal's Discriminant function 25.5 on admission, not high enough to warrant Prednisolone treat ascites with spironolactone 100mg daily and Lasix 40mg qAM, Cr up to 1.9, repeat tomorrow he is making more urine d/w radiology, they can perform paracentesis (diagnostic and therapeutic) on Sunday, he no longer needs COVID restrictions guarded prognosis, worsening renal function today, albumin low at 1.9, more anemic, see below (2) Acute kidney failure: certainly makes for poorer prognosis with cirrhosis Cr is rising to 1.9, could be effect of Spironolactone and Lasix certainly he is volume overloaded on exam will start Midodrine 5mg TID, Albumin 12.5gm q8 for 4 doses, Octreotide 100mcg SC TID repeat BMP in the morning check urine sodium, urine Cr if Cr goes up further consult nephrology (3) Anemia: macrocytic, check B12 and folate levels, already on folic acid 1gm daily starting to drop more during admission, down to 8.2 no evidence to support active blood loss CT scan did note some gastric varices move to tele for closer monitoring, he is tachycardic today other causes would be bone marrow suppression with alcohol use, splenomegaly (4) Thrombocytopenia: likely due to cirrhosis, splenomegaly continue to follow (5) Hyponatremia: Secondary to hypervolemia. Should improve with spironolactone and paracentesis. monitor daily (6) Elevated bilirubin: Secondary to alcoholic hepatitis as above CT A/P : no signs of obstruction slightly improved at 9.9 no need for prednisolone per GI (7) Elevated INR: Secondary to liver cirrhosis/hepatitis. INR 1.5 on admission, will repeat tomorrow (8) Acid reflux: c/o heartburn, place on Protonix 40mg BID due to dropping Hb Tums PRN (9) Severe acute respiratory syndrome coronavirus 2 (SARS-CoV-2) detected: No pneumonia on CXR. Do not suspect he is substantially affected by this. No need for dexamethasone symptoms of sore throat, malaise, muscle aches started around 02/11, had positive test outpatient on 02/16 he is over two weeks from start of symptoms, should not be contagious can be removed from negative pressure room per infection control (10) Hypomagnesemia: Magnesium oxide 400 mg p.o. daily. Monitor as outpatient Admission and Anticipated Discharge Date Admission Date: February 26, 2020 Subjective patient doing okay, he is really anxious, had a hard time sleeping last night and this morning he is eating okay, has some discomfort in his stomach due to fluid, not really pain c/o some indigestion and heart burn no dyspnea, no fever, no chills he has some tremors, he said the Ativan helped a little last night, I offered him more frequent dosing and he declined appreciate GI recommendations, no need for Prednisolone at this time checked labs, bili is 9.9, albumin 1.9 Cr is up to 1.9, Na 126 WBC up at 11, Hb down to 8.2, plts 97k discussed Hb with patient, he has not had any dark stools, definitely no hematemesis the CT scan mentioned gastric varices that were visible due to worsening lab studies, will move to [employer] for closer monitoring Review of Systems Review of Systems: All systems reviewed & are unremarkable except as noted in Subjective Physical Exam Constitutional: well developed, well nourished and + edematous; no acute distress Eyes: normal visual silva by confrontation, PERRL and EOM intact bilaterally; sclerae not anicteric Neck: trachea midline, no thyromegaly Respiratory: normal respiratory effort, lungs clear to auscultation Cardiovascular: Rate/Rhythm: regular rhythm and + tachycardic Heart Sounds: normal S1 and normal S2; no murmur Extremities: normal capillary refill and + edema Gastrointestinal (Abdomen): Inspection/Auscultation: + abdomen distended, normal bowel sounds and + abdominal edema Percussion/Palpation: + ascites, + dullness to percussion and + abdomen firm; abdomen nontender Musculoskeletal: no cyanosis or clubbing, extremities motor strength 5/5 Skin: normal turgor and + jaundice; no rashes and no wound Neurologic: patellar DTR's 2+ bilat, sensation intact and PERRL, EOMI, accommodation nl, no face palsy, no dysarthria Psychiatric: Orientation: alert and oriented x 3 Affect: + anxious affect Lymphatic: no cervical or axillary lymphadenopathy Results & Data Results & Data ([facility]) Vital Signs (Past 12 Hours) Vital Signs Temp Pulse Pulse Resp BP Pulse Ox 02/28/20 08:47 36.8 C 106 H 18 103/54 L 93 02/28/20 05:55 36.8 C 110 H 18 110/61 92 Laboratory Results Laboratory Results - last 24 hr 02/28/20 02/28/20 12:40 12:40 WBC 11.28 H RBC 1.83 L Hgb 8.2 L Hct 21.9 L MCV 119.7 H MCH 44.8 H MCHC 37.4 H RDW Std Deviation 62.6 H RDW Coeff of Alvaro 14.5 Plt Count 97 L MPV 11.3 H Platelet Estimate Decreased L Sodium 126 L Potassium 3.7 Chloride 89 L Carbon Dioxide 27 Anion Gap 10.0 BUN 44 H Creatinine 1.93 H D Est Cr Clr Drug Dosing 79.7 Est GFR ( Amer) 51.2 Est GFR (Non-Af Amer) 44.2 BUN/Creatinine Ratio 22.5 H Glucose 114 H Calcium 7.8 L Total Bilirubin 9.9 H AST 172 H ALT 101 H Alkaline Phosphatase 170 H Total Protein 5.0 L Albumin 1.9 L Globulin 3.1 Albumin/Globulin Ratio 0.6 L Medications Administered Current Inpatient Medications Ascorbic Acid (Ascorbic Acid 500 Mg Tab) 500 mg PO BID [facility] Stop: 03/27/20 20:59 Last Admin: 02/28/20 08:27 Dose: 500 mg Documented by: Calcium Carbonate (Calcium Carbonate 500 Mg Chewable Tab) 500 mg PO Q6H PRN PRN Reason: Indigestion Stop: 03/29/20 10:01 Folic Acid (Folic Acid 1 Mg Tab) 1 mg PO [facility] Stop: 03/28/20 08:59 Last Admin: 02/28/20 08:23 Dose: 1 mg Documented by: [facility]urosemide ([facility] 40 Mg Tab) [facility] Stop: 03/29/20 08:59 Last Admin: 02/28/20 08:24 Dose: 40 mg Documented by: Albumin Human (Albumin 25%) 12.5 gm in 50 mls @ 50 mls/hr IV Q8 [facility] Stop: 02/29/20 14:59 Lorazepam (Lorazepam 1 Mg Tab) 1 - 3 mg PO UD PRN; Protocol PRN Reason: EtoH Withdrawal AWSS 6-10+ Stop: 03/28/20 16:20 Magnesium Oxide (Magnesium Oxide 400 Mg Tab) [facility] Stop: 03/28/20 13:29 Last Admin: 02/28/20 08:25 Dose: 400 mg Documented by: Midodrine (Midodrine Hcl 2.5 Mg Tab) 5 mg PO TID@0800,1200,1700 [facility] Stop: 03/29/20 16:59 Octreotide Acetate (Octreotide Acetate 100 Mcg/Ml Vial) 100 mcg SQ Q8 [facility] Stop: 03/29/20 13:59 Last Admin: 02/28/20 14:47 Dose: 100 mcg Documented by: Ondansetron HCl (Ondansetron Inj 2 Mg/Ml 2 Ml Vial) 4 mg IV Q6H PRN PRN Reason: Nausea Stop: 03/27/20 20:55 Pantoprazole Sodium (Pantoprazole 40 Mg Tab) 40 mg PO [facility] Stop: 03/03/20 10:14 Last Admin: 02/28/20 12:43 Dose: 40 mg Documented by: Polyethylene Glycol (Polyethylene (Miralax) 17 Gm Pack) 17 gm PO DAILY PRN PRN Reason: Constipation Stop: 03/27/20 20:55 Simethicone (Simethicone 80 Mg Chew) 80 mg PO Q6H PRN PRN Reason: Indigestion Stop: 03/28/20 19:37 Spironolactone (Spironolactone 100 Mg Tab) 100 mg PO [facility] Stop: 03/29/20 08:59 Last Admin: 02/28/20 08:22 Dose: 100 mg Documented by: Thiamine HCl (Thiamine Hcl 100 Mg Tab) 100 mg PO [facility] Stop: 03/28/20 08:59 Last Admin: 02/28/20 08:26 Dose: 100 mg Documented by: Vitamin B Complex (Vitamin B Complex Tab) 1 tab PO [facility] Stop: 03/28/20 08:59 Last Admin: 02/28/20 08:26 Dose: 1 tab Documented by: Zinc Sulfate (Zinc Sulfate 220 Mg Capsule) 220 mg PO BID [facility] Stop: 03/27/20 20:59 Last Admin: 02/28/20 08:27 Dose: 220 mg Documented by: PG Care Time/CCT Total # of Minutes Spent Total Time Spent: 40 Total Time Spent with Patient: Total time spent is greater than 50% in coordination of care (as documented) at patient's floor/unit and/or counseling patient: Coding Level of Care Code 73020 Subseq Hosp Care Lvl 3 Diagnoses AH (alcoholic hepatitis) K70.10 Ascites presence: unspecified Acute kidney failure N17.9 Anemia D64.9 Thrombocytopenia D69.6 Hyponatremia E87.1 Elevated bilirubin R17 Elevated INR R79.1 Acid reflux K21.9 Severe acute respiratory syndrome coronavirus 2 (SARS-CoV-2) detected U07.1 Hypomagnesemia E83.42 (1) AH (alcoholic hepatitis) Ascites presence: unspecified Qualified Code(s): K70.10 - Alcoholic hepatitis without ascites
[2020-02-28] MEDS: ALBUMIN 25% 12.5 GM/50 ML VIAL IV SCH ×2 (16:26→21:56)
[2020-02-28] MEDS: MIDODRINE HCL 2.5 MG TAB PO SCH (16:26)
[2020-02-28] MEDS: PANTOprazole 40 MG TAB PO SCH (20:52)
[2020-02-28] MEDS: LORazepam 1 MG TAB PO PRN (23:01)
[2020-02-29] MEDS: LIDOCAINE 5% 1 PATCH TD SCH ×2 (01:01→09:24)
[2020-02-29] MEDS: ALBUMIN 25% 12.5 GM/50 ML VIAL IV SCH ×5 (06:02→22:32)
[2020-02-29] MEDS: OCTREOTIDE ACETATE 100 MCG/ML VIAL SQ SCH ×3 (06:05→23:20)
[2020-02-29 08:10] LABS: Hematocrit (blood only) 21.3 % (42-52); Hemoglobin 7.9 g/dL (14.0-18.0); Mean Corpuscular Hemoglobin 45.1 pg (25-34); Mean Corpuscular Hgb Conc 37.1 g/dL (32-36); Mean Corpuscular Volume 121.7 fL (80-100); RDW Coefficient of Variation 14.3 % (11.5-14.5); RDW Standard Deviation 62.3 fL (36.4-46.3); Red Blood Count 1.75 M/uL (4.7-6.1); White Blood Count 9.97 K/uL (4.8-10.8)
[2020-02-29 08:19] LABS: INR 1.7 (0.9-1.1); Prothrombin Time 17.2 Seconds (9.0-12.0)
[2020-02-29] MEDS: THIAMINE HCL 100 MG TAB PO SCH (08:27)
[2020-02-29] MEDS: FOLIC ACID 1 MG TAB PO SCH (08:27)
[2020-02-29] MEDS: FUROSEMIDE 40 MG TAB PO SCH (08:28)
[2020-02-29] MEDS: ASCORBIC ACID 500 MG TAB PO SCH ×2 (08:28→21:39)
[2020-02-29] MEDS: VITAMIN B COMPLEX TAB PO SCH (08:28)
[2020-02-29] MEDS: MAGNESIUM OXIDE 400 MG TAB PO SCH (08:29)
[2020-02-29] MEDS: SPIRONOLACTONE 100 MG TAB PO SCH (08:29)
[2020-02-29] MEDS: MIDODRINE HCL 2.5 MG TAB PO SCH ×3 (08:29→18:12)
[2020-02-29 08:37] LABS: Mean Platelet Volume 11.8 fL (7.4-10.4); Platelet Count 93 K/uL (130-400)
[2020-02-29 08:52] LABS: Albumin Globulin Ratio 0.8 (0.9-2); Albumin Level 2.2 gm/dl (3.4-5.0); Bilirubin,Total 9.6 mg/dl (0.2-1); Calcium 8.2 mg/dl (8.5-10.1); Creatinine Clr Calc Pharmacy 65.3 ml/min; Est GFR (African American) 39.7; Est GFR (Non-African American) 34.3; Globulin 2.9 gm/dl (2.5-4.0); Total Protein 5.1 gm/dl (6.4-8.2)
--- NOTE | 2020-02-29 09:07 | Hospitalist Progress Note ---
Date of Service February 29, 2020 Assessment & Plan (1) Alcoholic cirrhosis: Alcoholic liver cirrhosis with ascites - suspected main cause of his shortness of breath could have some acute hepatitis, not sure he is being honest about timing of last drink, his AST and ALT were elevated his says that she never knows when he is drinking, she did not know about the "morrell" he went on in late December Child-Anton C: life expectancy 1-3 years, MELD 33 based off today's numbers: 52.6% 3 month mortality, previously his score was 19 in the fall, clearly getting worse Marshal's Discriminant function 25.5 on admission, not high enough to warrant Prednisolone, d/w GI treated ascites with spironolactone 100mg daily and Lasix 40mg qAM however, Cr going up to 2.38 today, hold on diuretics for now as he is intravascularly depleted d/w radiology, they can perform paracentesis (diagnostic and therapeutic) on Sunday, he no longer needs COVID restrictions confirmed with radiology that this should be done tomorrow prognosis and clinical status getting worse by the day Cr is rising which is probably most pressing issue, see below anemia, thrombocytopenia, low albumin, INR 1.7 long talk with patient, his and his mother about severity of disease (2) AH (alcoholic hepatitis): initially suspected this, not sure if has been drinking more recently than early January he is not honest about his drinking, will not even tell his when he has been drinking no role for Prednisolone AST and ALT coming down (3) Acute kidney failure: certainly makes for poorer prognosis with cirrhosis Cr is rising to 2.3, could be effect of Spironolactone and Lasix certainly he is volume overloaded on exam but likely intravascularly dry urine sodium very low at < 5 suggesting prerenal etiology of the rise in Cr and making HRS likely d/w Dr Fuchs, will give NSS fluid challenge increase Albumin to 25gm q8, continue Midodrine and Octreotide if his Hb drops further Dr. Fuchs would recommend transfusion as the blood would help with his intravascular volume should get paracentesis tomorrow which could help repeat BMP in the morning (4) Anemia: macrocytic, folate low - started on folic acid 1gm daily on 02/26 vitamin b12 normal starting to drop more during admission, down to 7.9 from 8.2 no evidence to support active blood loss CT scan did note some gastric varices move to tele for closer monitoring, he is tachycardic today other causes would be bone marrow suppression with alcohol use, splenomegaly d/w Dr. Ross, he will notify [facility] about dropping Hb and potential need for EGD make NPO after midnight in case they want to perform scope tomorrow check Hb in the morning as well as type/cross for two units, if Hb dropping further would transfuse (5) Thrombocytopenia: likely due to cirrhosis, splenomegaly continue to follow holding medical DVT prophylaxis due to INR 1.7 and low platelets (6) Hyponatremia: Secondary to hypervolemia. lower at 125 today (7) Elevated bilirubin: Secondary to alcoholic hepatitis as above CT A/P : no signs of obstruction slightly improved at 9.6 no need for prednisolone per GI (8) Elevated INR: Secondary to liver cirrhosis/hepatitis. INR 1.5 on admission, up slightly at 1.7 today (9) Acid reflux: c/o heartburn, place on Protonix 40mg BID due to dropping Hb Tums PRN (10) Severe acute respiratory syndrome coronavirus 2 (SARS-CoV-2) detected: No pneumonia on CXR. Do not suspect he is substantially affected by this. No need for dexamethasone symptoms of sore throat, malaise, muscle aches started around 02/11, had positive test outpatient on 02/16 he is over two weeks from start of symptoms, should not be contagious can be removed from negative pressure room per infection control would be safe for paracentesis and/or EGD tomorrow (11) Hypomagnesemia: Magnesium oxide 400 mg p.o. daily. Monitor as outpatient Admission and Anticipated Discharge Date Admission Date: February 26, 2020 Subjective reviewed labs this morning, Cr going in the wrong direction, up to 2.38 weight is going up, 144kg, despite Lasix and Spironolactone INR is 1.7 Hb is down to 7.8, no known bleeding, patient is having solid BM and no hematemesis new MELD score is 33 need to consult nephrology discussed with Dr. Fuchs, will give 1 L of NSS due to low volume in the intravascular space increase Albumin to 25gm q8 plan for paracentesis tomorrow which could help if Hb would drop below 7 then give blood as this can help kidneys as well discussed the drop in Hb with Dr. 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 [facility] will make NPO after midnight and he will let [facility] know about potential need for EGD to look for varices folate is low (already on replacement) and vitamin B12 normal long talk with the patient today about renal function getting worse, INR up to 1.7, Hb dropping discussed that he is going to be here a few days, if he gets worse then we may need to consider transfer to [place] I spoke with his Yulisa over the phone for 15 minutes, provided her with thorough update she had no knowledge of his drinking at the end of December, beginning of January she says he can hide his drinking from her, he functions very well I told her that he will never survive fpc without a transplant answered all her questions, she was tearful and upset about the news but she says she is not surprised I also updated his mother Beatriz, phone is [phone], spoke for 10 minutes she said that she knows her son is an alcoholic she said that he recently lost a good friend who's liver transplant failed, this hit the patient really hard I told her that the patient is really ill, will need referral to virtual assistant, only chance of long term care phlebotomist survival will be transplant total time spent on patient today was 65 minutes Review of Systems Review of Systems: All systems reviewed & are unremarkable except as noted in Subjective Constitutional: no fever, no fatigue and no weakness Respiratory: no cough, no dyspnea, no dyspnea on exertion and no wheezing Cardiovascular: + edema; no chest pain, no palpitations and no syncope Gastrointestinal: + problem reported (ascites); no abdominal pain, no nausea, no vomiting, no constipation, no diarrhea/loose stools, no blood in stools and no melena Psychiatric: + anxiety Physical Exam Constitutional: well developed, well nourished and + edematous; no acute distress Eyes: normal visual silva by confrontation, PERRL and EOM intact bilaterally; sclerae not anicteric Neck: trachea midline, no thyromegaly Respiratory: normal respiratory effort, lungs clear to auscultation Cardiovascular: Rate/Rhythm: regular rhythm and + tachycardic Heart Sounds: normal S1 and normal S2; no murmur Extremities: normal capillary refill and + edema Gastrointestinal (Abdomen): Inspection/Auscultation: + abdomen distended, normal bowel sounds and + abdominal edema Percussion/Palpation: + ascites, + dullness to percussion and + abdomen firm; abdomen nontender Musculoskeletal: no cyanosis or clubbing, extremities motor strength 5/5 Skin: normal turgor and + jaundice; no rashes and no wound Neurologic: patellar DTR's 2+ bilat, sensation intact and PERRL, EOMI, accommodation nl, no face palsy, no dysarthria Psychiatric: Orientation: alert and oriented x 3 Affect: + anxious affect Lymphatic: no cervical or axillary lymphadenopathy Results & Data Results & Data ([facility]) Vital Signs (Past 12 Hours) Vital Signs Temp Pulse Resp BP Pulse Ox 02/29/20 07:24 36.6 C 98 H 18 101/53 L 99 02/29/20 04:00 37 C 99 H 22 110/45 L 93 02/28/20 22:55 37.1 C 98 H 20 106/41 L 94 Laboratory Results Laboratory Results - last 24 hr 02/29/20 02/29/20 02/29/20 07:36 07:36 07:36 WBC 9.97 RBC 1.75 L Hgb 7.9 L Hct 21.3 L MCV 121.7 H MCH 45.1 H MCHC 37.1 H RDW Std Deviation 62.3 H RDW Coeff of Alvaro 14.3 Plt Count 93 L MPV 11.8 H PT 17.2 H INR 1.7 H Sodium 125 L Potassium 4.0 Chloride 89 L Carbon Dioxide 25 Anion Gap 11.0 BUN 48 H Creatinine 2.38 H D Est Cr Clr Drug Dosing 65.3 Est GFR ( Amer) 39.7 Est GFR (Non-Af Amer) 34.3 BUN/Creatinine Ratio 20.0 Glucose 110 H Calcium 8.2 L Total Bilirubin 9.6 H AST 140 H ALT 85 H Alkaline Phosphatase 159 H Total Protein 5.1 L Albumin 2.2 L Globulin 2.9 Albumin/Globulin Ratio 0.8 L Vitamin B12 Folate Urine Color Urine Appearance Urine pH Ur Specific [place] Urine Protein Urine Glucose (UA) Urine Ketones Urine Blood Urine Nitrite Urine Bilirubin Urine Urobilinogen Ur Leukocyte Esterase Urine WBC (Auto) Urine RBC (Auto) U Hyaline Cast (Auto) U Epithel Cells (Auto) Urine Bacteria (Auto) Granular Casts Urine Mucus Ur Random Creatinine U Random Total Protein Ur Random Sodium Protein/Creatinin Ratio 02/29/20 02/29/20 02/29/20 07:36 07:36 Unknown WBC RBC Hgb Hct MCV MCH MCHC RDW Std Deviation RDW Coeff of Alvaro Plt Count MPV PT INR Sodium Potassium Chloride Carbon Dioxide Anion Gap BUN Creatinine Est Cr Clr Drug Dosing Est GFR ( Amer) Est GFR (Non-Af Amer) BUN/Creatinine Ratio Glucose Calcium Total Bilirubin AST ALT Alkaline Phosphatase Total Protein Albumin Globulin Albumin/Globulin Ratio Vitamin B12 1746 H Folate Cancelled 3.60 L Urine Color [place] Urine Appearance Clear Urine pH 5.0 Ur Specific [place] 1.020 Urine Protein Negative Urine Glucose (UA) Negative Urine Ketones Negative Urine Blood Negative Urine Nitrite Positive A Urine Bilirubin 1+ H Urine Urobilinogen Negative Ur Leukocyte Esterase Trace H Urine WBC (Auto) 5-10 H Urine RBC (Auto) 0-4 U Hyaline Cast (Auto) >30 H U Epithel Cells (Auto) 5-10 H Urine Bacteria (Auto) 1+ H Granular Casts 1-5 H Urine Mucus Present A Ur Random Creatinine U Random Total Protein Ur Random Sodium Protein/Creatinin Ratio 02/29/20 Unknown WBC RBC Hgb Hct MCV MCH MCHC RDW Std Deviation RDW Coeff of Alvaro Plt Count MPV PT INR Sodium Potassium Chloride Carbon Dioxide Anion Gap BUN Creatinine Est Cr Clr Drug Dosing Est GFR ( Amer) Est GFR (Non-Af Amer) BUN/Creatinine Ratio Glucose Calcium Total Bilirubin AST ALT Alkaline Phosphatase Total Protein Albumin Globulin Albumin/Globulin Ratio Vitamin B12 Folate Urine Color Urine Appearance Urine pH Ur Specific [place] Urine Protein Urine Glucose (UA) Urine Ketones Urine Blood Urine Nitrite Urine Bilirubin Urine Urobilinogen Ur Leukocyte Esterase Urine WBC (Auto) Urine RBC (Auto) U Hyaline Cast (Auto) U Epithel Cells (Auto) Urine Bacteria (Auto) Granular Casts Urine Mucus Ur Random Creatinine 200.0 U Random Total Protein 21.7 H Ur Random Sodium < 5 Protein/Creatinin Ratio 0.1 Medications Administered Current Inpatient Medications Ascorbic Acid (Ascorbic Acid 500 Mg Tab) 500 mg PO BID [facility] Stop: 03/27/20 20:59 Last Admin: 02/29/20 08:28 Dose: 500 mg Documented by: Calcium Carbonate (Calcium Carbonate 500 Mg Chewable Tab) 500 mg PO Q6H PRN PRN Reason: Indigestion Stop: 03/29/20 10:01 Folic Acid (Folic Acid 1 Mg Tab) 1 mg PO Q[facility] [place] Stop: 03/28/20 08:59 Last Admin: 02/29/20 08:27 Dose: 1 mg Documented by: Albumin Human (Albumin 25%) 12.5 gm in 50 mls @ 50 mls/hr IV 0900,1000,1400,1500,2100,2200 [facility] Stop: 03/04/20 10:59 Last Infusion: 02/29/20 15:47 Dose: 0 mls/hr Documented by: Sodium Chloride (Nss 1000ml) 1,000 mls @ 100 mls/hr IV .Q10H [facility] Stop: 02/29/20 22:29 Last Admin: 02/29/20 13:12 Dose: 100 mls/hr Documented by: Lidocaine (Lidocaine 5% 1 Patch) 1 patch TD [facility] Stop: 03/30/20 08:59 Last Admin: 02/29/20 09:24 Dose: 1 patch Documented by: Lorazepam (Lorazepam 1 Mg Tab) 1 mg PO Q8H PRN PRN Reason: Anxiety/Insomnia Stop: 03/29/20 16:14 Last Admin: 02/28/20 23:01 Dose: 1 mg Documented by: Magnesium Oxide (Magnesium Oxide 400 Mg Tab) 400 mg PO [facility] Stop: 03/28/20 13:29 Last Admin: 02/29/20 08:29 Dose: 400 mg Documented by: Midodrine (Midodrine Hcl 2.5 Mg Tab) 5 mg PO TID@0800,1200,1700 [facility] Stop: 03/29/20 16:59 Last Admin: 02/29/20 13:11 Dose: 5 mg Documented by: Miscellaneous (Remove Lidoderm Patch) 1 ea N/A DAILY@2100 [facility] Stop: 03/30/20 20:59 Octreotide Acetate (Octreotide Acetate 100 Mcg/Ml Vial) 100 mcg SQ Q8 [facility] Stop: 03/29/20 13:59 Last Admin: 02/29/20 14:33 Dose: 100 mcg Documented by: Ondansetron HCl (Ondansetron Inj 2 Mg/Ml 2 Ml Vial) 4 mg IV Q6H PRN PRN Reason: Nausea Stop: 03/27/20 20:55 Pantoprazole Sodium (Pantoprazole 40 Mg Tab) 40 mg PO BID [facility] Stop: 03/29/20 20:59 Last Admin: 02/29/20 09:25 Dose: 40 mg Documented by: Polyethylene Glycol (Polyethylene (Miralax) 17 Gm Pack) 17 gm PO DAILY PRN PRN Reason: Constipation Stop: 03/27/20 20:55 Simethicone (Simethicone 80 Mg Chew) 80 mg PO Q6H PRN PRN Reason: Indigestion Stop: 03/28/20 19:37 Thiamine HCl (Thiamine Hcl 100 Mg Tab) 100 mg PO QAM [facility] Stop: 03/28/20 08:59 Last Admin: 02/29/20 08:27 Dose: 100 mg Documented by: Vitamin B Complex (Vitamin B Complex Tab) 1 tab PO QAM [facility] Stop: 03/28/20 08:59 Last Admin: 02/29/20 08:28 Dose: 1 tab Documented by: PG Care Time/CCT Total # of Minutes Spent Total Time Spent: 70 Total Time Spent with Patient: Total time spent is greater than 50% in coordination of care (as documented) at patient's floor/unit and/or counseling patient: 20 minutes at the bedside talking with patient [address] Ross, GI [address] Fuchs, nephrology 15 minutes talking with patient's 10 minutes talking with patients' mother 15 minutes chart review, exam, documentation Prolonged Care Time Prolonged Care Time: Yes Total Prolonged Care Time: 40 Coding Level of Care Code 07274 Subseq Hosp Care Lvl 3 Diagnoses Alcoholic cirrhosis K70.30 AH (alcoholic hepatitis) K70.10 Ascites presence: unspecified Acute kidney failure N17.9 Anemia D64.9 Thrombocytopenia D69.6 Hyponatremia E87.1 Elevated bilirubin R17 Elevated INR R79.1 Acid reflux K21.9 Severe acute respiratory syndrome coronavirus 2 (SARS-CoV-2) detected U07.1 Hypomagnesemia E83.42 Additional Codes Prolonged Care Time - Prolonged Care Time: Yes ([id number]) (1) AH (alcoholic hepatitis) Ascites presence: unspecified Qualified Code(s): K70.10 - Alcoholic hepatitis without ascites
[2020-02-29 09:18] LABS: Folate (Folic Acid) 3.6 ng/ml (>5.38)
[2020-02-29] MEDS: PANTOprazole 40 MG TAB PO SCH ×2 (09:25→21:39)
--- NOTE | 2020-02-29 12:24 | Nephrology Consultation ---
Date of Consultation February 29, 2020 Assessment & Plan (1) Acute kidney failure: * HUYEN due to reduced effective arterial volume from 3rd spacing of fluid * Hold Furosemide and Spironolactone * Start albumin 25g IV q8 hrs x 48 hours * Will provide 1L 0.9NS fluid challenge * Monitor PRP * Agree w/ primary service starting Midodrine and Octreotide (2) Anemia: * Consider blood transfusion if Hgb drops < 7.5. This will help restore effective arterial volume (3) Hyponatremia: * Reflective of poor arterial perfusion and high ADH * Will manage w/ albumin and saline fluid challenge (4) Alcoholic cirrhosis: * Paracentesis planned once patient is off COVID isolation (5) Severe acute respiratory syndrome coronavirus 2 (SARS-CoV-2) detected: * COVID +. No infiltrate on CXR. Has not required steroid therapy History of Present Illness Reason for Consultation: HUYEN Attending Physician: Abilio Ferrari, DO History of Present Illness Mr. Longo is a 34 year old male w/ alcoholic cirrhosis, HUYEN and COVID + status. He has been examined by Dr. Ferrari this morning. I did not exam Mr. Longo due to COVID isolation. Physical exam findings and medical plan of care were discussed w/ Dr. Ferrari. Mr. Longo was diagnosed COVID + 02/17/20. He presented to [facility] 02/26/20 for evaluation of dyspnea. No pneumonia was identified on CXR. Dexamethasone was not required. Dyspnea was attributed to abdominal distention w/ ascites. US guided paracentesis will be performed once Mr. Longo is off COVID isolation. Treatment w/ Furosemide + Spironolactone has been complicated by progressive renal insufficiency. Cr has risen from 0.9 to 2.4. Patient is hyponatremic w/ serum sodium 125 mmol/L and hypoalbuminemic (albumin 2.2) Allergies Allergy/AdvReac Type Severity Reaction Status Date / Time No Known Allergies Allergy Verified 02/26/20 11:43 Home Medications Medication Instructions Recorded Confirmed Type ascorbic acid (vitamin C) [Vitamin 500 mg PO BID 02/26/20 02/26/20 History C] vitamin B complex 1 tab PO QAM 02/26/20 02/26/20 History zinc 50 mg PO BID 02/26/20 02/26/20 History Patient History Medical History HUYEN (acute kidney injury) Alcohol abuse High anion gap metabolic acidosis Hyperammonemia Hypocalcemia Intractable vomiting Surgical History No pertinent past surgical history Family History Father Type 2 diabetes mellitus Denies family history of Ovarian cancer Prostate cancer Myocardial infarction Breast cancer Colorectal cancer Social History Smoking Status: Never smoker Second Hand Exposure: No; Hx Alcohol Use: No Hx Substance Use: Yes Last Used Substance Other:: 01/2020 Preferred Language: Bengali Communication Ability: Effective Visual Impairment: No Limitations Hearing Ability: Normal Audio Video Mechanic Required: No Beliefs That Will Affect Care: None marital status: Single Current Living Situation: Spouse current occupational status: employed current occupation: [employer] Other Information That Helps Us Care for You: Yes (increased stress and anx iety; appointment with mental health professional) Feels Safe at Home: Yes Safety Concerns: Feels Safe At This Time Childhood Exposure to Second-Hand Smoke: No caffeine: Yes Dental Care, Regularly: No Physical Activity Frequency: Daily Seatbelt Use: always Sunscreen Use: Yes Assistive Devices: None Review of Systems Review of Systems: Not obtained due to isolation for COVID + status Results & Data ([facility]) Vital Signs (Past 12 Hours) Vital Signs Temp Pulse Pulse Resp BP Pulse Ox 02/29/20 11:22 37 C 97 H 18 96/41 L 97 02/29/20 10:17 110 H 02/29/20 07:24 36.6 C 98 H 18 101/53 L 99 02/29/20 04:00 37 C 99 H 22 110/45 L 93 Laboratory Tests 02/29/20 02/29/20 07:36 07:36 WBC 9.97 Hgb 7.9 L Hct 21.3 L Plt Count 93 L Sodium 125 L Potassium 4.0 Chloride 89 L Carbon Dioxide 25 BUN 48 H Creatinine 2.38 H D Glucose 110 H Total Bilirubin 9.6 H AST 140 H ALT 85 H Alkaline Phosphatase 159 H Albumin 2.2 L PG Care Time/CCT Total # of Minutes Spent Total Time Spent with Patient: Total time spent is greater than 50% in coordination of care (as documented) at patient's floor/unit and/or counseling patient: Coding Level of Care Code 31790 Inpt Consult Level 5 Diagnoses Acute kidney failure N17.9 Anemia D64.9 Hyponatremia E87.1 Alcoholic cirrhosis K70.30 Severe acute respiratory syndrome coronavirus 2 (SARS-CoV-2) detected U07.1
[2020-02-29] MEDS ORDERED: SODIUM CHLORIDE 0.9% 1000ML 1,000 ML IV SCH (12:30)
[2020-02-29 14:34] LABS: Appearance Urine Clear (Clear); Blood Urine Negative (Negative); Color Urine Orange; Glucose Urine UA Negative (Negative); Ketones Urine Negative (Negative); Leukocyte Esterase Urine Trace (Negative); Nitrite Urine Positive (Negative); Protein Urine Negative (Negative); RBC Urine Automated 0-4 /hpf (0-4); Urobilinogen Urine Negative (Negative)
[2020-02-29 14:49] LABS: Bilirubin Urine 1+ (Negative)
[2020-02-29 14:50] LABS: Cast Urine Automated >30 /lpf (0-5); Mucus Urine Present (None Prsent)
[2020-02-29 14:51] LABS: Bacteria Urine Automated 1+ (Negative)
[2020-02-29 15:17] LABS: Protein Creatinine Ratio Urine 0.1 (0-0.2); Sodium Random Urine < 5 mmol/L; Total Protein Urine Random 21.7 mg/dl (0-11.9)
[2020-02-29] MEDS ORDERED: SODIUM CHLORIDE 0.9% 250 ML IV PRN (21:15)
[2020-02-29] MEDS: LORazepam 1 MG TAB PO PRN ×2 (23:30→23:58)
[2020-03-01] MEDS ORDERED: ALBUMIN 25% 12.5 GM/50 ML VIAL IV ONE (03:57)
[2020-03-01] MEDS: OCTREOTIDE ACETATE 100 MCG/ML VIAL SQ SCH ×3 (05:59→22:44)
[2020-03-01 07:41] LABS: Hematocrit (blood only) 20.1 % (42-52); Hemoglobin 7.5 g/dL (14.0-18.0); Mean Corpuscular Hemoglobin 45.5 pg (25-34); Mean Corpuscular Hgb Conc 37.3 g/dL (32-36); Mean Corpuscular Volume 121.8 fL (80-100); Mean Platelet Volume 11.4 fL (7.4-10.4); Platelet Count 89 K/uL (130-400); RDW Coefficient of Variation 14.1 % (11.5-14.5); Red Blood Count 1.65 M/uL (4.7-6.1); White Blood Count 7.49 K/uL (4.8-10.8)
[2020-03-01 08:24] LABS: Albumin Globulin Ratio 1.1 (0.9-2); Albumin Level 2.6 gm/dl (3.4-5.0); BUN Creatinine Ratio 18.5 (10-20); Bilirubin,Total 9.1 mg/dl (0.2-1); Calcium 8.3 mg/dl (8.5-10.1); Creatinine Clr Calc Pharmacy 55.2 ml/min; Est GFR (African American) 32.9; Est GFR (Non-African American) 28.4; Globulin 2.4 gm/dl (2.5-4.0); Potassium 3.9 mmol/L (3.5-5.1)
--- NOTE | 2020-03-01 08:47 | Communication Note ---
Date of Service: March 01, 2020 Chart review. Admitted with COVID PNA Cirrhosis, ascites. Not current candidate for para given COVID status. Started on diureses. [employer] trending up. TB and LFTs downtrending. MELD 33, DF 32 Would recommend holding diuresis and trending kidney function. No acute indication for EGD but if any clinical concern for GI blood loss please recall GI. Patient was seen last week for alcoholic liver disease and ascites. He has had a decrease in his hemoglobin and hematocrit but was without report of hematemesis or melena. Given this we would hold on endoscopic intervention given his recent diagnosis of Covid pneumonia. Given the rise in his creatinine perhaps the diuretics should be discontinued for the meantime. Should the patient have continued worsening we may need to consider referral to a transplant center given his young age. I am not certain that this patient is a good candidate for transplantation given his ongoing alcohol abuse.
[2020-03-01] MEDS: THIAMINE HCL 100 MG TAB PO SCH (09:18)
[2020-03-01] MEDS: MAGNESIUM OXIDE 400 MG TAB PO SCH (09:18)
[2020-03-01] MEDS: FOLIC ACID 1 MG TAB PO SCH (09:18)
[2020-03-01] MEDS: MIDODRINE HCL 2.5 MG TAB PO SCH ×3 (09:18→16:06)
[2020-03-01] MEDS: PANTOprazole 40 MG TAB PO SCH ×2 (09:19→20:24)
[2020-03-01] MEDS: VITAMIN B COMPLEX TAB PO SCH (09:19)
[2020-03-01] MEDS: ASCORBIC ACID 500 MG TAB PO SCH ×2 (09:19→20:22)
[2020-03-01] MEDS: LIDOCAINE 5% 1 PATCH TD SCH (09:27)
[2020-03-01] MEDS: ALBUMIN 25% 12.5 GM/50 ML VIAL IV SCH ×6 (09:47→22:45)
--- NOTE | 2020-03-01 10:37 | Nephrology Progress Note ---
Date of Service March 01, 2020 Assessment & Plan (1) Acute kidney failure: * HUYEN likely due to IV contrast administration in the setting of cirrhosis and intravascular volume contraction * Urine sediment with granular casts c/w ATN * Electrolyte balance is acceptable. No acute indication for HD * Continue albumin, midodrine and octreotide for now * Monitor PRP (2) Anemia: * Consider blood transfusion if Hgb drops < 7.5. This will help restore effective arterial volume (3) Hyponatremia: * mild, stable, asymptomatic * Reflective of poor arterial perfusion and high ADH (4) Alcoholic cirrhosis: * Paracentesis planned once patient is off COVID isolation (5) Severe acute respiratory syndrome coronavirus 2 (SARS-CoV-2) detected: * COVID +. No infiltrate on CXR. Has not required steroid therapy Admission and Anticipated Discharge Date Admission Date: February 26, 2020 Subjective Mr. Longo was seen & examined in his hospital room this morning. He c/o abdominal distention and is anxious for paracentesis. He denied dyspnea or uremic symptoms Review of Systems Constitutional: no fever Eyes: no problem reported Ear, Nose, Mouth, Throat: no problem reported Respiratory: no dyspnea Cardiovascular: + edema; no chest pain Gastrointestinal: + abdominal pain; no nausea and no diarrhea/loose stools Genitourinary: no dysuria, no urinary hesitancy and no hematuria Musculoskeletal: no back pain Integumentary: no rash Neurologic: no dizziness and no confusion Physical Exam Constitutional: + edematous; no acute distress Eyes: + scleral icterus Neck: trachea midline, no thyromegaly Respiratory: normal respiratory effort, lungs clear to auscultation Cardiovascular: Rate/Rhythm: regular rhythm and + tachycardic Extremities: + edema Gastrointestinal (Abdomen): Inspection/Auscultation: + abdomen distended and normal bowel sounds Percussion/Palpation: + ascites, + dullness to percussion and + abdomen firm; abdomen nontender Skin: + jaundice Psychiatric: Orientation: alert and oriented x 3 Affect: + anxious affect Results & Data ([facility]) Vital Signs (Past 12 Hours) Vital Signs Temp Pulse Resp BP BP Pulse Ox 03/01/20 07:28 36.5 C 108 H 20 104/50 L 93 03/01/20 05:57 91/46 L 03/01/20 05:13 93/47 L 03/01/20 03:41 36.8 C 101 H 87/46 L 93 02/29/20 23:58 100/46 L 02/29/20 23:30 36.7 C 100 H 94/45 L 96 Laboratory Tests 02/29/20 02/29/20 03/01/20 Unknown Unknown 07:09 WBC 7.49 Hgb 7.5 L Hct 20.1 L* Plt Count 89 L Sodium Potassium Chloride Carbon Dioxide BUN Creatinine Glucose Calcium Total Bilirubin AST ALT Alkaline Phosphatase Albumin Urine Color [place] Urine Appearance Clear Ur Specific [place] 1.020 Urine Protein Negative Urine Glucose (UA) Negative Urine Blood Negative Urine Nitrite Positive A Urine RBC (Auto) 0-4 U Hyaline Cast (Auto) >30 H Ur Random Sodium < 5 Protein/Creatinin Ratio 0.1 03/01/20 07:09 WBC Hgb Hct Plt Count Sodium 128 L Potassium 3.9 Chloride 92 L Carbon Dioxide 27 BUN 51 H Creatinine 2.78 H D Glucose 101 H Calcium 8.3 L Total Bilirubin 9.1 H AST 101 H ALT 66 Alkaline Phosphatase 133 H Albumin 2.6 L Urine Color Urine Appearance Ur Specific [place] Urine Protein Urine Glucose (UA) Urine Blood Urine Nitrite Urine RBC (Auto) U Hyaline Cast (Auto) Ur Random Sodium Protein/Creatinin Ratio Laboratory Tests 02/29/20 02/29/20 Unknown Unknown Urine Color [place] Urine Appearance Clear Urine pH 5.0 Ur Specific [place] 1.020 Urine Protein Negative Urine Glucose (UA) Negative Urine Blood Negative Urine Nitrite Positive A Urine RBC (Auto) 0-4 Granular Casts 1-5 H Ur Random Sodium < 5 Protein/Creatinin Ratio 0.1 PG Care Time/CCT Total # of Minutes Spent Total Time Spent with Patient: Total time spent is greater than 50% in coordination of care (as documented) at patient's floor/unit and/or counseling patient: Coding Level of Care Code 44372 Subseq Hosp Care Lvl 3 Diagnoses Acute kidney failure N17.9 Anemia D64.9 Hyponatremia E87.1 Alcoholic cirrhosis K70.30 Severe acute respiratory syndrome coronavirus 2 (SARS-CoV-2) detected U07.1
[2020-03-01 12:27] LABS: Iron 46 mcg/dl (35-175); Transferrin 79 mg/dl (200-360); Transferrin Percent Saturation 41 % (20-50)
--- NOTE | 2020-03-01 20:56 | Communication Note ---
Date of Service: March 01, 2020 Pt reports several hours of increasing L lower extremity pain, tenderness to rubbing, and redness. On bedside assessment LLE from ankle to knee with asym metrical rubor, warmth, and tenderness to touch. Prominent pitting edema symmetrical with R. Afebrile. Given critical illness and acute onset with progression will tx for both gram positives and gram negative cellulitis. Due to risk of coagulopathy in the sitting of severe liver disease with asymmetric leg swelling LLE doppler ordered to assess for DVT.
[2020-03-01] MEDS ORDERED: CEFEPIME 2,000 MG in SYRINGE 0 ML IV SCH (21:00)
[2020-03-01] MEDS: DAPTOmycin 425 MG in SYRINGE 0 ML IV SCH (21:29)
--- NOTE | 2020-03-01 22:52 | Hospitalist Progress Note ---
Date of Service March 01, 2020 Assessment & Plan (1) Alcoholic cirrhosis: Alcoholic liver cirrhosis with ascites - suspected main cause of his shortness of breath could have some acute hepatitis, not sure he is being honest about timing of last drink, his AST and ALT were elevated his says that she never knows when he is drinking, she did not know about the "morrell" he went on in late December Child-Anton C: life expectancy 1-3 years, MELD 33 based off today's numbers: 52.6% 3 month mortality, previously his score was 19 in the fall, clearly getting worse Maddrey's Discriminant function 25.5 on admission, not high enough to warrant Prednisolone, d/w GI treated ascites with spironolactone 100mg daily and Lasix 40mg qAM however, Cr going up hold on diuretics for now as he is intravascularly depleted d/w radiology, they can perform paracentesis (diagnostic and therapeutic) on Sunday, he no longer needs COVID restrictions confirmed with radiology that this should be done tomorrow prognosis and clinical status getting worse by the day Cr is rising to 2.78 which is probably most pressing issue, see below anemia, thrombocytopenia, low albumin, INR 1.7 MADDREY score is now above 32. May benefit from prednisolone, had discussion with GI, will hold prednisolone as may consider EGD tomorrow. long talk with patient, and his about severity of disease. Explained that patient may benefit from liver transplant. Had discussion with [facility] Liver transplant specialist electronics assembler and tester on 03/01, Patient is not a candidate for transplant at this moment given multiple admissions to hospital for alcoholism and knowledge and refusal of going to rehab in his previous admission in 2019 and already having significant liver damage by that time. Did not call [facility] as they are more strict in regards to liver transplant. wanted patient transferred as she wanted paracenthesis done today and felt like reggie was a lack of plan. Explained to her that patient is on adequate medical manegement for cirrhosis, and now will need to monitor how patient improves. Had informed her that I discussed plan with [facility] provider and no indication for transfer at this time as no other procedures are indicated at this time. His alcoholism and liver cirrhosis has been slowly brewing and will not improve by overnight. Explained that his ascities is a symptoms of his liver cirrhosis but removing fluid will not improve his cirrhosis, and vielka need to be careful with his volume status. Despite all this, biirrubin has been improving, AST/ALT improving. hopefully INR starts to trend in right direction. (2) AH (alcoholic hepatitis): initially suspected this, not sure if has been drinking more recently than early January he is not honest about his drinking, will not even tell his when he has been drinking no role for Prednisolone AST and ALT coming down (3) Acute kidney failure: certainly makes for poorer prognosis with cirrhosis Cr is rising to 2.3, could be effect of Spironolactone and Lasix certainly he is volume overloaded on exam but likely intravascularly dry urine sodium very low at < 5 suggesting prerenal etiology of the rise in Cr and making HRS likely d/w Dr Fuchs, will give NSS fluid challenge increase Albumin to 25gm q8, continue Midodrine and Octreotide if his Hb drops further Dr. Fuchs would recommend transfusion as the blood would help with his intravascular volume should get paracentesis tomorrow which could help repeat BMP in the morning (4) Anemia: macrocytic, folate low - started on folic acid 1gm daily on 02/26 vitamin b12 normal starting to drop more during admission, down to 7.9 from 8.2 no evidence to support active blood loss CT scan did note some gastric varices move to tele for closer monitoring, he is tachycardic today other causes would be bone marrow suppression with alcohol use, splenomegaly d/w Dr. Ross, he will notify [facility] about dropping Hb and potential need for EGD make NPO after midnight in case they want to perform scope tomorrow check Hb in the morning as well as type/cross for two units, if Hb dropping further would transfuse (5) Thrombocytopenia: likely due to cirrhosis, splenomegaly continue to follow holding medical DVT prophylaxis due to INR 1.7 and low platelets (6) Hyponatremia: Secondary to hypervolemia. lower at 128 today (7) Elevated bilirubin: Secondary to alcoholic hepatitis as above CT A/P : no signs of obstruction slightly improved at 9.6 no need for prednisolone per GI (8) Elevated INR: Secondary to liver cirrhosis/hepatitis. INR 1.5 on admission, up slightly at 1.7 (9) Acid reflux: c/o heartburn, place on Protonix 40mg BID due to dropping Hb Tums PRN (10) Severe acute respiratory syndrome coronavirus 2 (SARS-CoV-2) detected: No pneumonia on CXR. Do not suspect he is substantially affected by this. No need for dexamethasone symptoms of sore throat, malaise, muscle aches started around 02/11, had positive test outpatient on 02/16 he is over two weeks from start of symptoms, should not be contagious can be removed from negative pressure room per infection control Removed precautions on 03/01 would be safe for paracentesis and/or EGD tomorrow (11) Hypomagnesemia: Magnesium oxide 400 mg p.o. daily. Monitor as outpatient Admission and Anticipated Discharge Date Admission Date: February 26, 2020 Subjective Patient reports feeling comfortable. He is lying in bed flat. He reports being concerned about not getting paracenthesis in the hospital. When informed that his and mother wants him transferred, he disagrees with them and feels they do not understand what is going on. Patient does feel frustrated though by his lack of improvement. He does report though that his belly being filled with fluid does bring some mild to moderate discomfort, but denies any difficulty breathing. Review of Systems Review of Systems: All systems reviewed & are unremarkable except as noted in HPI & below Physical Exam Physical Exam: Constitutional: well developed, well nourished and + edematous; no acute distress Eyes: normal visual silva by confrontation, PERRL and EOM intact bilaterally; sclerae not anicteric Neck: trachea midline, no thyromegaly Respiratory: normal respiratory effort, lungs clear to auscultation Cardiovascular: Rate/Rhythm: regular rhythm and + tachycardic Heart Sounds: normal S1 and normal S2; no murmur Extremities: normal capillary refill and + edema Gastrointestinal (Abdomen): Inspection/Auscultation: + abdomen distended, normal bowel sounds and + abdominal edema Percussion/Palpation: + ascites, + dullness to percussion and + abdomen firm; abdomen nontender Musculoskeletal: no cyanosis or clubbing, extremities motor strength 5/5 Skin: normal turgor and + jaundice; no rashes and no wound Neurologic: patellar DTR's 2+ bilat, sensation intact and PERRL, EOMI, accommodation nl, no face palsy, no dysarthria Psychiatric: Orientation: alert and oriented x 3 Affect: + anxious affect Lymphatic: no cervical or axillary lymphadenopathy Results & Data Results & Data ([facility]) Vital Signs (Past 12 Hours) Vital Signs Temp Pulse Pulse Resp BP BP Pulse Ox 03/01/20 21:10 103 H 03/01/20 20:33 36.8 C 105 H 20 112/62 93 03/01/20 19:03 36.6 C 102 H 22 121/59 L 96 03/01/20 15:32 36.6 C 99 H 22 99/54 L 94 03/01/20 11:03 36.6 C 103 H 17 111/61 95 PG Care Time/CCT Total # of Minutes Spent Total Time Spent with Patient: Total time spent is greater than 50% in coordination of care (as documented) at patient's floor/unit and/or counseling patient: Prolonged Care Time Prolonged Care Time: Yes Total Prolonged Care Time: 92 8:00 to 8:15 10:10 to 10:20 12:15 to 12:35 17:15 to 17:40 20:00 to 20:22 Coding Level of Care Code 33321 Subseq Hosp Care Lvl 3 Diagnoses Alcoholic cirrhosis K70.30 AH (alcoholic hepatitis) K70.10 Ascites presence: unspecified Acute kidney failure N17.9 Anemia D64.9 Thrombocytopenia D69.6 Hyponatremia E87.1 Elevated bilirubin R17 Elevated INR R79.1 Acid reflux K21.9 Severe acute respiratory syndrome coronavirus 2 (SARS-CoV-2) detected U07.1 Hypomagnesemia E83.42 Additional Codes Prolonged Care Time - Prolonged Care Time: Yes ([id number]) (1) AH (alcoholic hepatitis) Ascites presence: unspecified Qualified Code(s): K70.10 - Alcoholic hepatitis without ascites
--- NOTE | 2020-03-02 06:39 | Ultrasound Report ---
LEFT LOWER EXTREMITY VENOUS DOPPLER CLINICAL HISTORY: LLE acute swelling, hepatic coagulopathy COMPARISON STUDY: Bilateral lower extremity venous Doppler ultrasound February 26, 2020. TECHNIQUE: Sonography of the deep venous system of the left lower extremity was performed. Compressi on and augmentation were evaluated. FINDINGS: The left common femoral, superficial femoral and popliteal veins were compressible. Augmen tation was normal. Flow was shown within the deep calf vessels. Note is made of subcutaneous edema of the left lower extremity. IMPRESSION: No evidence of deep venous thrombus within the left lower extremity. ACT 112: Negative or not required by law. Electronically signed by: Enrike Burnham M.D. 03/02/2020 6:38 AM
[2020-03-02] MEDS: OCTREOTIDE ACETATE 100 MCG/ML VIAL SQ SCH ×3 (06:45→22:59)
[2020-03-02 07:28] LABS: Hematocrit (blood only) 20.5 % (42-52); Hemoglobin 7.4 g/dL (14.0-18.0); Mean Corpuscular Hemoglobin 43.8 pg (25-34); Mean Corpuscular Hgb Conc 36.1 g/dL (32-36); Mean Corpuscular Volume 121.3 fL (80-100); Mean Platelet Volume 11.8 fL (7.4-10.4); Platelet Count 100 K/uL (130-400); RDW Coefficient of Variation 14.1 % (11.5-14.5); RDW Standard Deviation 62.2 fL (36.4-46.3); Red Blood Count 1.69 M/uL (4.7-6.1); White Blood Count 8.34 K/uL (4.8-10.8)
[2020-03-02 08:03] LABS: Albumin Globulin Ratio 1.1 (0.9-2); Albumin Level 2.9 gm/dl (3.4-5.0); BUN Creatinine Ratio 18.2 (10-20); Bilirubin,Total 9.9 mg/dl (0.2-1); Calcium 8.2 mg/dl (8.5-10.1); Creatinine Clr Calc Pharmacy 49.6 ml/min; Est GFR (African American) 29.4; Est GFR (Non-African American) 25.4; Ferritin 1607.7 ng/ml (8-388); Globulin 2.6 gm/dl (2.5-4.0); Potassium 3.7 mmol/L (3.5-5.1); Total Protein 5.5 gm/dl (6.4-8.2)
[2020-03-02 08:46] LABS: Partial Thromboplastin Ratio 1.6; Prothrombin Time 20.4 Seconds (9.0-12.0)
--- NOTE | 2020-03-02 08:57 | Gastroenterology Progress Note ---
Date of Service March 02, 2020 Assessment & Plan (1) Alcoholic cirrhosis: 34 year old male admitted w COVID -19 infection, sepsis, ETOH cirrhosis with suspected ETOH hepatitis w/ worsening hepatic and renal function MELD: 35 [facility] Discriminant Function score: 46.7 - NPO for EGD for anemia this AM - Start broad spectrum ABX like ceftriaxone - Daily MELD labs - Check ammonia - Consider adding lactulose titrated to 2-3 BMs daily - Consider adding Xifaxan 550 BID pending ammonia level - Low NA diet - Hold diuresis - Appreciate nephrology input - Urine electrolytes including urine NA - Diagnostic paracenetesis to rule out infection - Please sent cell count, culture, albumin and protien - Will need albumin 25% 25 G before and after - No more than 4-5L off - Strict ETOH cessation advised - Consider transfer to tertiary care center Thank you for allowing us to participate in the care of this patient. Please call with any acute changes, questions or concerns. Please see addendum below with additional recommendation from my supervising physician. (2) Severe acute respiratory syndrome coronavirus 2 (SARS-CoV-2) detected: Admission and Anticipated Discharge Date Admission Date: February 26, 2020 Supervising Physician Co-Signing Physician Notes I saw and evaluated the patient this morning. Given the low hemoglobin and hematocrit upper endoscopy has been requested by the internal medicine service. Of note the patient has not had melena hematochezia nor hematemesis. His mental status seems to be stable however I wonder if he may be developing withdrawal symptoms. With regard to use of steroids in this patient we would suggest an updated INR as the last one was done several days ago. Recommendations Upper endoscopy scheduled for later this morning Agree with paracentesis Consider restarting an antibiotic for SBP coverage with ceftriaxone or a quinolone Patient may be best served at a transplant center with subspecialty expertise and hep otology care given his young age Subjective GI asked to re-evaluate Mr. Longo. Pt was seen and evaluated, chart reviewed. He is drowsy, awakens to name and is alert to person, place and time during my evaluation. Denies any abd pain. Is lying flat in bed and appears to be working to breath. Denies nausea/vomiting. No GERD No reported black/bloody stools. Review of Systems Constitutional: no fever, no chills and no fatigue Respiratory: + dyspnea; no cough Cardiovascular: + dyspnea; no chest pain Gastrointestinal: no abdominal pain, no nausea, no hematemesis, no cramping, no change in bowel habits, no blood in stools and no melena Physical Exam Constitutional: + acute distress, + ill appearing (acute and chonically ill) and + obese Eyes: icterus Neck: trachea midline Respiratory: normal respiratory effort; no respiratory distress Cardiovascular: Rate/Rhythm: + tachycardic Heart Sounds: no murmur Gastrointestinal (Abdomen): Percussion/Palpation: abdomen soft; abdomen nontender and no guarding Skin: + jaundice Results & Data ([facility]) Vital Signs (Past 12 Hours) Vital Signs Temp Pulse Pulse Resp BP Pulse Ox 03/02/20 08:00 36.8 C 97 H 26 H 110/68 98 03/02/20 05:00 36.6 C 98 H 24 129/61 96 03/02/20 00:13 37.3 C 104 H 21 95/55 L 91 03/02/20 00:05 105 H 03/01/20 21:10 103 H Laboratory Results 03/02/20 03/02/20 03/02/20 Range/Units 08:05 06:56 06:56 WBC 8.34 (4.8-10.8) K/uL RBC 1.69 L (4.7-6.1) M/uL Hgb 7.4 L (14.0-18.0) g/dL Hct 20.5 L* (42-52) % MCV 121.3 H (80-100) fL MCH 43.8 H (25-34) pg MCHC 36.1 H (32-36) g/dL RDW Std Deviation 62.2 H (36.4-46.3) fL RDW Coeff of Alvaro 14.1 (11.5-14.5) % Plt Count 100 L (130-400) K/uL MPV 11.8 H (7.4-10.4) fL PT 20.4 H (9.0-12.0) Seconds INR 2.0 H (0.9-1.1) APTT 44.0 H (21.0-31.0) Seconds PTT Ratio 1.6 Sodium 129 L (136-145) mmol/L Potassium 3.7 (3.5-5.1) mmol/L Chloride 91 L (98-107) mmol/L Carbon Dioxide 27 (21-32) mmol/L Anion Gap 11.0 (3-11) BUN 56 H (7-18) mg/dl Creatinine 3.05 H (0.6-1.4) mg/dl Est Cr Clr Drug Dosing 49.6 ml/min Est GFR ( Amer) 29.4 Est GFR (Non-Af Amer) 25.4 BUN/Creatinine Ratio 18.2 (10-20) Glucose 109 H (70-99) mg/dl Calcium 8.2 L (8.5-10.1) mg/dl Iron (35-175) mcg/dl Transferrin (200-360) mg/dl Transferrin % Sat (20-50) % Ferritin 1607.7 H (8-388) ng/ml Total Bilirubin 9.9 H (0.2-1) mg/dl AST 92 H (15-37) U/L ALT 61 (12-78) U/L Alkaline Phosphatase 120 H (45-117) U/L Total Protein 5.5 L (6.4-8.2) gm/dl Albumin 2.9 L (3.4-5.0) gm/dl Globulin 2.6 (2.5-4.0) gm/dl Albumin/Globulin Ratio 1.1 (0.9-2) 03/01/20 Range/Units 07:09 WBC (4.8-10.8) K/uL RBC (4.7-6.1) M/uL Hgb (14.0-18.0) g/dL Hct (42-52) % MCV (80-100) fL MCH (25-34) pg MCHC (32-36) g/dL RDW Std Deviation (36.4-46.3) fL RDW Coeff of Alvaro (11.5-14.5) % Plt Count (130-400) K/uL MPV (7.4-10.4) fL PT (9.0-12.0) Seconds INR (0.9-1.1) APTT (21.0-31.0) Seconds PTT Ratio Sodium (136-145) mmol/L Potassium (3.5-5.1) mmol/L Chloride (98-107) mmol/L Carbon Dioxide (21-32) mmol/L Anion Gap (3-11) BUN (7-18) mg/dl Creatinine (0.6-1.4) mg/dl Est Cr Clr Drug Dosing ml/min Est GFR ( Amer) Est GFR (Non-Af Amer) BUN/Creatinine Ratio (10-20) Glucose (70-99) mg/dl Calcium (8.5-10.1) mg/dl Iron 46 (35-175) mcg/dl Transferrin 79 L (200-360) mg/dl Transferrin % Sat 41 (20-50) % Ferritin (8-388) ng/ml Total Bilirubin (0.2-1) mg/dl AST (15-37) U/L ALT (12-78) U/L Alkaline Phosphatase (45-117) U/L Total Protein (6.4-8.2) gm/dl Albumin (3.4-5.0) gm/dl Globulin (2.5-4.0) gm/dl Albumin/Globulin Ratio (0.9-2)
[2020-03-02] MEDS: ALBUMIN 25% 12.5 GM/50 ML VIAL IV SCH ×4 (09:29→16:27)
[2020-03-02] MEDS ORDERED: MIDAZOLAM HCL 1 MG/ML 2ML VIAL ONE (09:58)
[2020-03-02] MEDS ORDERED: fentaNYL citrate 100 MCG/2 ML VIAL ONE (09:58)
[2020-03-02] MEDS ORDERED: PROPOFOL IV EMULSION 10 MG/ML 20 ML VIAL IV ONE (09:59)
[2020-03-02] MEDS ORDERED: LIDOCAINE HCL 2% 2 ML VIAL/AMP(20MG/ML) INFIL ONE (09:59)
--- NOTE | 2020-03-02 10:11 | Anesthesiology Consultation ---
Date of Service March 02, 2020 Assessment & Plan Chart Review Chart Review: Acceptable Risk for Surgery Consults Requested none History Surgery Operation Date: 03/02/20 09:35 Proposed Procedures p Esophagogastroduodenoscopy Dr Sergio Hill, Height/Weight Height: 6 ft 1 in Weight: 137.2 kg Allergies Allergy/AdvReac Type Severity Reaction Status Date / Time No Known Allergies Allergy Verified 02/26/20 11:43 Medications Home Medications Medication Instructions Recorded Confirmed Last Taken ascorbic acid (vitamin C) [Vitamin 500 mg PO BID 02/26/20 02/26/20 02/25/20 C] vitamin B complex 1 tab PO QAM 02/26/20 02/26/20 02/25/20 zinc 50 mg PO BID 02/26/20 02/26/20 02/25/20 Active Medications Generic Name Dose Route Start Last Admin Trade Name Freq PRN Reason Stop Dose Admin Ascorbic Acid 500 mg 02/26/20 21:00 03/01/20 20:22 Ascorbic Acid 500 Mg Tab PO 03/27/20 20:59 500 mg BID WAI Administration Folic Acid 1 mg 02/27/20 09:00 03/01/20 09:18 Folic Acid 1 Mg Tab PO 03/28/20 08:59 1 mg QAM WAI Administration Albumin Human 12.5 gm in 50 mls @ 50 mls/hr 02/29/20 14:00 03/02/20 09:29 Albumin 25% IV 03/04/20 10:59 50 mls/hr 0900,1000,1400,1500,2100,2200 WAI Administration Daptomycin 425 mg/ Syringe 8.5 mls @ 4.25 mls/min 03/01/20 21:00 03/01/20 21:29 IV 03/08/20 20:59 4.25 mls/min Q24H WAI Administration Protocol Cefepime HCl 2,000 mg/ Syringe 20 mls @ 5 mls/min 03/01/20 21:00 03/01/20 21:29 IV 03/08/20 20:59 5 mls/min Q24H WAI Administration Protocol Lidocaine 1 patch 02/29/20 09:00 03/01/20 09:27 Lidocaine 5% 1 Patch TD 03/30/20 08:59 Not Given QAM WAI Lorazepam 1 mg 02/28/20 16:15 02/29/20 23:58 Lorazepam 1 Mg Tab PO 03/29/20 16:14 1 mg Q8H PRN Administration Anxiety/Insomnia Magnesium Oxide 400 mg 02/27/20 13:30 03/01/20 09:18 Magnesium Oxide 400 Mg Tab PO 03/28/20 13:29 400 mg QAM WAI Administration Midodrine 5 mg 02/28/20 17:00 03/01/20 16:06 Midodrine Hcl 2.5 Mg Tab PO 03/29/20 16:59 5 mg TID@0800,1200,1700 WAI Administration Miscellaneous 1 ea 02/29/20 21:00 03/01/20 20:25 Remove Lidoderm Patch N/A 03/30/20 20:59 Not Given DAILY@2100 WAI Octreotide Acetate 100 mcg 02/28/20 14:00 03/02/20 06:45 Octreotide Acetate 100 Mcg/Ml Vial SQ 03/29/20 13:59 100 mcg Q8 WAI Administration Pantoprazole Sodium 40 mg 02/28/20 21:00 03/01/20 20:24 Pantoprazole 40 Mg Tab PO 03/29/20 20:59 40 mg BID WAI Administration Thiamine HCl 100 mg 02/27/20 09:00 03/01/20 09:18 Thiamine Hcl 100 Mg Tab PO 03/28/20 08:59 100 mg QAM WAI Administration Vitamin B Complex 1 tab 02/27/20 09:00 03/01/20 09:19 Vitamin B Complex Tab PO 03/28/20 08:59 1 tab QAM WAI Administration NPO Date Last Intake of Fluids: 03/01/20 Time Last Intake of Fluids: 18:00 Date Last Intake of Solids: 03/01/20 Time Last Intake of Solids: 18:00 Past Medical History Medical History HUYEN (acute kidney injury) Alcohol abuse High anion gap metabolic acidosis Hyperammonemia Hypocalcemia Intractable vomiting Past Family History Family History Father Type 2 diabetes mellitus Denies family history of Ovarian cancer Prostate cancer Myocardial infarction Breast cancer Colorectal cancer Past Surgical History Surgical History No pertinent past surgical history Social History Smoking Status: Never smoker Hx Alcohol Use: No Alcohol type: beer and hard liquor alcohol intake frequency: 3 or more drinks per day Alcohol Intake Frequency Comment: stopped drinking 11/2018 and drank again 01/2020 Hx Substance Use: Yes substance use type: marijuana Last Used Substance Other:: 01/2020 Physical Exam Vital Signs Last Vital Signs Temp 36.9 C 03/02/20 10:06 Pulse 97 H 03/02/20 10:06 Resp 25 H 03/02/20 10:06 BP 126/58 L 03/02/20 10:06 Pulse Ox 100 03/02/20 10:06 Testing Laboratory Results 03/02/20 06:56 03/02/20 06:56 PT 20.4 Seconds (9.0-12.0) H 03/02/20 08:05 INR 2.0 (0.9-1.1) H 03/02/20 08:05 APTT 44.0 Seconds (21.0-31.0) H 03/02/20 08:05 Urine Color [place] 02/29/20 Unknown Urine Appearance Clear (Clear) 02/29/20 Unknown Urine pH 5.0 (4.5-7.5) 02/29/20 Unknown Ur Specific [place] 1.020 (1.000-1.030) 02/29/20 Unknown Urine Protein Negative (Negative) 02/29/20 Unknown Urine Glucose (UA) Negative (Negative) 02/29/20 Unknown Urine Ketones Negative (Negative) 02/29/20 Unknown Urine Nitrite Positive (Negative) A 02/29/20 Unknown Ur Leukocyte Esterase Trace (Negative) H 02/29/20 Unknown Urine WBC (Auto) 5-10 /hpf (0-5) H 02/29/20 Unknown Urine RBC (Auto) 0-4 /hpf (0-4) 02/29/20 Unknown U Hyaline Cast (Auto) >30 /lpf (0-5) H 02/29/20 Unknown U Epithel Cells (Auto) 5-10 /lpf (0-5) H 02/29/20 Unknown Urine Bacteria (Auto) 1+ (Negative) H 02/29/20 Unknown Blood Type O Positive 03/01/20 07:09 Antibody Screen NEGATIVE 03/01/20 07:09 02/27/20 03:00 Urine Culture - Final Urine,Clean Catch Three types of organisms present, all low counts probable skin jonathan. No further identifications or sensitivities to follow. 02/26/20 17:07 Aerobic Blood Culture - Preliminary Blood No growth in Aerobic bottle after 48 hours. Anaerobic Blood Culture - Preliminary No growth in Anaerobic bottle after 48 hours. 02/26/20 17:08 Aerobic Blood Culture - Preliminary Blood No growth in Aerobic bottle after 48 hours. Anaerobic Blood Culture - Preliminary No growth in Anaerobic bottle after 48 hours.
--- NOTE | 2020-03-02 10:42 | Post Operative Brief Note ---
Immediate Post Op Note v1 Date of Surgery March 02, 2020 Pre & Post Diagnosis Operation Date: 03/02/20 09:35 Pre-Op Diagnosis: Anemia Post-Op Diagnosis: Esophageal Varices Grade I I identified the patient and participated in the time-out.: Yes Procedure Operation Date: 03/02/20 09:35 Actual Procedures p Esophagogastroduodenoscopy - Katarzyna Hill DO Surgeon Katarzyna Hill DO Event Executive none Estimated Blood Loss 0 Findings Consistent with Post-Op Diagnosis
--- NOTE | 2020-03-02 10:42 | GI REPORT ---
Patient Name: Andres Longo Procedure Date: 03/02/2020 9:59 AM Date of : 1985 Admit Type: Inpatient Age: 34 Gender: Male Attending MD: Katarzyna Hill DO Procedure: Upper GI endoscopy Providers: Katarzyna Hill DO Referring MD: Jignesh Chavez Md, Efrain Dubon M.d. Indications: Portal hypertension with suspected esophageal varices Medicines: Monitored Anesthesia Care Complications: No immediate complications. Estimated blood loss: Minimal. Estimated Blood Loss: Estimated blood loss was minimal. Procedure: Pre-Anesthesia Assessment: - Prior to the procedure, a History and Physical was performed, and patient medications, allergies and sensitivities were reviewed. The patient's tolerance of previous anesthesia was reviewed. - The risks and benefits of the procedure and the sedation options and risks were discussed with the patient. All questions were answered and informed consent was obtained. - Patient identification and proposed procedure were verified prior to the procedure by the physician, the nurse and the narrow gauge brakeman. The procedure was verified in the procedure room. - Pre-procedure physical examination revealed no contraindications to sedation. - ASA Grade Assessment: IV - A patient with severe systemic disease that is a constant threat to life. - After reviewing the risks and benefits, the patient was deemed in satisfactory condition to undergo the procedure. - The anesthesia plan was to use monitored anesthesia care (MAC). - Immediately prior to administration of medications, the patient was re-assessed for adequacy to receive sedatives. - The heart rate, respiratory rate, oxygen saturations, blood pressure, adequacy of pulmonary ventilation, and response to care were monitored throughout the procedure. - The physical status of the patient was re-assessed after the procedure. After obtaining informed consent, the endoscope was passed under direct vision. Throughout the procedure, the patient's blood pressure, pulse, and oxygen saturations were monitored continuously. The Endoscope was introduced through the mouth, and advanced to the third part of duodenum. The upper GI endoscopy was accomplished without difficulty. The patient tolerated the procedure well. Findings: The upper third of the esophagus and middle third of the esophagus were normal. Two columns of grade I varices with no stigmata of recent bleeding were found in the lower third of the esophagus. They were 3 mm in largest diameter. No red fady signs were present. The entire examined stomach was normal. The examined duodenum was normal. Impression: - Normal upper third of esophagus and middle third of esophagus. - Grade I esophageal varices with no stigmata of recent bleeding. - Normal stomach. - Normal examined duodenum. Recommendation: - Return patient to [facility] for ongoing care. - Observe patient's clinical course. - No evidence of recent or active bleeding from the upper gastrointestinal tract Katarzyna Hill D.O. Katarzyna Hill, 03/02/2020 10:42:05 AM This report has been signed electronically. Note Initiated On: 03/02/2020 9:59 AM Number of Addenda: 0 I attest to the content of the Intraoperative Record and orders documented therein, exceptions below {[id number]}
--- NOTE | 2020-03-02 10:46 | Communication Note ---
Date of Service: March 02, 2020 The patient underwent upper endoscopy this morning. Findings: Grade 1 esophageal varices normal stomach normal small intestine Impression: Patient admitted with several issues to include Covid and what appears to be alcoholic hepatitis. I would suggest a paracentesis to screen for evidence of infection. If negative for evidence of SBP then prednisolone could certainly be tried on this patient. Recomendations Continue with broad-spectrum antibiotic coverage Await results from paracentesis Negative for evidence of SBP would recommend prednisone 40 mg/day Begin vitamin K 5 mg 1 time daily
[2020-03-02] MEDS ORDERED: PHENYLEPHRINE 100MCG/ML 5ML SYR ONE (10:53)
--- NOTE | 2020-03-02 11:42 | Anesthesiology Progress Note ---
Date of Service March 02, 2020 Anesthesia Post Procedure Vital Signs Vital Signs: Temp Pulse Pulse Pulse Resp BP BP 03/02/20 11:10 36.5 C 92 H 31 H 99/48 L 03/02/20 11:00 36.5 C 92 H 53 H 102/53 L 03/02/20 10:50 36.5 C 93 H 40 H 96/26 L 03/02/20 10:06 36.9 C 97 H 25 H 126/58 L 03/02/20 08:00 36.8 C 97 H 26 H 110/68 03/02/20 05:00 36.6 C 98 H 24 129/61 03/02/20 00:13 37.3 C 104 H 21 95/55 L 03/02/20 00:05 105 H 03/01/20 21:10 103 H 03/01/20 20:33 36.8 C 105 H 20 112/62 03/01/20 19:03 36.6 C 102 H 22 121/59 L 03/01/20 15:32 36.6 C 99 H 22 99/54 L Pulse Ox 03/02/20 11:10 95 03/02/20 11:00 97 03/02/20 10:50 96 03/02/20 10:06 100 03/02/20 08:00 98 03/02/20 05:00 96 03/02/20 00:13 91 03/02/20 00:05 03/01/20 21:10 03/01/20 20:33 93 03/01/20 19:03 96 03/01/20 15:32 94 Pain Intensity Left Upper Abdomen: Pain Intensity: 8 Bilateral Back: Pain Intensity: 5 Transfer of Care Handoff Completed per policy Notes Mental Status: alert / awake / arousable and participated in evaluation Patient Amnestic to Procedure: Yes Nausea / Vomiting: adequately controlled Pain: adequately controlled Airway Patency, RR, SpO2: stable & adequate BP & HR: stable & adequate Hydration State: stable & adequate Anesthetic Complications: no major complications apparent
[2020-03-02] MEDS: LIDOCAINE 5% 1 PATCH TD SCH (11:49)
[2020-03-02] MEDS: VITAMIN B COMPLEX TAB PO SCH (11:51)
[2020-03-02] MEDS: FOLIC ACID 1 MG TAB PO SCH (11:51)
[2020-03-02] MEDS: THIAMINE HCL 100 MG TAB PO SCH (11:51)
[2020-03-02] MEDS: MAGNESIUM OXIDE 400 MG TAB PO SCH (11:51)
[2020-03-02] MEDS: PANTOprazole 40 MG TAB PO SCH ×2 (11:51→20:28)
[2020-03-02] MEDS: ASCORBIC ACID 500 MG TAB PO SCH ×2 (11:51→20:28)
[2020-03-02] MEDS: MIDODRINE HCL 2.5 MG TAB PO SCH ×3 (11:56→16:26)
--- NOTE | 2020-03-02 13:58 | Hospitalist Progress Note ---
Date of Service March 02, 2020 Assessment & Plan (1) Alcoholic cirrhosis: Alcoholic liver cirrhosis with ascites - suspected main cause of his shortness of breath. Could have some acute hepatitis, not sure he is being honest about timing of last drink, his AST and ALT were elevated. Grade 1 esophageal varices seen on EGD on 03/[address] Dubon discussed with [facility] Liver Tx team on 03/01/2020, and he was felt to not be a transplant candidate. Transfer turned down. - MELD was 36 on 03/02: 52.6% 3 month mortality - Marshal's DF was 25.5 on admission. - Plan for paracentesis today at 2:00pm -> If negative, can start prednisone 40 mg PO daily - Ammonia elevated on 03/02 -> Start lactulose and rifaximin (2) AH (alcoholic hepatitis): Initially suspected this; not sure if has been drinking more recently than early January. He is not honest about his drinking; will not even tell his when he has been drinking. - ANUP initiated today. - As above (3) Acute kidney failure: Certainly makes for poorer prognosis with cirrhosis. - Concern for HRS, though nephrology feel contrast-induced ATN more likely at this point. - Started on albumin; will give through paracentesis per GI, then stop. - Continue midodrine and octreotide (4) Anemia: Macrocytic. Likely from low folate and alcohol use. - Continue folic acid 1 gm daily. B12 normal on 02/29/2020. - Per nephrology, would transfuse for hgb < 7.5. Will discuss tx with patient today. (5) Thrombocytopenia: Likely due to cirrhosis, splenomegaly. - No bleeding noted on EGD on 03/02 - Continue to follow (6) Hyponatremia: Secondary to hypervolemia. - Stable today (7) Acid reflux: C/o heartburn. - Continue PPI PO BID & Tums PRN (8) Severe acute respiratory syndrome coronavirus 2 (SARS-CoV-2) detected: No pneumonia on CXR. Do not suspect he is substantially affected by this. No need for dexamethasone. Symptoms of sore throat, malaise, & muscle aches started around 02/11. Had positive test outpatient on 02/16. - He is over two weeks from start of symptoms, should not be contagious. (9) DVT prophylaxis: SCDs - Holding heparin for increased INR and low platelets Admission and Anticipated Discharge Date Admission Date: February 26, 2020 Subjective Somewhat restless and confused for me on my interview. Pleasant, but didn't really open eyes. Reports no fevers/chills, chest pain, shortness of breath, abdominal pain, nausea, or vomiting. Physical Exam Constitutional: WD/WN, vitals as above + acute distress Eyes: EOM intact bilaterally; no conjunctival abnormality ENMT: external ear and nose normal, oropharynx normal Neck: trachea midline, no thyromegaly normal visual inspection Respiratory: + labored breathing and + tachypneic; no respiratory distress Auscultation: lungs clear to auscultation bilaterally Cardiovascular: Rate/Rhythm: regular rhythm and + tachycardic Heart Sounds: normal S1 and normal S2 Extremities: no edema Gastrointestinal (Abdomen): Inspection/Auscultation: abdomen normal to inspection; abdomen not distended Musculoskeletal: no cyanosis or clubbing, extremities motor strength 5/5 Skin: no rashes, warm and dry Neurologic: moves all extremities and awake Psychiatric: Orientation: alert, oriented to person and cooperative Results & Data Results & Data ([facility]) Vital Signs (Past 12 Hours) Vital Signs Temp Pulse Pulse Pulse Resp BP BP 03/02/20 12:00 36.8 C 100 H 35 H 113/51 L 03/02/20 11:40 36.9 C 135 H 41 H 111/53 L 03/02/20 11:10 36.5 C 92 H 31 H 99/48 L 03/02/20 11:00 36.5 C 92 H 53 H 102/53 L 03/02/20 10:50 36.5 C 93 H 40 H 96/26 L 03/02/20 10:06 36.9 C 97 H 25 H 126/58 L 03/02/20 08:00 36.8 C 97 H 26 H 110/68 03/02/20 05:00 36.6 C 98 H 24 129/61 Pulse Ox 03/02/20 12:00 96 03/02/20 11:40 91 03/02/20 11:10 95 03/02/20 11:00 97 03/02/20 10:50 96 03/02/20 10:06 100 03/02/20 08:00 98 03/02/20 05:00 96 PG Care Time/CCT Total # of Minutes Spent Total Time Spent with Patient: Total time spent is greater than 50% in coordination of care (as documented) at patient's floor/unit and/or counseling patient: Coding Level of Care Code 55234 Subseq Hosp Care Lvl 3 Diagnoses Alcoholic cirrhosis K70.30 AH (alcoholic hepatitis) K70.10 Ascites presence: unspecified Acute kidney failure N17.9 Anemia D64.9 Thrombocytopenia D69.6 Hyponatremia E87.1 Acid reflux K21.9 Severe acute respiratory syndrome coronavirus 2 (SARS-CoV-2) detected U07.1 DVT prophylaxis Z29.9 (1) AH (alcoholic hepatitis) Ascites presence: unspecified Qualified Code(s): K70.10 - Alcoholic hepatitis without ascites
--- NOTE | 2020-03-02 15:39 | Ultrasound Report ---
ULTRASOUND GUIDED DIAGNOSTIC AND THERAPEUTIC PARACENTESIS CLINICAL HISTORY: cirrhosis COMPARISON STUDY: CT of the abdomen and pelvis July 26, 2020. PROCEDURE: The risks, benefits, and alternatives to the procedure were discussed with the patient inc luding the risk of bleeding, infection and injury to adjacent structures. The patient agreed to the procedure and informed written consent was obtained. Following real-time ultrasound localization, the skin of the right lower quadrant was prepped and draped. Following local anesthesia with Xylocaine, the sheath paracentesis needle was inserted and approximately 6 liters of straw-colored fluid was rem warren by vacuum suction. The patient tolerated the procedure well and no immediate complications were evident. IMPRESSION: Ultrasound-guided paracentesis with removal of 6 liters of ascites. 1 L of ascites was s ent to the laboratory for analysis as ordered. ACT 112: Negative or not required by law. Electronically signed by: Enrike Burnham M.D. 03/02/2020 3:38 PM
--- NOTE | 2020-03-02 16:10 | Nephrology Progress Note ---
Date of Service March 02, 2020 Assessment & Plan (1) Acute kidney failure: * HUYEN likely due to IV contrast administration in the setting of cirrhosis and intravascular volume contraction * Urine sediment with granular casts c/w ATN * Electrolyte balance is acceptable. No acute indication for HD * Stop albumin. Continue midodrine and octreotide for now * Monitor PRP (2) Anemia: * Consider blood transfusion if Hgb drops < 7.5. This will help restore effective arterial volume * EGD 03/02/19: grade I esophageal varices, no active bleeding (3) Hyponatremia: * mild, stable, asymptomatic * Reflective of poor arterial perfusion and high ADH (4) Alcoholic cirrhosis: * Paracentesis this afternoon (5) Severe acute respiratory syndrome coronavirus 2 (SARS-CoV-2) detected: * Isolation discontinued 03/01/20 Admission and Anticipated Discharge Date Admission Date: February 26, 2020 Subjective Patient was not available during rounds this morning or afternoon due to hospital procedures Results & Data ([facility]) Vital Signs (Past 12 Hours) Vital Signs Temp Pulse Pulse Pulse Resp BP BP 03/02/20 15:30 37.1 C 93 H 20 95/52 L 03/02/20 12:00 36.8 C 100 H 35 H 113/51 L 03/02/20 11:40 36.9 C 135 H 41 H 111/53 L 03/02/20 11:10 36.5 C 92 H 31 H 99/48 L 03/02/20 11:00 36.5 C 92 H 53 H 102/53 L 03/02/20 10:50 36.5 C 93 H 40 H 96/26 L 03/02/20 10:06 36.9 C 97 H 25 H 126/58 L 03/02/20 08:00 36.8 C 97 H 26 H 110/68 03/02/20 05:00 36.6 C 98 H 24 129/61 Pulse Ox 03/02/20 15:30 98 03/02/20 12:00 96 03/02/20 11:40 91 03/02/20 11:10 95 03/02/20 11:00 97 03/02/20 10:50 96 03/02/20 10:06 100 03/02/20 08:00 98 03/02/20 05:00 96 Laboratory Tests 03/02/20 03/02/20 06:56 06:56 WBC 8.34 Hgb 7.4 L Hct 20.5 L* Plt Count 100 L Sodium 129 L Potassium 3.7 Chloride 91 L Carbon Dioxide 27 BUN 56 H Creatinine 3.05 H Glucose 109 H PG Care Time/CCT Total # of Minutes Spent Total Time Spent with Patient: Total time spent is greater than 50% in coordination of care (as documented) at patient's floor/unit and/or counseling patient: Coding Level of Care Code 18304 Subseq Hosp Care Lvl 3 Diagnoses Acute kidney failure N17.9 Anemia D64.9 Hyponatremia E87.1 Alcoholic cirrhosis K70.30 Severe acute respiratory syndrome coronavirus 2 (SARS-CoV-2) detected U07.1
[2020-03-02 16:17] LABS: Albumin Peritoneal Fluid 0.6 g/dl
[2020-03-02 16:26] LABS: Total Protein Peritoneal Fluid 1.1 g/dl
[2020-03-02 16:47] LABS: Appearance Peritoneal Fluid CLEAR; Basophils, Fluid 0 %; Color Peritoneal Fluid YELLOW; Eosinophils, Fluid 0 %; Lymphocytes, Fluid 5 %; Mono,Macrophage,Mesothelial 84 %; Neutrophils, Fluid 11 %; RBC Peritoneal Fluid (A) < 3000 /uL; WBC Peritoneal Fluid (A) 310 /ul (0-300)
--- NOTE | 2020-03-02 18:13 | XRay Report ---
XR chest 1V portable HISTORY: 34 years-old Male Tachypnea acute tachypnea COMPARISON: Chest radiograph 02/26/2020 TECHNIQUE: Portable AP view of the chest FINDINGS: Chronic silhouette is upper limits of normal in size. Interval development of new diffuse bilateral i nterstitial opacities. No pneumothorax, or pleural effusion. Bones appear grossly intact. IMPRESSION: Interval development of diffuse bilateral interstitial opacities suggestive of interstiti al pneumonitis versus pulmonary edema. ACT 112: Negative or not required by law. The above report was generated using voice recognition software. It may contain grammatical, syntax o r spelling errors. Electronically signed by: Ken Kenny M.D. 03/02/2020 6:11 PM
[2020-03-02] MEDS: ceFAZolin 1000MG 1,000 MG/7.5 ML SYR IV SCH (18:33)
[2020-03-02 18:38] LABS: Base Excess VBG 2.2 mEq/L; Oxygen Saturation VBG 75.6 %; pH VBG 7.45 (7.36-7.41)
[2020-03-02] MEDS: predniSONE 20 MG TAB PO SCH (19:55)
[2020-03-02] MEDS: LACTULOSE SYRUP 20 GM/30 ML UDC PO SCH (20:04)
[2020-03-02] MEDS: rifAXIMin 550 MG TABLET PO SCH (20:28)
[2020-03-02] MEDS: DAPTOmycin 425 MG in SYRINGE 0 ML IV SCH (20:28)
[2020-03-03] MEDS: ceFAZolin 1000MG 1,000 MG/7.5 ML SYR IV SCH ×3 (02:43→21:22)
[2020-03-03] MEDS: LORazepam 1 MG TAB PO PRN ×2 (04:19→23:38)
[2020-03-03] MEDS: OCTREOTIDE ACETATE 100 MCG/ML VIAL SQ SCH (06:04)
[2020-03-03 06:22] LABS: INR 2.2 (0.9-1.1)
[2020-03-03 06:49] LABS: Hematocrit (blood only) 20.2 % (42-52); Hemoglobin 7.1 g/dL (14.0-18.0); Mean Corpuscular Hgb Conc 35.1 g/dL (32-36); Mean Corpuscular Volume 119.5 fL (80-100); Platelet Count 92 K/uL (130-400); RDW Standard Deviation 61.1 fL (36.4-46.3); Red Blood Count 1.69 M/uL (4.7-6.1); White Blood Count 5.76 K/uL (4.8-10.8)
[2020-03-03 06:55] LABS: Albumin Level 2.6 gm/dl (3.4-5.0); BUN Creatinine Ratio 21.5 (10-20); Bilirubin,Total 8.2 mg/dl (0.2-1); Creatinine Clr Calc Pharmacy 61.9 ml/min; Est GFR (African American) 38.3; Est GFR (Non-African American) 33.1; Globulin 2.6 gm/dl (2.5-4.0); Magnesium 1.9 mg/dl (1.8-2.4); Phosphorus 3.6 mg/dl (2.5-4.9); Potassium 4.1 mmol/L (3.5-5.1); Total Protein 5.2 gm/dl (6.4-8.2)
[2020-03-03] MEDS: MIDODRINE HCL 2.5 MG TAB PO SCH ×3 (08:04→17:43)
[2020-03-03] MEDS: LACTULOSE SYRUP 20 GM/30 ML UDC PO SCH ×3 (08:04→21:22)
[2020-03-03] MEDS: rifAXIMin 550 MG TABLET PO SCH ×2 (08:05→21:22)
[2020-03-03] MEDS: LIDOCAINE 5% 1 PATCH TD SCH (08:05)
[2020-03-03] MEDS: ASCORBIC ACID 500 MG TAB PO SCH ×2 (08:05→21:22)
[2020-03-03] MEDS: PHYTONADIONE 5 MG TAB PO SCH (08:05)
[2020-03-03] MEDS: THIAMINE HCL 100 MG TAB PO SCH (08:05)
[2020-03-03] MEDS: MAGNESIUM OXIDE 400 MG TAB PO SCH (08:05)
[2020-03-03] MEDS: FOLIC ACID 1 MG TAB PO SCH (08:05)
[2020-03-03] MEDS: PANTOprazole 40 MG TAB PO SCH ×2 (08:05→21:22)
[2020-03-03] MEDS: VITAMIN B COMPLEX TAB PO SCH (08:05)
[2020-03-03] MEDS: predniSONE 20 MG TAB PO SCH (08:06)
--- NOTE | 2020-03-03 08:50 | Gastroenterology Progress Note ---
Date of Service March 03, 2020 Assessment & Plan (1) Alcoholic cirrhosis: 34 year old male admitted w COVID -19 infection, sepsis, ETOH cirrhosis with suspected ETOH hepatitis w/ worsening hepatic and renal function MELD: 35 Maddrey Discriminant Function score: 46.7 - Daily MELD labs - Low NA diet - Hold diuresis - Appreciate nephrology input - Urine electrolytes including urine NA - Diagnostic paracentesis to rule out infection - SBP unlikely in initial cell count but await culture - Strict ETOH cessation advised - Consider transfer to tertiary care center Thank you for allowing us to participate in the care of this patient. Please call with any acute changes, questions or concerns. Please see addendum below with additional recommendation from my supervising physician. (2) Severe acute respiratory syndrome coronavirus 2 (SARS-CoV-2) detected: Admission and Anticipated Discharge Date Admission Date: February 26, 2020 Supervising Physician Co-Signing Physician Notes I saw and evaluated the patient this afternoon. He does have complications related to alcoholic hepatitis. The internal medicine service had called [facility] with regard to potential liver transplantation. They felt the patient was not a good candidate due to his ongoing alcohol abuse and repeated admissions over the last 1.5 years. Recommendations Continue with empiric antibiotic coverage Continue with prednisolone 40 mg/day Continue with oral vitamin K Appreciate nephrology input Patient remains high risk of mortality given his underlying liver disease Subjective Pt was seen and evaluated, chart reviewed. He is upright in bed eating breakfast. He notes overnight he had a few loose stools with BRB. This am, he moved his bowels again and it was a semi-formed brown stool w/ trace BRB. No abd pain Abd pressure improved since paracentesis No nausea/vomiting. He has plans to remain sober from ETOH He is requesting inpatient evaluation from psych EGD w/ nonbleeding varices Review of Systems Constitutional: no fever, no chills and no fatigue Respiratory: no cough and no dyspnea Cardiovascular: no chest pain and no dyspnea Gastrointestinal: + blood in stools; no abdominal pain, no nausea, no coffee ground emesis, no hematemesis, no change in bowel habits, no diarrhea/loose stools and no melena Physical Exam Constitutional: + ill appearing Neck: trachea midline Respiratory: normal respiratory effort Cardiovascular: Heart Sounds: normal S1 and normal S2 Gastrointestinal (Abdomen): Inspection/Auscultation: normal bowel sounds Percussion/Palpation: abdomen soft; abdomen nontender, no guarding and abdomen not rigid Skin: + jaundice Results & Data ([facility]) Vital Signs (Past 12 Hours) Vital Signs Temp Pulse Pulse Resp BP Pulse Ox 03/03/20 08:00 99 H 03/03/20 04:06 37.6 C H 95 H 24 126/65 92 03/03/20 00:00 100 H 03/02/20 23:00 37.6 C H 101 H 24 118/61 92 Laboratory Results 03/03/20 03/03/20 03/03/20 Range/Units 05:26 05:26 05:26 WBC 5.76 (4.8-10.8) K/uL RBC 1.69 L (4.7-6.1) M/uL Hgb 7.1 L (14.0-18.0) g/dL Hct 20.2 L* (42-52) % MCV 119.5 H (80-100) fL MCH 42.0 H (25-34) pg MCHC 35.1 (32-36) g/dL RDW Std Deviation 61.1 H (36.4-46.3) fL RDW Coeff of Alvaro 14.0 (11.5-14.5) % Plt Count 92 L (130-400) K/uL MPV 12.0 H (7.4-10.4) fL PT 22.0 H (9.0-12.0) Seconds INR 2.2 H (0.9-1.1) VBG pH (7.36-7.41) VBG pCO2 (38-50) mmHg VBG pO2 mmHg VBG HCO3 mmol/L VBG O2 Saturation % VBG Base Excess mEq/L Barometric Pressure mm/Hg Sodium 130 L (136-145) mmol/L Potassium 4.1 (3.5-5.1) mmol/L Chloride 94 L (98-107) mmol/L Carbon Dioxide 28 (21-32) mmol/L Anion Gap 8.0 (3-11) BUN 53 H (7-18) mg/dl Creatinine 2.45 H D (0.6-1.4) mg/dl Est Cr Clr Drug Dosing 61.9 ml/min Est GFR ( Amer) 38.3 Est GFR (Non-Af Amer) 33.1 BUN/Creatinine Ratio 21.5 H (10-20) Glucose 148 H (70-99) mg/dl Lactate (0.4-2.0) mmol/L Calcium 8.0 L (8.5-10.1) mg/dl Phosphorus 3.6 (2.5-4.9) mg/dl Magnesium 1.9 (1.8-2.4) mg/dl Total Bilirubin 8.2 H (0.2-1) mg/dl AST 80 H (15-37) U/L ALT 51 (12-78) U/L Alkaline Phosphatase 112 (45-117) U/L Ammonia (11-32) umol/L NT-Pro-B Natriuret Pep (0-450) pg/ml Total Protein 5.2 L (6.4-8.2) gm/dl Albumin 2.6 L (3.4-5.0) gm/dl Globulin 2.6 (2.5-4.0) gm/dl Albumin/Globulin Ratio 1.0 (0.9-2) Procalcitonin (0-0.5) ng/ml Fluid Neutrophils % % Fluid Lymphocytes % % Fluid Eosinophils % % Fluid Basophils % % Fluid Meso/Macro/Butler % % Peritoneal Color Peritoneal Appearance Peritoneal WBC (0-300) /ul Peritoneal RBC /uL Peritoneal Tot Protein g/dl Peritoneal Albumin g/dl Peritoneal LDH U/L Peritoneal Glucose mg/dl Peritoneal Amylase U/L Peritoneal Lipase U/L 03/02/20 03/02/20 03/02/20 Range/Units Unknown Unknown 18:07 WBC (4.8-10.8) K/uL RBC (4.7-6.1) M/uL Hgb (14.0-18.0) g/dL Hct (42-52) % MCV (80-100) fL MCH (25-34) pg MCHC (32-36) g/dL RDW Std Deviation (36.4-46.3) fL RDW Coeff of Alvaro (11.5-14.5) % Plt Count (130-400) K/uL MPV (7.4-10.4) fL PT (9.0-12.0) Seconds INR (0.9-1.1) VBG pH (7.36-7.41) VBG pCO2 (38-50) mmHg VBG pO2 mmHg VBG HCO3 mmol/L VBG O2 Saturation % VBG Base Excess mEq/L Barometric Pressure mm/Hg Sodium (136-145) mmol/L Potassium (3.5-5.1) mmol/L Chloride (98-107) mmol/L Carbon Dioxide (21-32) mmol/L Anion Gap (3-11) BUN (7-18) mg/dl Creatinine (0.6-1.4) mg/dl Est Cr Clr Drug Dosing ml/min Est GFR ( Amer) Est GFR (Non-Af Amer) BUN/Creatinine Ratio (10-20) Glucose (70-99) mg/dl Lactate 1.6 (0.4-2.0) mmol/L Calcium (8.5-10.1) mg/dl Phosphorus (2.5-4.9) mg/dl Magnesium (1.8-2.4) mg/dl Total Bilirubin (0.2-1) mg/dl AST (15-37) U/L ALT (12-78) U/L Alkaline Phosphatase (45-117) U/L Ammonia (11-32) umol/L NT-Pro-B Natriuret Pep (0-450) pg/ml Total Protein (6.4-8.2) gm/dl Albumin (3.4-5.0) gm/dl Globulin (2.5-4.0) gm/dl Albumin/Globulin Ratio (0.9-2) Procalcitonin (0-0.5) ng/ml Fluid Neutrophils % 11 % Fluid Lymphocytes % 5 % Fluid Eosinophils % 0 % Fluid Basophils % 0 % Fluid Meso/Macro/Butler % 84 % Peritoneal Color YELLOW Peritoneal Appearance CLEAR Peritoneal WBC 310 H (0-300) /ul Peritoneal RBC < 3000 /uL Peritoneal Tot Protein 1.1 g/dl Peritoneal Albumin 0.6 g/dl Peritoneal LDH 150 U/L Peritoneal Glucose 109 mg/dl Peritoneal Amylase 21 U/L Peritoneal Lipase 85 U/L 03/02/20 03/02/20 03/02/20 Range/Units 18:07 18:07 18:07 WBC (4.8-10.8) K/uL RBC (4.7-6.1) M/uL Hgb (14.0-18.0) g/dL Hct (42-52) % MCV (80-100) fL MCH (25-34) pg MCHC (32-36) g/dL RDW Std Deviation (36.4-46.3) fL RDW Coeff of Alvaro (11.5-14.5) % Plt Count (130-400) K/uL MPV (7.4-10.4) fL PT (9.0-12.0) Seconds INR (0.9-1.1) VBG pH 7.45 H (7.36-7.41) VBG pCO2 39 (38-50) mmHg VBG pO2 41 mmHg VBG HCO3 26 mmol/L VBG O2 Saturation 75.6 % VBG Base Excess 2.2 mEq/L Barometric Pressure 736.0 mm/Hg Sodium (136-145) mmol/L Potassium (3.5-5.1) mmol/L Chloride (98-107) mmol/L Carbon Dioxide (21-32) mmol/L Anion Gap (3-11) BUN (7-18) mg/dl Creatinine (0.6-1.4) mg/dl Est Cr Clr Drug Dosing ml/min Est GFR ( Amer) Est GFR (Non-Af Amer) BUN/Creatinine Ratio (10-20) Glucose (70-99) mg/dl Lactate (0.4-2.0) mmol/L Calcium (8.5-10.1) mg/dl Phosphorus (2.5-4.9) mg/dl Magnesium (1.8-2.4) mg/dl Total Bilirubin (0.2-1) mg/dl AST (15-37) U/L ALT (12-78) U/L Alkaline Phosphatase (45-117) U/L Ammonia (11-32) umol/L NT-Pro-B Natriuret Pep 18707 H (0-450) pg/ml Total Protein (6.4-8.2) gm/dl Albumin (3.4-5.0) gm/dl Globulin (2.5-4.0) gm/dl Albumin/Globulin Ratio (0.9-2) Procalcitonin 2.43 H (0-0.5) ng/ml Fluid Neutrophils % % Fluid Lymphocytes % % Fluid Eosinophils % % Fluid Basophils % % Fluid Meso/Macro/Butler % % Peritoneal Color Peritoneal Appearance Peritoneal WBC (0-300) /ul Peritoneal RBC /uL Peritoneal Tot Protein g/dl Peritoneal Albumin g/dl Peritoneal LDH U/L Peritoneal Glucose mg/dl Peritoneal Amylase U/L Peritoneal Lipase U/L 03/02/20 Range/Units 08:57 WBC (4.8-10.8) K/uL RBC (4.7-6.1) M/uL Hgb (14.0-18.0) g/dL Hct (42-52) % MCV (80-100) fL MCH (25-34) pg MCHC (32-36) g/dL RDW Std Deviation (36.4-46.3) fL RDW Coeff of Alvaro (11.5-14.5) % Plt Count (130-400) K/uL MPV (7.4-10.4) fL PT (9.0-12.0) Seconds INR (0.9-1.1) VBG pH (7.36-7.41) VBG pCO2 (38-50) mmHg VBG pO2 mmHg VBG HCO3 mmol/L VBG O2 Saturation % VBG Base Excess mEq/L Barometric Pressure mm/Hg Sodium (136-145) mmol/L Potassium (3.5-5.1) mmol/L Chloride (98-107) mmol/L Carbon Dioxide (21-32) mmol/L Anion Gap (3-11) BUN (7-18) mg/dl Creatinine (0.6-1.4) mg/dl Est Cr Clr Drug Dosing ml/min Est GFR ( Amer) Est GFR (Non-Af Amer) BUN/Creatinine Ratio (10-20) Glucose (70-99) mg/dl Lactate (0.4-2.0) mmol/L Calcium (8.5-10.1) mg/dl Phosphorus (2.5-4.9) mg/dl Magnesium (1.8-2.4) mg/dl Total Bilirubin (0.2-1) mg/dl AST (15-37) U/L ALT (12-78) U/L Alkaline Phosphatase (45-117) U/L Ammonia 44.8 H (11-32) umol/L NT-Pro-B Natriuret Pep (0-450) pg/ml Total Protein (6.4-8.2) gm/dl Albumin (3.4-5.0) gm/dl Globulin (2.5-4.0) gm/dl Albumin/Globulin Ratio (0.9-2) Procalcitonin (0-0.5) ng/ml Fluid Neutrophils % % Fluid Lymphocytes % % Fluid Eosinophils % % Fluid Basophils % % Fluid Meso/Macro/Butler % % Peritoneal Color Peritoneal Appearance Peritoneal WBC (0-300) /ul Peritoneal RBC /uL Peritoneal Tot Protein g/dl Peritoneal Albumin g/dl Peritoneal LDH U/L Peritoneal Glucose mg/dl Peritoneal Amylase U/L Peritoneal Lipase U/L
[2020-03-03] MEDS ORDERED: FUROSEMIDE 40 MG TAB PO SCH (10:00)
--- NOTE | 2020-03-03 10:47 | Nephrology Progress Note ---
Date of Service March 03, 2020 Assessment & Plan (1) Acute kidney failure: * HUYEN likely due to IV contrast administration in the setting of cirrhosis and intravascular volume contraction * Urine sediment with granular casts c/w ATN * Now in recovery phase: Cr 3-->2.45, UO 300 cc overnight * Electrolyte balance is acceptable. No acute indication for HD * Stop octreotide * BP is improved. Will reduce midodrine to 2.5 mg po TID * Monitor PRP (2) Anemia: * Patient is scheduled for 1 unit PRBC today * EGD 03/02/19: grade I esophageal varices, no active bleeding (3) Hyponatremia: * mild, stable, asymptomatic * Reflective of poor arterial perfusion and high ADH (4) Alcoholic cirrhosis: * 6 L paracentesis completed 03/02/20 * Will start Lasix 40 mg po and Spironolactone 100 mg po daily to help mobilize ascitic fluid and peripheral edema (5) Severe acute respiratory syndrome coronavirus 2 (SARS-CoV-2) detected: * Isolation discontinued 03/01/20 Admission and Anticipated Discharge Date Admission Date: February 26, 2020 Subjective Mr. Longo was seen & examined in his hospital room this morning. He underwent 6 L paracentesis yesterday. He reports that his abdomen is less distended. He denies dyspnea or uremic symptoms Review of Systems Constitutional: + weakness; no fever Eyes: no problem reported Ear, Nose, Mouth, Throat: no problem reported Respiratory: no dyspnea Cardiovascular: + edema; no chest pain Gastrointestinal: no abdominal pain Neurologic: no confusion Physical Exam Constitutional: + edematous; no acute distress Eyes: + scleral icterus Neck: trachea midline, no thyromegaly Respiratory: normal respiratory effort, lungs clear to auscultation Cardiovascular: Rate/Rhythm: regular rate and regular rhythm Extremities: + edema Gastrointestinal (Abdomen): Inspection/Auscultation: + abdomen distended and normal bowel sounds Skin: + jaundice Results & Data ([facility]) Vital Signs (Past 12 Hours) Vital Signs Temp Pulse Pulse Resp BP Pulse Ox 03/03/20 08:00 99 H 03/03/20 06:30 37.0 C 98 H 20 139/82 98 03/03/20 04:06 37.6 C H 95 H 24 126/65 92 03/03/20 00:00 100 H 03/02/20 23:00 37.6 C H 101 H 24 118/61 92 Laboratory Tests 03/03/20 03/03/20 05:26 05:26 WBC 5.76 Hgb 7.1 L Hct 20.2 L* Plt Count 92 L Sodium 130 L Potassium 4.1 Chloride 94 L BUN 53 H Creatinine 2.45 H D Glucose 148 H PG Care Time/CCT Total # of Minutes Spent Total Time Spent with Patient: Total time spent is greater than 50% in building services coordinator rdination of care (as documented) at patient's floor/unit and/or counseling patient: Coding Level of Care Code 48531 Subseq Hosp Care Lvl 3 Diagnoses Acute kidney failure N17.9 Anemia D64.9 Hyponatremia E87.1 Alcoholic cirrhosis K70.30 Severe acute respiratory syndrome coronavirus 2 (SARS-CoV-2) detected U07.1
[2020-03-03] MEDS: SPIRONOLACTONE 100 MG TAB PO SCH (10:55)
[2020-03-03] MEDS: FUROSEMIDE 40 MG TAB PO SCH (10:55)
[2020-03-03] MEDS ORDERED: SODIUM CHLORIDE 0.9% 250 ML IV PRN (14:22)
--- NOTE | 2020-03-03 14:26 | Hospitalist Progress Note ---
Date of Service March 03, 2020 Assessment & Plan (1) Alcoholic cirrhosis: Alcoholic liver cirrhosis with ascites - suspected main cause of his shortness of breath. Could have some acute hepatitis, not sure he is being honest about timing of last drink, his AST and ALT were elevated. Grade 1 esophageal varices seen on EGD on 03/[address] Dubon discussed with [facility] Liver Tx team on 03/01/2020, and he was felt to not be a transplant candidate. Transfer turned down. - MELD was 36 on 03/02: 52.6% 3 month mortality - Maddrey's DF was 25.5 on admission. - Paracentesis on 03/02. WBC was 320 with 11% neutrophils > Started prednisolone 40 mg PO daily on 03/03 - Ammonia elevated on 03/02 -> Started lactulose and rifaximin. Mental status much clearer today. (2) AH (alcoholic hepatitis): Initially suspected this; not sure if has been drinking more recently than early January. He is not honest about his drinking; will not even tell his when he has been drinking. - ANUP initiated on 03/02 -> Generally low; no lorazepam needed. - As above (3) Acute kidney failure: Certainly makes for poorer prognosis with cirrhosis. - Concern for HRS, though nephrology feel contrast-induced ATN more likely at this point. - Started on albumin; gave through paracentesis per GI, then stopped. - Continue midodrine - Improving today to 2.45. (4) Anemia: Macrocytic. Likely from low folate and alcohol use. - Continue folic acid 1 gm daily. B12 normal on 02/29/2020. - Per nephrology, would transfuse for hgb < 7.5. Approved by GI as I had some concern for increased variceal bleed with tx. 1 unit PRBCs on 03/03. (5) Thrombocytopenia: Likely due to cirrhosis, splenomegaly. - No bleeding noted on EGD on 03/02 - Continue to follow (6) Hyponatremia: Secondary to hypervolemia. - Stable today (7) Acid reflux: C/o heartburn. - Continue PPI PO BID & Tums PRN (8) Severe acute respiratory syndrome coronavirus 2 (SARS-CoV-2) detected: No pneumonia on CXR. Do not suspect he is substantially affected by this. No need for dexamethasone. Symptoms of sore throat, malaise, & muscle aches started around 02/11. Had positive test outpatient on 02/16. - He is over two weeks from start of symptoms, should not be contagious. (9) DVT prophylaxis: SCDs - Holding heparin for increased INR and low platelets Admission and Anticipated Discharge Date Admission Date: February 26, 2020 Subjective Much more lucid today. Less shortness of breath. Overall doing well. Reports no fevers/chills, chest pain, shortness of breath, abdominal pain, nausea, or vomiting. Physical Exam Constitutional: WD/WN, vitals as above no acute distress Eyes: EOM intact bilaterally; no conjunctival abnormality ENMT: external ear and nose normal, oropharynx normal Neck: trachea midline, no thyromegaly normal visual inspection Respiratory: + tachypneic; no respiratory distress and no labored breathing Auscultation: lungs clear to auscultation bilaterally Cardiovascular: Rate/Rhythm: regular rhythm and + tachycardic Heart Sounds: normal S1 and normal S2 Extremities: no edema Gastrointestinal (Abdomen): Inspection/Auscultation: abdomen normal to inspection; abdomen not distended Musculoskeletal: no cyanosis or clubbing, extremities motor strength 5/5 Skin: no rashes, warm and dry Neurologic: moves all extremities and awake Psychiatric: Orientation: alert, oriented to person and cooperative Results & Data Results & Data ([facility]) Vital Signs (Past 12 Hours) Vital Signs Temp Pulse Pulse Resp BP Pulse Ox 03/03/20 11:00 36.9 C 99 H 18 109/66 96 03/03/20 08:00 99 H 03/03/20 06:30 37.0 C 98 H 20 139/82 98 03/03/20 04:06 37.6 C H 95 H 24 126/65 92 PG Care Time/CCT Total # of Minutes Spent Total Time Spent with Patient: Total time spent is greater than 50% in coordination of care (as documented) at patient's floor/unit and/or counseling patient: Coding Level of Care Code 97560 Subseq Hosp Care Lvl 2 Diagnoses Alcoholic cirrhosis K70.30 AH (alcoholic hepatitis) K70.10 Ascites presence: unspecified Acute kidney failure N17.9 Anemia D64.9 Thrombocytopenia D69.6 Hyponatremia E87.1 Acid reflux K21.9 Severe acute respiratory syndrome coronavirus 2 (SARS-CoV-2) detected U07.1 DVT prophylaxis Z29.9 (1) AH (alcoholic hepatitis) Ascites presence: unspecified Qualified Code(s): K70.10 - Alcoholic hepatitis without ascites
[2020-03-03] MEDS ORDERED: AcetylCYSTEINE 15,000 MG in DEXTROSE 5% 200 ML IV ONE (17:30)
[2020-03-03] MEDS ORDERED: AcetylCYSTEINE 5,000 MG in DEXTROSE 5% 500 ML IV SCH (18:30)
[2020-03-03] MEDS: DAPTOmycin 425 MG in SYRINGE 0 ML IV SCH (21:24)
[2020-03-03] MEDS ORDERED: AcetylCYSTEINE 10,000 MG in DEXTROSE 5% 1,000 ML IV SCH (22:42)
[2020-03-04] MEDS: ceFAZolin 1000MG 1,000 MG/7.5 ML SYR IV SCH ×3 (03:50→21:27)
[2020-03-04 06:31] LABS: INR 1.9 (0.9-1.1); Prothrombin Time 19.8 Seconds (9.0-12.0)
[2020-03-04 06:36] LABS: Hemoglobin 8.3 g/dL (14.0-18.0); Mean Corpuscular Hemoglobin 41.3 pg (25-34); Mean Corpuscular Hgb Conc 36.1 g/dL (32-36); Mean Corpuscular Volume 114.4 fL (80-100); Mean Platelet Volume 11.9 fL (7.4-10.4); Platelet Count 113 K/uL (130-400); RDW Coefficient of Variation 19.1 % (11.5-14.5); Red Blood Count 2.01 M/uL (4.7-6.1)
[2020-03-04 06:57] LABS: Albumin Globulin Ratio 0.8 (0.9-2); Albumin Level 2.4 gm/dl (3.4-5.0); Bilirubin,Total 6.6 mg/dl (0.2-1); Calcium 8.9 mg/dl (8.5-10.1); Creatinine Clr Calc Pharmacy 80.5 ml/min; Est GFR (African American) 53.9; Est GFR (Non-African American) 46.5; Magnesium 1.6 mg/dl (1.8-2.4); Potassium 3.5 mmol/L (3.5-5.1); Total Protein 5.4 gm/dl (6.4-8.2)
[2020-03-04] MEDS: PHYTONADIONE 5 MG TAB PO SCH (09:08)
[2020-03-04] MEDS: prednisoLONE SYRUP 15 MG/5 ML BTL PO SCH (09:08)
[2020-03-04] MEDS: FOLIC ACID 1 MG TAB PO SCH (09:09)
[2020-03-04] MEDS: LIDOCAINE 5% 1 PATCH TD SCH (09:09)
[2020-03-04] MEDS: rifAXIMin 550 MG TABLET PO SCH ×2 (09:09→21:27)
[2020-03-04] MEDS: FUROSEMIDE 40 MG TAB PO SCH (09:09)
[2020-03-04] MEDS: VITAMIN B COMPLEX TAB PO SCH (09:09)
[2020-03-04] MEDS: PANTOprazole 40 MG TAB PO SCH ×2 (09:09→21:27)
[2020-03-04] MEDS: THIAMINE HCL 100 MG TAB PO SCH (09:09)
[2020-03-04] MEDS: LACTULOSE SYRUP 20 GM/30 ML UDC PO SCH ×3 (09:09→21:27)
[2020-03-04] MEDS: SPIRONOLACTONE 100 MG TAB PO SCH (09:09)
[2020-03-04] MEDS: ASCORBIC ACID 500 MG TAB PO SCH ×2 (09:09→21:27)
--- NOTE | 2020-03-04 09:09 | Gastroenterology Progress Note ---
Date of Service March 04, 2020 Assessment & Plan (1) Alcoholic cirrhosis: 34 year old male admitted w COVID -19 infection, sepsis, ETOH cirrhosis with suspected ETOH hepatitis w/ improving hepatic and renal function MELD: 28 Maddrey Discriminant Function score: 43 - Daily MELD labs - Low NA diet - Hold diuresis - Appreciate nephrology input - Can continue NAC per protocol - Prednisone for alc hep - Calculate lilie score day 7 - Diagnostic paracentesis to rule out infection - SBP unlikely in initial cell count but await culture no growth to date - Strict ETOH cessation advised - Consider transfer to tertiary care center if decompensates Thank you for allowing us to participate in the care of this patient. Please call with any acute changes, questions or concerns. Please see addendum below with additional recommendation from my supervising physician. (2) Severe acute respiratory syndrome coronavirus 2 (SARS-CoV-2) detected: Admission and Anticipated Discharge Date Admission Date: February 26, 2020 Supervising Physician Co-Signing Physician Notes Patient looks significantly improved this morning. I would recommend that we continue the patient on prednisolone for a total of 30 days with a taper as an outpatient. It appears that a referral was made to [facility] to the transplant service however due to his insurance status he was not accepted for their program. Recommendations Continue use of prednisolone Continue to monitor daily labs Please call with any questions or concerns Subjective Pt was seen and evaluated, chart reviewed. Upright in bed, just ate breakfast Denies nausea/vomiting No further blood in stools No black stools No fever, chills, CP, SOB Review of Systems Constitutional: no fever, no chills and no fatigue Respiratory: no cough and no dyspnea Cardiovascular: + edema; no chest pain and no dyspnea Gastrointestinal: no abdominal pain, no coffee ground emesis, no hematemesis, no blood in stools and no melena Physical Exam Constitutional: well developed, well nourished and + obese; no acute distress Neck: trachea midline Respiratory: normal respiratory effort Gastrointestinal (Abdomen): Percussion/Palpation: + abdomen tender, abdomen soft and + ascites; no guarding, abdomen not rigid and no abdominal mass Results & Data ([facility]) Vital Signs (Past 12 Hours) Vital Signs Temp Pulse Pulse Resp BP BP Pulse Ox 03/04/20 06:59 36.9 C 90 20 117/70 95 03/04/20 04:00 36.9 C 101 H 20 113/64 95 03/04/20 00:27 37.1 C 99 H 20 120/69 96 Laboratory Results 03/04/20 03/04/20 03/04/20 Range/Units 06:07 06:07 06:07 WBC 8.00 (4.8-10.8) K/uL RBC 2.01 L (4.7-6.1) M/uL Hgb 8.3 L (14.0-18.0) g/dL Hct 23.0 L (42-52) % MCV 114.4 H (80-100) fL MCH 41.3 H (25-34) pg MCHC 36.1 H (32-36) g/dL RDW Std Deviation 85.0 H (36.4-46.3) fL RDW Coeff of Alvaro 19.1 H (11.5-14.5) % Plt Count 113 L (130-400) K/uL MPV 11.9 H (7.4-10.4) fL PT 19.8 H (9.0-12.0) Seconds INR 1.9 H (0.9-1.1) Sodium 134 L (136-145) mmol/L Potassium 3.5 (3.5-5.1) mmol/L Chloride 96 L (98-107) mmol/L Carbon Dioxide 26 (21-32) mmol/L Anion Gap 12.0 H (3-11) BUN 44 H (7-18) mg/dl Creatinine 1.85 H D (0.6-1.4) mg/dl Est Cr Clr Drug Dosing 80.5 ml/min Est GFR ( Amer) 53.9 Est GFR (Non-Af Amer) 46.5 BUN/Creatinine Ratio 24.0 H (10-20) Glucose 138 H (70-99) mg/dl Calcium 8.9 (8.5-10.1) mg/dl Magnesium 1.6 L (1.8-2.4) mg/dl Total Bilirubin 6.6 H (0.2-1) mg/dl AST 77 H (15-37) U/L ALT 51 (12-78) U/L Alkaline Phosphatase 115 (45-117) U/L Total Protein 5.4 L (6.4-8.2) gm/dl Albumin 2.4 L (3.4-5.0) gm/dl Globulin 3.0 (2.5-4.0) gm/dl Albumin/Globulin Ratio 0.8 L (0.9-2) Blood Type Antibody Screen Crossmatch 03/01/20 Range/Units 07:09 WBC (4.8-10.8) K/uL RBC (4.7-6.1) M/uL Hgb (14.0-18.0) g/dL Hct (42-52) % MCV (80-100) fL MCH (25-34) pg MCHC (32-36) g/dL RDW Std Deviation (36.4-46.3) fL RDW Coeff of Alvaro (11.5-14.5) % Plt Count (130-400) K/uL MPV (7.4-10.4) fL PT (9.0-12.0) Seconds INR (0.9-1.1) Sodium (136-145) mmol/L Potassium (3.5-5.1) mmol/L Chloride (98-107) mmol/L Carbon Dioxide (21-32) mmol/L Anion Gap (3-11) BUN (7-18) mg/dl Creatinine (0.6-1.4) mg/dl Est Cr Clr Drug Dosing ml/min Est GFR ( Amer) Est GFR (Non-Af Amer) BUN/Creatinine Ratio (10-20) Glucose (70-99) mg/dl Calcium (8.5-10.1) mg/dl Magnesium (1.8-2.4) mg/dl Total Bilirubin (0.2-1) mg/dl AST (15-37) U/L ALT (12-78) U/L Alkaline Phosphatase (45-117) U/L Total Protein (6.4-8.2) gm/dl Albumin (3.4-5.0) gm/dl Globulin (2.5-4.0) gm/dl Albumin/Globulin Ratio (0.9-2) Blood Type O Positive Antibody Screen NEGATIVE Crossmatch See Detail
[2020-03-04] MEDS: MIDODRINE HCL 2.5 MG TAB PO SCH (09:23)
[2020-03-04] MEDS: MAGNESIUM OXIDE 400 MG TAB PO SCH (10:38)
--- NOTE | 2020-03-04 11:08 | Nephrology Progress Note ---
Date of Service March 04, 2020 Assessment & Plan (1) Acute kidney failure: * HUYEN likely due to IV contrast administration in the setting of cirrhosis and intravascular volume contraction * Urine sediment with granular casts c/w ATN * Now in recovery phase: Cr 3-->2.45-->1.85, UO 726 cc overnight * Electrolyte balance is acceptable. No acute indication for HD * Stop midodrine * Monitor PRP (2) Anemia: * Hgb has improved 7.1-->8.3 following one unit PRBC yesterday * EGD 03/02/19: grade I esophageal varices, no active bleeding (3) Hyponatremia: * Improving. Serum sodium 134 this am * Reflective of poor arterial perfusion and high ADH (4) Alcoholic cirrhosis: * 6 L paracentesis completed 03/02/20 * Continue Lasix 40 mg po and Spironolactone 100 mg po daily to help mobilize ascitic fluid and peripheral edema (5) Severe acute respiratory syndrome coronavirus 2 (SARS-CoV-2) detected: * Isolation discontinued 03/01/20 Admission and Anticipated Discharge Date Admission Date: February 26, 2020 Subjective Mr. Longo was seen & examined in his hospital room this morning. He denies dyspnea or abdominal discomfort. He was able to tolerate his diet this morning. Review of Systems Constitutional: + weakness; no fever Eyes: no problem reported Ear, Nose, Mouth, Throat: no problem reported Respiratory: no dyspnea Cardiovascular: + edema; no chest pain Gastrointestinal: no abdominal pain and no nausea Musculoskeletal: no back pain Neurologic: no confusion Physical Exam Constitutional: no acute distress Eyes: PERRL Neck: trachea midline, no thyromegaly Respiratory: normal respiratory effort, lungs clear to auscultation Cardiovascular: Rate/Rhythm: regular rate and regular rhythm Extremities: + edema Gastrointestinal (Abdomen): Inspection/Auscultation: + abdomen distended and normal bowel sounds Skin: + jaundice Results & Data ([facility]) Vital Signs (Past 12 Hours) Vital Signs Temp Pulse Pulse Resp BP BP Pulse Ox 03/04/20 06:59 36.9 C 90 20 117/70 95 03/04/20 04:00 36.9 C 101 H 20 113/64 95 03/04/20 00:27 37.1 C 99 H 20 120/69 96 Laboratory Tests 03/04/20 03/04/20 06:07 06:07 WBC 8.00 Hgb 8.3 L Hct 23.0 L Plt Count 113 L Sodium 134 L Potassium 3.5 Chloride 96 L Carbon Dioxide 26 BUN 44 H Creatinine 1.85 H D PG Care Time/CCT Total # of Minutes Spent Total Time Spent with Patient: Total time spent is greater than 50% in coordination of care (as documented) at patient's floor/unit and/or counseling patient: Coding Level of Care Code 15094 Subseq Hosp Care Lvl 3 Diagnoses Acute kidney failure N17.9 Anemia D64.9 Hyponatremia E87.1 Alcoholic cirrhosis K70.30 Severe acute respiratory syndrome coronavirus 2 (SARS-CoV-2) detected U07.1
[2020-03-04] MEDS: AcetylCYSTEINE 10,000 MG in DEXTROSE 5% 1,000 ML IV SCH (14:41)
--- NOTE | 2020-03-04 15:16 | Hospitalist Progress Note ---
Date of Service March 04, 2020 Assessment & Plan (1) Alcoholic cirrhosis: Alcoholic liver cirrhosis with ascites - suspected main cause of his shortness of breath. Could have some acute hepatitis, not sure he is being honest about timing of last drink, his AST and ALT were elevated. Grade 1 esophageal varices seen on EGD on 03/[address] Dubon discussed with [facility] Liver Tx team on 03/01/2020, and he was felt to not be a transplant candidate. Transfer turned down. - MELD was 36 on 03/02: 52.6% 3 month mortality - Maddrey's DF was 25.5 on admission. - Paracentesis on 03/02. WBC was 320 with 11% neutrophils > Started prednisolone 40 mg PO daily on 03/03. Discussed with [place] wellness program coordinator Kwame Phillips who recommended NAC for alk hep protocol. This is 5-day protocol. - Ammonia elevated on 03/02 -> Started lactulose and rifaximin. Mental status much clearer today. (2) AH (alcoholic hepatitis): Initially suspected this; not sure if has been drinking more recently than early January. He is not honest about his drinking; will not even tell his when he has been drinking. - ANUP initiated on 03/02 -> Generally low; no lorazepam needed. - As above (3) Acute kidney failure: Certainly makes for poorer prognosis with cirrhosis. - Concern for HRS, though nephrology feel contrast-induced ATN more likely at this point. - Started on albumin; gave through paracentesis per GI, then stopped. - Tapered midodrine and off on 03/04. - Improving today to 1.85. (4) Anemia: Macrocytic. Likely from low folate and alcohol use. - Continue folic acid 1 gm daily. B12 normal on 02/29/2020. - Per nephrology, would transfuse for hgb < 7.5. Approved by GI as I had some concern for increased variceal bleed with tx. 1 unit PRBCs on 03/03. - Hgb 8.3 today. (5) Thrombocytopenia: Likely due to cirrhosis, splenomegaly. - No bleeding noted on EGD on 03/02 - Continue to follow (6) Hyponatremia: Secondary to hypervolemia. - Stable today (7) Acid reflux: C/o heartburn. - Continue PPI PO BID & Tums PRN (8) Severe acute respiratory syndrome coronavirus 2 (SARS-CoV-2) detected: No pneumonia on CXR. Do not suspect he is substantially affected by this. No need for dexamethasone. Symptoms of sore throat, malaise, & muscle aches started around 02/11. Had positive test outpatient on 02/16. - He is over two weeks from start of symptoms, should not be contagious. (9) DVT prophylaxis: SCDs - Holding heparin for increased INR and low platelets Admission and Anticipated Discharge Date Admission Date: February 26, 2020 Physical Exam Constitutional: WD/WN, vitals as above no acute distress Eyes: EOM intact bilaterally; no conjunctival abnormality ENMT: external ear and nose normal, oropharynx normal Neck: trachea midline, no thyromegaly normal visual inspection Respiratory: no respiratory distress and no labored breathing Auscultation: lungs clear to auscultation bilaterally Cardiovascular: Rate/Rhythm: regular rhythm and + tachycardic Heart Sounds: normal S1 and normal S2 Extremities: no edema Gastrointestinal (Abdomen): Inspection/Auscultation: abdomen normal to inspection; abdomen not distended Musculoskeletal: no cyanosis or clubbing, extremities motor strength 5/5 Skin: no rashes, warm and dry Neurologic: moves all extremities and awake Psychiatric: Orientation: alert, oriented to person and cooperative Results & Data Results & Data ([facility]) Vital Signs (Past 12 Hours) Vital Signs Temp Pulse Pulse Resp BP BP Pulse Ox 03/04/20 11:41 36.9 C 90 22 123/72 93 03/04/20 08:00 101 H 03/04/20 06:59 36.9 C 90 20 117/70 95 03/04/20 04:00 36.9 C 101 H 20 113/64 95 PG Care Time/CCT Total # of Minutes Spent Total Time Spent with Patient: Total time spent is greater than 50% in coordination of care (as documented) at patient's floor/unit and/or counseling patient: Coding Level of Care Code 75697 Subseq Hosp Care Lvl 2 Diagnoses Alcoholic cirrhosis K70.30 AH (alcoholic hepatitis) K70.10 Ascites presence: unspecified Acute kidney failure N17.9 Anemia D64.9 Thrombocytopenia D69.6 Hyponatremia E87.1 Acid reflux K21.9 Severe acute respiratory syndrome coronavirus 2 (SARS-CoV-2) detected U07.1 DVT prophylaxis Z29.9 (1) AH (alcoholic hepatitis) Ascites presence: unspecified Qualified Code(s): K70.10 - Alcoholic hepatitis without ascites
[2020-03-04] MEDS: DAPTOmycin 425 MG in SYRINGE 0 ML IV SCH (21:28)
[2020-03-04] MEDS: LORazepam 1 MG TAB PO PRN (23:02)
[2020-03-05] MEDS: ceFAZolin 1000MG 1,000 MG/7.5 ML SYR IV SCH ×3 (04:15→21:11)
[2020-03-05 07:23] LABS: Hematocrit (blood only) 23.1 % (42-52); Hemoglobin 8.3 g/dL (14.0-18.0); Mean Corpuscular Hemoglobin 41.1 pg (25-34); Mean Corpuscular Hgb Conc 35.9 g/dL (32-36); Mean Corpuscular Volume 114.4 fL (80-100); Mean Platelet Volume 11.8 fL (7.4-10.4); Platelet Count 119 K/uL (130-400); RDW Coefficient of Variation 18.6 % (11.5-14.5); RDW Standard Deviation 82.9 fL (36.4-46.3); Red Blood Count 2.02 M/uL (4.7-6.1); White Blood Count 6.56 K/uL (4.8-10.8)
[2020-03-05 08:08] LABS: Potassium 3.5 mmol/L (3.5-5.1)
[2020-03-05 08:09] LABS: Magnesium 1.4 mg/dl (1.8-2.4)
[2020-03-05 08:11] LABS: Albumin Globulin Ratio 0.8 (0.9-2); Albumin Level 2.4 gm/dl (3.4-5.0); BUN Creatinine Ratio 22.7 (10-20); Calcium 8.8 mg/dl (8.5-10.1); Creatinine Clr Calc Pharmacy 118.2 ml/min; Est GFR (African American) 85.7; Est GFR (Non-African American) 73.9; Globulin 2.9 gm/dl (2.5-4.0); Total Protein 5.3 gm/dl (6.4-8.2)
--- NOTE | 2020-03-05 08:17 | Gastroenterology Progress Note ---
Date of Service March 05, 2020 Assessment & Plan (1) Alcoholic cirrhosis: 34 year old male admitted w COVID-19 infection, sepsis, ETOH cirrhosis with suspected ETOH hepatitis w/ improving hepatic and renal function Clinically feeling well, AM labs pending Previous MELD: 28 Previous Maddrey Discriminant Function score: 43 - Daily MELD labs - Low NA diet - Hold diuresis - Appreciate nephrology input - Can continue NAC per protocol - Prednisone for alc hep - Calculate lilie score day 7 - Diagnostic paracentesis to rule out infection - SBP unlikely in initial cell count but await culture no growth to date - Strict ETOH cessation advised - Consider transfer to tertiary care center if decompensates Please contact diabetes solutions specialist service ([facility] Dr. Polo) over the weekend for any acute changes, questions or concerns. Thank you for allowing us to participate in the care of this patient. Please call with any acute changes, questions or concerns. Please see addendum below with additional recommendation from my supervising physician. Present on Admission?: Yes Admission and Anticipated Discharge Date Admission Date: February 26, 2020 Supervising Physician Co-Signing Physician Notes I saw and evaluated the patient. He does seem to be we would recommend continued use of prednisolone for total of 30 days after which time a tapering dose will be requires. The patient will remain on N-acetylcysteine for a total of 5 days as per recommendations from [facility] transplant hepatology. Subjective Pt was seen and evaluated, chart reviewed. Labs pending at time of consultation. Offers no concerns this AM No abd pain No nausea,vomiting Tolerating PO. Moving bowels w/o evidence of GI blood loss. Mentating clearing Hopes to remain ETOH free and seek IP rehabilitation at discharge Review of Systems Constitutional: no fever and no fatigue Respiratory: no cough and no dyspnea Cardiovascular: no chest pain and no dyspnea Gastrointestinal: no abdominal pain, no nausea, no coffee ground emesis, no blood in stools and no melena Physical Exam Constitutional: well developed and well nourished; no acute distress Neck: trachea midline Respiratory: normal respiratory effort Cardiovascular: Rate/Rhythm: regular rate Gastrointestinal (Abdomen): Percussion/Palpation: abdomen soft and + ascites; abdomen nontender, no guarding and abdomen not rigid Skin: no rashes, warm and dry Results & Data ([facility]) Vital Signs (Past 12 Hours) Vital Signs Temp Pulse Resp BP Pulse Ox 03/05/20 03:57 37.0 C 97 H 18 113/61 97 03/04/20 23:05 37.2 C 89 18 118/73 99 03/04/20 20:32 36.7 C 95 H 20 109/67 92 Laboratory Results Laboratory Results - last 24 hr 03/05/20 03/05/20 03/05/20 06:56 06:56 07:48 WBC 6.56 RBC 2.02 L Hgb 8.3 L Hct 23.1 L MCV 114.4 H MCH 41.1 H MCHC 35.9 RDW Std Deviation 82.9 H RDW Coeff of Alvaro 18.6 H Plt Count 119 L MPV 11.8 H PT 18.6 H INR 1.8 H Sodium 135 L Potassium 3.5 Chloride 97 L Carbon Dioxide 27 Anion Gap 11.0 BUN 29 H Creatinine 1.26 D Est Cr Clr Drug Dosing 118.2 Est GFR ( Amer) 85.7 Est GFR (Non-Af Amer) 73.9 BUN/Creatinine Ratio 22.7 H Glucose 99 Calcium 8.8 Magnesium 1.4 L Total Bilirubin 5.0 H AST 106 H ALT 56 Alkaline Phosphatase 109 Total Protein 5.3 L Albumin 2.4 L Globulin 2.9 Albumin/Globulin Ratio 0.8 L
[2020-03-05 08:21] LABS: INR 1.8 (0.9-1.1); Prothrombin Time 18.6 Seconds (9.0-12.0)
[2020-03-05] MEDS: PANTOprazole 40 MG TAB PO SCH ×2 (09:55→20:47)
[2020-03-05] MEDS: FUROSEMIDE 40 MG TAB PO SCH ×2 (09:59→10:07)
[2020-03-05] MEDS: LIDOCAINE 5% 1 PATCH TD SCH (10:00)
[2020-03-05] MEDS: prednisoLONE SYRUP 15 MG/5 ML BTL PO SCH (10:06)
[2020-03-05] MEDS: VITAMIN B COMPLEX TAB PO SCH (10:06)
[2020-03-05] MEDS: THIAMINE HCL 100 MG TAB PO SCH (10:06)
[2020-03-05] MEDS: SPIRONOLACTONE 100 MG TAB PO SCH (10:06)
[2020-03-05] MEDS: LACTULOSE SYRUP 20 GM/30 ML UDC PO SCH ×3 (10:06→20:43)
[2020-03-05] MEDS: ASCORBIC ACID 500 MG TAB PO SCH ×2 (10:06→20:46)
[2020-03-05] MEDS: rifAXIMin 550 MG TABLET PO SCH ×2 (10:06→20:46)
[2020-03-05] MEDS: MAGNESIUM OXIDE 400 MG TAB PO SCH (10:07)
[2020-03-05] MEDS: FOLIC ACID 1 MG TAB PO SCH (10:07)
--- NOTE | 2020-03-05 10:12 | Nephrology Progress Note ---
Date of Service March 05, 2020 Assessment & Plan (1) Acute kidney failure: * HUYEN resolved. Creatinine is back to baseline. Electrolyte balance is acceptable * HUYEN was likely due to IV contrast administration in the setting of cirrhosis and intravascular volume contraction. Urine sediment did reveal granular casts c/w ATN * No further Nephrology evaluation indicated at this time. Will sign off. Please call if further assistance is needed (2) Anemia: * Hgb has improved 7.1-->8.3 following one unit PRBC 03/03/20 * EGD 03/02/19: grade I esophageal varices, no active bleeding (3) Hyponatremia: * Corrected. (4) Alcoholic cirrhosis: * 6 L paracentesis completed 03/02/20 * Continue Lasix 40 mg po and Spironolactone 100 mg po daily to help mobilize ascitic fluid and peripheral edema (5) Severe acute respiratory syndrome coronavirus 2 (SARS-CoV-2) detected: * Isolation discontinued 03/01/20 Admission and Anticipated Discharge Date Admission Date: February 26, 2020 Subjective Mr. Longo was seen & examined in his hospital room this morning. He denies dyspnea or abdominal discomfort. He was able to tolerate his diet this morning. Review of Systems Constitutional: + weakness; no fever Eyes: no problem reported Respiratory: no dyspnea Cardiovascular: + edema; no chest pain Gastrointestinal: no abdominal pain Physical Exam Constitutional: no acute distress Eyes: PERRL Neck: trachea midline, no thyromegaly Respiratory: normal respiratory effort, lungs clear to auscultation Cardiovascular: Rate/Rhythm: regular rate and regular rhythm Extremities: + edema Gastrointestinal (Abdomen): Inspection/Auscultation: + abdomen distended and normal bowel sounds Skin: + jaundice Results & Data ([facility]) Vital Signs (Past 12 Hours) Vital Signs Temp Pulse Pulse Resp BP Pulse Ox 03/05/20 07:00 36.8 C 85 18 129/66 96 03/05/20 03:57 37.0 C 97 H 18 113/61 97 03/04/20 23:05 37.2 C 89 18 118/73 99 Laboratory Tests 03/05/20 03/05/20 06:56 06:56 WBC 6.56 Hgb 8.3 L Hct 23.1 L Plt Count 119 L Sodium 135 L Potassium 3.5 Chloride 97 L Carbon Dioxide 27 BUN 29 H Creatinine 1.26 D Glucose 99 Magnesium 1.4 L Total Bilirubin 5.0 H AST 106 H ALT 56 Alkaline Phosphatase 109 Albumin 2.4 L PG Care Time/CCT Total # of Minutes Spent Total Time Spent with Patient: Total time spent is greater than 50% in coordination of care (as documented) at patient's floor/unit and/or counseling patient: Coding Level of Care Code 18971 Subseq Hosp Care Lvl 3 Diagnoses Acute kidney failure N17.9 Anemia D64.9 Hyponatremia E87.1 Alcoholic cirrhosis K70.30 Severe acute respiratory syndrome coronavirus 2 (SARS-CoV-2) detected U07.1
--- NOTE | 2020-03-05 14:09 | Hospitalist Progress Note ---
Date of Service March 05, 2020 Assessment & Plan (1) Alcoholic cirrhosis: Alcoholic liver cirrhosis with ascites - suspected main cause of his shortness of breath. Could have some acute hepatitis, not sure he is being honest about timing of last drink, his AST and ALT were elevated. Grade 1 esophageal varices seen on EGD on 03/[address] Dubon discussed with [facility] Liver Tx team on 03/01/2020, and he was felt to not be a transplant candidate. Transfer turned down. - MELD was 36 on 03/02: 52.6% 3 month mortality - Maddrey's DF was 25.5 on admission. - Paracentesis on 03/02. WBC was 320 with 11% neutrophils > Started prednisolone 40 mg PO daily on 03/03. Discussed with [place] buildings and grounds coordinator Kwame Phillips who recommended NAC for alk hep protocol. This is 5-day protocol. - Ammonia elevated on 03/02 -> Started lactulose and rifaximin. Mental status much clearer today. - Discussed with GI today. Plan to keep probably until Sunday to finish NAC protocol. Patient asks that we check for further abdominal fluid to see if we can take more off. (2) AH (alcoholic hepatitis): Initially suspected this; not sure if has been drinking more recently than early January. He is not honest about his drinking; will not even tell his when he has been drinking. - ANUP initiated on 03/02 -> Generally low; no lorazepam needed. - As above (3) Acute kidney failure: Certainly makes for poorer prognosis with cirrhosis. - Concern for HRS, though nephrology feel contrast-induced ATN more likely at this point. - Started on albumin; gave through paracentesis per GI, then stopped. - Tapered midodrine and off on 03/04. - Improving today to 1.25. (4) Anemia: Macrocytic. Likely from low folate and alcohol use. - Continue folic acid 1 gm daily. B12 normal on 02/29/2020. - Per nephrology, would transfuse for hgb < 7.5. Approved by GI as I had some concern for increased variceal bleed with tx. 1 unit PRBCs on 03/03. - Hgb 8.3 today. (5) Thrombocytopenia: Likely due to cirrhosis, splenomegaly. - No bleeding noted on EGD on 03/02 - Continue to follow (6) Hyponatremia: Secondary to hypervolemia. - Stable today (7) Acid reflux: C/o heartburn. - Continue PPI PO BID & Tums PRN (8) Severe acute respiratory syndrome coronavirus 2 (SARS-CoV-2) detected: No pneumonia on CXR. Do not suspect he is substantially affected by this. No need for dexamethasone. Symptoms of sore throat, malaise, & muscle aches started around 02/11. Had positive test outpatient on 02/16. - He is over two weeks from start of symptoms, should not be contagious. (9) DVT prophylaxis: SCDs - Holding heparin for increased INR and low platelets Admission and Anticipated Discharge Date Admission Date: February 26, 2020 Subjective Doing well today. Feels legs are getting better and stomach is a bit better. Reports no fevers/chills, chest pain, shortness of breath, abdominal pain, nausea, or vomiting. Physical Exam Constitutional: WD/WN, vitals as above no acute distress Eyes: EOM intact bilaterally; no conjunctival abnormality ENMT: external ear and nose normal, oropharynx normal Neck: trachea midline, no thyromegaly normal visual inspection Respiratory: no respiratory distress and no labored breathing Auscultation: lungs clear to auscultation bilaterally Cardiovascular: Rate/Rhythm: regular rhythm and + tachycardic Heart Sounds: normal S1 and normal S2 Extremities: no edema Gastrointestinal (Abdomen): Inspection/Auscultation: abdomen normal to inspection; abdomen not distended Musculoskeletal: no cyanosis or clubbing, extremities motor strength 5/5 Skin: no rashes, warm and dry + striae (On abdomen) Neurologic: moves all extremities and awake Psychiatric: Orientation: alert, oriented to person and cooperative Results & Data Results & Data ([facility]) Vital Signs (Past 12 Hours) Vital Signs Temp Pulse Pulse Resp BP Pulse Ox 03/05/20 12:03 37.0 C 72 18 118/66 96 03/05/20 07:00 36.8 C 85 18 129/66 96 03/05/20 03:57 37.0 C 97 H 18 113/61 97 PG Care Time/CCT Total # of Minutes Spent Total Time Spent with Patient: Total time spent is greater than 50% in coordination of care (as documented) at patient's floor/unit and/or counseling patient: Coding Level of Care Code 51176 Subseq Hosp Care Lvl 2 Diagnoses Alcoholic cirrhosis K70.30 AH (alcoholic hepatitis) K70.10 Ascites presence: unspecified Acute kidney failure N17.9 Anemia D64.9 Thrombocytopenia D69.6 Hyponatremia E87.1 Acid reflux K21.9 Severe acute respiratory syndrome coronavirus 2 (SARS-CoV-2) detected U07.1 DVT prophylaxis Z29.9 (1) AH (alcoholic hepatitis) Ascites presence: unspecified Qualified Code(s): K70.10 - Alcoholic hepatitis without ascites
[2020-03-05] MEDS: AcetylCYSTEINE 10,000 MG in DEXTROSE 5% 1,000 ML IV SCH (14:33)
--- NOTE | 2020-03-05 15:43 | Ultrasound Report ---
US abdomen ltd ascites CLINICAL HISTORY: Ascites check COMPARISON STUDY: CT of the abdomen and pelvis February 26, 2020. TECHNIQUE: Sonography of the abdomen and pelvis was performed to assess for ascites. FINDINGS: A [id number] amount of ascites is noted within the abdomen and pelvis. The amount of ascites has significantly decreased since CT of July 26, 2020. IMPRESSION: Small to moderate ascites, significantly decreased since CT of February 26, 2020. ACT 112: Negative or not required by law. Electronically signed by: Enrike Burnham M.D. 03/05/2020 3:41 PM
[2020-03-05] MEDS: DAPTOmycin 425 MG in SYRINGE 0 ML IV SCH (21:12)
[2020-03-05] MEDS: LORazepam 1 MG TAB PO PRN (23:04)
[2020-03-06] MEDS: ceFAZolin 1000MG 1,000 MG/7.5 ML SYR IV SCH ×2 (03:49→11:25)
[2020-03-06 06:06] LABS: Hematocrit (blood only) 23.5 % (42-52); Hemoglobin 8.4 g/dL (14.0-18.0); Mean Corpuscular Hemoglobin 41.4 pg (25-34); Mean Corpuscular Hgb Conc 35.7 g/dL (32-36); Mean Corpuscular Volume 115.8 fL (80-100); Mean Platelet Volume 11.8 fL (7.4-10.4); Platelet Count 125 K/uL (130-400); RDW Coefficient of Variation 17.9 % (11.5-14.5); RDW Standard Deviation 79.8 fL (36.4-46.3); Red Blood Count 2.03 M/uL (4.7-6.1); White Blood Count 5.66 K/uL (4.8-10.8)
[2020-03-06 06:18] LABS: INR 1.8 (0.9-1.1); Prothrombin Time 18.2 Seconds (9.0-12.0)
[2020-03-06 06:34] LABS: Albumin Level 2.2 gm/dl (3.4-5.0); BUN Creatinine Ratio 22.5 (10-20); Calcium 7.8 mg/dl (8.5-10.1); Creatinine Clr Calc Pharmacy 153.5 ml/min; Est GFR (African American) 117.6; Est GFR (Non-African American) 101.4; Magnesium 1.4 mg/dl (1.8-2.4)
[2020-03-06 06:49] LABS: Albumin Globulin Ratio 0.8 (0.9-2); Bilirubin,Total 4.1 mg/dl (0.2-1); Globulin 2.7 gm/dl (2.5-4.0); Total Protein 4.9 gm/dl (6.4-8.2)
[2020-03-06] MEDS: VITAMIN B COMPLEX TAB PO SCH (08:59)
[2020-03-06] MEDS: POTASSIUM CHLORIDE CRTAB 20 MEQ TABCR PO SCH ×2 (08:59→20:17)
[2020-03-06] MEDS: MAGNESIUM SULFATE / D5W 1 GM/100 ML BAG IV SCH ×2 (08:59→10:15)
[2020-03-06] MEDS: prednisoLONE SYRUP 15 MG/5 ML BTL PO SCH (09:00)
[2020-03-06] MEDS: rifAXIMin 550 MG TABLET PO SCH ×2 (09:00→20:19)
[2020-03-06] MEDS: LACTULOSE SYRUP 20 GM/30 ML UDC PO SCH ×3 (09:00→20:15)
[2020-03-06] MEDS: ASCORBIC ACID 500 MG TAB PO SCH ×2 (09:00→20:19)
[2020-03-06] MEDS: THIAMINE HCL 100 MG TAB PO SCH (09:00)
[2020-03-06] MEDS: LIDOCAINE 5% 1 PATCH TD SCH (09:00)
[2020-03-06] MEDS: FOLIC ACID 1 MG TAB PO SCH (09:00)
[2020-03-06] MEDS: SPIRONOLACTONE 100 MG TAB PO SCH (09:00)
[2020-03-06] MEDS: PANTOprazole 40 MG TAB PO SCH ×2 (09:00→20:18)
[2020-03-06] MEDS: FUROSEMIDE 40 MG TAB PO SCH (09:00)
[2020-03-06] MEDS: MAGNESIUM OXIDE 400 MG TAB PO SCH (09:00)
--- NOTE | 2020-03-06 13:55 | Hospitalist Progress Note ---
Date of Service March 06, 2020 Assessment & Plan (1) Alcoholic cirrhosis: Alcoholic liver cirrhosis with ascites - suspected main cause of his shortness of breath. Could have some acute hepatitis, not sure he is being honest about timing of last drink, his AST and ALT were elevated. Grade 1 esophageal varices seen on EGD on 03/[address] Dubon discussed with [facility] Liver Tx team on 03/01/2020, and he was felt to not be a transplant candidate. Transfer turned down. - MELD was 36 on 03/02: 52.6% 3 month mortality - Maddrey's DF was 25.5 on admission. - Paracentesis on 03/02. WBC was 320 with 11% neutrophils > Started prednisolone 40 mg PO daily on 03/03. Discussed with [place] medicaid service coordinator Kwame Phillips on 03/03 who recommended NAC for alk hep protocol. This is 5-day protocol. - Ammonia elevated on 03/02 -> Started lactulose and rifaximin. Mental status much clearer today. - Discussed with GI today. Plan to keep probably until Sunday to finish NAC protocol. Will attempt paracentesis today if I can find a pocket. (2) AH (alcoholic hepatitis): Initially suspected this; not sure if has been drinking more recently than early January. He is not honest about his drinking; will not even tell his when he has been drinking. - ANUP initiated on 03/02 -> Generally low; no lorazepam needed. - As above (3) Acute kidney failure: Certainly makes for poorer prognosis with cirrhosis. - Concern for HRS, though nephrology feel contrast-induced ATN more likely at this point. - Started on albumin; gave through paracentesis per GI, then stopped. - Tapered midodrine and off on 03/04. - Improving today to 1.00. (4) Anemia: Macrocytic. Likely from low folate and alcohol use. - Continue folic acid 1 gm daily. B12 normal on 02/29/2020. - Per nephrology, would transfuse for hgb < 7.5. Approved by GI as I had some concern for increased variceal bleed with tx. 1 unit PRBCs on 03/03. - Hgb 8.4 today. (5) Thrombocytopenia: Likely due to cirrhosis, splenomegaly. - No bleeding noted on EGD on 01/12 - Continue to follow (6) Hyponatremia: Secondary to hypervolemia. - Resolved. (7) Acid reflux: C/o heartburn. - Continue PPI PO BID & Tums PRN (8) Severe acute respiratory syndrome coronavirus 2 (SARS-CoV-2) detected: No pneumonia on CXR. Do not suspect he is substantially affected by this. No need for dexamethasone. Symptoms of sore throat, malaise, & muscle aches started around 02/11. Had positive test outpatient on 02/16. - He is over two weeks from start of symptoms, should not be contagious. (9) DVT prophylaxis: SCDs - Holding heparin for increased INR and low platelets Admission and Anticipated Discharge Date Admission Date: February 26, 2020 Subjective Doing well today. Plan for paracentesis if able today. Reports no fevers/chills, chest pain, shortness of breath, abdominal pain, nausea, or vomiting. Physical Exam Constitutional: WD/WN, vitals as above no acute distress Eyes: EOM intact bilaterally; no conjunctival abnormality ENMT: external ear and nose normal, oropharynx normal Neck: trachea midline, no thyromegaly normal visual inspection Respiratory: no respiratory distress and no labored breathing Auscultation: lungs clear to auscultation bilaterally Cardiovascular: Rate/Rhythm: regular rhythm and + tachycardic Heart Sounds: normal S1 and normal S2 Extremities: no edema Gastrointestinal (Abdomen): Inspection/Auscultation: abdomen normal to inspection; abdomen not distended Musculoskeletal: no cyanosis or clubbing, extremities motor strength 5/5 Skin: no rashes, warm and dry + striae (On abdomen) Neurologic: moves all extremities and awake Psychiatric: Orientation: alert, oriented to person and cooperative Results & Data Results & Data ([facility]) Vital Signs (Past 12 Hours) Vital Signs Temp Pulse Pulse Resp BP Pulse Ox 03/06/20 12:22 36.8 C 89 18 110/65 96 03/06/20 07:05 36.9 C 92 H 19 110/65 92 03/06/20 03:31 36.7 C 98 H 20 114/70 96 PG Care Time/CCT Total # of Minutes Spent Total Time Spent with Patient: Total time spent is greater than 50% in coordination of care (as documented) at patient's floor/unit and/or counseling patient: Coding Level of Care Code 88643 Subseq Hosp Care Lvl 2 Diagnoses Alcoholic cirrhosis K70.30 AH (alcoholic hepatitis) K70.10 Ascites presence: unspecified Acute kidney failure N17.9 Anemia D64.9 Thrombocytopenia D69.6 Hyponatremia E87.1 Acid reflux K21.9 Severe acute respiratory syndrome coronavirus 2 (SARS-CoV-2) detected U07.1 DVT prophylaxis Z29.9 (1) AH (alcoholic hepatitis) Ascites presence: unspecified Qualified Code(s): K70.10 - Alcoholic hepatitis without ascites
[2020-03-06] MEDS: AcetylCYSTEINE 10,000 MG in DEXTROSE 5% 1,000 ML IV SCH (14:47)
[2020-03-06] MEDS ORDERED: LIDOCAINE/EPINEPHRINE 2% 1:200,000 20 ML SDV INFIL STA (15:00)
[2020-03-06] MEDS: cephALEXin 500 MG CAP PO SCH ×2 (16:26→20:16)
--- NOTE | 2020-03-06 16:49 | Procedure Note ---
Procedure Note Date of Service March 06, 2020 Supervising Physician Co-Signing Physician Notes fluid returned. The catheter was removed and the tip was intact. There was no bleeding from the site and minimal peritoneal leak. There were no complications at the end of the procedure. Coding CPT Codes Abdomen - Abdominal: 73587 Abdominal Paracentesis (diagnostic or therapeutic); W/O imaging ([id number]) [facility] [place] Codes (Charges) Abdomen Abdominal: 87684 Abdominal Paracentesis (diagnostic or therapeutic); W/O imaging (Paracentesis performed after using ultrasound to find good pocket of fluid. Area cleaned with chlorhexadine. Sterile gloves put on. Area numbed with lidocaine. Needle advanced with clean peritoneal fluid flushing back. Catheter inserted with clear perotenal fluid returning. 3.5L of clear, yellow flu)
[2020-03-06] MEDS: DAPTOmycin 425 MG in SYRINGE 0 ML IV SCH (20:16)
[2020-03-06] MEDS: LORazepam 1 MG TAB PO PRN (23:28)
[2020-03-07 07:04] LABS: Hematocrit (blood only) 25.4 % (42-52); Hemoglobin 8.9 g/dL (14.0-18.0); Mean Corpuscular Hemoglobin 40.6 pg (25-34); Mean Platelet Volume 11.6 fL (7.4-10.4); Platelet Count 132 K/uL (130-400); RDW Coefficient of Variation 17.9 % (11.5-14.5); RDW Standard Deviation 79.5 fL (36.4-46.3); Red Blood Count 2.19 M/uL (4.7-6.1); White Blood Count 6.58 K/uL (4.8-10.8)
[2020-03-07 07:13] LABS: INR 1.9 (0.9-1.1); Prothrombin Time 19.6 Seconds (9.0-12.0)
[2020-03-07 07:43] LABS: Albumin Globulin Ratio 0.8 (0.9-2); Albumin Level 2.2 gm/dl (3.4-5.0); BUN Creatinine Ratio 19.9 (10-20); Bilirubin,Total 3.8 mg/dl (0.2-1); Calcium 7.7 mg/dl (8.5-10.1); Creatinine Clr Calc Pharmacy 187.2 ml/min; Est GFR (African American) 136.5; Est GFR (Non-African American) 117.8; Globulin 2.7 gm/dl (2.5-4.0); Magnesium 1.4 mg/dl (1.8-2.4); Potassium 3.7 mmol/L (3.5-5.1); Total Protein 4.9 gm/dl (6.4-8.2)
[2020-03-07] MEDS: VITAMIN B COMPLEX TAB PO SCH (08:40)
[2020-03-07] MEDS: SPIRONOLACTONE 100 MG TAB PO SCH (08:40)
[2020-03-07] MEDS: rifAXIMin 550 MG TABLET PO SCH ×2 (08:40→19:53)
[2020-03-07] MEDS: MAGNESIUM OXIDE 400 MG TAB PO SCH (08:40)
[2020-03-07] MEDS: ASCORBIC ACID 500 MG TAB PO SCH ×2 (08:40→19:52)
[2020-03-07] MEDS: THIAMINE HCL 100 MG TAB PO SCH (08:40)
[2020-03-07] MEDS: cephALEXin 500 MG CAP PO SCH ×4 (08:41→19:45)
[2020-03-07] MEDS: FOLIC ACID 1 MG TAB PO SCH (08:41)
[2020-03-07] MEDS: PANTOprazole 40 MG TAB PO SCH ×2 (08:41→19:54)
[2020-03-07] MEDS: LIDOCAINE 5% 1 PATCH TD SCH (08:41)
[2020-03-07] MEDS: LACTULOSE SYRUP 20 GM/30 ML UDC PO SCH ×3 (08:42→19:57)
[2020-03-07] MEDS: prednisoLONE SYRUP 15 MG/5 ML BTL PO SCH (08:42)
[2020-03-07] MEDS: AcetylCYSTEINE 10,000 MG in DEXTROSE 5% 1,000 ML IV SCH (15:39)
[2020-03-07] MEDS: DAPTOmycin 425 MG in SYRINGE 0 ML IV SCH (20:00)
--- NOTE | 2020-03-07 21:09 | Hospitalist Progress Note ---
Date of Service March 07, 2020 Assessment & Plan (1) Alcoholic cirrhosis: Alcoholic liver cirrhosis with ascites - suspected main cause of his shortness of breath. Could have some acute hepatitis, not sure he is being honest about timing of last drink, his AST and ALT were elevated. Grade 1 esophageal varices seen on EGD on 03/[address] Dubon discussed with [facility] Liver Tx team on 03/01/2020, and he was felt to not be a transplant candidate. Transfer turned down. - MELD was 36 on 03/02: 52.6% 3 month mortality - Maddrey's DF was 25.5 on admission. - Paracentesis on 03/02. WBC was 320 with 11% neutrophils > Started prednisolone 40 mg PO daily on 03/03. - continue prednisolone for 28 days, and finish therapy with a 16-day prednisolone taper ( decrease the dose by 10 mg per day every four days until a dose of 10 mg per day is reached, at which point we decrease it by 5 mg per day every three days). Discussed with [place] career services coordinator Kwame Phillips on 03/03 who recommended NAC for alk hep protocol. This is 5-day protocol. - Ammonia elevated on 03/02 -> Started lactulose and rifaximin. Mental status remains clear - Discussed with GI on Sunday. Plan to keep probably until Sunday to finish NAC protocol. (2) AH (alcoholic hepatitis): Initially suspected this; not sure if has been drinking more recently than early January. He is not honest about his drinking; will not even tell his when he has been drinking. - ANUP initiated on 03/02 -> Generally low; no lorazepam needed. - As above (3) Acute kidney failure: Certainly makes for poorer prognosis with cirrhosis. - Concern for HRS, though nephrology feel contrast-induced ATN more likely at this point. - Started on albumin; gave through paracentesis per GI, then stopped. - Tapered midodrine and off on 03/04. - creatinine has normalized. (4) Anemia: Macrocytic. Likely from low folate and alcohol use. - Continue folic acid 1 gm daily. B12 normal on 02/29/2020. - Per nephrology, would transfuse for hgb < 7.5. Approved by GI as I had some concern for increased variceal bleed with tx. 1 unit PRBCs on 03/03. - Hgb 8.9 today. (5) Thrombocytopenia: Likely due to cirrhosis, splenomegaly. - No bleeding noted on EGD on 03/02 - Continue to follow (6) Hyponatremia: Secondary to hypervolemia. - Resolved. (7) Acid reflux: C/o heartburn. - Continue PPI PO BID & Tums PRN (8) Severe acute respiratory syndrome coronavirus 2 (SARS-CoV-2) detected: No pneumonia on CXR. Do not suspect he is substantially affected by this. No need for dexamethasone. Symptoms of sore throat, malaise, & muscle aches started around 02/11. Had positive test outpatient on 02/16. - He is over two weeks from start of symptoms, should not be contagious. (9) DVT prophylaxis: SCDs - Holding heparin for increased INR and low platelets Admission and Anticipated Discharge Date Admission Date: February 26, 2020 Subjective Patient reports feeling well. Has no new complaints. Review of Systems Review of Systems: All systems reviewed & are unremarkable except as noted in HPI & below Physical Exam Physical Exam: Constitutional: well developed, well nourished and + edematous; no acute distress Eyes: normal visual silva by confrontation, PERRL and EOM intact bilaterally; sclerae not anicteric Neck: trachea midline, no thyromegaly Respiratory: normal respiratory effort, lungs clear to auscultation Cardiovascular: Rate/Rhythm: regular rhythm and + tachycardic Heart Sounds: normal S1 and normal S2; no murmur Extremities: normal capillary refill and + edema Gastrointestinal (Abdomen): Inspection/Auscultation: + abdomen nondistended, normal bowel sounds; Percussion/Palpation: soft, varicose veins noted on abdomen,; abdomen nontender Musculoskeletal: no cyanosis or clubbing, extremities motor strength 5/5 Skin: normal turgor;no rashes and no wound Neurologic: patellar DTR's 2+ bilat, sensation intact and PERRL, EOMI, accommodation nl, no face palsy, no dysarthria Psychiatric: Orientation: alert and oriented x 3 Affect: + anxious affect Lymphatic: no cervical or axillary lymphadenopathy Results & Data Results & Data ([facility]) Vital Signs (Past 12 Hours) Vital Signs Temp Pulse Pulse Resp BP Pulse Ox 03/07/20 19:35 36.8 C 98 H 18 121/72 93 03/07/20 16:00 36.8 C 95 H 18 112/69 98 03/07/20 12:00 36.8 C 75 18 118/59 L 99 03/07/20 11:40 88 PG Care Time/CCT Total # of Minutes Spent Total Time Spent with Patient: Total time spent is greater than 50% in coordination of care (as documented) at patient's floor/unit and/or counseling patient: Coding Level of Care Code 48335 Subseq Hosp Care Lvl 3 Diagnoses Alcoholic cirrhosis K70.30 AH (alcoholic hepatitis) K70.10 Ascites presence: unspecified Acute kidney failure N17.9 Anemia D64.9 Thrombocytopenia D69.6 Hyponatremia E87.1 Acid reflux K21.9 Severe acute respiratory syndrome coronavirus 2 (SARS-CoV-2) detected U07.1 DVT prophylaxis Z29.9 Time Spent (min) 35 (1) AH (alcoholic hepatitis) Ascites presence: unspecified Qualified Code(s): K70.10 - Alcoholic hepatitis without ascites
[2020-03-07] MEDS: LORazepam 1 MG TAB PO PRN (23:18)
[2020-03-08] MEDS: LACTULOSE SYRUP 20 GM/30 ML UDC PO SCH ×2 (08:32→12:07)
[2020-03-08] MEDS: prednisoLONE SYRUP 15 MG/5 ML BTL PO SCH (08:32)
[2020-03-08] MEDS: SPIRONOLACTONE 100 MG TAB PO SCH (08:33)
[2020-03-08] MEDS: LIDOCAINE 5% 1 PATCH TD SCH (08:33)
[2020-03-08] MEDS: THIAMINE HCL 100 MG TAB PO SCH (08:33)
[2020-03-08] MEDS: rifAXIMin 550 MG TABLET PO SCH (08:33)
[2020-03-08] MEDS: FUROSEMIDE 40 MG TAB PO SCH (08:33)
[2020-03-08] MEDS: FOLIC ACID 1 MG TAB PO SCH (08:34)
[2020-03-08] MEDS: ASCORBIC ACID 500 MG TAB PO SCH (08:34)
[2020-03-08] MEDS: cephALEXin 500 MG CAP PO SCH ×2 (08:34→12:07)
[2020-03-08] MEDS: VITAMIN B COMPLEX TAB PO SCH (08:34)
[2020-03-08] MEDS: PANTOprazole 40 MG TAB PO SCH (08:34)
[2020-03-08 09:00] LABS: Hematocrit (blood only) 28.4 % (42-52); Hemoglobin 9.8 g/dL (14.0-18.0); Immature Granulocytes # (auto) 0.06 K/uL (0.00-0.02); Immature Granulocytes % (auto) 0.6 %; Lymphocytes # (auto) 0.95 K/uL (1.2-3.4); Lymphocytes % (auto) 9.6 %; Mean Corpuscular Hemoglobin 39.8 pg (25-34); Mean Corpuscular Hgb Conc 34.5 g/dL (32-36); Mean Corpuscular Volume 115.4 fL (80-100); Monocytes # (auto) 0.76 K/uL (0.11-0.59); Monocytes % (auto) 7.7 %; Neutrophils # (auto) 8.08 K/uL (1.4-6.5); Neutrophils % (auto) 82.1 %; Platelet Count 136 K/uL (130-400); RDW Coefficient of Variation 17.4 % (11.5-14.5); RDW Standard Deviation 77.1 fL (36.4-46.3); Red Blood Count 2.46 M/uL (4.7-6.1); White Blood Count 9.85 K/uL (4.8-10.8)
[2020-03-08] MEDS ORDERED: MAGNESIUM OXIDE 400 MG TAB PO SCH (09:00)
[2020-03-08 09:08] LABS: INR 1.7 (0.9-1.1); Prothrombin Time 17.7 Seconds (9.0-12.0)
[2020-03-08 09:20] LABS: Anisocytosis Present; Basophilic Stippling 1+; Polychromasia 1+
[2020-03-08 09:36] LABS: Albumin Level 2.5 gm/dl (3.4-5.0); BUN Creatinine Ratio 14.6 (10-20); Calcium 8.3 mg/dl (8.5-10.1); Creatinine Clr Calc Pharmacy 171.8 ml/min; Est GFR (African American) 131.8; Est GFR (Non-African American) 113.7; Magnesium 1.3 mg/dl (1.8-2.4); Potassium 3.4 mmol/L (3.5-5.1)
[2020-03-08 09:39] LABS: Albumin Globulin Ratio 0.9 (0.9-2); Bilirubin,Total 4.1 mg/dl (0.2-1); Globulin 2.9 gm/dl (2.5-4.0); Total Protein 5.4 gm/dl (6.4-8.2)
--- NOTE | 2020-03-08 10:36 | Gastroenterology Progress Note ---
Date of Service March 08, 2020 Assessment & Plan (1) Alcoholic cirrhosis: 34 year old male with ETOH hepatitis improved after NAC and on prednisolone. Edema improving with diuretics. No evidence of alcohol withdraw and pt reports no drinking x 2 months. No SBP. DF 27, MELD 19, [place] 0.018 Would continue prednisone at current dose until OP GI f/u apt. Would continue furosemide 40/spironolactone 100mg daily. Will eventually need EGD for screening for varices and Q6m US for screening for HCC. No evidence of hepatic encephalopathy - so no clear indication for rifaximin. No GI contraindication to d/c today. Pt tells me he has OP GI f/u scheduled with Dr. Gregory of [facility]. [facility] gastro will sign off. Please notify Dr. Gregory is any further Gastro questions. Admission and Anticipated Discharge Date Admission Date: February 26, 2020 Supervising Physician Co-Signing Physician Notes I have discussed the patient's management with the advanced practitioner. Please refer to the nurse practitioner's note for the documented findings and plan of care. Subjective 34 yr old with ETOH hepatitis. Hx of COVID in Feb 2020 then increasing ascites since then though has abstained from alcohol x 2 months. He feels well and requests DC today. Ascites/peripheral edema decreasing. U/S paracentesis on 03/02 6L fluid removed. Neutrophils 11% and WBCs 310 and culture w/o growth - so no SBP On 5th day of prednisolone. On thiamine, folate. On Furosemide 40/spironolactone 100. Finished NAC protocol. DF = 27 MELD = 19 [place] = 0.018 Review of Systems Review of Systems: ROS: Gen: Denies weakness, fevers, weight loss Eyes: No eye redness, or pain, no recent vision changes Resp: No SOB, no cough Cardio: No palpitations/irregular beats, no chest pain GI: No abdominal pain, no nausea/vomiting : Denies pain on urination Skin: No jaundice, itching or new rashes Ext: edema improving Physical Exam Constitutional: WD/WN, vitals as above Eyes: PERRL mild icterus ENMT: external ear and nose normal, oropharynx normal Neck: trachea midline, no thyromegaly Respiratory: normal respiratory effort, lungs clear to auscultation Cardiovascular: RRR, no murmur, no edema Gastrointestinal (Abdomen): Inspection/Auscultation: + abdomen distended (mild ascites) and normal bowel sounds Percussion/Palpation: + abdomen tender (mildly enlarged/tender liver) and abdomen soft Musculoskeletal: no cyanosis or clubbing, extremities motor strength 5/5 right ankle with 2+ edema, left with 1+ Skin: no rashes, warm and dry + jaundice (mild) Neurologic: PERRL, EOMI, accommodation nl, no face palsy, no dysarthria Lymphatic: no cervical or axillary lymphadenopathy Results & Data ([facility]) Vital Signs (Past 12 Hours) Vital Signs Temp Pulse Resp BP Pulse Ox 03/08/20 07:03 36.8 C 93 H 18 115/65 91 03/08/20 04:14 36.9 C 98 H 18 104/46 L 97 03/08/20 00:08 37.1 C 93 H 18 128/73 97
--- NOTE | 2020-03-14 23:08 | Discharge Summary ---
Date of Service March 08, 2020 Admission HPI Per Admitting Provider Andres Longo is a 34 year old male with alcoholic who presents to the ER with leg swelling fatigue, shortness of breath. All symptoms progressively worse since February 12. He tested positive for COVID-19 on 16 February. He notes occasional sore throats, right headache, muscle aches in bilateral lower extremities due to swelling. He denies any fever, chills, cough, loss of taste or smell, diarrhea, nausea/vomiting, nasal congestion, confusion, chest or abdominal pain. He has a significant history of alcohol hepatitis and acute kidney injury requiring ICU admission in November 2018. He never followed up with gastroenterology or nephrology following this despite advised to do this per his PCP note. He does report relapsing early in January for 2 days he drank 1/5 of vodka. He notes taking Advil once every 1-2 weeks but no acetaminophen. In the ER chest x-ray was relatively unremarkable for COVID-19 pneumonia. Due to elevated D-dimer, abdominal distention on exam and elevated bilirubin, I advised for CT chest for PE and abdomen/pelvis with IV contrast which showed significant ascites likely as the cause of his shortness of breath. CT for PE was negative for a central pulmonary embolus. Principal Diagnosis alcoholic cirrhosis Discharge Exam Constitutional: well developed, well nourished, no acute distress Eyes: normal visual silva by confrontation, PERRL and EOM intact bilaterally; sclerae not anicteric Neck: trachea midline, no thyromegaly Respiratory: normal respiratory effort, lungs clear to auscultation Cardiovascular: Rate/Rhythm: regular rhythm and + tachycardic Heart Sounds: normal S1 and normal S2; no murmur Extremities: normal capillary refill and + edema Gastrointestinal (Abdomen): Inspection/Auscultation: + abdomen nondistended, normal bowel sounds; Percussion/Palpation: soft, varicose veins noted on abdomen,; abdomen nontender Musculoskeletal: no cyanosis or clubbing, extremities motor strength 5/5 Skin: normal turgor;no rashes and no wound Neurologic: patellar DTR's 2+ bilat, sensation intact and PERRL, EOMI, accommodation nl, no face palsy, no dysarthria Psychiatric: Orientation: alert and oriented x 3 Lymphatic: no cervical or axillary lymphadenopathy Discharge Data Allergies Allergy/AdvReac Type Severity Reaction Status Date / Time No Known Allergies Allergy Verified 03/10/20 15:35 Consultations 02/26/20 15:36 ED Decision to Admit Stat 02/26/20 20:56 Consult Case Management - Discharge Planning Routine Consult Gastroenterology Routine Procedures Performed Operation Date: 03/02/20 09:35 Actual Procedures p Esophagogastroduodenoscopy - Katarzyna Hill, Ordered Studies 02/26/20 12:03 US venous doppler LE BI Stat 02/26/20 15:29 CT angio chest PE protocol Stat 02/26/20 15:33 CT abd pelvis IV con only Stat 03/01/20 20:56 US venous doppler LE LT Urgent 03/02/20 14:00 US paracentesis abd w/image Routine 03/05/20 15:00 US abdomen ltd ascites Routine Hospital Course (1) Alcoholic cirrhosis: Alcoholic liver cirrhosis with ascites - suspected main cause of his shortness of breath. Could have some acute hepatitis, not sure he is being honest about timing of last drink, his AST and ALT were elevated. Grade 1 esophageal varices seen on EGD on 03/[address] Dubon discussed with [facility] Liver Tx team on 03/01/2020, and he was felt to not be a transplant candidate. Transfer turned down. - MELD was 36 on 03/02: 52.6% 3 month mortality - Maddrey's DF was 25.5 on admission. - Paracentesis on 03/02. WBC was 320 with 11% neutrophils > Started prednisolone 40 mg PO daily on 03/03. - continue prednisolone for 28 days, and finish therapy with a 16-day prednisolone taper ( decrease the dose by 10 mg per day every four days until a dose of 10 mg per day is reached, at which point we decrease it by 5 mg per day every three days). Discussed with [place] curriculum and assessment coordinator Kwame Phillips on 03/03 who recommended NAC for alk hep protocol. This is 5-day protocol. - Ammonia elevated on 03/02 -> Started lactulose and rifaximin. Mental status remains clear - Discussed with GI on Sunday. Completed NAC protocol. continue spironolactone and furosemide at 100/40 mg continue prednisolone unti appointment. (2) AH (alcoholic hepatitis): Initially suspected this; not sure if has been drinking more recently than early January. He is not honest about his drinking; will not even tell his when he has been drinking. - ANUP initiated on 03/02 -> Generally low; no lorazepam needed. - As above (3) Acute kidney failure: Certainly makes for poorer prognosis with cirrhosis. - Concern for HRS, though nephrology feel contrast-induced ATN more likely at this point. - Started on albumin; gave through paracentesis per GI, then stopped. - Tapered midodrine and off on 03/04. - creatinine has normalized. (4) Anemia: Macrocytic. Likely from low folate and alcohol use. - Continue folic acid 1 gm daily. B12 normal on 02/29/2020. - Per nephrology, would transfuse for hgb < 7.5. Approved by GI as I had some concern for increased variceal bleed with tx. 1 unit PRBCs on 03/03. - Hgb stable.. (5) Thrombocytopenia: Likely due to cirrhosis, splenomegaly. - No bleeding noted on EGD on 03/02 - Continue to follow (6) Hyponatremia: Secondary to hypervolemia. - Resolved. (7) Acid reflux: C/o heartburn. - Continue PPI PO BID & Tums PRN (8) Severe acute respiratory syndrome coronavirus 2 (SARS-CoV-2) detected: No pneumonia on CXR. Do not suspect he is substantially affected by this. No need for dexamethasone. Symptoms of sore throat, malaise, & muscle aches started around 02/11. Had positive test outpatient on 02/16. - He is over two weeks from start of symptoms, should not be contagious. (9) DVT prophylaxis: SCDs - Holding heparin for increased INR and low platelets Total Time Total Time Spent Total Time Spent (In Minutes): 32 Total Time Includes: Examination of the Patient, Discharge Planning and Medication Reconciliation Discharge Plan Discharge Items Patient Disposition: Home - Self-Care Reason For Visit: ACUTE ALCOHOLIC HEPATITIS W ASCITES, COVID+ Discharge Diagnosis: aCUTE ALCOHOLIC HEPATITIS W ASCITIES, COVID + Activity: Resume your previous activity Non-emergency contact: Primary Care Provider Call non-emergency contact if: you have any medication questions Follow-up/Referrals: Ion Capps MD [Primary Care Provider] - 03/16/20 3:15 pm Kirs Gregory [Physician] - 03/11/20 2:00 pm (Dr. Gregory is one of the local [facility]) GI doctors and can also help you arrange a visit with Dr. Phillips. ) Diet: Low Sodium (2gm) Tree Attending Provider Instructions: Will continue prednisone at current dose until Outpatient GI f/u apt. Will continue furosemide 40/spironolactone 100mg daily. You will need to abstain from alcohol. If you continue to drink, you will from this. Please followup with GI. 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 Kwame Phillips is the [place] [facility] [employer]. His appointment number is [phone]. Pending Studies at Discharge: No Stand-Alone Forms: My [facility] Outsmart, Smoking Cessation Medications and DC Order Prescriptions: New cephalexin 500 mg Capsule 500 mg PO QID Qty: 8 RF: 0 furosemide 40 mg Tablet 40 mg PO QAM Qty: 30 RF: 0 spironolactone 100 mg Tablet 100 mg PO QAM Qty: 30 RF: 0 magnesium oxide 400 mg (241.3 mg magnesium) Tablet 400 mg PO BID Qty: 60 RF: 0 pantoprazole 40 mg Tablet,Delayed Release (Dr/Ec) 40 mg PO DAILY Qty: 30 RF: 0 prednisolone 15 mg/5 mL Solution 40 mg PO QAM Qty: 480 RF: 0 thiamine HCl (vitamin B1) [Vitamin B-1] 100 mg Tablet 100 mg PO QAM Qty: 30 RF: 0 folic acid 1 mg Tablet 1 mg PO QAM Qty: 30 RF: 0 Continued ascorbic acid (vitamin C) [Vitamin C] 500 mg Tablet 500 mg PO BID RF: 0 vitamin B complex Tablet 1 tab PO QAM RF: 0 zinc 50 mg Capsule 50 mg PO BID RF: 0 No Action lorazepam 1 mg tablet See Rx Instructions PO DAILY PRN (Reason: anxiety) Qty: 14 RF: 0 Discharge Orders: Discharge Order (Routine); Ordered 03/08/20 Ordered By: Efrain Dubon Admission Data Admit Date/Time: 02/26/20 18:10 Attending Provider: Efrain Dubon Admit Provider: Kwame Platt Primary Care Provider: Ion Capps Other Providers: Jignesh Chavez ; Kwame Platt ; Dwight Ross Other Interventions: Discharge Summary Assessment (RN) Last Done: 03/08/20 13:17 Coding Level of Care Code D/C Day Management >30 mins Diagnoses Alcoholic cirrhosis K70.30 AH (alcoholic hepatitis) K70.10 Ascites presence: unspecified Acute kidney failure N17.9 Anemia D64.9 Thrombocytopenia D69.6 Hyponatremia E87.1 Acid reflux K21.9 Severe acute respiratory syndrome coronavirus 2 (SARS-CoV-2) detected U07.1 DVT prophylaxis Z29.9
== END 2020-03-08 13:20 | disposition home or self-care (01) | DRG 432 ==
LOC: ED 11:29 → SUATTDRO 18:10 → 3E 18:10 → 2S 02-28 13:45